=== PATIENT | female | born 1970 | race American Indian/Alaskan Native ===

== ENCOUNTER 2019-10-17 16:53 | Inpatient (IN) | payer OTHER ==
[2019-10-17] MEDS ORDERED: methylPREDNISolone Sod Succinate 125 MG/2 ML INJ IV ONE (17:05)
[2019-10-17] MEDS ORDERED: FAMOTIDINE 20 MG/2 ML INJ IV ONE ×3 (17:06→21:58)
[2019-10-17] MEDS ORDERED: diphenhydrAMINE 50 MG/ML VIAL IV ONE (17:06)
[2019-10-17] MEDS ORDERED: EPINEPHrine/PF (1:1,000) 1 MG/1 ML INJ SUB-Q ONE (17:07)
[2019-10-17] MEDS ORDERED: diphenhydrAMINE 50 MG/ML VIAL ONE (17:09)
[2019-10-17] MEDS ORDERED: methylPREDNISolone Sod Succinate 125 MG/2 ML INJ ONE ×2 (17:09→21:57)
[2019-10-17] MEDS ORDERED: SODIUM CHLORIDE 0.9% 1000 ML 1,000 ML ONE (17:21)
[2019-10-17] MEDS ORDERED: SUCCINYLCHOLINE CHLORIDE 200 MG/10 ML INJ MDV ONE (17:29)
[2019-10-17] MEDS ORDERED: ETOMIDATE 20 MG/10 ML INJ IV ONE ×2 (17:29→17:45)
[2019-10-17] MEDS ORDERED: MIDAZOLAM 5 MG/5 ML INJ MDV IV ONE (17:29)
[2019-10-17] MEDS ORDERED: PROPOFOL 1,000 MG/100 ML BOTTLE IV ONE ×2 (17:37→22:20)
[2019-10-17] MEDS ORDERED: LIP THERAPY VASELINE TP PRN (17:43)
[2019-10-17] MEDS ORDERED: MINERAL OIL/PETROLATUM, WHITE OPHTH OINT 3.5 GM OU PRN (17:43)
[2019-10-17] MEDS ORDERED: SUCCINYLCHOLINE CHLORIDE 200 MG/10 ML INJ MDV IV ONE (17:45)
--- NOTE | 2019-10-17 17:54 | Emergency Department Report ---
ED Allergic Reaction HPI - General Chief complaint: Allergic Reaction Stated complaint: SWOLLEN TONGUE Time Seen by Provider: 10/17/19 17:05 Source: patient Mode of arrival: Ambulatory Limitations: No Limitations - History of Present Illness Initial Comments: Patient is 49 years old female with history of hypertension. Patient presented to the ER complaining of tongue swelling and difficulty breathing and difficulty swallowing 30 minutes prior to coming to the ER. Patient is stated that she start taking lisinopril today. Patient denied any chest pain, fever or chills. Patient immediately moved to [place] ED, started on cardiac catheterization technician and oxygen, IV access. Patient immediately given Benadryl 50 mg IV, Pepcid 40 mg IV, Solu- Medrol 125 mg IV and epinephrine 0.3 mg subcutaneous. MD Complaint: allergic reaction, facial swelling -: minutes(s) (30) Exposure: medication (lisinopril) Symptoms: difficulty swallowing, difficulty breathing, orolingual swelling, hoarseness Severity: severe Treatment Prior to Arrival: none Previous Allergy History: none - Related Data Allergies Allergy/AdvReac Type Severity Reaction Status Date / Time lisinopril Allergy Angioedema Verified 10/17/19 17:55 ED Review of Systems ROS: Stated complaint: SWOLLEN TONGUE Other details as noted in HPI Comment: All other systems reviewed and negative Constitutional: denies: chills, fever Respiratory: shortness of breath. denies: cough Cardiovascular: denies: chest pain, palpitations Gastrointestinal: denies: abdominal pain ED Past Medical Hx - Past Medical History Previous Medical History?: Yes Hx Hypertension: Yes Hx Congestive Heart Failure: Yes Hx Diabetes: Yes - Surgical History Past Surgical History?: No ED Physical Exam - General Limitations: No Limitations General appearance: alert, in distress - Head Head exam: Present: atraumatic, normocephalic, normal inspection - Eye Eye exam: Present: normal appearance - ENT ENT exam: Present: other (significant tongue swelling with obvious airway compromise) - Neck Neck exam: Present: normal inspection, full ROM. Absent: tenderness, meningismus - Respiratory Respiratory exam: Present: normal lung sounds bilaterally, respiratory distress. Absent: wheezes, rales, rhonchi, stridor, accessory muscle use, decreased breath sounds, prolonged expiratory - Cardiovascular Cardiovascular Exam: Present: regular rate, normal rhythm, normal heart sounds - GI/Abdominal GI/Abdominal exam: Present: soft, normal bowel sounds. Absent: distended, tenderness, guarding, rebound, rigid, organomegaly, mass, bruit, pulsatile mass, hernia - Extremities Exam Extremities exam: Present: normal inspection, full ROM, normal capillary refill. Absent: calf tenderness - Back Exam Back exam: Present: normal inspection, full ROM. Absent: CVA tenderness (R), CVA tenderness (L) - Neurological Exam Neurological exam: Present: alert, oriented X3, CN II-XII intact - Skin Skin exam: Present: warm, intact, normal color ED Course Vital Signs 10/17/19 10/17/19 10/17/19 16:55 17:15 17:59 Temperature 98.6 F Pulse Rate 78 87 Respiratory 16 16 Rate Blood Pressure 189/113 150/93 O2 Sat by Pulse 95 98 100 Oximetry 10/17/19 18:31 Temperature Pulse Rate 85 Respiratory 17 Rate Blood Pressure 187/127 O2 Sat by Pulse 99 Oximetry ED Medical Decision Making - Lab Data Result diagrams: 10/17/19 17:39 10/17/19 17:39 - Radiology Data Radiology results: report reviewed - Medical Decision Making Patient is 49 years old female with history of hypertension. Patient presented to the ER complaining of tongue swelling and difficulty breathing and difficulty swallowing 30 minutes prior to coming to the ER. Patient is stated that she start taking lisinopril today. Patient denied any chest pain, fever or chills. Patient immediately moved to [place] ED, started on cardiac catheterization technician and oxygen, IV access. Patient immediately given Benadryl 50 mg IV, Pepcid 40 mg IV, Solu- Medrol 125 mg IV and epinephrine 0.3 mg subcutaneous. However patient symptoms is getting worse. Anticipating a difficult airway I consulted anesthesia stat. Dr. Anna from anesthesia at bedside for intubation. Using a Glidoscope patient intubated with a 7.0 endotracheal tube and started on propofol drip for sedation. I discussed the patient with Dr. Yu, she agreed to admit the patient to medical service for further management. Critical Care Time: Yes Critical care time in (mins) excluding proc time.: 45 Critical care attestation.: If time is entered above; I have spent that time in minutes in the direct care of this critically ill patient, excluding procedure time. ED Disposition Clinical Impression: Angio-edema, Airway compromise Disposition: OP ADMIT IP TO THIS HOSP Is pt being admited?: Yes Condition: Stable
--- NOTE | 2019-10-17 17:55 | Event Note ---
Date: 10/17/19 (Emergent intubation) 1720: Called to ED for patient with angioedema requiring emergent intubation. On arrival, patient awake, alert, hypertensive, SpO2 >95% on room air. Endorsed mild SOB. Large tongue noted on exam. Reported PMH HTN, DM, no anesthetic issues, and last meal immediately prior to arrival. Patient and family aware of and agreed to planned intubation. Preoxygenated on 100% O2 via ABMU. RSI w/ etomidate 12mg IV, succinylcholine 120mg IV Intubation achieved with glidescope blade 3 x 2 attempts. 7.0 oETT secured at 24cm @ incisor. Visualized ETT passing through cords, +CO2 color change, +b/l breath sounds. Atraumatic, no gastric secretions noted in oropharynx. Placed on vent by RT. CXR and sedation orders per ED. End time 1741. Clementina Anna MD Anesthesiologist
[2019-10-17] MEDS: PROPOFOL 1,000 MG/100 ML BOTTLE IV SCH (18:00)
[2019-10-17] MEDS ORDERED: MIDAZOLAM 5 MG/5 ML INJ MDV IV NR (18:00)
[2019-10-17 18:01] LABS: Basophils # (Auto) 0.1 K/mm3 (0.0-0.1); Basophils % (Auto) 0.7 % (0.0-1.8); Eosinophils # (Auto) 0.1 K/mm3 (0.0-0.4); Eosinophils % (Auto) 1.5 % (0.0-4.3); Hematocrit 37.9 % (30.3-42.9); Hemoglobin 12.8 gm/dl (10.1-14.3); Lymphocytes % (Auto) 44.3 % (13.4-35.0); Mean Corpuscular HGB Conc 34 % (30-34); Mean Corpuscular Volume 94 fl (79-97); Monocytes # (Auto) 0.6 K/mm3 (0.0-0.8); Monocytes % (Auto) 6.2 % (0.0-7.3); Platelet Count 370 K/mm3 (140-440); Red Blood Count 4.05 M/mm3 (3.65-5.03); Red Cell Distribution Width 14.8 % (13.2-15.2)
[2019-10-17 18:20] LABS: Calcium 8.9 mg/dL (8.4-10.2)
--- NOTE | 2019-10-17 18:20 | XRay Report ---
CHEST 1 VIEW 10/17/2019 5:57 PM INDICATION / CLINICAL INFORMATION: ETT placement. COMPARISON: None available. FINDINGS: SUPPORT DEVICES: ET tube has been placed with the tip about 3 cm above the mikayla. HEART / MEDIASTINUM: There is mild cardiomegaly. LUNGS / PLEURA: There is mild pulmonary vascular congestion. No pneumothorax. ADDITIONAL FINDINGS: No significant additional findings. IMPRESSION: 1. ET tube in place with the tip about 3 cm above the mikayla. 2. Findings suggesting mild CHF. Signer Name: Franck Flaherty MD Signed: 10/17/2019 6:16 PM Workstation Name: [id number]
[2019-10-17] MEDS ORDERED: ONDANSETRON 4 MG/2 ML INJ IV PRN (19:14)
--- NOTE | 2019-10-17 19:14 | History and Physical Report ---
History of Present Illness Chief complaint: Facial and tongue swelling History of present illness: 49-year-old woman with history of hypertension who takes lisinopril who presents to the ER with tongue swelling and difficulty breathing and swallowing for 30 minutes. She had last taken her lisinopril today in the morning. She was seen in the ER, she had worsening tongue swelling and airway swelling and she was pro mptly intubated. History is taken from chart. Her family members at the bedside states that she has never had any other medical problems besides hypertension that they knew of. She has also never suffered any allergy to food or any medications in the past. Past medical history; hypertension, diabetes, CHF Surgical history; unknown Social history; family did not report any bad habits, Family history; noncontributory Medications and Allergies Allergies Allergy/AdvReac Type Severity Reaction Status Date / Time lisinopril Allergy Angioedema Verified 10/17/19 17:55 Active Meds: Active Medications Hydrophilic Ointment (Vaseline Lip Therapy) 1 applic TP Q2HR PRN PRN Reason: Dry Lips Propofol (Diprivan 10 Mg/Ml) 1,000 mg in 100 mls @ 3.293 mls/hr IV TITR MIRI; Protocol Last Titration: 10/17/19 18:25 Dose: 15 mcg/kg/min, 9.879 mls/hr Documented by: Midazolam HCl (Versed) 5 mg IV ONCE NR Stop: 10/17/19 23:59 Last Admin: 10/17/19 17:36 Dose: 5 mg Documented by: Multi-Ingred Cream/Lotion/Oil/Oint (Artificial Tears Ophth Oint) 1 applic OU Q4HR PRN PRN Reason: Dry Eye(s) Review of Systems ROS unobtainable: due to endotracheal tube, due to mental status Exam - Constitutional Vitals: Temp Pulse Resp BP Pulse Ox 98.6 F 85 17 187/127 99 10/17/19 16:55 10/17/19 18:31 10/17/19 18:31 10/17/19 18:31 10/17/19 18:31 General appearance: Present: mild distress, well-nourished, other (Facial swelling noted) - EENT Eyes: Present: PERRL ENT: hearing intact, clear oral mucosa - Neck Neck: Present: supple, normal ROM - Respiratory Respiratory effort: normal Respiratory: bilateral: CTA - Cardiovascular Heart Sounds: Present: S1 & S2. Absent: rub, click - Extremities Extremities: pulses symmetrical, No edema Peripheral Pulses: within normal limits - Abdominal General gastrointestinal: Present: soft, non-tender, non-distended, normal bowel sounds Female genitourinary: Present: normal - Integumentary Integumentary: Present: clear, warm, dry - Musculoskeletal Musculoskeletal: other (Have spontaneous movements of extremities, but she is sedated) - Psychiatric Psychiatric: other (Intubated and sedated) - Neurologic Neurologic: moves all extremities, other (Sedated) Results - Labs CBC & Chem 7: 10/17/19 17:39 10/17/19 17:39 Labs: Laboratory Last Values WBC 9.0 K/mm3 (4.5-11.0) 10/17/19 17:39 RBC 4.05 M/mm3 (3.65-5.03) 10/17/19 17:39 Hgb 12.8 gm/dl (10.1-14.3) 10/17/19 17:39 Hct 37.9 % (30.3-42.9) 10/17/19 17:39 MCV 94 fl (79-97) 10/17/19 17:39 MCH 32 pg (28-32) 10/17/19 17:39 MCHC 34 % (30-34) 10/17/19 17:39 RDW 14.8 % (13.2-15.2) 10/17/19 17:39 Plt Count 370 K/mm3 (140-440) 10/17/19 17:39 Lymph % (Auto) 44.3 % (13.4-35.0) H 10/17/19 17:39 [place] % (Auto) 6.2 % (0.0-7.3) 10/17/19 17:39 Eos % (Auto) 1.5 % (0.0-4.3) 10/17/19 17:39 Baso % (Auto) 0.7 % (0.0-1.8) 10/17/19 17:39 Lymph # 4.0 K/mm3 (1.2-5.4) 10/17/19 17:39 [place] # 0.6 K/mm3 (0.0-0.8) 10/17/19 17:39 Eos # 0.1 K/mm3 (0.0-0.4) 10/17/19 17:39 Baso # 0.1 K/mm3 (0.0-0.1) 10/17/19 17:39 Seg Neutrophils % 47.3 % (40.0-70.0) 10/17/19 17:39 Seg Neutrophils # 4.2 K/mm3 (1.8-7.7) 10/17/19 17:39 POC ABG pH 7.325 (7.35-7.45) L 10/17/19 18:44 POC ABG pCO2 53.2 (35-45) H 10/17/19 18:44 POC ABG pO2 73 (80-105) L 10/17/19 18:44 POC ABG HCO3 27.7 (22-26 mml/L) 10/17/19 18:44 POC ABG Total CO2 29 (23-27mmol/L) 10/17/19 18:44 POC ABG O2 Sat 93 10/17/19 18:44 POC ABG Base Excess 2 ((-2) - (+3)mmol/L) 10/17/19 18:44 FiO2 100 % 10/17/19 18:44 Sodium 139 mmol/L (137-145) 10/17/19 17:39 Potassium 3.6 mmol/L (3.6-5.0) 10/17/19 17:39 Chloride 98.9 mmol/L (98-107) 10/17/19 17:39 Carbon Dioxide 22 mmol/L (22-30) 10/17/19 17:39 Anion Gap 22 mmol/L 10/17/19 17:39 BUN 19 mg/dL (7-17) H 10/17/19 17:39 Creatinine 1.2 mg/dL (0.7-1.2) 10/17/19 17:39 Estimated GFR 57 ml/min 10/17/19 17:39 BUN/Creatinine Ratio 16 % 10/17/19 17:39 Glucose 155 mg/dL (65-100) H 10/17/19 17:39 Calcium 8.9 mg/dL (8.4-10.2) 10/17/19 17:39 - Imaging and Cardiology Chest x-ray: image reviewed (CHF) Assessment and Plan Assessment and plan: 49-year-old woman who presents with tongue swelling inability to swallow Angioedema secondary to lisinopril Lisinopril added to allergy list, steroids, H1 and H2 david, when swelling improves, patient's will be plan for extubation Acute hypoxic and hypercapnic respiratory failure requiring mechanical ventilator less than 96 hours Continue mechanical ventilator, pulmonary consulted Hypertensive urgency IV hydralazine or labetalol as needed Diabetes Consistent carbohydrate diet, sliding scale insulin, check A1c Heart Failure with mild pulmonary edema on x-ray -IV diuretics,, -Echo, cardiology consult, DVT prophylaxis with Lovenox. Critical care time 35 minutes Preventative health counseling performed for 17 minutes Advanced care planning performed for 30 minutes. Discussed with family and answered all questions. Patient is full code, and has a significant chance of having a full recovery. They were reassured.
[2019-10-17] MEDS ORDERED: DEXTROSE 50% IN WATER (25GM) 50 ML SYRINGE IV PRN (21:11)
[2019-10-17] MEDS ORDERED: diphenhydrAMINE 50 MG/ML VIAL IV PRN (21:11)
[2019-10-17] MEDS ORDERED: ENOXAPARIN 40 MG/0.4 ML INJ SUB-Q ONE (21:57)
[2019-10-17] MEDS ORDERED: FUROSEMIDE 20 MG/2 ML INJ ONE (21:57)
[2019-10-17] MEDS ORDERED: SODIUM CHLORIDE 0.45% 1000 ML 1,000 ML IV SCH (22:00)
[2019-10-17] MEDS: FUROSEMIDE 20 MG/2 ML INJ IV SCH (22:23)
[2019-10-17] MEDS: FAMOTIDINE 20 MG/2 ML INJ IV SCH (22:23)
[2019-10-17] MEDS: ENOXAPARIN 40 MG/0.4 ML INJ SUB-Q SCH (22:24)
[2019-10-17] MEDS: methylPREDNISolone Sod Succinate 125 MG/2 ML INJ IV SCH (22:24)
[2019-10-18] MEDS ORDERED: hydrALAZINE 20 MG/1 ML INJ ONE ×2 (00:07→20:14)
[2019-10-18] MEDS: hydrALAZINE 20 MG/1 ML INJ IV PRN ×2 (00:11→20:20)
[2019-10-18] MEDS: INSULIN REGULAR, HUMAN 100 UNITS/1 ML SUB-Q SCH ×5 (00:33→23:45)
[2019-10-18] MEDS ORDERED: INSULIN REGULAR, HUMAN 100 UNITS/1 ML ONE ×5 (00:34→23:49)
[2019-10-18] MEDS: PROPOFOL 1,000 MG/100 ML BOTTLE IV SCH ×6 (02:06→20:19)
[2019-10-18] MEDS ORDERED: PROPOFOL 1,000 MG/100 ML BOTTLE IV ONE ×7 (02:06→23:28)
--- NOTE | 2019-10-18 02:53 | XRay Report ---
CHEST 1 VIEW, 10/18/2019 2:02 AM CLINICAL INFORMATION/INDICATION: Respiratory failure COMPARISON: Chest radiograph, 10/17/2019 at 5:57 PM FINDINGS: SUPPORT DEVICES: Endotracheal tube remains in stable position. HEART: There is stable moderate enlargement of the cardiac silhouette. LUNGS/PLEURA: Faint bilateral interstitial prominence is unchanged. ADDITIONAL FINDINGS: No additional acute findings. IMPRESSION: 1. Stable enlargement of the cardiac silhouette. 2. Prominence of the pulmonary interstitium suggesting mild pulmonary edema. Signer Name: Terese Dejesus MD Signed: 10/18/2019 2:49 AM Workstation Name: [id number]
[2019-10-18] MEDS ORDERED: methylPREDNISolone Sod Succinate 125 MG/2 ML INJ ONE ×3 (05:57→21:55)
[2019-10-18] MEDS: methylPREDNISolone Sod Succinate 125 MG/2 ML INJ IV SCH ×3 (06:02→21:59)
--- NOTE | 2019-10-18 07:59 | Consultation ---
History of Present Illness Consult date: 10/18/19 Requesting physician: MARTIN WOOD Reason for consult: other (Angioedema with acute upper airway obstruction on MVS) History of present illness: HISTORY PER MEDICAL RECORDS..PATIENT WAS INTUBATED AND SEDATED AT THE TIME OF MY EVALUATION 49-year-old woman with history of hypertension who takes lisinopril who presents to the ER with tongue swelling and difficulty breathing and swallowing for 30 minutes. She had last taken her lisinopril today in the morning. She was seen in the ER, she had worsening tongue swelling and airway swelling and she was promptly intubated. History is taken from chart. Her family members at the bedside states that she has never had any other medical problems besides hypertension that they knew of. She has also never suffered any allergy to food or any medications in the past. Past medical history; hypertension, diabetes, CHF Surgical history; unknown Social history; No reported smoking, no alcohol Family history; noncontributory I have been consulted for critical care management. Patient was seen and examined. Her sister was at the bedside and was unable to give any more history. Patient was seen and examined. Vitals, labs, medications, chart and imaging reviewed. She was orally intubated, sedated- not in any distress , no patient-ventilator dys-synchrony Medications and Allergies Allergies Allergy/AdvReac Type Severity Reaction Status Date / Time lisinopril Allergy Angioedema Verified 10/17/19 17:55 Home Medications Medication Instructions Recorded Confirmed Last Taken Type Furosemide [Lasix] 20 mg PO QAM 10/18/19 10/18/19 Unknown History Metoprolol Tartrate [Lopressor] 50 mg PO BID 10/18/19 10/18/19 Unknown History metFORMIN [Glucophage] 1,000 mg PO BID 10/18/19 10/18/19 Unknown History Active Meds: Active Medications Acetaminophen (Tylenol) 650 mg PO Q4H PRN PRN Reason: Pain MILD(1-3)/Fever >100.5/AMARO Dextrose (D50w (25gm) Syringe) 50 ml IV Q30MIN PRN; Protocol PRN Reason: Hypoglycemia Diphenhydramine HCl (Benadryl) 25 mg IV Q6H PRN PRN Reason: Itching Enoxaparin Sodium (Enoxaparin) 40 mg SUB-Q QDAY@2200 MIRI Last Admin: 10/17/19 22:24 Dose: 40 mg Documented by: Famotidine (Pepcid) 20 mg IV BID [facility] Last Admin: 10/17/19 22:23 Dose: 20 mg Documented by: Furosemide (Lasix) 20 mg IV QDAY [facility] Last Admin: 10/17/19 22:23 Dose: 20 mg Documented by: Hydralazine HCl (Apresoline) 10 mg IV Q4HR PRN PRN Reason: BP >160/100 Last Admin: 10/18/19 00:11 Dose: 10 mg Documented by: Hydrophilic Ointment (Vaseline Lip Therapy) 1 applic TP Q2HR PRN PRN Reason: Dry Lips Propofol (Diprivan 10 Mg/Ml) 1,000 mg in 100 mls @ 3.293 mls/hr IV TITR [facility]; Protocol Last Admin: 10/18/19 06:27 Dose: 35 mcg/kg/min, 23.051 mls/hr Documented by: Insulin Human Regular (Humulin R) 0 units SUB-Q Q6HR [facility]; Protocol Last Admin: 10/18/19 06:02 Dose: 2 units Documented by: Labetalol HCl (Labetalol) 10 mg IV Q4H PRN PRN Reason: BP >170/105; hold for HR <60 Last Admin: 10/18/19 01:26 Dose: 10 mg Documented by: Methylprednisolone Sodium Succinate (Solu-Medrol) 125 mg IV Q8HR [facility] Last Admin: 10/18/19 06:02 Dose: 125 mg Documented by: Multi-Ingred Cream/Lotion/Oil/Oint (Artificial Tears Ophth Oint) 1 applic OU Q4HR PRN PRN Reason: Dry Eye(s) Ondansetron HCl (Zofran) 4 mg IV Q8H PRN PRN Reason: Nausea And Vomiting Sodium Chloride (Sodium Chloride Flush Syringe 10 Ml) 10 ml IV BID [facility] Last Admin: 10/17/19 22:00 Dose: 10 ml Documented by: Sodium Chloride (Sodium Chloride Flush Syringe 10 Ml) 10 ml IV PRN PRN PRN Reason: LINE FLUSH Review of Systems ROS unobtainable: due to endotracheal tube Physical Examination Vital signs: Vital Signs Temp Pulse Resp BP Pulse Ox 98.6 F 78 16 189/113 95 10/17/19 16:55 10/17/19 16:55 10/17/19 16:55 10/17/19 16:55 10/17/19 16:55 Vitals reviewed General appearance: Present: mild distress, well-nourished, other (Facial swelling noted) - EENT Eyes: Present: PERRL ENT: Orally intubated - Neck Neck: Present: supple, normal ROM - Respiratory Respiratory effort: normal Respiratory: bilateral: CTA - Cardiovascular Heart Sounds: Present: S1 & S2. Absent: rub, click - Extremities Extremities: pulses symmetrical, No edema Peripheral Pulses: within normal limits - Abdominal General gastrointestinal: Present: soft, non-tender, non-distended, normal bowel sounds Female genitourinary: Present: normal - Integumentary Integumentary: Present: clear, warm, dry - Musculoskeletal Musculoskeletal: other (Have spontaneous movements of extremities, but she is sedated) - Psychiatric Psychiatric: other (Intubated and sedated) - Neurologic Neurologic: moves all extremities, other (Sedated) General appearance: no acute distress, other (ETT at 24 cm at the lip, facial swelling, obese AAW, atraumatic, normocephalic) Eyes: non-icteric ENT: oropharynx moist, other (tongue swelling) Neck: supple, no JVD Effort: normal Ascultation: Bilateral: clear, diminished breath sounds Cardiovascular: regular rate and rhythm, other (S1,S2,) Gastrointestinal: normoactive bowel sounds, soft, non-tender, non-distended, other (obese) Integumentary: normal Extremities: no cyanosis, no edema, pulses normal, no ischemia or petechiae non-focal exam (moves all extemites, opens eyes on verbal and tactile stimuli) other (unable to assess) Results - Laboratory Findings CBC and BMP: 10/18/19 08:22 10/18/19 08:22 ABG POC ABG pH 7.408 (7.35-7.45) 10/18/19 03:54 POC ABG pCO2 39.7 (35-45) 10/18/19 03:54 POC ABG pO2 69 (80-105) L 10/18/19 03:54 POC ABG HCO3 25.0 (22-26 mml/L) 10/18/19 03:54 POC ABG Total CO2 26 (23-27mmol/L) 10/18/19 03:54 POC ABG O2 Sat 94 10/18/19 03:54 Abnormal lab findings: Abnormal Labs 10/17/19 10/17/19 10/17/19 17:39 17:39 18:44 Lymph % (Auto) 44.3 H POC ABG pH 7.325 L POC ABG pCO2 53.2 H POC ABG pO2 73 L BUN 19 H Glucose 155 H POC Glucose 10/18/19 10/18/19 10/18/19 00:39 03:54 06:02 Lymph % (Auto) POC ABG pH POC ABG pCO2 POC ABG pO2 69 L BUN Glucose POC Glucose 210 H 232 H - Diagnostic Findings Chest x-ray: image reviewed (ETT in position, No acute infiltrates) Assessment and Plan Angioedema with upper airway obstruction, secondary to lisinopril Acute hypoxic-hypercapnic respiratory failure on MVS Morbid obesity Hypertensive urgency Allergy to lisinopril Type 2 DM h/o Heart failure -VAP bundle addressed -Aspiration precautions, HOB>40 degrees - Lung protective strategies -Bronchodilators -Steroids, H2 antagonists, antihistamines -Wean FIO2 fro O2 sats >90% -CXR, ABG in am -CBC, BMP in am -Daily SAT, SBT as tolerated -Place OGT , confirm placement and initiate enteral nutrition -RD consult placed -Analgesia and sedation , titrate to RASS of -1 -Tracheal aspirate -VTE prophylaxis -Stress ulcer prophylaxis - Accuchecks with glycemic control for SSI (While critically ill target blood glucose of 140-180 mg/dL; avoid hypoglycemia) - mobility protocol for pressure ulcer prevention - Monitor hemodynamics closely -Monitor electrolyte profile closely and replete as indicated -Chronic home medications, resume as clinically indicated -Gentle diuresis , while monitoring renal function, hemodynamics and electrolyte profile -Transthoracic echocardiogram to evaluate LVEF and for pulmonary HTN -Evaluation for AURORA as outpatient -Blood pressure control Discussed with RT/care aide care planning performed -Updated her sister, who was at the bedside CONDITION: CRITICAL PROGNOSIS: GUARDED CODE STATUS: FULL CODE The high probability of a clinically significant, sudden or life-threatening deterioration of the [respiratory, cardiovascular] system(s) required my full and direct attention, intervention and personal management. The aggregate critical care time was [65] minutes without overlap. Time includes spent on; [x] Data Review and interpretation [x] Patient assessment and monitoring of vital signs [x] Documentation [x] Medication orders and management
[2019-10-18 08:39] LABS: Basophils # (Auto) 0.1 K/mm3 (0.0-0.1); Basophils % (Auto) 0.5 % (0.0-1.8); Hematocrit 39.2 % (30.3-42.9); Hemoglobin 13.2 gm/dl (10.1-14.3); Lymphocytes # (Auto) 1.5 K/mm3 (1.2-5.4); Lymphocytes % (Auto) 13.9 % (13.4-35.0); Mean Corpuscular HGB Conc 34 % (30-34); Mean Corpuscular Volume 92 fl (79-97); Monocytes # (Auto) 0.1 K/mm3 (0.0-0.8); Monocytes % (Auto) 0.5 % (0.0-7.3); Platelet Count 382 K/mm3 (140-440); Red Blood Count 4.25 M/mm3 (3.65-5.03); Red Cell Distribution Width 14.7 % (13.2-15.2)
[2019-10-18 08:59] LABS: Calcium 8.9 mg/dL (8.4-10.2)
[2019-10-18] MEDS ORDERED: FUROSEMIDE 20 MG/2 ML INJ ONE (09:22)
[2019-10-18] MEDS ORDERED: FAMOTIDINE 20 MG/2 ML INJ IV ONE ×2 (09:23→21:56)
[2019-10-18] MEDS: FUROSEMIDE 20 MG/2 ML INJ IV SCH (09:36)
[2019-10-18] MEDS: FAMOTIDINE 20 MG/2 ML INJ IV SCH ×2 (09:36→21:59)
--- NOTE | 2019-10-18 11:48 | Progress Note ---
Assessment and Plan Assessment and plan: 49-year-old woman who presents with tongue swelling inability to swallow Angioedema secondary to lisinopril Lisinopril added to allergy list, steroids, H1 and H2 david, when swelling improves, patient's will be plan for extubation Acute hypoxic and hypercapnic respiratory failure requiring mechanical ventilator less than 96 hours Continue mechanical ventilator, pulmonary consulted Hypertensive urgency IV hydralazine or labetalol as needed Diabetes Consistent carbohydrate diet, sliding scale insulin, check A1c Heart Failure with mild pulmonary edema on x-ray -IV diuretics,, -Echo, cardiology consult, DVT prophylaxis with Lovenox. Critical care time 35 minutes Preventative health counseling performed for 17 minutes Advanced care planning performed for 30 minutes. Discussed with family and answered all questions. Patient is full code, and has a significant chance of having a full recovery. They were reassured. Hospitalist Physical - Constitutional Vitals: Temp Pulse Resp BP Pulse Ox 99.6 F 101 H 20 176/92 92 10/18/19 04:14 10/18/19 09:36 10/18/19 09:30 10/18/19 09:36 10/18/19 09:30 General appearance: Present: mild distress, well-nourished, other (Facial swe lling noted) Results - Labs CBC & Chem 7: 10/18/19 08:22 10/18/19 08:22 Labs: Laboratory Last Values WBC 10.4 K/mm3 (4.5-11.0) 10/18/19 08:22 RBC 4.25 M/mm3 (3.65-5.03) 10/18/19 08:22 Hgb 13.2 gm/dl (10.1-14.3) 10/18/19 08:22 Hct 39.2 % (30.3-42.9) 10/18/19 08:22 MCV 92 fl (79-97) 10/18/19 08:22 MCH 31 pg (28-32) 10/18/19 08:22 MCHC 34 % (30-34) 10/18/19 08:22 RDW 14.7 % (13.2-15.2) 10/18/19 08:22 Plt Count 382 K/mm3 (140-440) 10/18/19 08:22 Lymph % (Auto) 13.9 % (13.4-35.0) 10/18/19 08:22 [place] % (Auto) 0.5 % (0.0-7.3) 10/18/19 08:22 Eos % (Auto) 0.0 % (0.0-4.3) 10/18/19 08:22 Baso % (Auto) 0.5 % (0.0-1.8) 10/18/19 08:22 Lymph # 1.5 K/mm3 (1.2-5.4) 10/18/19 08:22 [place] # 0.1 K/mm3 (0.0-0.8) 10/18/19 08:22 Eos # 0.0 K/mm3 (0.0-0.4) 10/18/19 08:22 Baso # 0.1 K/mm3 (0.0-0.1) 10/18/19 08:22 Seg Neutrophils % 85.1 % (40.0-70.0) H 10/18/19 08:22 Seg Neutrophils # 8.9 K/mm3 (1.8-7.7) H 10/18/19 08:22 POC ABG pH 7.408 (7.35-7.45) 10/18/19 03:54 POC ABG pCO2 39.7 (35-45) 10/18/19 03:54 POC ABG pO2 69 (80-105) L 10/18/19 03:54 POC ABG HCO3 25.0 (22-26 mml/L) 10/18/19 03:54 POC ABG Total CO2 26 (23-27mmol/L) 10/18/19 03:54 POC ABG O2 Sat 94 10/18/19 03:54 POC ABG Base Excess 0 ((-2) - (+3)mmol/L) 10/18/19 03:54 FiO2 50 % 10/18/19 03:54 Sodium 138 mmol/L (137-145) 10/18/19 08:22 Potassium 3.5 mmol/L (3.6-5.0) L 10/18/19 08:22 Chloride 100.0 mmol/L (98-107) 10/18/19 08:22 Carbon Dioxide 21 mmol/L (22-30) L 10/18/19 08:22 Anion Gap 21 mmol/L 10/18/19 08:22 BUN 26 mg/dL (7-17) H 10/18/19 08:22 Creatinine 1.6 mg/dL (0.7-1.2) H 10/18/19 08:22 Estimated GFR 41 ml/min 10/18/19 08:22 BUN/Creatinine Ratio 16 % 10/18/19 08:22 Glucose 262 mg/dL (65-100) H 10/18/19 08:22 POC Glucose 232 (70-105) H 10/18/19 06:02 Hemoglobin A1c 7.5 % (4-6) H 10/18/19 08:22 Calcium 8.9 mg/dL (8.4-10.2) 10/18/19 08:22 Active Medications - Current Medications Current Medications: Generic Name Dose Route Start Last Admin Trade Name Freq PRN Reason Stop Dose Admin Acetaminophen 650 mg 10/17/19 19:14 Tylenol PO Q4H PRN Pain MILD(1-3)/Fever >100.5/AMARO Dextrose 50 ml 10/17/19 21:11 D50w (25gm) Syringe IV Q30MIN PRN Hypoglycemia Protocol Diphenhydramine HCl 25 mg 10/17/19 21:11 Benadryl IV Q6H PRN Itching Enoxaparin Sodium 40 mg 10/17/19 22:00 10/17/19 22:24 Enoxaparin SUB-Q 40 mg QDAY@2200 MIRI Administration Famotidine 20 mg 10/17/19 22:00 10/18/19 09:36 Pepcid IV 20 mg BID MIRI Administration Furosemide 20 mg 10/17/19 22:00 10/18/19 09:36 Lasix IV 20 mg QDAY MIRI Administration Hydralazine HCl 10 mg 10/17/19 20:44 10/18/19 00:11 Apresoline IV 10 mg Q4HR PRN Administration BP >160/100 Hydrophilic Ointment 1 applic 10/17/19 17:43 Vaseline Lip Therapy TP Q2HR PRN Dry Lips Propofol 1,000 mg in 100 mls @ 3.293 mls/hr 10/17/19 18:00 10/18/19 11:13 Diprivan 10 Mg/Ml IV 50 mcg/kg/min TITR MIRI 32.931 mls/hr Administration Protocol 5 MCG/KG/MIN Insulin Human Regular 0 units 10/18/19 00:00 10/18/19 06:02 Humulin R SUB-Q 2 units Q6HR MIRI Administration Protocol Labetalol HCl 10 mg 10/17/19 20:44 10/18/19 09:36 Labetalol IV 10 mg Q4H PRN Administration BP >170/105; hold for HR <60 Methylprednisolone Sodium Succinate 125 mg 10/17/19 22:00 10/18/19 06:02 Solu-Medrol IV 125 mg Q8HR MIRI Administration Multi-Ingred Cream/Lotion/Oil/Oint 1 applic 10/17/19 17:43 Artificial Tears Ophth Oint OU Q4HR PRN Dry Eye(s) Ondansetron HCl 4 mg 10/17/19 19:14 Zofran IV Q8H PRN Nausea And Vomiting Sodium Chloride 10 ml 10/17/19 22:00 10/18/19 09:36 Sodium Chloride Flush Syringe 10 Ml IV 10 ml BID MIRI Administration Sodium Chloride 10 ml 10/17/19 19:14 Sodium Chloride Flush Syringe 10 Ml IV PRN PRN LINE FLUSH
--- NOTE | 2019-10-18 13:54 | Consultation ---
History of Present Illness Consult date: 10/18/19 Consult reason: elevated troponin, other (respiratory failure) History of present illness: The patient is a 49-year-old woman who presented to the emergency room with angioedema involving severe swelling of the lungs. Her symptoms culminated in acute respiratory failure, and in the emergency room she was intubated and currently on the vent. The severe allergic reaction is thought to be due to lisinopril, but she was also said to have eating some pizza prior to the onset of her symptoms. During her course in the hospital, she has remained in a stable sinus rhythm. The blood pressure has been elevated as high as 180-200 sy stolic. Cardiogenic consultation was requested for "CHF", but currently her chest x-ray shows mild cardiomegaly but no interstitial edema and no CHF. She does have a history of "CHF", as reported by her daughter was at the bedside. A recent cardiac catheterization at [facility] reported no significant coronary artery disease. The patient's daughter is unable to articulate the patient's most recent left ventricular ejection fraction. Past History Past Medical History: heart failure, hypertension Medications and Allergies Allergies Allergy/AdvReac Type Severity Reaction Status Date / Time lisinopril Allergy Angioedema Verified 10/17/19 17:55 Active Meds: Active Medications Acetaminophen (Tylenol) 650 mg PO Q4H PRN PRN Reason: Pain MILD(1-3)/Fever >100.5/AMARO Dextrose (D50w (25gm) Syringe) 50 ml IV Q30MIN PRN; Protocol PRN Reason: Hypoglycemia Diphenhydramine HCl (Benadryl) 25 mg IV Q6H PRN PRN Reason: Itching Enoxaparin Sodium (Enoxaparin) 40 mg SUB-Q QDAY@2200 [facility] Last Admin: 10/17/19 22:24 Dose: 40 mg Documented by: Famotidine (Pepcid) 20 mg IV BID [facility] Last Admin: 10/18/19 09:36 Dose: 20 mg Documented by: Furosemide (Lasix) 20 mg IV QDAY [facility] Last Admin: 10/18/19 09:36 Dose: 20 mg Documented by: Hydralazine HCl (Apresoline) 10 mg IV Q4HR PRN PRN Reason: BP >160/100 Last Admin: 10/18/19 00:11 Dose: 10 mg Documented by: Hydrophilic Ointment (Vaseline Lip Therapy) 1 applic TP Q2HR PRN PRN Reason: Dry Lips Propofol (Diprivan 10 Mg/Ml) 1,000 mg in 100 mls @ 3.293 mls/hr IV TITR [facility]; Protocol Last Admin: 10/18/19 13:44 Dose: 50 mcg/kg/min, 32.931 mls/hr Documented by: Insulin Human Regular (Humulin R) 0 units SUB-Q Q6HR [facility]; Protocol Last Admin: 10/18/19 12:02 Dose: 3 units Documented by: Labetalol HCl (Labetalol) 10 mg IV Q4H PRN PRN Reason: BP >170/105; hold for HR <60 Last Admin: 10/18/19 09:36 Dose: 10 mg Documented by: Methylprednisolone Sodium Succinate (Solu-Medrol) 125 mg IV Q8HR [facility] Last Admin: 10/18/19 13:46 Dose: 125 mg Documented by: Multi-Ingred Cream/Lotion/Oil/Oint (Artificial Tears Ophth Oint) 1 applic OU Q4HR PRN PRN Reason: Dry Eye(s) Ondansetron HCl (Zofran) 4 mg IV Q8H PRN PRN Reason: Nausea And Vomiting Sodium Chloride (Sodium Chloride Flush Syringe 10 Ml) 10 ml IV BID [facility] Last Admin: 10/18/19 09:36 Dose: 10 ml Documented by: Sodium Chloride (Sodium Chloride Flush Syringe 10 Ml) 10 ml IV PRN PRN PRN Reason: LINE FLUSH Review of Systems ROS unobtainable: due to endotracheal tube, due to mental status Physical Examination Vital Signs Temp Pulse Resp BP Pulse Ox 98.6 F 78 16 189/113 95 10/17/19 16:55 10/17/19 16:55 10/17/19 16:55 10/17/19 16:55 10/17/19 16:55 General appearance: other (sedated, on the vent) HEENT: Positive: PERRL Neck: Positive: neck supple Cardiac: Positive: Reg Rate and Rhythm Lungs: Positive: Decreased Breath Sounds Neuro: Positive: Weakness (sedated, on the vent) Abdomen: Positive: Soft Female genitourinary: deferred Skin: Positive: Clear Extremities: Absent: edema Results 10/18/19 08:22 10/18/19 08:22 CBC 10/17/19 10/18/19 Range/Units 17:39 08:22 WBC 9.0 10.4 (4.5-11.0) K/mm3 RBC 4.05 4.25 (3.65-5.03) M/mm3 Hgb 12.8 13.2 (10.1-14.3) gm/dl Hct 37.9 39.2 (30.3-42.9) % Plt Count 370 382 (140-440) K/mm3 Lymph # 4.0 1.5 (1.2-5.4) K/mm3 [place] # 0.6 0.1 (0.0-0.8) K/mm3 Eos # 0.1 0.0 (0.0-0.4) K/mm3 Baso # 0.1 0.1 (0.0-0.1) K/mm3 Comprehensive Metabolic Panel 10/17/19 10/18/19 Range/Units 17:39 08:22 Sodium 139 138 (137-145) mmol/L Potassium 3.6 3.5 L (3.6-5.0) mmol/L Chloride 98.9 100.0 (98-107) mmol/L Carbon Dioxide 22 21 L (22-30) mmol/L BUN 19 H 26 H (7-17) mg/dL Creatinine 1.2 1.6 H (0.7-1.2) mg/dL Glucose 155 H 262 H (65-100) mg/dL Calcium 8.9 8.9 (8.4-10.2) mg/dL Assessment and Plan - Patient Problems (1) Respiratory failure Current Visit: Yes Status: Acute Plan to address problem: Patient's acute respiratory failure is due to an allergic reaction manifested by angioedema. We'll defer to critical care and internal medicine for further evaluation and management. (2) Cardiomyopathy Current Visit: Yes Status: Acute Plan to address problem: Patient's daughter gives a history of a nonischemic cardiomyopathy. We will get an echocardiogram for left ventricular function reassessment, in order to tailor future medical therapy. We'll also get records from her previous evaluation at [facility]. (3) Uncontrolled hypertension Current Visit: Yes Status: Acute Plan to address problem: Severe uncontrolled hypertension with a managed with intravenous nitroglycerin or intravenous nicardipine until patient is of the vent and able to take oral medications.
[2019-10-18] MEDS ORDERED: MIDAZOLAM 2 MG/2 ML INJ IV PRN (20:57)
[2019-10-18] MEDS ORDERED: MIDAZOLAM 100 MG in SODIUM CHLORIDE 0.9% 80 ML IV SCH (21:00)
[2019-10-18] MEDS ORDERED: ENOXAPARIN 40 MG/0.4 ML INJ SUB-Q ONE (21:56)
[2019-10-18] MEDS ORDERED: FUROSEMIDE 40 MG/4 ML INJ ONE (21:56)
[2019-10-18] MEDS: ENOXAPARIN 40 MG/0.4 ML INJ SUB-Q SCH (21:59)
[2019-10-19] MEDS: PROPOFOL 1,000 MG/100 ML BOTTLE IV SCH ×6 (01:35→18:20)
[2019-10-19] MEDS ORDERED: PROPOFOL 1,000 MG/100 ML BOTTLE IV ONE ×6 (02:38→21:54)
--- NOTE | 2019-10-19 04:45 | XRay Report ---
CHEST 1 VIEW, 10/19/2019 2:17 AM CLINICAL INFORMATION/INDICATION: Respiratory failure COMPARISON: Chest radiograph, 10/18/2019 at 2:02 AM FINDINGS: SUPPORT DEVICES: The endotracheal tube remains in stable position. There is been interval placement o f esophagogastric tube with tip below the level of the diaphragm. HEART: The cardiac silhouette remains enlarged. LUNGS/PLEURA: Faint interstitial prominence is unchanged. No large pleural effusion or pneumothorax i s demonstrated. ADDITIONAL FINDINGS: No additional acute findings. IMPRESSION: 1. Stable appearance of the chest. Signer Name: Terese Dejesus MD Signed: 10/19/2019 4:41 AM Workstation Name: [id number]
[2019-10-19 06:02] LABS: ABG Base Excess 0.1 mmol/L (-2.0-3.0); ABG HCO3 24.5 mmol/L (20.0-26.0); ABG Methemoglobin 0.5 % (0.0-1.5); ABG Oxygen Saturation 96.3 % (95.0-99.0); ABG PH 7.416 pH Units (7.350-7.450); ABG PO2 76.6 mm Hg (80.0-90.0)
[2019-10-19] MEDS ORDERED: INSULIN REGULAR, HUMAN 100 UNITS/1 ML ONE ×3 (06:16→17:56)
[2019-10-19] MEDS: INSULIN REGULAR, HUMAN 100 UNITS/1 ML SUB-Q SCH ×3 (06:18→17:58)
[2019-10-19] MEDS ORDERED: FUROSEMIDE 20 MG/2 ML INJ ONE (09:22)
[2019-10-19] MEDS ORDERED: methylPREDNISolone Sod Succinate 125 MG/2 ML INJ ONE ×2 (09:22→13:54)
[2019-10-19] MEDS ORDERED: FAMOTIDINE 20 MG/2 ML INJ IV ONE (09:23)
[2019-10-19] MEDS: methylPREDNISolone Sod Succinate 125 MG/2 ML INJ IV SCH ×2 (09:25→13:54)
[2019-10-19] MEDS: FAMOTIDINE 20 MG/2 ML INJ IV SCH (09:31)
[2019-10-19] MEDS: FUROSEMIDE 20 MG/2 ML INJ IV SCH (09:31)
--- NOTE | 2019-10-19 09:53 | Progress Note ---
Assessment and Plan Angioedema with upper airway obstruction, secondary to lisinopril Acute hypoxic-hypercapnic respiratory failure on MVS Morbid obesity Hypertensive urgency Allergy to lisinopril Type 2 DM h/o Heart failure Plced on PSV, she tolerated it but minimal (50cc) cuff leak. Placed back on full support, will trial SBT again tomorrow. -VAP bundle addressed -Aspiration precautions, HOB>40 degrees - Lung protective strategies -Bronchodilators -Steroids, H2 antagonists, antihistamines -Wean FIO2 for O2 sats >90% -CXR, ABG in am -CBC, BMP in am -Daily SAT, SBT as tolerated -OGT , initiate enteral nutrition -Analgesia and sedation , titrate to RASS of -1 -Tracheal aspirate -VTE prophylaxis -Stress ulcer prophylaxis - Accuchecks with glycemic control for SSI (While critically ill target blood glucose of 140-180 mg/dL; avoid hypoglycemia) - mobility protocol for pressure ulcer prevention - Monitor hemodynamics closely -Monitor electrolyte profile closely and replete as indicated -Chronic home medications, continue as clinically indicated -Gentle diuresis , while monitoring renal function, hemodynamics and electrolyte profile -Evaluation for AURORA as outpatient -Blood pressure control Discussed with RT/food assembler kitchen care planning performed -Updated her sister, who was at the bedside CONDITION: CRITICAL PROGNOSIS: GUARDED CODE STATUS: FULL CODE The high probability of a clinically significant, sudden or life-threatening deterioration of the [respiratory, cardiovascular] system(s) required my full and direct attention, intervention and personal management. The aggregate cri tical care time was [35] minutes without overlap. Time includes spent on; [x] Data Review and interpretation [x] Patient assessment and monitoring of vital signs [x] Documentation [x] Medication orders and management Subjective Date of service: 10/19/19 Interval history: Patient is seen today for: angioedema requiring MVS, morbid obesity Seen and examined at bedside; 24-hour events reviewed; nursing and respiratory care staff consulted; no adverse overnight events reported to me; resting peacefully in bed, sedated , orally intubated. No fevers, no vomiting, no diarrhea. Swelling is improving Objective Vital Signs - 12hr 10/18/19 10/18/19 10/18/19 22:01 22:31 23:01 Temperature Pulse Rate 103 H 107 H 107 H Respiratory 20 25 H 21 Rate Blood Pressure 143/78 130/77 Blood Pressure [Right] O2 Sat by Pulse 97 97 96 Oximetry 10/18/19 10/19/19 10/19/19 23:31 00:00 00:01 Temperature 98.5 F Pulse Rate 105 H 103 H Respiratory 20 20 Rate Blood Pressure 130/77 117/63 Blood Pressure [Right] O2 Sat by Pulse 97 96 Oximetry 10/19/19 10/19/19 10/19/19 00:07 00:31 00:55 Temperature Pulse Rate 103 H 101 H 98 H Respiratory 20 20 Rate Blood Pressure 117/63 117/63 117/63 Blood Pressure [Right] O2 Sat by Pulse 97 97 97 Oximetry 10/19/19 10/19/19 10/19/19 01:00 01:31 02:00 Temperature Pulse Rate 97 H 95 H 95 H Respiratory 20 20 20 Rate Blood Pressure 104/58 104/58 104/58 Blood Pressure [Right] O2 Sat by Pulse 97 97 97 Oximetry 10/19/19 10/19/19 10/19/19 02:31 03:00 03:31 Temperature Pulse Rate 92 H 93 H 93 H Respiratory 20 20 20 Rate Blood Pressure 112/65 109/67 112/65 Blood Pressure [Right] O2 Sat by Pulse 97 97 97 Oximetry 10/19/19 10/19/19 10/19/19 04:00 04:31 05:00 Temperature Pulse Rate 92 H 92 H 91 H Respiratory 20 20 20 Rate Blood Pressure 112/69 109/67 112/66 Blood Pressure [Right] O2 Sat by Pulse 97 96 Oximetry 10/19/19 10/19/19 10/19/19 05:31 05:49 06:00 Temperature Pulse Rate 92 H 89 90 Respiratory 20 20 Rate Blood Pressure 112/66 112/66 112/66 Blood Pressure [Right] O2 Sat by Pulse 97 98 98 Oximetry 10/19/19 10/19/19 10/19/19 06:31 07:46 09:12 Temperature 98.0 F Pulse Rate 91 H 91 H 92 H Respiratory 20 20 Rate Blood Pressure 128/75 147/88 Blood Pressure 129/77 [Right] O2 Sat by Pulse 97 97 98 Oximetry Constitutional: no acute distress, other (ETT at 24 cm at the lip, facial swelling, obese AAW, atraumatic, normocephalic) Eyes: non-icteric ENT: oropharynx moist, other (tongue swelling, improving) Neck: supple, no JVD Effort: normal Ascultation: Bilateral: clear, diminished breath sounds Cardiovascular: regular rate and rhythm, other (S1,S2,) Gastrointestinal: normoactive bowel sounds, soft, non-tender, non-distended, other (obese) Integumentary: normal Extremities: no cyanosis, no edema, pulses normal, no ischemia or petechiae Neurologic: non-focal exam (moves all extemites, opens eyes on verbal and tactile stimuli), pupils equal and round Psychiatric: other (unable to assess) CBC and BMP: 10/18/19 08:22 10/20/19 03:25 ABG, PT/INR, D-dimer: ABG POC ABG pH 7.408 (7.35-7.45) 10/18/19 03:54 ABG pH 7.416 pH Units (7.350-7.450) 10/19/19 05:40 POC ABG pCO2 39.7 (35-45) 10/18/19 03:54 ABG pCO2 39.0 mm Hg 10/19/19 05:40 POC ABG pO2 69 (80-105) L 10/18/19 03:54 ABG pO2 76.6 mm Hg (80.0-90.0) L 10/19/19 05:40 POC ABG HCO3 25.0 (22-26 mml/L) 10/18/19 03:54 POC ABG Total CO2 26 (23-27mmol/L) 10/18/19 03:54 POC ABG O2 Sat 94 10/18/19 03:54 ABG O2 Saturation 96.3 % (95.0-99.0) 10/19/19 05:40 Abnormal lab findings: Abnormal Labs 10/17/19 10/17/19 10/17/19 17:39 17:39 18:44 Lymph % (Auto) 44.3 H Seg Neutrophils % Seg Neutrophils # POC ABG pH 7.325 L POC ABG pCO2 53.2 H POC ABG pO2 73 L ABG pO2 Oxyhemoglobin Potassium Carbon Dioxide BUN 19 H Creatinine Glucose 155 H POC Glucose Hemoglobin A1c 10/18/19 10/18/19 10/18/19 00:39 03:54 06:02 Lymph % (Auto) Seg Neutrophils % Seg Neutrophils # POC ABG pH POC ABG pCO2 POC ABG pO2 69 L ABG pO2 Oxyhemoglobin Potassium Carbon Dioxide BUN Creatinine Glucose POC Glucose 210 H 232 H Hemoglobin A1c 10/18/19 10/18/19 10/18/19 08:22 08:22 08:22 Lymph % (Auto) Seg Neutrophils % 85.1 H Seg Neutrophils # 8.9 H POC ABG pH POC ABG pCO2 POC ABG pO2 ABG pO2 Oxyhemoglobin Potassium 3.5 L Carbon Dioxide 21 L BUN 26 H Creatinine 1.6 H Glucose 262 H POC Glucose Hemoglobin A1c 7.5 H 10/18/19 10/18/19 10/18/19 12:07 18:36 23:54 Lymph % (Auto) Seg Neutrophils % Seg Neutrophils # POC ABG pH POC ABG pCO2 POC ABG pO2 ABG pO2 Oxyhemoglobin Potassium Carbon Dioxide BUN Creatinine Glucose POC Glucose 260 H 237 H 226 H Hemoglobin A1c 10/19/19 10/19/19 05:40 06:16 Lymph % (Auto) Seg Neutrophils % Seg Neutrophils # POC ABG pH POC ABG pCO2 POC ABG pO2 ABG pO2 76.6 L Oxyhemoglobin 94.6 L Potassium Carbon Dioxide BUN Creatinine Glucose POC Glucose 251 H Hemoglobin A1c Chest x-ray: image reviewed Allied health notes reviewed: RT
--- NOTE | 2019-10-19 10:15 | Progress Note ---
<WHIT DALE - Last Filed: 10/19/19 12:03> Assessment and Plan Angioedema allergic reaction is thought to be due to lisinopril but she was also said to have eating some pizza prior to the onset of her symptoms Respiratory failure intubated, currently on the vent Hypertension History of Nonischemic CMP EF 20-25% by reassessment on echo this admission no significant CAD by [facility] 07/2019 at [facility] Plan: IV hydralazine for hypertension management until the patient is able to take oral medications. Subjective Date of service: 10/19/19 Interval history: Remains intubated on the vent. Objective Vital Signs Temp Pulse Resp BP BP Pulse Ox 10/19/19 09:12 92 H 147/88 98 10/19/19 07:46 98.0 F 91 H 20 129/77 97 10/19/19 06:31 91 H 20 128/75 97 10/19/19 06:00 90 20 112/66 98 10/19/19 05:49 89 112/66 98 10/19/19 05:31 92 H 20 112/66 97 10/19/19 05:00 91 H 20 112/66 96 10/19/19 04:31 92 H 20 109/67 97 10/19/19 04:00 92 H 20 112/69 10/19/19 03:31 93 H 20 112/65 97 10/19/19 03:00 93 H 20 109/67 97 10/19/19 02:31 92 H 20 112/65 97 10/19/19 02:00 95 H 20 104/58 97 10/19/19 01:31 95 H 20 104/58 97 10/19/19 01:00 97 H 20 104/58 97 10/19/19 00:55 98 H 117/63 97 10/19/19 00:31 101 H 20 117/63 97 10/19/19 00:07 103 H 20 117/63 97 10/19/19 00:01 103 H 20 117/63 96 10/19/19 00:00 98.5 F 10/18/19 23:31 105 H 20 130/77 97 10/18/19 23:01 107 H 21 130/77 96 10/18/19 22:31 107 H 25 H 97 10/18/19 22:01 103 H 20 143/78 97 10/18/19 21:31 101 H 20 163/84 98 10/18/19 21:09 104 H 163/84 94 10/18/19 21:01 106 H 28 H 163/84 10/18/19 20:31 94 H 20 170/99 95 10/18/19 20:20 170/99 10/18/19 20:01 91 H 10 L 166/93 94 10/18/19 20:00 98 F 10/18/19 19:31 90 20 176/98 97 10/18/19 19:00 90 19 176/98 95 10/18/19 18:31 89 20 167/100 97 10/18/19 18:19 94 H 20 167/100 96 10/18/19 18:00 94 H 20 167/100 92 10/18/19 17:30 99 H 20 188/114 95 10/18/19 17:05 89 20 140/86 96 10/18/19 16:30 91 H 20 140/86 96 10/18/19 16:14 99.4 F 10/18/19 13:21 98 H 20 147/90 96 10/18/19 13:00 94 H 20 147/90 10/18/19 12:30 93 H 20 154/96 91 10/18/19 12:04 97 H 20 144/92 96 - Physical Examination General: Other (intubated on the vent) Cardiac: Positive: Reg Rate and Rhythm Neuro: Positive: Weakness (sedated, on the vent) Abdomen: Positive: Soft Skin: Positive: Clear Extremities: Absent: edema <VIRGILIO MCINTYRE - Last Filed: 10/20/19 14:34> Assessment and Plan I have seen and evaluated the patient agree with assessment and plan. The patient has presented to the hospital with angioedema secondary to ARSLAN inhibitor's. She is currently intubated and sedated. Patient also has a history of nonischemic cardiomyopathy with ejection fraction of 20 to 25%. Patient has a previous left heart catheterization that was negative for any significant coronary artery disease performed July 2019. At this time recommended maximization of goal-directed medical therapy for treatment of severe cardiomyopathy. We will start the patient on hydralazine with a plan for hydralazine and nitrates for further treatment of cardiomyopathy. Objective Vital Signs Temp Pulse Pulse Resp BP Pulse Ox 10/20/19 13:42 109 H 162/96 98 10/20/19 12:00 96 H 10/20/19 11:32 98 H 155/94 97 10/20/19 11:00 100 H 10/20/19 08:30 89 162/94 98 10/20/19 08:01 95 H 17 162/94 93 10/20/19 07:20 98.7 F 10/20/19 07:00 84 15 139/83 95 10/20/19 06:00 82 20 128/80 97 10/20/19 05:00 81 20 134/82 96 10/20/19 04:00 82 20 137/81 96 10/20/19 03:00 83 18 135/80 10/20/19 02:00 85 20 126/77 94 10/20/19 01:00 87 20 123/72 94 10/20/19 00:07 90 20 131/74 99 10/20/19 00:00 90 20 123/72 98 10/19/19 23:00 89 20 119/70 96 10/19/19 22:30 91 H 129/78 10/19/19 22:00 92 H 20 129/78 97 10/19/19 21:00 94 H 20 123/77 96 10/19/19 20:00 96 H 20 135/80 97 10/19/19 19:15 96 H 142/83 98 10/19/19 19:00 96 H 17 142/83 93 10/19/19 18:00 96 H 17 144/85 97 10/19/19 17:07 93 H 136/77 97 10/19/19 17:00 95 H 17 136/77 94 10/19/19 16:00 98.9 F 98 H 18 132/78 97 10/19/19 15:00 99 H 11 L 139/80 97 - Labs and Meds Cardiac Enzymes 10/20/19 Range/Units 03:25 AST 14 (5-40) units/L Lipids 10/20/19 Range/Units 03:25 Triglycerides 431 H (2-149) mg/dL Comprehensive Metabolic Panel 10/20/19 Range/Units 03:25 Sodium 143 (137-145) mmol/L Potassium 3.7 (3.6-5.0) mmol/L Chloride 102.4 (98-107) mmol/L Carbon Dioxide 23 (22-30) mmol/L BUN 42 H (7-17) mg/dL Creatinine 1.9 H (0.7-1.2) mg/dL Glucose 239 H (65-100) mg/dL Calcium 8.8 (8.4-10.2) mg/dL AST 14 (5-40) units/L ALT 12 (7-56) units/L Alkaline Phosphatase 99 (35-129) units/L Total Protein 6.9 (6.3-8.2) g/dL Albumin 3.5 L (3.9-5) g/dL
[2019-10-19] MEDS: hydrALAZINE 20 MG/1 ML INJ IV PRN (12:11)
[2019-10-19] MEDS: hydrALAZINE 20 MG/1 ML INJ IV SCH ×2 (13:33→22:30)
--- NOTE | 2019-10-19 17:58 | Progress Note ---
Assessment and Plan - Patient Problems (1) Respiratory failure Current Visit: Yes Status: Acute Qualifiers: Chronicity: acute Respiratory failure complication: hypoxia Qualified Code(s): J96.01 - Acute respiratory failure with hypoxia Plan to address problem: Wean vent as tolerated, pulmonary team consulted, ABG in a.m., sedation holiday, pulmonary toilet. The high probability of a clinically significant, sudden or life threatening deterioration of the [pulmonary, neuro] system(s) required my full and direct attention, intervention and personal management. The aggregate critical care time was [65] minutes. This time is in addition to time spent performing r eported procedures but includes the following: [x] Data Review and interpretation [x] Patient assessment and monitoring of vital signs [x] Documentation [x] Medication orders and management (2) Angio-edema Current Visit: Yes Status: Acute Plan to address problem: IV steroid therapy, IV antihistamine therapy, supportive care. (3) CHF (congestive heart failure) Current Visit: Yes Status: Acute Qualifiers: Heart failure type: systolic Heart failure chronicity: acute on chronic Qualified Code(s): I50.23 - Acute on chronic systolic (congestive) heart failure Plan to address problem: Strict I/O, daily weight, diuresis, afterload reduction, pulse oximetry, blood pressure control (4) Hypertensive urgency, malignant Current Visit: Yes Status: Acute Plan to address problem: Monitor blood pressure every shift, continue current therapy. (5) DVT prophylaxis Current Visit: Yes Status: Acute Plan to address problem: SCD to bilateral lower extremities while in bed, prophylactic Lovenox. History Interval history: 49-year-old female hospital day 2 with acute hypoxemic and hypercapnic respiratory failure currently intubated on ventilatory support secondary to angioedema. Patient continues to have clinically significant swelling to oral pharyngeal space. Patient failed leak test today. Patient maintained on ventilatory support. No reported nursing events. Lab and imaging studies reviewed. Hospitalist Physical - Constitutional Vitals: Temp Pulse Resp BP Pulse Ox 98.9 F 93 H 17 136/77 97 10/19/19 16:00 10/19/19 17:07 10/19/19 17:00 10/19/19 17:07 10/19/19 17:07 General appearance: Present: other (sedated, on the vent) - EENT Eyes: Present: miosis - Neck Neck: Present: supple - Respiratory Respiratory effort: labored Respiratory: bilateral: diminished - Cardiovascular Rhythm: regular Heart Sounds: Present: S1 & S2 - Extremities Extremities: no ischemia Extremity abnormal: edema Peripheral Pulses: within normal limits - Abdominal General gastrointestinal: soft, non-tender, non-distended - Integumentary Integumentary: Present: clear, warm, dry - Psychiatric Psychiatric: no appropriate mood/affect, no intact judgment & insight, no memory intact - Neurologic Neurologic: moves all extremities, no gait normal Results - Labs CBC & Chem 7: 10/18/19 08:22 10/18/19 08:22 Labs: Laboratory Last Values WBC 10.4 K/mm3 (4.5-11.0) 10/18/19 08:22 RBC 4.25 M/mm3 (3.65-5.03) 10/18/19 08:22 Hgb 13.2 gm/dl (10.1-14.3) 10/18/19 08:22 Hct 39.2 % (30.3-42.9) 10/18/19 08:22 MCV 92 fl (79-97) 10/18/19 08:22 MCH 31 pg (28-32) 10/18/19 08:22 MCHC 34 % (30-34) 10/18/19 08:22 RDW 14.7 % (13.2-15.2) 10/18/19 08:22 Plt Count 382 K/mm3 (140-440) 10/18/19 08:22 Lymph % (Auto) 13.9 % (13.4-35.0) 10/18/19 08:22 [place] % (Auto) 0.5 % (0.0-7.3) 10/18/19 08:22 Eos % (Auto) 0.0 % (0.0-4.3) 10/18/19 08:22 Baso % (Auto) 0.5 % (0.0-1.8) 10/18/19 08:22 Lymph # 1.5 K/mm3 (1.2-5.4) 10/18/19 08:22 [place] # 0.1 K/mm3 (0.0-0.8) 10/18/19 08:22 Eos # 0.0 K/mm3 (0.0-0.4) 10/18/19 08:22 Baso # 0.1 K/mm3 (0.0-0.1) 10/18/19 08:22 Seg Neutrophils % 85.1 % (40.0-70.0) H 10/18/19 08:22 Seg Neutrophils # 8.9 K/mm3 (1.8-7.7) H 10/18/19 08:22 POC ABG pH 7.408 (7.35-7.45) 10/18/19 03:54 ABG pH 7.416 pH Units (7.350-7.450) 10/19/19 05:40 POC ABG pCO2 39.7 (35-45) 10/18/19 03:54 ABG pCO2 39.0 mm Hg 10/19/19 05:40 POC ABG pO2 69 (80-105) L 10/18/19 03:54 ABG pO2 76.6 mm Hg (80.0-90.0) L 10/19/19 05:40 POC ABG HCO3 25.0 (22-26 mml/L) 10/18/19 03:54 ABG HCO3 24.5 mmol/L (20.0-26.0) 10/19/19 05:40 POC ABG Total CO2 26 (23-27mmol/L) 10/18/19 03:54 POC ABG O2 Sat 94 10/18/19 03:54 ABG O2 Saturation 96.3 % (95.0-99.0) 10/19/19 05:40 ABG O2 Content 16.6 (0.0-44) 10/19/19 05:40 POC ABG Base Excess 0 ((-2) - (+3)mmol/L) 10/18/19 03:54 ABG Base Excess 0.1 mmol/L (-2.0-3.0) 10/19/19 05:40 ABG Hemoglobin 12.4 gm/dl (12.0-16.0) 10/19/19 05:40 ABG Carboxyhemoglobin 1.2 % (0.0-5.0) 10/19/19 05:40 ABG Methemoglobin 0.5 % (0.0-1.5) 10/19/19 05:40 Oxyhemoglobin 94.6 % (95.0-99.0) L 10/19/19 05:40 FiO2 50 % 10/19/19 05:40 Sodium 138 mmol/L (137-145) 10/18/19 08:22 Potassium 3.5 mmol/L (3.6-5.0) L 10/18/19 08:22 Chloride 100.0 mmol/L (98-107) 10/18/19 08:22 Carbon Dioxide 21 mmol/L (22-30) L 10/18/19 08:22 Anion Gap 21 mmol/L 10/18/19 08:22 BUN 26 mg/dL (7-17) H 10/18/19 08:22 Creatinine 1.6 mg/dL (0.7-1.2) H 10/18/19 08:22 Estimated GFR 41 ml/min 10/18/19 08:22 BUN/Creatinine Ratio 16 % 10/18/19 08:22 Glucose 262 mg/dL (65-100) H 10/18/19 08:22 POC Glucose 236 (70-105) H 10/19/19 17:51 Hemoglobin A1c 7.5 % (4-6) H 10/18/19 08:22 Calcium 8.9 mg/dL (8.4-10.2) 10/18/19 08:22 Active Medications - Current Medications Current Medications: Generic Name Dose Route Start Last Admin Trade Name Freq PRN Reason Stop Dose Admin Acetaminophen 650 mg 10/17/19 19:14 Tylenol PO Q4H PRN Pain MILD(1-3)/Fever >100.5/AMARO Dextrose 50 ml 10/17/19 21:11 D50w (25gm) Syringe IV Q30MIN PRN Hypoglycemia Protocol Diphenhydramine HCl 25 mg 10/17/19 21:11 Benadryl IV Q6H PRN Itching Enoxaparin Sodium 40 mg 10/17/19 22:00 10/18/19 21:59 Enoxaparin SUB-Q 40 mg QDAY@2200 MIRI Administration Famotidine 20 mg 10/17/19 22:00 10/19/19 09:31 Pepcid IV 20 mg BID MIRI Administration Furosemide 20 mg 10/17/19 22:00 10/19/19 09:31 Lasix IV 20 mg QDAY MIRI Administration Hydralazine HCl 10 mg 10/17/19 20:44 10/19/19 12:11 Apresoline IV 10 mg Q4HR PRN Administration BP >160/100 Hydralazine HCl 10 mg 10/19/19 14:00 10/19/19 13:33 Apresoline IV Not Given Q8HR MIRI Hydrophilic Ointment 1 applic 10/17/19 17:43 Vaseline Lip Therapy TP Q2HR PRN Dry Lips Propofol 1,000 mg in 100 mls @ 3.293 mls/hr 10/17/19 18:00 10/19/19 13:51 Diprivan 10 Mg/Ml IV 40 mcg/kg/min TITR MIRI 26.345 mls/hr Administration Protocol 5 MCG/KG/MIN Midazolam HCl 100 mg/ Sodium 100 mls @ 2 mls/hr 10/18/19 21:00 10/19/19 15:29 Chloride IV 4 mg/hr TITR MIRI 4 mls/hr Titration Protocol 2 MG/HR Insulin Human Regular 0 units 10/18/19 00:00 10/19/19 12:11 Humulin R SUB-Q 2 units Q6HR MIRI Administration Protocol Labetalol HCl 10 mg 10/17/19 20:44 10/18/19 09:36 Labetalol IV 10 mg Q4H PRN Administration BP >170/105; hold for HR <60 Methylprednisolone Sodium Succinate 125 mg 10/17/19 22:00 10/19/19 13:54 Solu-Medrol IV 125 mg Q8HR MIRI Administration Multi-Ingred Cream/Lotion/Oil/Oint 1 applic 10/17/19 17:43 Artificial Tears Ophth Oint OU Q4HR PRN Dry Eye(s) Ondansetron HCl 4 mg 10/17/19 19:14 Zofran IV Q8H PRN Nausea And Vomiting Sodium Chloride 10 ml 10/17/19 22:00 10/19/19 09:25 Sodium Chloride Flush Syringe 10 Ml IV 10 ml BID MIRI Administration Sodium Chloride 10 ml 10/17/19 19:14 Sodium Chloride Flush Syringe 10 Ml IV PRN PRN LINE FLUSH Nutrition/Malnutrition Assess - Dietary Evaluation Nutrition/Malnutrition Findings: Nutrition Notes Start: 10/18/19 12:55 Freq: Status: Active Protocol: Document 10/18/19 12:56 KS (Rec: 10/18/19 12:57 KS [id number]) Co-Sign 10/18/19 12:56 LP Nutrition Notes Need for Assessment generated from: MD Order,Education Initial or Follow up Brief Note Subjective/Other Information MD consult for diet education. Pt remains in holding. Nutrition Intervention Follow-Up By: 10/20/19
[2019-10-20] MEDS ORDERED: FAMOTIDINE 20 MG/2 ML INJ IV ONE (00:15)
[2019-10-20] MEDS ORDERED: methylPREDNISolone Sod Succinate 125 MG/2 ML INJ ONE (00:15)
[2019-10-20] MEDS ORDERED: ENOXAPARIN 40 MG/0.4 ML INJ SUB-Q ONE (00:15)
[2019-10-20] MEDS ORDERED: INSULIN REGULAR, HUMAN 100 UNITS/1 ML ONE ×2 (00:18→00:30)
[2019-10-20] MEDS: INSULIN REGULAR, HUMAN 100 UNITS/1 ML SUB-Q SCH ×3 (00:40→19:04)
[2019-10-20] MEDS: methylPREDNISolone Sod Succinate 125 MG/2 ML INJ IV SCH ×2 (00:40→14:53)
[2019-10-20] MEDS: ENOXAPARIN 40 MG/0.4 ML INJ SUB-Q SCH ×2 (00:40→21:08)
[2019-10-20] MEDS: FAMOTIDINE 20 MG/2 ML INJ IV SCH ×3 (00:40→21:06)
[2019-10-20] MEDS ORDERED: PROPOFOL 1,000 MG/100 ML BOTTLE IV ONE ×3 (02:18→09:14)
[2019-10-20 03:58] LABS: Albumin 3.5 g/dL (3.9-5); Calcium 8.8 mg/dL (8.4-10.2)
--- NOTE | 2019-10-20 04:04 | XRay Report ---
CHEST 1 VIEW, 10/20/2019 2:36 AM CLINICAL INFORMATION/INDICATION: Respiratory failure COMPARISON: Chest radiograph, 05/12/2020 at 2:22 AM FINDINGS: SUPPORT DEVICES: The endotracheal tube and esophagogastric tube remain in stable position. HEART: There is stable enlargement of the cardiac silhouette. LUNGS/PLEURA: The lungs are clear of focal airspace disease or significant pleural effusion. ADDITIONAL FINDINGS: No additional acute findings. IMPRESSION: 1. Stable enlargement of the cardiac silhouette. Signer Name: Terese Dejesus MD Signed: 10/20/2019 3:59 AM Workstation Name: [id number]
[2019-10-20] MEDS: FUROSEMIDE 20 MG/2 ML INJ IV SCH (11:49)
--- NOTE | 2019-10-20 12:09 | Progress Note ---
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 Subjective Date of service: 10/20/19 Interval history: Remains sedated. intubated on the vent. Objective Vital Signs Temp Pulse Resp BP Pulse Ox 10/20/19 11:32 98 H 155/94 97 10/20/19 08:30 89 162/94 98 10/20/19 08:01 95 H 17 162/94 93 10/20/19 07:20 98.7 F 10/20/19 07:00 84 15 139/83 95 10/20/19 06:00 82 20 128/80 97 10/20/19 05:00 81 20 134/82 96 10/20/19 04:00 82 20 137/81 96 10/20/19 03:00 83 18 135/80 10/20/19 02:00 85 20 126/77 94 10/20/19 01:00 87 20 123/72 94 10/20/19 00:07 90 20 131/74 99 10/20/19 00:00 90 20 123/72 98 10/19/19 23:00 89 20 119/70 96 10/19/19 22:30 91 H 129/78 10/19/19 22:00 92 H 20 129/78 97 10/19/19 21:00 94 H 20 123/77 96 10/19/19 20:00 96 H 20 135/80 97 10/19/19 19:15 96 H 142/83 98 10/19/19 19:00 96 H 17 142/83 93 10/19/19 18:00 96 H 17 144/85 97 10/19/19 17:07 93 H 136/77 97 10/19/19 17:00 95 H 17 136/77 94 10/19/19 16:00 98.9 F 98 H 18 132/78 97 10/19/19 15:00 99 H 11 L 139/80 97 10/19/19 14:00 103 H 20 143/87 10/19/19 13:33 101 H 134/86 10/19/19 13:06 100 H 134/86 98 10/19/19 13:00 97 H 20 134/86 97 10/19/19 12:11 92 H 165/87 - Physical Examination General: Other (intubated on the vent) Cardiac: Positive: Reg Rate and Rhythm - Labs and Meds Cardiac Enzymes 10/20/19 Range/Units 03:25 AST 14 (5-40) units/L Lipids 10/20/19 Range/Units 03:25 Triglycerides 431 H (2-149) mg/dL Comprehensive Metabolic Panel 10/20/19 Range/Units 03:25 Sodium 143 (137-145) mmol/L Potassium 3.7 (3.6-5.0) mmol/L Chloride 102.4 (98-107) mmol/L Carbon Dioxide 23 (22-30) mmol/L BUN 42 H (7-17) mg/dL Creatinine 1.9 H (0.7-1.2) mg/dL Glucose 239 H (65-100) mg/dL Calcium 8.8 (8.4-10.2) mg/dL AST 14 (5-40) units/L ALT 12 (7-56) units/L Alkaline Phosphatase 99 (35-129) units/L Total Protein 6.9 (6.3-8.2) g/dL Albumin 3.5 L (3.9-5) g/dL
--- NOTE | 2019-10-20 12:16 | Progress Note ---
Assessment and Plan Angioedema with upper airway obstruction, secondary to lisinopril Acute hypoxic-hypercapnic respiratory failure on MVS Morbid obesity Hypertensive urgency Allergy to lisinopril Type 2 DM h/o Heart failure I explained at the bedside, the need to focus on breathing. All sedation was held, placed back on PSV. She tolerated it for an hour, good cuff leak. Order placed for extubation Monitor closely post extubation for stridor Discussed with RT/RN Updated the family and the patient at the bedside -VAP bundle addressed -Aspiration precautions, HOB>40 degrees - Lung protective strategies -Bronchodilators -Steroids, H2 antagonists, antihistamines -Wean FIO2 for O2 sats >90% -CXR, ABG in am -CBC, BMP in am -Daily SAT, SBT as tolerated -OGT , initiate enteral nutrition -Analgesia and sedation , titrate to RASS of -1 -Tracheal aspirate -VTE prophylaxis -Stress ulcer prophylaxis - Accuchecks with glycemic control for SSI (While critically ill target blood glucose of 140-180 mg/dL; avoid hypoglycemia) - mobility protocol for pressure ulcer prevention - Monitor hemodynamics closely -Monitor electrolyte profile closely and replete as indicated -Chronic home medications, continue as clinically indicated -Gentle diuresis , while monitoring renal function, hemodynamics and electrolyte profile -Evaluation for [place] as outpatient -Blood pressure control CONDITION: CRITICAL PROGNOSIS: GUARDED CODE STATUS: FULL CODE The high probability of a clinically significant, sudden or life-threatening deterioration of the [respiratory, cardiovascular] system(s) required my full and direct attention, intervention and personal management. The aggregate critical care time was [35] minutes without overlap. Time includes spent on; [x] Data Review and interpretation [x] Patient assessment and monitoring of vital signs [x] Documentation [x] Medication orders and management Subjective Date of service: 10/20/19 Interval history: Patient is seen today for: angioedema requiring MVS, morbid obesity Seen and examined at bedside; 24-hour events reviewed; nursing and respiratory care staff consulted; no adverse overnight events reported to me; resting peacefully in bed, sedated , orally intubated. Family at the bedside No fevers, no vomiting, no diarrhea. Swelling is improving She was very agitated earlier and was placed back on full support Objective Vital Signs - 12hr 10/20/19 10/20/19 10/20/19 01:00 02:00 03:00 Temperature Pulse Rate 87 85 83 Respiratory 20 20 18 Rate Blood Pressure 123/72 126/77 135/80 O2 Sat by Pulse 94 94 Oximetry 10/20/19 10/20/19 10/20/19 04:00 05:00 06:00 Temperature Pulse Rate 82 81 82 Respiratory 20 20 20 Rate Blood Pressure 137/81 134/82 128/80 O2 Sat by Pulse 96 96 97 Oximetry 10/20/19 10/20/19 10/20/19 07:00 07:20 08:01 Temperature 98.7 F Pulse Rate 84 95 H Respiratory 15 17 Rate Blood Pressure 139/83 162/94 O2 Sat by Pulse 95 93 Oximetry 10/20/19 10/20/19 08:30 11:32 Temperature Pulse Rate 89 98 H Respiratory Rate Blood Pressure 162/94 155/94 O2 Sat by Pulse 98 97 Oximetry Constitutional: no acute distress, alert, other (ETT at 24 cm at the lip, obese AAW, atraumatic, normocephalic) Eyes: non-icteric ENT: oropharynx moist Neck: supple, no JVD Effort: normal Ascultation: Bilateral: clear, diminished breath sounds Cardiovascular: regular rate and rhythm, other (S1,S2,) Gastrointestinal: normoactive bowel sounds, soft, non-tender, non-distended, other (obese) Integumentary: normal Extremities: no cyanosis, no edema, pulses normal, no ischemia or petechiae Neurologic: normal mental status, non-focal exam (moves all extemites, opens eyes on verbal and tactile stimuli), pupils equal and round, motor strength normal and Psychiatric: mood appropriate, anxious CBC and BMP: 10/18/19 08:22 10/20/19 03:25 ABG, PT/INR, D-dimer: ABG POC ABG pH 7.495 (7.35-7.45) H 10/20/19 06:00 ABG pH 7.416 pH Units (7.350-7.450) 10/19/19 05:40 POC ABG pCO2 37.3 (35-45) 10/20/19 06:00 ABG pCO2 39.0 mm Hg 10/19/19 05:40 POC ABG pO2 85 (80-105) 10/20/19 06:00 ABG pO2 76.6 mm Hg (80.0-90.0) L 10/19/19 05:40 POC ABG HCO3 28.8 (22-26 mml/L) 10/20/19 06:00 POC ABG Total CO2 30 (23-27mmol/L) 10/20/19 06:00 POC ABG O2 Sat 97 10/20/19 06:00 ABG O2 Saturation 96.3 % (95.0-99.0) 10/19/19 05:40 Abnormal lab findings: Abnormal Labs 10/17/19 10/17/19 10/17/19 17:39 17:39 18:44 Lymph % (Auto) 44.3 H Seg Neutrophils % Seg Neutrophils # POC ABG pH 7.325 L POC ABG pCO2 53.2 H POC ABG pO2 73 L ABG pO2 Oxyhemoglobin Potassium Carbon Dioxide BUN 19 H Creatinine Glucose 155 H POC Glucose Hemoglobin A1c Albumin Triglycerides 10/18/19 10/18/19 10/18/19 00:39 03:54 06:02 Lymph % (Auto) Seg Neutrophils % Seg Neutrophils # POC ABG pH POC ABG pCO2 POC ABG pO2 69 L ABG pO2 Oxyhemoglobin Potassium Carbon Dioxide BUN Creatinine Glucose POC Glucose 210 H 232 H Hemoglobin A1c Albumin Triglycerides 10/18/19 10/18/19 10/18/19 08:22 08:22 08:22 Lymph % (Auto) Seg Neutrophils % 85.1 H Seg Neutrophils # 8.9 H POC ABG pH POC ABG pCO2 POC ABG pO2 ABG pO2 Oxyhemoglobin Potassium 3.5 L Carbon Dioxide 21 L BUN 26 H Creatinine 1.6 H Glucose 262 H POC Glucose Hemoglobin A1c 7.5 H Albumin Triglycerides 10/18/19 10/18/19 10/18/19 12:07 18:36 23:54 Lymph % (Auto) Seg Neutrophils % Seg Neutrophils # POC ABG pH POC ABG pCO2 POC ABG pO2 ABG pO2 Oxyhemoglobin Potassium Carbon Dioxide BUN Creatinine Glucose POC Glucose 260 H 237 H 226 H Hemoglobin A1c Albumin Triglycerides 10/19/19 10/19/19 10/19/19 05:40 06:16 12:04 Lymph % (Auto) Seg Neutrophils % Seg Neutrophils # POC ABG pH POC ABG pCO2 POC ABG pO2 ABG pO2 76.6 L Oxyhemoglobin 94.6 L Potassium Carbon Dioxide BUN Creatinine Glucose POC Glucose 251 H 215 H Hemoglobin A1c Albumin Triglycerides 10/19/19 10/20/19 10/20/19 17:51 00:32 03:25 Lymph % (Auto) Seg Neutrophils % Seg Neutrophils # POC ABG pH POC ABG pCO2 POC ABG pO2 ABG pO2 Oxyhemoglobin Potassium Carbon Dioxide BUN 42 H Creatinine 1.9 H Glucose 239 H POC Glucose 236 H 230 H Hemoglobin A1c Albumin 3.5 L Triglycerides 431 H 10/20/19 10/20/19 10/20/19 06:00 09:01 12:09 Lymph % (Auto) Seg Neutrophils % Seg Neutrophils # POC ABG pH 7.495 H POC ABG pCO2 POC ABG pO2 ABG pO2 Oxyhemoglobin Potassium Carbon Dioxide BUN Creatinine Glucose POC Glucose 205 H 221 H Hemoglobin A1c Albumin Triglycerides Allied health notes reviewed: RT
[2019-10-20] MEDS: hydrALAZINE 20 MG/1 ML INJ IV SCH ×2 (14:52→21:07)
[2019-10-20] MEDS: PROPOFOL 1,000 MG/100 ML BOTTLE IV SCH (14:53)
[2019-10-20] MEDS ORDERED: fentaNYL 100 MCG/2 ML INJ IV PRN (16:20)
--- NOTE | 2019-10-20 16:54 | Progress Note ---
Assessment and Plan - Patient Problems (1) Respiratory failure Current Visit: Yes Status: Acute Qualifiers: Chronicity: acute Respiratory failure complication: hypoxia Qualified Code(s): J96.01 - Acute respiratory failure with hypoxia Plan to address problem: Wean vent as tolerated, pulmonary team consulted, ABG in a.m., sedation holiday, pulmonary toilet. The high probability of a clinically significant, sudden or life threatening deterioration of the [pulmonary, neuro] system(s) required my full and direct attention, intervention and personal management. The aggregate critical care time was [65] minutes. This time is in addition to time spent performing r eported procedures but includes the following: [x] Data Review and interpretation [x] Patient assessment and monitoring of vital signs [x] Documentation [x] Medication orders and management (2) Angio-edema Current Visit: Yes Status: Acute Plan to address problem: IV steroid therapy, IV antihistamine therapy, supportive care. (3) CHF (congestive heart failure) Current Visit: Yes Status: Acute Qualifiers: Heart failure type: systolic Heart failure chronicity: acute on chronic Qualified Code(s): I50.23 - Acute on chronic systolic (congestive) heart failure Plan to address problem: Strict I/O, daily weight, diuresis, afterload reduction, pulse oximetry, blood pressure control (4) Hypertensive urgency, malignant Current Visit: Yes Status: Acute Plan to address problem: Monitor blood pressure every shift, continue current therapy. (5) Advance care planning Current Visit: Yes Status: Acute Plan to address problem: Patient is full code, diagnosis education conducted at bedside, patient daughter acknowledges understanding and agreement with care plan. +30 minutes. (6) DVT prophylaxis Current Visit: Yes Status: Acute Plan to address problem: SCD to bilateral lower extremities while in bed, prophylactic Lovenox. History Interval history: 49-year-old female hospital day 2 with acute hypoxemic and hypercapnic respiratory failure currently intubated on ventilatory support secondary to angioedema. Patient continues to have clinically significant swelling to oral pharyngeal space. Patient failed leak test today. Patient maintained on ventilatory support. No reported nursing events. Lab and imaging studies reviewed. Discussed care plan with daughter who is at bedside during exam and interview. Hospitalist Physical - Constitutional Vitals: Temp Pulse Resp BP Pulse Ox 98.5 F 105 H 19 149/80 98 10/20/19 16:00 10/20/19 16:41 10/20/19 16:41 10/20/19 16:41 10/20/19 16:41 General appearance: Present: obese, other (sedated, on the vent) - EENT Eyes: Present: miosis - Neck Neck: Present: supple - Respiratory Respiratory effort: labored Respiratory: bilateral: diminished - Cardiovascular Rhythm: regular Heart Sounds: Present: S1 & S2 - Extremities Extremities: no ischemia Extremity abnormal: edema Peripheral Pulses: within normal limits - Abdominal General gastrointestinal: soft, non-tender, non-distended - Integumentary Integumentary: Present: clear, dry - Psychiatric Psychiatric: no appropriate mood/affect, no intact judgment & insight, no memory intact - Neurologic Neurologic: no gait normal Results - Labs CBC & Chem 7: 10/18/19 08:22 10/20/19 03:25 Labs: Laboratory Last Values WBC 10.4 K/mm3 (4.5-11.0) 10/18/19 08:22 RBC 4.25 M/mm3 (3.65-5.03) 10/18/19 08:22 Hgb 13.2 gm/dl (10.1-14.3) 10/18/19 08:22 Hct 39.2 % (30.3-42.9) 10/18/19 08:22 MCV 92 fl (79-97) 10/18/19 08:22 MCH 31 pg (28-32) 10/18/19 08:22 MCHC 34 % (30-34) 10/18/19 08:22 RDW 14.7 % (13.2-15.2) 10/18/19 08:22 Plt Count 382 K/mm3 (140-440) 10/18/19 08:22 Lymph % (Auto) 13.9 % (13.4-35.0) 10/18/19 08:22 [place] % (Auto) 0.5 % (0.0-7.3) 10/18/19 08:22 Eos % (Auto) 0.0 % (0.0-4.3) 10/18/19 08:22 Baso % (Auto) 0.5 % (0.0-1.8) 10/18/19 08:22 Lymph # 1.5 K/mm3 (1.2-5.4) 10/18/19 08:22 [place] # 0.1 K/mm3 (0.0-0.8) 10/18/19 08:22 Eos # 0.0 K/mm3 (0.0-0.4) 10/18/19 08:22 Baso # 0.1 K/mm3 (0.0-0.1) 10/18/19 08:22 Seg Neutrophils % 85.1 % (40.0-70.0) H 10/18/19 08:22 Seg Neutrophils # 8.9 K/mm3 (1.8-7.7) H 10/18/19 08:22 POC ABG pH 7.495 (7.35-7.45) H 10/20/19 06:00 ABG pH 7.416 pH Units (7.350-7.450) 10/19/19 05:40 POC ABG pCO2 37.3 (35-45) 10/20/19 06:00 ABG pCO2 39.0 mm Hg 10/19/19 05:40 POC ABG pO2 85 (80-105) 10/20/19 06:00 ABG pO2 76.6 mm Hg (80.0-90.0) L 10/19/19 05:40 POC ABG HCO3 28.8 (22-26 mml/L) 10/20/19 06:00 ABG HCO3 24.5 mmol/L (20.0-26.0) 10/19/19 05:40 POC ABG Total CO2 30 (23-27mmol/L) 10/20/19 06:00 POC ABG O2 Sat 97 10/20/19 06:00 ABG O2 Saturation 96.3 % (95.0-99.0) 10/19/19 05:40 ABG O2 Content 16.6 (0.0-44) 10/19/19 05:40 POC ABG Base Excess 6 ((-2) - (+3)mmol/L) 10/20/19 06:00 ABG Base Excess 0.1 mmol/L (-2.0-3.0) 10/19/19 05:40 ABG Hemoglobin 12.4 gm/dl (12.0-16.0) 10/19/19 05:40 ABG Carboxyhemoglobin 1.2 % (0.0-5.0) 10/19/19 05:40 ABG Methemoglobin 0.5 % (0.0-1.5) 10/19/19 05:40 Oxyhemoglobin 94.6 % (95.0-99.0) L 10/19/19 05:40 FiO2 50 % 10/20/19 06:00 Sodium 143 mmol/L (137-145) 10/20/19 03:25 Potassium 3.7 mmol/L (3.6-5.0) 10/20/19 03:25 Chloride 102.4 mmol/L (98-107) 10/20/19 03:25 Carbon Dioxide 23 mmol/L (22-30) 10/20/19 03:25 Anion Gap 21 mmol/L 10/20/19 03:25 BUN 42 mg/dL (7-17) H 10/20/19 03:25 Creatinine 1.9 mg/dL (0.7-1.2) H 10/20/19 03:25 Estimated GFR 34 ml/min 10/20/19 03:25 BUN/Creatinine Ratio 22 % 10/20/19 03:25 Glucose 239 mg/dL (65-100) H 10/20/19 03:25 POC Glucose 221 (70-105) H 10/20/19 12:09 Hemoglobin A1c 7.5 % (4-6) H 10/18/19 08:22 Calcium 8.8 mg/dL (8.4-10.2) 10/20/19 03:25 Total Bilirubin 0.20 mg/dL (0.1-1.2) 10/20/19 03:25 AST 14 units/L (5-40) 10/20/19 03:25 ALT 12 units/L (7-56) 10/20/19 03:25 Alkaline Phosphatase 99 units/L (35-129) 10/20/19 03:25 Total Protein 6.9 g/dL (6.3-8.2) 10/20/19 03:25 Albumin 3.5 g/dL (3.9-5) L 10/20/19 03:25 Albumin/Globulin Ratio 1.0 % 10/20/19 03:25 Triglycerides 431 mg/dL (2-149) H 10/20/19 03:25 Active Medications - Current Medications Current Medications: Generic Name Dose Route Start Last Admin Trade Name Freq PRN Reason Stop Dose Admin Acetaminophen 650 mg 10/17/19 19:14 Tylenol PO Q4H PRN Pain MILD(1-3)/Fever >100.5/AMARO Dextrose 50 ml 10/17/19 21:11 D50w (25gm) Syringe IV Q30MIN PRN Hypoglycemia Protocol Diphenhydramine HCl 25 mg 10/17/19 21:11 Benadryl IV Q6H PRN Itching Enoxaparin Sodium 40 mg 10/17/19 22:00 10/20/19 00:40 Enoxaparin SUB-Q 40 mg QDAY@2200 MIRI Administration Famotidine 20 mg 10/17/19 22:00 10/20/19 11:49 Pepcid IV 20 mg BID MIRI Administration Fentanyl 50 mcg 10/20/19 16:20 Sublimaze IV Q10MIN PRN ANALGESIA Furosemide 20 mg 10/17/19 22:00 10/20/19 11:49 Lasix IV 20 mg QDAY MIRI Administration Hydralazine HCl 10 mg 10/17/19 20:44 10/19/19 12:11 Apresoline IV 10 mg Q4HR PRN Administration BP >160/100 Hydralazine HCl 10 mg 10/19/19 14:00 10/20/19 14:52 Apresoline IV 10 mg Q8HR MIRI Administration Hydrophilic Ointment 1 applic 10/17/19 17:43 Vaseline Lip Therapy TP Q2HR PRN Dry Lips Propofol 1,000 mg in 100 mls @ 3.293 mls/hr 10/17/19 18:00 10/20/19 14:53 Diprivan 10 Mg/Ml IV 40 mcg/kg/min TITR MIRI 26.345 mls/hr Administration Protocol 5 MCG/KG/MIN Midazolam HCl 100 mg/ Sodium 100 mls @ 2 mls/hr 10/18/19 21:00 10/20/19 07:18 Chloride IV Infused TITR MIRI Titration Protocol 2 MG/HR Fentanyl Citrate 2,000 mcg in 100 mls @ 5.585 mls/hr 10/20/19 17:00 Fentanyl Drip Premix IV TITR MIRI Protocol 1 MCG/KG/HR Insulin Human Regular 0 units 10/18/19 00:00 10/20/19 12:42 Humulin R SUB-Q 2 units Q6HR MIRI Administration Protocol Labetalol HCl 10 mg 10/17/19 20:44 10/18/19 09:36 Labetalol IV 10 mg Q4H PRN Administration BP >170/105; hold for HR <60 Methylprednisolone Sodium Succinate 125 mg 10/17/19 22:00 10/20/19 14:53 Solu-Medrol IV 125 mg Q8HR MIRI Administration Multi-Ingred Cream/Lotion/Oil/Oint 1 applic 10/17/19 17:43 Artificial Tears Ophth Oint OU Q4HR PRN Dry Eye(s) Ondansetron HCl 4 mg 10/17/19 19:14 Zofran IV Q8H PRN Nausea And Vomiting Scopolamine 1 each 10/20/19 17:00 Transderm-Scop TD Q3D MIRI Sodium Chloride 10 ml 10/17/19 22:00 10/20/19 11:50 Sodium Chloride Flush Syringe 10 Ml IV 10 ml BID MIRI Administration Sodium Chloride 10 ml 10/17/19 19:14 Sodium Chloride Flush Syringe 10 Ml IV PRN PRN LINE FLUSH Nutrition/Malnutrition Assess - Dietary Evaluation Nutrition/Malnutrition Findings: Nutrition Notes Start: 10/18/19 12:55 Freq: Status: Active Protocol: Document 10/20/19 13:16 KS (Rec: 10/20/19 13:33 KS [id number]) Co-Sign 10/20/19 13:16 LM Nutrition Notes Need for Assessment generated from: MD Order,Education Initial or Follow up Assessment Current Diagnosis Diabetes,Hypertension,Heart Failure Other Pertinent Diagnosis Tongue swelling Current Diet NPO Labs/Tests BUN 42 Cr 1.9 BG 239 POC Glu 221 TG 431 Pertinent Medications Humulin Lasix Solumedrol Height 5 ft 5 in Weight 111.7 kg [place] Body Weight (kg) 56.81 BMI 40.9 Weight Status Morbidly Obese Subjective/Other Information MD consult for diet education. Unable to administer diet education due to pt being on vent. Per family at bedside, pt had normal appetite with no wt loss [employer]. Burn Absent Trauma Absent Minimum of two criteria No physical signs of malnutrition #1 Nutrition Diagnosis Inadequate oral intake Etiology pt on vent As Evidenced by Signs and Symptoms NPO status Is patient on ventilator? Yes Is Patient Ambulatory and/or Out of Bed No REE-([facility]-confined to bed) 2083.008 Kcal/Kg value to use for calculation 14 Approximate Energy Requirements Using 1564 kcal/Kg Calculation Used for Recommendations Kcal/kg Additional Notes PRO: Up to 143g (2.5g/kg/day IBW 57kg) Fluid: 1mL/kcal Nutrition Intervention Change Diet Order: TF when medically feasible Nutrition Support: Vital High Protein at 65mL/hr Free water flush 50mL q4h Kcal 1,560 Protein (gm) 137 Fluid (mL) 1,304 Goal #1 TF when medically feasible Anticipated Discharge Needs: Unable to determine at this time Follow-Up By: 10/24/19 Additional Comments F/U for possible TF
[2019-10-20] MEDS ORDERED: fentaNYL DRIP Premix 2,000 MCG/100 ML BAG IV SCH (17:00)
[2019-10-20] MEDS: SCOPOLAMINE TRANSDERMAL PATCH 72 HR TD SCH (17:45)
[2019-10-20] MEDS ORDERED: ALBUTEROL 2.5 MG/3 ML NEBU IH ONE (20:43)
[2019-10-20] MEDS: methylPREDNISolone Sod Succinate 40 MG/1 ML INJ IV SCH (21:14)
[2019-10-21] MEDS: INSULIN REGULAR, HUMAN 100 UNITS/1 ML SUB-Q SCH ×6 (00:33→22:00)
--- NOTE | 2019-10-21 03:47 | XRay Report ---
CHEST 1 VIEW, 10/21/2019 2:09 AM CLINICAL INFORMATION/INDICATION: Respiratory failure COMPARISON: Chest radiograph, 10/20/2019 at 2:36 AM FINDINGS: SUPPORT DEVICES: The esophagogastric tube remains in stable position. HEART: The cardiac silhouette is upper limits of normal in size. LUNGS/PLEURA: There is a new focal parenchymal density at the right lung base. The left lung remains grossly clear. ADDITIONAL FINDINGS: No additional acute findings. IMPRESSION: 1. New parenchymal density at the right lung base concerning for developing pneumonia. Signer Name: Terese Dejesus MD Signed: 10/21/2019 3:43 AM Workstation Name: [id number]
[2019-10-21] MEDS: hydrALAZINE 20 MG/1 ML INJ IV SCH ×4 (04:45→22:00)
[2019-10-21] MEDS: methylPREDNISolone Sod Succinate 40 MG/1 ML INJ IV SCH (04:45)
[2019-10-21 05:56] LABS: ABG Base Excess 3.8 mmol/L (-2.0-3.0); ABG HCO3 28.8 mmol/L (20.0-26.0); ABG Methemoglobin 0.5 % (0.0-1.5); ABG Oxygen Saturation 96.6 % (95.0-99.0); ABG PCO2 44.9 mm Hg; ABG PH 7.426 pH Units (7.350-7.450); ABG PO2 82.8 mm Hg (80.0-90.0)
--- NOTE | 2019-10-21 08:53 | Progress Note ---
Assessment and Plan Angioedema with upper airway obstruction, secondary to lisinopril Acute hypoxic-hypercapnic respiratory failure on MVS Morbid obesity Hypertensive urgency Allergy to lisinopril Type 2 DM h/o Heart failure - prn BIPAP for increased work of breathing - outpatient sleep clinic evakluation appropriate - discontinue OGT, willadvance diet as passed dysphagia screen - gentle IVF for WENDY - continue aspiration precautions, HOB > 40 degrees - continue Bronchodilators with pulmonar hygiene per RT - taper off steroids Steroids, H2 antagonists, antihistamines - continue to wean FIO2 for O2 sats >90% - CXR, ABG prn at this point - CBC, BMP in am - GI & VTE prophylaxis - continue Accuchecks with glycemic control for SSI for target blood glucose of < 180 mg/dL; avoid hypoglycemia - mobility protocol for pressure ulcer prevention - Monitor hemodynamics closely - Monitor electrolyte profile closely and replete as indicated - Chronic home medications, resume as clinically indicated - follow Transthoracic echocardiogram to evaluate LVEF and for pulmonary HTN - Blood pressure control - OK to transfer to medical floor ..... re-evaluate in am & prn Subjective Date of service: 10/21/19 Principal diagnosis: Angioedema; Acute hypoxic-hypercapnic resp failure; HTNsive urgency; DM II Interval history: Patient is seen today for: Angioedema with upper airway obstruction; Acute hypoxic-hypercapnic respiratory failure on MVS; Morbid obesity; Hypertensive urgency; Type 2 DM; h/o Heart failure Seen and examined at bedside; 24hour events reviewed; nursing and respiratory care staff consulted; no adverse overnight events reported to me; resting peacefully in bed; remains on supplemental oxygen; passed bedside dysphagia screen; No chest pains; No N/V/F/C Objective Vital Signs - 12hr 10/20/19 10/20/19 10/20/19 21:00 21:11 21:21 Temperature Pulse Rate 108 H 109 H 108 H Pulse Rate [ 88 Apical] Respiratory 26 H 25 H 22 Rate Blood Pressure 159/90 159/90 162/89 O2 Sat by Pulse 93 97 96 Oximetry 10/20/19 10/20/19 10/20/19 21:30 21:41 21:51 Temperature Pulse Rate 108 H 112 H 112 H Pulse Rate [ Apical] Respiratory 22 28 H 24 Rate Blood Pressure 165/83 165/83 149/84 O2 Sat by Pulse 94 96 96 Oximetry 10/20/19 10/20/19 10/20/19 22:00 22:11 22:21 Temperature Pulse Rate 112 H 109 H 111 H Pulse Rate [ Apical] Respiratory 25 H 26 H 25 H Rate Blood Pressure 160/82 160/82 161/86 O2 Sat by Pulse 94 96 96 Oximetry 10/20/19 10/20/19 10/20/19 22:30 22:41 22:51 Temperature Pulse Rate 110 H 112 H 110 H Pulse Rate [ 88 Apical] Respiratory 23 32 H 27 H Rate Blood Pressure 162/90 162/90 160/82 O2 Sat by Pulse 94 94 93 Oximetry 10/20/19 10/20/19 10/20/19 23:00 23:11 23:21 Temperature Pulse Rate 109 H 107 H 109 H Pulse Rate [ Apical] Respiratory 25 H 32 H 26 H Rate Blood Pressure 158/91 158/91 159/82 O2 Sat by Pulse 93 95 96 Oximetry 10/20/19 10/20/19 10/20/19 23:30 23:41 23:51 Temperature Pulse Rate 108 H 108 H 107 H Pulse Rate [ Apical] Respiratory 26 H 27 H 22 Rate Blood Pressure 141/90 141/90 154/85 O2 Sat by Pulse 93 96 95 Oximetry 10/21/19 10/21/19 10/21/19 00:01 00:05 00:11 Temperature Pulse Rate 110 H 109 H Pulse Rate [ 88 Apical] Respiratory 21 18 22 Rate Blood Pressure 165/92 165/92 O2 Sat by Pulse 90 96 97 Oximetry 10/21/19 10/21/19 10/21/19 00:21 00:28 00:31 Temperature 98.3 F Pulse Rate 112 H 108 H Pulse Rate [ Apical] Respiratory 33 H 19 Rate Blood Pressure 146/87 159/96 O2 Sat by Pulse 95 91 Oximetry 10/21/19 10/21/19 10/21/19 00:41 00:51 01:00 Temperature Pulse Rate 110 H 108 H 103 H Pulse Rate [ Apical] Respiratory 26 H 29 H 25 H Rate Blood Pressure 159/96 159/89 160/88 O2 Sat by Pulse 95 95 91 Oximetry 10/21/19 10/21/19 10/21/19 01:11 01:21 01:31 Temperature Pulse Rate 104 H 103 H 105 H Pulse Rate [ Apical] Respiratory 27 H 27 H 25 H Rate Blood Pressure 160/88 152/90 151/87 O2 Sat by Pulse 96 95 90 Oximetry 10/21/19 10/21/19 10/21/19 01:41 01:51 02:00 Temperature Pulse Rate 102 H 101 H 97 H Pulse Rate [ Apical] Respiratory 24 22 21 Rate Blood Pressure 151/87 141/87 151/88 O2 Sat by Pulse 95 95 87 Oximetry 10/21/19 10/21/19 10/21/19 02:05 02:11 02:21 Temperature Pulse Rate 88 105 H 105 H Pulse Rate [ Apical] Respiratory 18 27 H 23 Rate Blood Pressure 151/88 151/88 O2 Sat by Pulse 96 96 96 Oximetry 10/21/19 10/21/19 10/21/19 02:31 02:41 02:51 Temperature Pulse Rate 103 H 106 H 102 H Pulse Rate [ Apical] Respiratory 24 22 22 Rate Blood Pressure 162/82 162/82 155/91 O2 Sat by Pulse 91 95 95 Oximetry 10/21/19 10/21/19 10/21/19 03:01 03:11 03:21 Temperature Pulse Rate 101 H 101 H 99 H Pulse Rate [ Apical] Respiratory 24 24 22 Rate Blood Pressure 155/89 155/89 162/90 O2 Sat by Pulse 91 96 96 Oximetry 10/21/19 10/21/19 10/21/19 03:30 03:41 03:47 Temperature 98.7 F Pulse Rate 100 H 98 H Pulse Rate [ Apical] Respiratory 24 20 Rate Blood Pressure 164/94 164/94 O2 Sat by Pulse 94 94 Oximetry 10/21/19 10/21/19 10/21/19 03:51 04:01 04:05 Temperature Pulse Rate 99 H 97 H 97 H Pulse Rate [ Apical] Respiratory 26 H 24 18 Rate Blood Pressure 167/89 156/80 O2 Sat by Pulse 95 92 96 Oximetry 10/21/19 10/21/19 10/21/19 04:11 04:21 04:31 Temperature Pulse Rate 97 H 101 H 100 H Pulse Rate [ Apical] Respiratory 22 19 24 Rate Blood Pressure 156/80 165/86 161/90 O2 Sat by Pulse 96 96 87 Oximetry 10/21/19 10/21/19 10/21/19 04:41 04:45 04:51 Temperature Pulse Rate 103 H 110 H 101 H Pulse Rate [ Apical] Respiratory 19 26 H Rate Blood Pressure 161/90 165/85 154/81 O2 Sat by Pulse 95 96 Oximetry 10/21/19 10/21/19 10/21/19 05:00 05:11 05:21 Temperature Pulse Rate 100 H 103 H 105 H Pulse Rate [ Apical] Respiratory 23 22 26 H Rate Blood Pressure 159/84 159/84 157/91 O2 Sat by Pulse 91 97 96 Oximetry 10/21/19 10/21/19 10/21/19 05:30 05:41 05:51 Temperature Pulse Rate 104 H 104 H 105 H Pulse Rate [ Apical] Respiratory 24 23 24 Rate Blood Pressure 158/88 158/88 166/97 O2 Sat by Pulse 91 95 96 Oximetry 10/21/19 10/21/19 10/21/19 06:00 06:10 06:15 Temperature Pulse Rate 104 H 104 H Pulse Rate [ Apical] Respiratory 24 23 18 Rate Blood Pressure O2 Sat by Pulse 93 94 96 Oximetry 10/21/19 10/21/19 10/21/19 06:21 06:31 07:36 Temperature Pulse Rate 109 H 108 H Pulse Rate [ 105 H Apical] Respiratory 26 H 26 H 16 Rate Blood Pressure 179/111 151/103 O2 Sat by Pulse 95 91 99 Oximetry 10/21/19 07:45 Temperature 98.3 F Pulse Rate Pulse Rate [ Apical] Respiratory Rate Blood Pressure O2 Sat by Pulse Oximetry Constitutional: no acute distress, other (middle aged obese AAF normocephalic with mildly increased respiratory effort at rest) Eyes: non-icteric ENT: oropharynx moist, other (extubated) Neck: supple, no JVD, other (+ large neck circumference) Effort: mildly labored Ascultation: Bilateral: clear, diminished breath sounds Percussion: Bilateral: not dull Cardiovascular: regular rate and rhythm, other (S1,S2,) Gastrointestinal: normoactive bowel sounds, soft, non-tender, non-distended, other (obese) Integumentary: normal Extremities: no cyanosis, no edema, pulses normal, no ischemia or petechiae Neurologic: normal mental status, non-focal exam (grossly), pupils equal and round, CN II-XII normal, motor strength normal and Psychiatric: mood appropriate, affect normal CBC and BMP: 10/18/19 08:22 10/20/19 03:25 ABG, PT/INR, D-dimer: ABG POC ABG pH 7.495 (7.35-7.45) H 10/20/19 06:00 ABG pH 7.426 pH Units (7.350-7.450) 10/21/19 04:45 POC ABG pCO2 37.3 (35-45) 10/20/19 06:00 ABG pCO2 44.9 mm Hg 10/21/19 04:45 POC ABG pO2 85 (80-105) 10/20/19 06:00 ABG pO2 82.8 mm Hg (80.0-90.0) 10/21/19 04:45 POC ABG HCO3 28.8 (22-26 mml/L) 10/20/19 06:00 POC ABG Total CO2 30 (23-27mmol/L) 10/20/19 06:00 POC ABG O2 Sat 97 10/20/19 06:00 ABG O2 Saturation 96.6 % (95.0-99.0) 10/21/19 04:45 Abnormal lab findings: Abnormal Labs 10/17/19 10/17/19 10/17/19 17:39 17:39 18:44 Lymph % (Auto) 44.3 H Seg Neutrophils % Seg Neutrophils # POC ABG pH 7.325 L POC ABG pCO2 53.2 H POC ABG pO2 73 L ABG pO2 ABG HCO3 ABG Base Excess Oxyhemoglobin Potassium Carbon Dioxide BUN 19 H Creatinine Glucose 155 H POC Glucose Hemoglobin A1c Albumin Triglycerides 10/18/19 10/18/19 10/18/19 00:39 03:54 06:02 Lymph % (Auto) Seg Neutrophils % Seg Neutrophils # POC ABG pH POC ABG pCO2 POC ABG pO2 69 L ABG pO2 ABG HCO3 ABG Base Excess Oxyhemoglobin Potassium Carbon Dioxide BUN Creatinine Glucose POC Glucose 210 H 232 H Hemoglobin A1c Albumin Triglycerides 10/18/19 10/18/19 10/18/19 08:22 08:22 08:22 Lymph % (Auto) Seg Neutrophils % 85.1 H Seg Neutrophils # 8.9 H POC ABG pH POC ABG pCO2 POC ABG pO2 ABG pO2 ABG HCO3 ABG Base Excess Oxyhemoglobin Potassium 3.5 L Carbon Dioxide 21 L BUN 26 H Creatinine 1.6 H Glucose 262 H POC Glucose Hemoglobin A1c 7.5 H Albumin Triglycerides 10/18/19 10/18/19 10/18/19 12:07 18:36 23:54 Lymph % (Auto) Seg Neutrophils % Seg Neutrophils # POC ABG pH POC ABG pCO2 POC ABG pO2 ABG pO2 ABG HCO3 ABG Base Excess Oxyhemoglobin Potassium Carbon Dioxide BUN Creatinine Glucose POC Glucose 260 H 237 H 226 H Hemoglobin A1c Albumin Triglycerides 10/19/19 10/19/19 10/19/19 05:40 06:16 12:04 Lymph % (Auto) Seg Neutrophils % Seg Neutrophils # POC ABG pH POC ABG pCO2 POC ABG pO2 ABG pO2 76.6 L ABG HCO3 ABG Base Excess Oxyhemoglobin 94.6 L Potassium Carbon Dioxide BUN Creatinine Glucose POC Glucose 251 H 215 H Hemoglobin A1c Albumin Triglycerides 10/19/19 10/20/19 10/20/19 17:51 00:32 03:25 Lymph % (Auto) Seg Neutrophils % Seg Neutrophils # POC ABG pH POC ABG pCO2 POC ABG pO2 ABG pO2 ABG HCO3 ABG Base Excess Oxyhemoglobin Potassium Carbon Dioxide BUN 42 H Creatinine 1.9 H Glucose 239 H POC Glucose 236 H 230 H Hemoglobin A1c Albumin 3.5 L Triglycerides 431 H 10/20/19 10/20/19 10/20/19 06:00 09:01 12:09 Lymph % (Auto) Seg Neutrophils % Seg Neutrophils # POC ABG pH 7.495 H POC ABG pCO2 POC ABG pO2 ABG pO2 ABG HCO3 ABG Base Excess Oxyhemoglobin Potassium Carbon Dioxide BUN Creatinine Glucose POC Glucose 205 H 221 H Hemoglobin A1c Albumin Triglycerides 10/20/19 10/21/19 10/21/19 18:58 00:35 04:44 Lymph % (Auto) Seg Neutrophils % Seg Neutrophils # POC ABG pH POC ABG pCO2 POC ABG pO2 ABG pO2 ABG HCO3 ABG Base Excess Oxyhemoglobin Potassium Carbon Dioxide BUN Creatinine Glucose POC Glucose 242 H 263 H 225 H Hemoglobin A1c Albumin Triglycerides 10/21/19 04:45 Lymph % (Auto) Seg Neutrophils % Seg Neutrophils # POC ABG pH POC ABG pCO2 POC ABG pO2 ABG pO2 ABG HCO3 28.8 H ABG Base Excess 3.8 H Oxyhemoglobin 94.7 L Potassium Carbon Dioxide BUN Creatinine Glucose POC Glucose Hemoglobin A1c Albumin Triglycerides Chest x-ray: image reviewed Allied health notes reviewed: nursing
[2019-10-21] MEDS: FAMOTIDINE 20 MG/2 ML INJ IV SCH ×2 (09:56→22:00)
--- NOTE | 2019-10-21 10:06 | Progress Note ---
Assessment and Plan Angioedema allergic reaction is thought to be due to lisinopril but she was also said to have eating some pizza prior to the onset of her symptoms Respiratory failure s/p extubation Hypertension History of Nonischemic CMP EF 20-25% by reassessment on echo this admission no significant CAD by [facility] 07/2019 at [facility] Conservative cardiac management. Subjective Date of service: 10/21/19 Interval history: Patient extubated overnight. No distress noted. Objective Vital Signs Temp Pulse Pulse Pulse Resp Resp BP 10/21/19 07:45 98.3 F 10/21/19 07:36 105 H 16 10/21/19 06:31 108 H 26 H 151/103 10/21/19 06:21 109 H 26 H 179/111 10/21/19 06:15 18 10/21/19 06:10 104 H 23 10/21/19 06:00 104 H 24 10/21/19 05:51 105 H 24 166/97 10/21/19 05:41 104 H 23 158/88 10/21/19 05:30 104 H 24 158/88 10/21/19 05:21 105 H 26 H 157/91 10/21/19 05:11 103 H 22 159/84 10/21/19 05:00 100 H 23 159/84 10/21/19 04:51 101 H 26 H 154/81 10/21/19 04:45 110 H 165/85 10/21/19 04:41 103 H 19 161/90 10/21/19 04:31 100 H 24 161/90 10/21/19 04:21 101 H 19 165/86 10/21/19 04:11 97 H 22 156/80 10/21/19 04:05 97 H 18 10/21/19 04:01 97 H 24 156/80 10/21/19 03:51 99 H 26 H 167/89 10/21/19 03:47 98.7 F 10/21/19 03:41 98 H 20 164/94 10/21/19 03:30 100 H 24 164/94 10/21/19 03:21 99 H 22 162/90 10/21/19 03:11 101 H 24 155/89 10/21/19 03:01 101 H 24 155/89 10/21/19 02:51 102 H 22 155/91 10/21/19 02:41 106 H 22 162/82 10/21/19 02:31 103 H 24 162/82 10/21/19 02:21 105 H 23 151/88 10/21/19 02:11 105 H 27 H 151/88 10/21/19 02:05 88 18 10/21/19 02:00 97 H 21 151/88 10/21/19 01:51 101 H 22 141/87 10/21/19 01:41 102 H 24 151/87 10/21/19 01:31 105 H 25 H 151/87 10/21/19 01:21 103 H 27 H 152/90 10/21/19 01:11 104 H 27 H 160/88 10/21/19 01:00 103 H 25 H 160/88 10/21/19 00:51 108 H 29 H 159/89 10/21/19 00:41 110 H 26 H 159/96 10/21/19 00:31 108 H 19 159/96 10/21/19 00:28 98.3 F 10/21/19 00:21 112 H 33 H 146/87 10/21/19 00:11 109 H 22 165/92 10/21/19 00:05 88 18 10/21/19 00:01 110 H 21 165/92 10/20/19 23:51 107 H 22 154/85 10/20/19 23:41 108 H 27 H 141/90 10/20/19 23:30 108 H 26 H 141/90 10/20/19 23:21 109 H 26 H 159/82 10/20/19 23:11 107 H 32 H 158/91 10/20/19 23:00 109 H 25 H 158/91 10/20/19 22:51 110 H 27 H 160/82 10/20/19 22:41 112 H 32 H 162/90 10/20/19 22:30 110 H 88 23 162/90 10/20/19 22:21 111 H 25 H 161/86 10/20/19 22:11 109 H 26 H 160/82 10/20/19 22:00 112 H 25 H 160/82 10/20/19 21:51 112 H 24 149/84 10/20/19 21:41 112 H 28 H 165/83 10/20/19 21:30 108 H 22 165/83 10/20/19 21:21 108 H 22 162/89 10/20/19 21:11 109 H 25 H 159/90 10/20/19 21:00 108 H 88 26 H 159/90 10/20/19 20:51 114 H 34 H 157/100 10/20/19 20:41 108 H 28 H 158/92 10/20/19 20:30 108 H 26 H 158/92 10/20/19 20:21 110 H 21 138/91 10/20/19 20:11 110 H 25 H 158/92 10/20/19 20:00 109 H 26 H 158/92 10/20/19 19:58 10/20/19 19:57 108 H 29 H 10/20/19 19:51 107 H 27 H 164/102 10/20/19 19:41 112 H 32 H 162/125 10/20/19 19:30 105 H 112 H 21 162/125 10/20/19 19:27 97.9 F 10/20/19 19:21 109 H 28 H 168/93 10/20/19 19:15 95 H 162/89 10/20/19 19:11 106 H 25 H 159/95 10/20/19 19:01 110 H 31 H 159/95 10/20/19 18:51 111 H 27 H 152/104 10/20/19 18:40 108 H 28 H 150/93 10/20/19 18:30 110 H 16 154/106 10/20/19 18:21 112 H 23 133/89 10/20/19 18:11 106 H 22 150/93 10/20/19 18:00 108 H 107 H 23 148/92 10/20/19 17:50 103 H 20 148/92 10/20/19 17:40 102 H 19 143/88 10/20/19 17:30 104 H 20 143/88 10/20/19 17:21 105 H 21 142/87 10/20/19 17:11 105 H 20 155/90 10/20/19 17:00 105 H 21 144/89 10/20/19 16:51 103 H 19 144/87 10/20/19 16:41 105 H 19 149/80 10/20/19 16:38 106 H 20 144/90 10/20/19 16:36 103 H 144/87 10/20/19 16:20 104 H 19 150/89 10/20/19 16:10 104 H 19 155/92 10/20/19 16:00 98.5 F 108 H 104 H 21 153/89 10/20/19 15:50 105 H 17 153/89 10/20/19 15:40 108 H 20 149/80 10/20/19 15:30 108 H 20 150/90 10/20/19 15:20 109 H 21 150/90 10/20/19 15:10 111 H 22 158/95 10/20/19 15:00 109 H 22 156/96 10/20/19 14:52 107 H 156/96 10/20/19 14:50 105 H 19 156/96 10/20/19 14:40 107 H 20 161/101 10/20/19 14:30 107 H 18 152/104 10/20/19 14:20 108 H 19 152/104 10/20/19 14:10 104 H 22 154/94 10/20/19 14:00 103 H 106 H 24 162/96 10/20/19 13:50 109 H 25 H 162/96 10/20/19 13:42 109 H 162/96 10/20/19 13:40 105 H 21 163/95 10/20/19 13:30 105 H 21 168/107 10/20/19 13:20 111 H 27 H 168/107 10/20/19 13:10 108 H 35 H 144/90 10/20/19 13:00 97 H 21 149/89 10/20/19 12:50 99 H 18 149/89 10/20/19 12:40 99 H 17 142/88 10/20/19 12:38 99 H 20 10/20/19 12:00 96 H 10/20/19 11:32 98 H 155/94 10/20/19 11:00 100 H Pulse Ox 10/21/19 07:45 10/21/19 07:36 99 10/21/19 06:31 91 10/21/19 06:21 95 10/21/19 06:15 96 10/21/19 06:10 94 10/21/19 06:00 93 10/21/19 05:51 96 10/21/19 05:41 95 10/21/19 05:30 91 10/21/19 05:21 96 10/21/19 05:11 97 01/10/20 05:00 91 10/21/19 04:51 96 10/21/19 04:45 10/21/19 04:41 95 10/21/19 04:31 87 10/21/19 04:21 96 10/21/19 04:11 96 10/21/19 04:05 96 10/21/19 04:01 92 10/21/19 03:51 95 10/21/19 03:47 10/21/19 03:41 94 10/21/19 03:30 94 10/21/19 03:21 96 10/21/19 03:11 96 10/21/19 03:01 91 10/21/19 02:51 95 10/21/19 02:41 95 10/21/19 02:31 91 10/21/19 02:21 96 10/21/19 02:11 96 10/21/19 02:05 96 10/21/19 02:00 87 10/21/19 01:51 95 10/21/19 01:41 95 10/21/19 01:31 90 10/21/19 01:21 95 10/21/19 01:11 96 10/21/19 01:00 91 10/21/19 00:51 95 10/21/19 00:41 95 10/21/19 00:31 91 10/21/19 00:28 10/21/19 00:21 95 10/21/19 00:11 97 10/21/19 00:05 96 10/21/19 00:01 90 10/20/19 23:51 95 10/20/19 23:41 96 10/20/19 23:30 93 10/20/19 23:21 96 10/20/19 23:11 95 10/20/19 23:00 93 10/20/19 22:51 93 10/20/19 22:41 94 10/20/19 22:30 94 10/20/19 22:21 96 10/20/19 22:11 96 10/20/19 22:00 94 10/20/19 21:51 96 10/20/19 21:41 96 10/20/19 21:30 94 10/20/19 21:21 96 10/20/19 21:11 97 10/20/19 21:00 93 10/20/19 20:51 91 10/20/19 20:41 96 10/20/19 20:30 95 10/20/19 20:21 96 10/20/19 20:11 96 10/20/19 20:00 91 10/20/19 19:58 95 10/20/19 19:57 10/20/19 19:51 96 10/20/19 19:41 95 10/20/19 19:30 93 10/20/19 19:27 10/20/19 19:21 94 10/20/19 19:15 96 10/20/19 19:11 97 10/20/19 19:01 93 10/20/19 18:51 95 10/20/19 18:40 96 10/20/19 18:30 93 10/20/19 18:21 96 10/20/19 18:11 96 10/20/19 18:00 94 10/20/19 17:50 97 10/20/19 17:40 98 10/20/19 17:30 97 10/20/19 17:21 98 10/20/19 17:11 97 10/20/19 17:00 97 10/20/19 16:51 98 10/20/19 16:41 98 10/20/19 16:38 98 10/20/19 16:36 98 10/20/19 16:20 99 10/20/19 16:10 99 10/20/19 16:00 99 10/20/19 15:50 100 10/20/19 15:40 100 10/20/19 15:30 99 10/20/19 15:20 100 10/20/19 15:10 100 10/20/19 15:00 99 10/20/19 14:52 10/20/19 14:50 98 10/20/19 14:40 99 10/20/19 14:30 98 10/20/19 14:20 98 10/20/19 14:10 98 10/20/19 14:00 97 10/20/19 13:50 97 10/20/19 13:42 98 10/20/19 13:40 98 10/20/19 13:30 98 10/20/19 13:20 98 10/20/19 13:10 93 10/20/19 13:00 95 10/20/19 12:50 95 10/20/19 12:40 93 10/20/19 12:38 95 10/20/19 12:00 10/20/19 11:32 97 10/20/19 11:00 - Physical Examination General: No Apparent Distress HEENT: Positive: PERRL Neck: Positive: neck supple Cardiac: Positive: Reg Rate and Rhythm Lungs: Positive: Decreased Breath Sounds Neuro: Positive: Grossly Intact Extremities: Absent: edema
[2019-10-21] MEDS: SODIUM CHLORIDE 0.45% 1000 ML 1,000 ML IV SCH (10:30)
[2019-10-21] MEDS: methylPREDNISolone Sod Succinate 125 MG/2 ML INJ IV SCH (10:30)
[2019-10-21] MEDS: hydrALAZINE 20 MG/1 ML INJ IV PRN (12:08)
--- NOTE | 2019-10-21 19:45 | Progress Note ---
Assessment and Plan - Patient Problems (1) Respiratory failure Current Visit: Yes Status: Acute Qualifiers: Chronicity: acute Respiratory failure complication: hypoxia Qualified Code(s): J96.01 - Acute respiratory failure with hypoxia Plan to address problem: Supplemental oxygen, nebulizer therapy, pulse oximetry, noninvasive positive pressure ventilation as clinically indicated, incentive spirometry, pulmonary toilet, early ambulation, supportive care. (2) Angio-edema Current Visit: Yes Status: Acute Plan to address problem: IV steroid therapy, IV antihistamine therapy, supportive care. (3) CHF (congestive heart failure) Current Visit: Yes Status: Acute Qualifiers: Heart failure type: systolic Heart failure chronicity: acute on chronic Qualified Code(s): I50.23 - Acute on chronic systolic (congestive) heart failure Plan to address problem: Strict I/O, daily weight, diuresis, afterload reduction, pulse oximetry, blood pressure control (4) Hypertensive urgency, malignant Current Visit: Yes Status: Acute Plan to address problem: Monitor blood pressure every shift, continue current therapy. (5) Advance care planning Current Visit: Yes Status: Acute Plan to address problem: Patient is full code, diagnosis education conducted at bedside, patient daughter acknowledges understanding and agreement with care plan. +30 minutes. (6) DVT prophylaxis Current Visit: Yes Status: Acute Plan to address problem: SCD to bilateral lower extremities while in bed, prophylactic Lovenox. History Interval history: 49-year-old female hospital day 3 with acute hypoxemic and hypercapnic respiratory failure. Patient extubated. Patient currently able to protect her airway and is in no acute respiratory distress. Patient transferred from ICU to medical floor.. No reported nursing events. Lab and imaging studies reviewed. Discussed care plan with daughter who is at bedside during exam and interview. Hospitalist Physical - Constitutional Vitals: Temp Pulse Resp BP Pulse Ox 98.4 F 110 H 24 147/87 94 10/21/19 13:38 10/21/19 14:01 10/21/19 14:01 10/21/19 14:01 10/21/19 14:01 General appearance: Present: no acute distress, obese, other (sedated, on the vent) - EENT Eyes: Present: PERRL - Neck Neck: Present: supple - Respiratory Respiratory effort: normal Respiratory: bilateral: diminished, rhonchi - Cardiovascular Rhythm: regular Heart Sounds: Present: S1 & S2 - Extremities Extremities: no ischemia Extremity abnormal: edema Peripheral Pulses: within normal limits - Abdominal General gastrointestinal: soft, non-tender, non-distended - Integumentary Integumentary: Present: clear, warm, dry - Psychiatric Psychiatric: appropriate mood/affect, cooperative - Neurologic Neurologic: CNII-XII intact Results - Labs CBC & Chem 7: 10/18/19 08:22 10/20/19 03:25 Labs: Laboratory Last Values WBC 10.4 K/mm3 (4.5-11.0) 10/18/19 08:22 RBC 4.25 M/mm3 (3.65-5.03) 10/18/19 08:22 Hgb 13.2 gm/dl (10.1-14.3) 10/18/19 08:22 Hct 39.2 % (30.3-42.9) 10/18/19 08:22 MCV 92 fl (79-97) 10/18/19 08:22 MCH 31 pg (28-32) 10/18/19 08: MCHC 34 % (30-34) 10/18/19 08:22 RDW 14.7 % (13.2-15.2) 10/18/19 08:22 Plt Count 382 K/mm3 (140-440) 10/18/19 08:22 Lymph % (Auto) 13.9 % (13.4-35.0) 10/18/19 08:22 [place] % (Auto) 0.5 % (0.0-7.3) 10/18/19 08:22 Eos % (Auto) 0.0 % (0.0-4.3) 10/18/19 08:22 Baso % (Auto) 0.5 % (0.0-1.8) 10/18/19 08:22 Lymph # 1.5 K/mm3 (1.2-5.4) 10/18/19 08:22 [place] # 0.1 K/mm3 (0.0-0.8) 10/18/19 08:22 Eos # 0.0 K/mm3 (0.0-0.4) 10/18/19 08:22 Baso # 0.1 K/mm3 (0.0-0.1) 10/18/19 08:22 Seg Neutrophils % 85.1 % (40.0-70.0) H 10/18/19 08:22 Seg Neutrophils # 8.9 K/mm3 (1.8-7.7) H 10/18/19 08:22 POC ABG pH 7.495 (7.35-7.45) H 10/20/19 06:00 ABG pH 7.426 pH Units (7.350-7.450) 10/21/19 04:45 POC ABG pCO2 37.3 (35-45) 10/20/19 06:00 ABG pCO2 44.9 mm Hg 10/21/19 04:45 POC ABG pO2 85 (80-105) 10/20/19 06:00 ABG pO2 82.8 mm Hg (80.0-90.0) 10/21/19 04:45 POC ABG HCO3 28.8 (22-26 mml/L) 10/20/19 06:00 ABG HCO3 28.8 mmol/L (20.0-26.0) H 10/21/19 04:45 POC ABG Total CO2 30 (23-27mmol/L) 10/20/19 06:00 POC ABG O2 Sat 97 10/20/19 06:00 ABG O2 Saturation 96.6 % (95.0-99.0) 10/21/19 04:45 ABG O2 Content 18.3 (0.0-44) 10/21/19 04:45 POC ABG Base Excess 6 ((-2) - (+3)mmol/L) 10/20/19 06:00 ABG Base Excess 3.8 mmol/L (-2.0-3.0) H 10/21/19 04:45 ABG Hemoglobin 13.7 gm/dl (12.0-16.0) 10/21/19 04:45 ABG Carboxyhemoglobin 1.4 % (0.0-5.0) 10/21/19 04:45 ABG Methemoglobin 0.5 % (0.0-1.5) 10/21/19 04:45 Oxyhemoglobin 94.7 % (95.0-99.0) L 10/21/19 04:45 FiO2 35 % 10/21/19 04:45 Sodium 143 mmol/L (137-145) 10/20/19 03:25 Potassium 3.7 mmol/L (3.6-5.0) 10/20/19 03:25 Chloride 102.4 mmol/L (98-107) 10/20/19 03:25 Carbon Dioxide 23 mmol/L (22-30) 10/20/19 03:25 Anion Gap 21 mmol/L 10/20/19 03:25 BUN 42 mg/dL (7-17) H 10/20/19 03:25 Creatinine 1.9 mg/dL (0.7-1.2) H 10/20/19 03:25 Estimated GFR 34 ml/min 10/20/19 03:25 BUN/Creatinine Ratio 22 % 10/20/19 03:25 Glucose 239 mg/dL (65-100) H 10/20/19 03:25 POC Glucose 215 (70-105) H 10/21/19 17:41 Hemoglobin A1c 7.5 % (4-6) H 10/18/19 08:22 Calcium 8.8 mg/dL (8.4-10.2) 10/20/19 03:25 Total Bilirubin 0.20 mg/dL (0.1-1.2) 10/20/19 03:25 AST 14 units/L (5-40) 10/20/19 03:25 ALT 12 units/L (7-56) 10/20/19 03:25 Alkaline Phosphatase 99 units/L (35-129) 10/20/19 03:25 Total Protein 6.9 g/dL (6.3-8.2) 10/20/19 03:25 Albumin 3.5 g/dL (3.9-5) L 10/20/19 03:25 Albumin/Globulin Ratio 1.0 % 10/20/19 03:25 Triglycerides 431 mg/dL (2-149) H 10/20/19 03:25 Active Medications - Current Medications Current Medications: Generic Name Dose Route Start Last Admin Trade Name Freq PRN Reason Stop Dose Admin Acetaminophen 650 mg 10/17/19 19:14 Tylenol PO Q4H PRN Pain MILD(1-3)/Fever >100.5/AMARO Dextrose 50 ml 10/17/19 21:11 D50w (25gm) Syringe IV Q30MIN PRN Hypoglycemia Protocol Diphenhydramine HCl 25 mg 10/17/19 21:11 Benadryl IV Q6H PRN Itching Enoxaparin Sodium 40 mg 10/17/19 22:00 10/20/19 21:08 Enoxaparin SUB-Q 40 mg QDAY@2200 MIRI Administration Famotidine 20 mg 10/17/19 22:00 10/21/19 09:56 Pepcid IV 20 mg BID MIRI Administration Hydralazine HCl 10 mg 10/17/19 20:44 10/21/19 12:08 Apresoline IV 10 mg Q4HR PRN Administration BP >160/100 Hydralazine HCl 10 mg 10/19/19 14:00 10/21/19 13:54 Apresoline IV 10 mg Q8HR MIRI Administration Hydrophilic Ointment 1 applic 10/17/19 17:43 Vaseline Lip Therapy TP Q2HR PRN Dry Lips Sodium Chloride 1,000 mls @ 75 mls/hr 10/21/19 11:00 10/21/19 10:30 Nacl 0.45% 1000 Ml IV 10/23/19 00:19 75 mls/hr DIRECT MIRI Administration Insulin Glargine 5 units 10/21/19 22:00 Lantus SUB-Q QHS [facility] Insulin Human Regular 0 units 10/21/19 11:30 10/21/19 17:46 Humulin R SUB-Q 1 units ACHS [facility] Administration Protocol Labetalol HCl 10 mg 10/17/19 20:44 10/18/19 09:36 Labetalol IV 10 mg Q4H PRN Administration BP >170/105; hold for HR <60 Methylprednisolone Sodium Succinate 40 mg 10/22/19 10:00 Solu-Medrol IV Q24HR [facility] Multi-Ingred Cream/Lotion/Oil/Oint 1 applic 10/17/19 17:43 Artificial Tears Ophth Oint OU Q4HR PRN Dry Eye(s) Ondansetron HCl 4 mg 10/17/19 19:14 Zofran IV Q8H PRN Nausea And Vomiting Scopolamine 1 each 10/20/19 17:00 10/20/19 17:45 Transderm-Scop TD 1 each Q3D MIRI Administration Sodium Chloride 10 ml 10/17/19 22:00 10/21/19 09:57 Sodium Chloride Flush Syringe 10 Ml IV 10 ml BID MIRI Administration Sodium Chloride 10 ml 10/17/19 19:14 10/21/19 04:48 Sodium Chloride Flush Syringe 10 Ml IV 10 ml PRN PRN Administration LINE FLUSH Nutrition/Malnutrition Assess - Dietary Evaluation Nutrition/Malnutrition Findings: Nutrition Notes Start: 10/18/19 12:55 Freq: Status: Active Protocol: Document 10/20/19 13:16 KS (Rec: 10/20/19 13:33 KS [id number]) Co-Sign 10/20/19 13:16 LM Nutrition Notes Need for Assessment generated from: MD Order,Education Initial or Follow up Assessment Current Diagnosis Diabetes,Hypertension,Heart Failure Other Pertinent Diagnosis Tongue swelling Current Diet NPO Labs/Tests BUN 42 Cr 1.9 BG 239 POC Glu 221 TG 431 Pertinent Medications Humulin Lasix Solumedrol Height 5 ft 5 in Weight 111.7 kg [place] Body Weight (kg) 56.81 BMI 40.9 Weight Status Morbidly Obese Subjective/Other Information MD consult for diet education. Unable to administer diet education due to pt being on vent. Per family at bedside, pt had normal appetite with no wt loss [employer]. Burn Absent Trauma Absent Minimum of two criteria No physical signs of malnutrition #1 Nutrition Diagnosis Inadequate oral intake Etiology pt on vent As Evidenced by Signs and Symptoms NPO status Is patient on ventilator? Yes Is Patient Ambulatory and/or Out of Bed No REE-([facility]-confined to bed) 2083.008 Kcal/Kg value to use for calculation 14 Approximate Energy Requirements Using 1564 kcal/Kg Calculation Used for Recommendations Kcal/kg Additional Notes PRO: Up to 143g (2.5g/kg/day IBW 57kg) Fluid: 1mL/kcal Nutrition Intervention Change Diet Order: TF when medically feasible Nutrition Support: Vital High Protein at 65mL/hr Free water flush 50mL q4h Kcal 1,560 Protein (gm) 137 Fluid (mL) 1,304 Goal #1 TF when medically feasible Anticipated Discharge Needs: Unable to determine at this time Follow-Up By: 10/24/19 Additional Comments F/U for possible TF
[2019-10-21] MEDS: ENOXAPARIN 40 MG/0.4 ML INJ SUB-Q SCH (22:00)
[2019-10-21] MEDS: INSULIN GLARGINE 100 UNITS/ML SUB-Q SCH (22:00)
[2019-10-22] MEDS: hydrALAZINE 20 MG/1 ML INJ IV SCH ×3 (06:00→23:35)
--- NOTE | 2019-10-22 06:46 | XRay Report ---
CHEST 1 VIEW 6:19 AM INDICATION / CLINICAL INFORMATION: Follow-up respiratory failure. COMPARISON: Yesterday. FINDINGS: SUPPORT DEVICES: The nasogastric tube has been removed. HEART / MEDIASTINUM: Unchanged. LUNGS / PLEURA: Patchy parenchymal disease in the right lower lung has shown minimal change since yes terday. No new abnormality. No pneumothorax. ADDITIONAL FINDINGS: No significant additional findings. IMPRESSION: Patchy parenchymal disease in the right lower lung is stable. Signer Name: Rohith Wan MD Signed: 10/22/2019 6:42 AM Workstation Name: [id number]
[2019-10-22] MEDS: INSULIN REGULAR, HUMAN 100 UNITS/1 ML SUB-Q SCH ×4 (08:54→22:30)
--- NOTE | 2019-10-22 09:40 | Progress Note ---
Assessment and Plan 1. Status post acute angioedema 2. Chronic combined systolic and diastolic heart failure 3. Dilated nonischemic cardiomyopathy 4. Essential hypertension 5. Obesity Plan. Cardiac-haynes stable, continue present cardiac medication and discharge planning as per hospitalist Subjective Date of service: 10/29/19 Interval history: No cardiac symptoms Objective Vital Signs Temp Pulse Pulse Resp BP Pulse Ox 10/22/19 06:00 108 H 158/98 10/21/19 22:00 101 H 164/87 10/21/19 20:00 20 10/21/19 14:01 110 H 24 147/87 94 10/21/19 14:00 94 H 16 98 10/21/19 13:38 98.4 F 10/21/19 13:31 115 H 34 H 156/92 93 10/21/19 13:21 112 H 29 H 168/115 97 10/21/19 13:11 108 H 14 164/100 96 10/21/19 13:00 104 H 18 164/100 93 10/21/19 12:50 107 H 19 164/100 92 10/21/19 12:41 102 H 26 H 175/101 92 10/21/19 12:31 100 H 23 174/95 90 10/21/19 12:20 101 H 30 H 175/101 94 10/21/19 12:11 96 H 24 173/92 93 10/21/19 12:01 97 H 24 198/108 90 10/21/19 12:00 99 H 16 92 10/21/19 11:51 96 H 23 188/109 92 10/21/19 11:41 99 H 23 183/103 93 10/21/19 11:31 97 H 21 183/103 91 10/21/19 11:21 100 H 22 173/101 93 10/21/19 11:11 97 H 24 182/101 93 10/21/19 11:01 99 H 26 H 182/101 90 10/21/19 10:51 95 H 18 173/102 92 10/21/19 10:41 99 H 18 179/93 90 10/21/19 10:31 100 H 24 179/93 90 10/21/19 10:21 104 H 18 175/96 93 10/21/19 10:11 101 H 20 177/102 92 10/21/19 10:01 104 H 26 H 177/102 91 10/21/19 10:00 105 H 89 14 99 10/21/19 09:51 107 H 24 143/110 93 10/21/19 09:41 108 H 26 H 149/91 95 - Physical Examination General: No Apparent Distress HEENT: Positive: PERRL Neck: Positive: neck supple Cardiac: Positive: Reg Rate and Rhythm, Regular Rate, S1/S2, PMI, Dilated, Laterally Displaced. Negative: S3, S4 Lungs: Positive: clear to auscultation, No Wheeze, Rales, Rhonchi Neuro: Positive: Grossly Intact Abdomen: Positive: Soft Skin: Positive: Clear Extremities: Absent: edema
[2019-10-22] MEDS: methylPREDNISolone Sod Succinate 40 MG/1 ML INJ IV SCH (11:11)
[2019-10-22] MEDS: FAMOTIDINE 20 MG TAB PO SCH ×2 (11:11→22:30)
[2019-10-22] MEDS: ACETAMINOPHEN 325 MG TAB PO PRN (11:12)
--- NOTE | 2019-10-22 11:15 | Progress Note ---
Assessment and Plan Angioedema with upper airway obstruction, secondary to lisinopril Acute hypoxic-hypercapnic respiratory failure s/p MVS Morbid obesity Hypertensive urgency Allergy to lisinopril Type 2 DM h/o Heart failure -Steroids-wean , H2 antagonists, antihistamines -Wean FIO2 for O2 sats >90% -CBC, BMP in am -VTE prophylaxis - Accuchecks with glycemic control for SSI (While critically ill target blood glucose of 140-180 mg/dL; avoid hypoglycemia) - PT/OT, increase activity - Avoid nephrotoxins, adjust all medications for GFR/CrCL -Evaluation for AURORA as outpatient -Blood pressure control -Weight loss and life style modifications -Glycemic control. -Discharge planning per primary service Subjective Date of service: 10/22/19 Interval history: Patient is seen today for: Angioedema with upper airway obstruction; Acute hypoxic-hypercapnic respiratory failures/p MVS; Morbid obesity; Hypertensive urgency; Type 2 DM; Seen and examined at bedside; 24hour events reviewed; nursing and respiratory care staff consulted; no adverse overnight events reported to me; resting peacefully in bed; remains on supplemental oxygen; hoarse voice, poor appetite, no fevers, chills, no abdominal pain, no diarrhea, no chest pain, no shortness of breath. Family visiting at the bedside Objective Vital Signs - 12hr 10/22/19 06:00 Pulse Rate 108 H Blood Pressure 158/98 Constitutional: no acute distress, alert, other (sitting up in bed) Eyes: non-icteric ENT: oropharynx moist Neck: supple, no JVD Effort: normal Ascultation: Bilateral: clear, diminished breath sounds Cardiovascular: regular rate and rhythm, other (S1,S2,) Gastrointestinal: normoactive bowel sounds, soft, non-tender, non-distended, other (obese) Integumentary: normal Extremities: no cyanosis, no edema, pulses normal, no ischemia or petechiae Neurologic: normal mental status, non-focal exam (moves all extemites, opens eyes on verbal and tactile stimuli), pupils equal and round, CN II-XII normal, motor strength normal and Psychiatric: mood appropriate, affect normal CBC and BMP: 10/18/19 08:22 10/20/19 03:25 ABG, PT/INR, D-dimer: ABG POC ABG pH 7.495 (7.35-7.45) H 10/20/19 06:00 ABG pH 7.426 pH Units (7.350-7.450) 10/21/19 04:45 POC ABG pCO2 37.3 (35-45) 10/20/19 06:00 ABG pCO2 44.9 mm Hg 10/21/19 04:45 POC ABG pO2 85 (80-105) 10/20/19 06:00 ABG pO2 82.8 mm Hg (80.0-90.0) 10/21/19 04:45 POC ABG HCO3 28.8 (22-26 mml/L) 10/20/19 06:00 POC ABG Total CO2 30 (23-27mmol/L) 10/20/19 06:00 POC ABG O2 Sat 97 10/20/19 06:00 ABG O2 Saturation 96.6 % (95.0-99.0) 10/21/19 04:45 Abnormal lab findings: Abnormal Labs 10/17/19 10/17/19 10/17/19 17:39 17:39 18:44 Lymph % (Auto) 44.3 H Seg Neutrophils % Seg Neutrophils # POC ABG pH 7.325 L POC ABG pCO2 53.2 H POC ABG pO2 73 L ABG pO2 ABG HCO3 ABG Base Excess Oxyhemoglobin Potassium Carbon Dioxide BUN 19 H Creatinine Glucose 155 H POC Glucose Hemoglobin A1c Albumin Triglycerides 10/18/19 10/18/19 10/18/19 00:39 03:54 06:02 Lymph % (Auto) Seg Neutrophils % Seg Neutrophils # POC ABG pH POC ABG pCO2 POC ABG pO2 69 L ABG pO2 ABG HCO3 ABG Base Excess Oxyhemoglobin Potassium Carbon Dioxide BUN Creatinine Glucose POC Glucose 210 H 232 H Hemoglobin A1c Albumin Triglycerides 10/18/19 10/18/19 10/18/19 08:22 08:22 08:22 Lymph % (Auto) Seg Neutrophils % 85.1 H Seg Neutrophils # 8.9 H POC ABG pH POC ABG pCO2 POC ABG pO2 ABG pO2 ABG HCO3 ABG Base Excess Oxyhemoglobin Potassium 3.5 L Carbon Dioxide 21 L BUN 26 H Creatinine 1.6 H Glucose 262 H POC Glucose Hemoglobin A1c 7.5 H Albumin Triglycerides 10/18/19 10/18/19 10/18/19 12:07 18:36 23:54 Lymph % (Auto) Seg Neutrophils % Seg Neutrophils # POC ABG pH POC ABG pCO2 POC ABG pO2 ABG pO2 ABG HCO3 ABG Base Excess Oxyhemoglobin Potassium Carbon Dioxide BUN Creatinine Glucose POC Glucose 260 H 237 H 226 H Hemoglobin A1c Albumin Triglycerides 10/19/19 10/19/19 10/19/19 05:40 06:16 12:04 Lymph % (Auto) Seg Neutrophils % Seg Neutrophils # POC ABG pH POC ABG pCO2 POC ABG pO2 ABG pO2 76.6 L ABG HCO3 ABG Base Excess Oxyhemoglobin 94.6 L Potassium Carbon Dioxide BUN Creatinine Glucose POC Glucose 251 H 215 H Hemoglobin A1c Albumin Triglycerides 10/19/19 10/20/19 10/20/19 17:51 00:32 03:25 Lymph % (Auto) Seg Neutrophils % Seg Neutrophils # POC ABG pH POC ABG pCO2 POC ABG pO2 ABG pO2 ABG HCO3 ABG Base Excess Oxyhemoglobin Potassium Carbon Dioxide BUN 42 H Creatinine 1.9 H Glucose 239 H POC Glucose 236 H 230 H Hemoglobin A1c Albumin 3.5 L Triglycerides 431 H 10/20/19 10/20/19 10/20/19 06:00 09:01 12:09 Lymph % (Auto) Seg Neutrophils % Seg Neutrophils # POC ABG pH 7.495 H POC ABG pCO2 POC ABG pO2 ABG pO2 ABG HCO3 ABG Base Excess Oxyhemoglobin Potassium Carbon Dioxide BUN Creatinine Glucose POC Glucose 205 H 221 H Hemoglobin A1c Albumin Triglycerides 10/20/19 10/21/19 10/21/19 18:58 00:35 04:44 Lymph % (Auto) Seg Neutrophils % Seg Neutrophils # POC ABG pH POC ABG pCO2 POC ABG pO2 ABG pO2 ABG HCO3 ABG Base Excess Oxyhemoglobin Potassium Carbon Dioxide BUN Creatinine Glucose POC Glucose 242 H 263 H 225 H Hemoglobin A1c Albumin Triglycerides 10/21/19 10/21/19 10/21/19 04:45 12:23 17:41 Lymph % (Auto) Seg Neutrophils % Seg Neutrophils # POC ABG pH POC ABG pCO2 POC ABG pO2 ABG pO2 ABG HCO3 28.8 H ABG Base Excess 3.8 H Oxyhemoglobin 94.7 L Potassium Carbon Dioxide BUN Creatinine Glucose POC Glucose 222 H 215 H Hemoglobin A1c Albumin Triglycerides 10/21/19 10/22/19 21:42 08:21 Lymph % (Auto) Seg Neutrophils % Seg Neutrophils # POC ABG pH POC ABG pCO2 POC ABG pO2 ABG pO2 ABG HCO3 ABG Base Excess Oxyhemoglobin Potassium Carbon Dioxide BUN Creatinine Glucose POC Glucose 209 H 219 H Hemoglobin A1c Albumin Triglycerides Allied health notes reviewed: nursing
[2019-10-22] MEDS: SODIUM CHLORIDE 0.45% 1000 ML 1,000 ML IV SCH (11:25)
--- NOTE | 2019-10-22 16:47 | Progress Note ---
Assessment and Plan - Patient Problems (1) Respiratory failure Current Visit: Yes Status: Resolved Qualifiers: Chronicity: acute Respiratory failure complication: hypoxia Qualified Code(s): J96.01 - Acute respiratory failure with hypoxia Plan to address problem: Supplemental oxygen, nebulizer therapy, pulse oximetry, noninvasive positive pressure ventilation as clinically indicated, incentive spirometry, pulmonary toilet, early ambulation, supportive care.D/C in am (2) Angio-edema Current Visit: Yes Status: Resolved Plan to address problem: IV steroid therapy, IV antihistamine therapy, supportive care. Outpatient allergy testing (3) CHF (congestive heart failure) Current Visit: Yes Status: Acute Qualifiers: Heart failure type: systolic Heart failure chronicity: acute on chronic Qualified Code(s): I50.23 - Acute on chronic systolic (congestive) heart failure Plan to address problem: Strict I/O, daily weight, diuresis, afterload reduction, pulse oximetry, blood pressure control (4) Hypertensive urgency, malignant Current Visit: Yes Status: Acute Plan to address problem: Monitor blood pressure every shift, continue current therapy. (5) Advance care planning Current Visit: Yes Status: Acute Plan to address problem: Patient is full code, diagnosis education conducted at bedside, patient daughter acknowledges understanding and agreement with care plan. +30 minutes. (6) DVT prophylaxis Current Visit: Yes Status: Acute Plan to address problem: SCD to bilateral lower extremities while in bed, prophylactic Lovenox. History Interval history: 49-year-old female hospital day 5 with resolved acute hypoxemic and hypercapnic respiratory failure. Patient transferred from ICU to medical floor. No reported nursing events. Lab and imaging studies reviewed. Discussed care plan with daughter who is at bedside during exam and interview. D/C Planning in AM. [place] in [place] Physical - Constitutional Vitals: Temp Pulse Resp BP Pulse Ox 99.5 F 109 H 24 138/87 94 10/22/19 16:39 10/22/19 16:39 10/22/19 16:39 10/22/19 16:39 10/22/19 16:39 General appearance: Present: no acute distress, obese, other (sedated, on the vent) - EENT Eyes: Present: PERRL ENT: hearing intact - Neck Neck: Present: supple - Respiratory Respiratory: bilateral: diminished - Cardiovascular Rhythm: regular Heart Sounds: Present: S1 & S2 - Extremities Extremities: no ischemia Peripheral Pulses: within normal limits - Abdominal General gastrointestinal: soft, non-tender, non-distended - Integumentary Integumentary: Present: clear, dry - Psychiatric Psychiatric: appropriate mood/affect, cooperative - Neurologic Neurologic: CNII-XII intact Results - Labs CBC & Chem 7: 10/18/19 08:22 10/20/19 03:25 Labs: Laboratory Last Values WBC 10.4 K/mm3 (4.5-11.0) 10/18/19 08:22 RBC 4.25 M/mm3 (3.65-5.03) 10/18/19 08:22 Hgb 13.2 gm/dl (10.1-14.3) 10/18/19 08:22 Hct 39.2 % (30.3-42.9) 10/18/19 08:22 MCV 92 fl (79-97) 10/18/19 08:22 MCH 31 pg (28-32) 10/18/19 08:22 MCHC 34 % (30-34) 10/18/19 08:22 RDW 14.7 % (13.2-15.2) 10/18/19 08:22 Plt Count 382 K/mm3 (140-440) 10/18/19 08:22 Lymph % (Auto) 13.9 % (13.4-35.0) 10/18/19 08:22 [place] % (Auto) 0.5 % (0.0-7.3) 10/18/19 08:22 Eos % (Auto) 0.0 % (0.0-4.3) 10/18/19 08:22 Baso % (Auto) 0.5 % (0.0-1.8) 10/18/19 08:22 Lymph # 1.5 K/mm3 (1.2-5.4) 10/18/19 08:22 [place] # 0.1 K/mm3 (0.0-0.8) 10/18/19 08:22 Eos # 0.0 K/mm3 (0.0-0.4) 10/18/19 08:22 Baso # 0.1 K/mm3 (0.0-0.1) 10/18/19 08:22 Seg Neutrophils % 85.1 % (40.0-70.0) H 10/18/19 08:22 Seg Neutrophils # 8.9 K/mm3 (1.8-7.7) H 10/18/19 08:22 POC ABG pH 7.495 (7.35-7.45) H 10/20/19 06:00 ABG pH 7.426 pH Units (7.350-7.450) 10/21/19 04:45 POC ABG pCO2 37.3 (35-45) 10/20/19 06:00 ABG pCO2 44.9 mm Hg 10/21/19 04:45 POC ABG pO2 85 (80-105) 10/20/19 06:00 ABG pO2 82.8 mm Hg (80.0-90.0) 10/21/19 04:45 POC ABG HCO3 28.8 (22-26 mml/L) 10/20/19 06:00 ABG HCO3 28.8 mmol/L (20.0-26.0) H 10/21/19 04:45 POC ABG Total CO2 30 (23-27mmol/L) 10/20/19 06:00 POC ABG O2 Sat 97 10/20/19 06:00 ABG O2 Saturation 96.6 % (95.0-99.0) 10/21/19 04:45 ABG O2 Content 18.3 (0.0-44) 10/21/19 04:45 POC ABG Base Excess 6 ((-2) - (+3)mmol/L) 10/20/19 06:00 ABG Base Excess 3.8 mmol/L (-2.0-3.0) H 10/21/19 04:45 ABG Hemoglobin 13.7 gm/dl (12.0-16.0) 10/21/19 04:45 ABG Carboxyhemoglobin 1.4 % (0.0-5.0) 10/21/19 04:45 ABG Methemoglobin 0.5 % (0.0-1.5) 10/21/19 04:45 Oxyhemoglobin 94.7 % (95.0-99.0) L 10/21/19 04:45 FiO2 35 % 10/21/19 04:45 Sodium 143 mmol/L (137-145) 10/20/19 03:25 Potassium 3.7 mmol/L (3.6-5.0) 10/20/19 03:25 Chloride 102.4 mmol/L (98-107) 10/20/19 03:25 Carbon Dioxide 23 mmol/L (22-30) 10/20/19 03:25 Anion Gap 21 mmol/L 10/20/19 03:25 BUN 42 mg/dL (7-17) H 10/20/19 03:25 Creatinine 1.9 mg/dL (0.7-1.2) H 10/20/19 03:25 Estimated GFR 34 ml/min 10/20/19 03:25 BUN/Creatinine Ratio 22 % 10/20/19 03:25 Glucose 239 mg/dL (65-100) H 10/20/19 03:25 POC Glucose 210 (70-105) H 10/22/19 12:16 Hemoglobin A1c 7.5 % (4-6) H 10/18/19 08:22 Calcium 8.8 mg/dL (8.4-10.2) 10/20/19 03:25 Total Bilirubin 0.20 mg/dL (0.1-1.2) 10/20/19 03:25 AST 14 units/L (5-40) 10/20/19 03:25 ALT 12 units/L (7-56) 10/20/19 03:25 Alkaline Phosphatase 99 units/L (35-129) 10/20/19 03:25 Total Protein 6.9 g/dL (6.3-8.2) 10/20/19 03:25 Albumin 3.5 g/dL (3.9-5) L 10/20/19 03:25 Albumin/Globulin Ratio 1.0 % 10/20/19 03:25 Triglycerides 431 mg/dL (2-149) H 10/20/19 03:25 Active Medications - Current Medications Current Medications: Generic Name Dose Route Start Last Admin Trade Name Freq PRN Reason Stop Dose Admin Acetaminophen 650 mg 10/17/19 19:14 10/22/19 11:12 Tylenol PO 650 mg Q4H PRN Administration Pain MILD(1-3)/Fever >100.5/AMARO Dextrose 50 ml 10/17/19 21:11 D50w (25gm) Syringe IV Q30MIN PRN Hypoglycemia Protocol Diphenhydramine HCl 25 mg 10/17/19 21:11 Benadryl IV Q6H PRN Itching Enoxaparin Sodium 40 mg 10/17/19 22:00 10/21/19 22:00 Enoxaparin SUB-Q 40 mg QDAY@2200 MIRI Administration Famotidine 20 mg 10/22/19 10:00 10/22/19 11:11 Pepcid PO 20 mg BID MIRI Administration Hydralazine HCl 10 mg 10/17/19 20:44 10/21/19 12:08 Apresoline IV 10 mg Q4HR PRN Administration BP >160/100 Hydralazine HCl 10 mg 10/19/19 14:00 10/22/19 15:03 Apresoline IV 10 mg Q8HR MIRI Administration Hydrophilic Ointment 1 applic 10/17/19 17:43 Vaseline Lip Therapy TP Q2HR PRN Dry Lips Sodium Chloride 1,000 mls @ 75 mls/hr 10/21/19 11:00 10/22/19 11:25 Nacl 0.45% 1000 Ml IV 10/23/19 00:19 75 mls/hr DIRECT MIRI Administration Insulin Glargine 5 units 10/21/19 22:00 10/21/19 22:00 Lantus SUB-Q 5 units QHS MIRI Administration Insulin Human Regular 0 units 10/21/19 11:30 10/22/19 12:25 Humulin R SUB-Q 2 units ACHS MIRI Administration Protocol Labetalol HCl 10 mg 10/17/19 20:44 10/18/19 09:36 Labetalol IV 10 mg Q4H PRN Administration BP >170/105; hold for HR <60 Methylprednisolone Sodium Succinate 40 mg 10/22/19 10:00 10/22/19 11:11 Solu-Medrol IV 40 mg Q24HR MIRI Administration Multi-Ingred Cream/Lotion/Oil/Oint 1 applic 10/17/19 17:43 Artificial Tears Ophth Oint OU Q4HR PRN Dry Eye(s) Ondansetron HCl 4 mg 10/17/19 19:14 Zofran IV Q8H PRN Nausea And Vomiting Scopolamine 1 each 10/20/19 17:00 10/20/19 17:45 Transderm-Scop TD 1 each Q3D MIRI Administration Sodium Chloride 10 ml 10/17/19 22:00 10/22/19 11:11 Sodium Chloride Flush Syringe 10 Ml IV 10 ml BID MIRI Administration Sodium Chloride 10 ml 10/17/19 19:14 10/21/19 04:48 Sodium Chloride Flush Syringe 10 Ml IV 10 ml PRN PRN Administration LINE FLUSH Nutrition/Malnutrition Assess - Dietary Evaluation Nutrition/Malnutrition Findings: Nutrition Notes Start: 10/18/19 12:55 Freq: Status: Active Protocol: Document 10/20/19 13:16 KS (Rec: 10/20/19 13:33 KS [id number]) Co-Sign 10/20/19 13:16 LM Nutrition Notes Need for Assessment generated from: MD Order,Education Initial or Follow up Assessment Current Diagnosis Diabetes,Hypertension,Heart Failure Other Pertinent Diagnosis Tongue swelling Current Diet NPO Labs/Tests BUN 42 Cr 1.9 BG 239 POC Glu 221 TG 431 Pertinent Medications Humulin Lasix Solumedrol Height 5 ft 5 in Weight 111.7 kg [place] Body Weight (kg) 56.81 BMI 40.9 Weight Status Morbidly Obese Subjective/Other Information MD consult for diet education. Unable to administer diet education due to pt being on vent. Per family at bedside, pt had normal appetite with no wt loss [employer]. Burn Absent Trauma Absent Minimum of two criteria No physical signs of malnutrition #1 Nutrition Diagnosis Inadequate oral intake Etiology pt on vent As Evidenced by Signs and Symptoms NPO status Is patient on ventilator? Yes Is Patient Ambulatory and/or Out of Bed No REE-([facility]-confined to bed) 2083.008 Kcal/Kg value to use for calculation 14 Approximate Energy Requirements Using 1564 kcal/Kg Calculation Used for Recommendations Kcal/kg Additional Notes PRO: Up to 143g (2.5g/kg/day IBW 57kg) Fluid: 1mL/kcal Nutrition Intervention Change Diet Order: TF when medically feasible Nutrition Support: Vital High Protein at 65mL/hr Free water flush 50mL q4h Kcal 1,560 Protein (gm) 137 Fluid (mL) 1,304 Goal #1 TF when medically feasible Anticipated Discharge Needs: Unable to determine at this time Follow-Up By: 10/24/19 Additional Comments F/U for possible TF
[2019-10-22] MEDS: ENOXAPARIN 40 MG/0.4 ML INJ SUB-Q SCH (22:30)
[2019-10-22] MEDS: INSULIN GLARGINE 100 UNITS/ML SUB-Q SCH (22:30)
[2019-10-23] MEDS: hydrALAZINE 20 MG/1 ML INJ IV SCH ×3 (06:50→23:08)
--- NOTE | 2019-10-23 08:48 | Progress Note ---
Assessment and Plan 1. Status post acute angioedema 2. Chronic combined systolic and diastolic heart failure 3. Dilated nonischemic cardiomyopathy 4. Essential hypertension 5. Obesity Plan. Cardiac-haynes stable, continue present cardiac medication and discharge planning as per hospitalist Subjective Date of service: 10/23/19 Principal diagnosis: Angioedema; Acute hypoxic-hypercapnic resp failure; HTNsive urgency; DM II Interval history: No cardiac symptoms Objective Vital Signs Temp Pulse Resp BP BP Pulse Ox 10/23/19 08:07 94 10/23/19 07:13 99.1 F 108 H 20 149/93 91 10/23/19 06:50 108 H 149/93 10/22/19 23:35 104 H 172/103 10/22/19 22:00 104 H 10/22/19 16:52 95 10/22/19 16:39 99.5 F 109 H 24 138/87 94 10/22/19 15:03 104 H 164/95 10/22/19 13:50 99.1 F 104 H 18 164/95 99 10/22/19 10:00 104 H 10/22/19 09:00 18 97 - Physical Examination General: No Apparent Distress HEENT: Positive: PERRL Neck: Positive: neck supple Cardiac: Positive: Regular Rate, S1/S2, S3, PMI, Dilated, Laterally Displaced Lungs: Positive: clear to auscultation, No Wheeze, Rales, Rhonchi Neuro: Positive: Grossly Intact Abdomen: Positive: Unremarkable, Soft, Active Bowel Sounds Skin: Positive: Clear Extremities: Absent: edema - Allied health notes Allied health notes reviewed: nursing
[2019-10-23] MEDS: INSULIN REGULAR, HUMAN 100 UNITS/1 ML SUB-Q SCH ×4 (08:53→22:00)
--- NOTE | 2019-10-23 09:26 | Progress Note ---
Assessment and Plan Angioedema with upper airway obstruction, secondary to lisinopril Acute hypoxic-hypercapnic respiratory failure s/p MVS Morbid obesity Hypertensive urgency Allergy to lisinopril Type 2 DM h/o Heart failure -Steroids-wean , H2 antagonists, antihistamines -Wean FIO2 for O2 sats >90% -CBC, BMP in am -VTE prophylaxis - Accuchecks with glycemic control for SSI (While critically ill target blood glucose of 140-180 mg/dL; avoid hypoglycemia) - PT/OT, increase activity - Avoid nephrotoxins, adjust all medications for GFR/CrCL -Evaluation for AURORA as outpatient -Blood pressure control -Weight loss and life style modifications -Glycemic control. -Discharge planning per primary service Subjective Date of service: 10/23/19 Principal diagnosis: Angioedema; Acute hypoxic-hypercapnic resp failure; HTNsive urgency; DM II Interval history: Patient is seen today for: Angioedema with upper airway obstruction; Acute hypoxic-hypercapnic respiratory failures/p MVS; Morbid obesity; Hypertensive urgency; Type 2 DM; Seen and examined at bedside; 24hour events reviewed; nursing and respiratory care staff consulted; no adverse overnight events reported to me; resting peacefully in bed; remains on supplemental oxygen; hoarse voice, poor appetite, no fevers, chills, no abdominal pain, no diarrhea, no chest pain, no shortness of breath. Family visiting at the bedside Objective Vital Signs - 12hr 10/22/19 10/22/19 10/23/19 22:00 23:35 06:50 Temperature Pulse Rate 104 H 104 H 108 H Respiratory Rate Blood Pressure 172/103 149/93 Blood Pressure [Right] O2 Sat by Pulse Oximetry 10/23/19 10/23/19 07:13 08:07 Temperature 99.1 F Pulse Rate 108 H Respiratory 20 Rate Blood Pressure Blood Pressure 149/93 [Right] O2 Sat by Pulse 91 94 Oximetry Constitutional: no acute distress, alert, other (sitting up in bed) Eyes: non-icteric ENT: oropharynx moist Neck: supple, no JVD Effort: normal Ascultation: Bilateral: clear, diminished breath sounds Percussion: Bilateral: not dull Cardiovascular: regular rate and rhythm, other (S1,S2,) Gastrointestinal: normoactive bowel sounds, soft, non-tender, non-distended, other (obese) Integumentary: normal Extremities: no cyanosis, no edema, pulses normal, no ischemia or petechiae Neurologic: normal mental status, non-focal exam (moves all extemites, opens eyes on verbal and tactile stimuli), pupils equal and round, CN II-XII normal, motor strength normal and Psychiatric: mood appropriate, affect normal CBC and BMP: 10/18/19 08:22 10/20/19 03:25 ABG, PT/INR, D-dimer: ABG POC ABG pH 7.495 (7.35-7.45) H 10/20/19 06:00 ABG pH 7.426 pH Units (7.350-7.450) 10/21/19 04:45 POC ABG pCO2 37.3 (35-45) 10/20/19 06:00 ABG pCO2 44.9 mm Hg 10/21/19 04:45 POC ABG pO2 85 (80-105) 10/20/19 06:00 ABG pO2 82.8 mm Hg (80.0-90.0) 10/21/19 04:45 POC ABG HCO3 28.8 (22-26 mml/L) 10/20/19 06:00 POC ABG Total CO2 30 (23-27mmol/L) 10/20/19 06:00 POC ABG O2 Sat 97 10/20/19 06:00 ABG O2 Saturation 96.6 % (95.0-99.0) 10/21/19 04:45 Abnormal lab findings: Abnormal Labs 10/17/19 10/17/19 10/17/19 17:39 17:39 18:44 Lymph % (Auto) 44.3 H Seg Neutrophils % Seg Neutrophils # POC ABG pH 7.325 L POC ABG pCO2 53.2 H POC ABG pO2 73 L ABG pO2 ABG HCO3 ABG Base Excess Oxyhemoglobin Potassium Carbon Dioxide BUN 19 H Creatinine Glucose 155 H POC Glucose Hemoglobin A1c Albumin Triglycerides 10/18/19 10/18/19 10/18/19 00:39 03:54 06:02 Lymph % (Auto) Seg Neutrophils % Seg Neutrophils # POC ABG pH POC ABG pCO2 POC ABG pO2 69 L ABG pO2 ABG HCO3 ABG Base Excess Oxyhemoglobin Potassium Carbon Dioxide BUN Creatinine Glucose POC Glucose 210 H 232 H Hemoglobin A1c Albumin Triglycerides 10/18/19 10/18/19 10/18/19 08:22 08:22 08:22 Lymph % (Auto) Seg Neutrophils % 85.1 H Seg Neutrophils # 8.9 H POC ABG pH POC ABG pCO2 POC ABG pO2 ABG pO2 ABG HCO3 ABG Base Excess Oxyhemoglobin Potassium 3.5 L Carbon Dioxide 21 L BUN 26 H Creatinine 1.6 H Glucose 262 H POC Glucose Hemoglobin A1c 7.5 H Albumin Triglycerides 10/18/19 10/18/19 10/18/19 12:07 18:36 23:54 Lymph % (Auto) Seg Neutrophils % Seg Neutrophils # POC ABG pH POC ABG pCO2 POC ABG pO2 ABG pO2 ABG HCO3 ABG Base Excess Oxyhemoglobin Potassium Carbon Dioxide BUN Creatinine Glucose POC Glucose 260 H 237 H 226 H Hemoglobin A1c Albumin Triglycerides 10/19/19 10/19/19 10/19/19 05:40 06:16 12:04 Lymph % (Auto) Seg Neutrophils % Seg Neutrophils # POC ABG pH POC ABG pCO2 POC ABG pO2 ABG pO2 76.6 L ABG HCO3 ABG Base Excess Oxyhemoglobin 94.6 L Potassium Carbon Dioxide BUN Creatinine Glucose POC Glucose 251 H 215 H Hemoglobin A1c Albumin Triglycerides 10/19/19 10/20/19 10/20/19 17:51 00:32 03:25 Lymph % (Auto) Seg Neutrophils % Seg Neutrophils # POC ABG pH POC ABG pCO2 POC ABG pO2 ABG pO2 ABG HCO3 ABG Base Excess Oxyhemoglobin Potassium Carbon Dioxide BUN 42 H Creatinine 1.9 H Glucose 239 H POC Glucose 236 H 230 H Hemoglobin A1c Albumin 3.5 L Triglycerides 431 H 10/20/19 10/20/19 10/20/19 06:00 09:01 12:09 Lymph % (Auto) Seg Neutrophils % Seg Neutrophils # POC ABG pH 7.495 H POC ABG pCO2 POC ABG pO2 ABG pO2 ABG HCO3 ABG Base Excess Oxyhemoglobin Potassium Carbon Dioxide BUN Creatinine Glucose POC Glucose 205 H 221 H Hemoglobin A1c Albumin Triglycerides 10/20/19 10/21/19 10/21/19 18:58 00:35 04:44 Lymph % (Auto) Seg Neutrophils % Seg Neutrophils # POC ABG pH POC ABG pCO2 POC ABG pO2 ABG pO2 ABG HCO3 ABG Base Excess Oxyhemoglobin Potassium Carbon Dioxide BUN Creatinine Glucose POC Glucose 242 H 263 H 225 H Hemoglobin A1c Albumin Triglycerides 01/07/3110/21/19 10/21/19 04:45 12:23 17:41 Lymph % (Auto) Seg Neutrophils % Seg Neutrophils # POC ABG pH POC ABG pCO2 POC ABG pO2 ABG pO2 ABG HCO3 28.8 H ABG Base Excess 3.8 H Oxyhemoglobin 94.7 L Potassium Carbon Dioxide BUN Creatinine Glucose POC Glucose 222 H 215 H Hemoglobin A1c Albumin Triglycerides 10/21/19 10/22/19 10/22/19 21:42 08:21 12:16 Lymph % (Auto) Seg Neutrophils % Seg Neutrophils # POC ABG pH POC ABG pCO2 POC ABG pO2 ABG pO2 ABG HCO3 ABG Base Excess Oxyhemoglobin Potassium Carbon Dioxide BUN Creatinine Glucose POC Glucose 209 H 219 H 210 H Hemoglobin A1c Albumin Triglycerides 10/22/19 10/22/19 10/23/19 16:42 22:33 06:15 Lymph % (Auto) Seg Neutrophils % Seg Neutrophils # POC ABG pH POC ABG pCO2 POC ABG pO2 ABG pO2 ABG HCO3 ABG Base Excess Oxyhemoglobin Potassium Carbon Dioxide BUN Creatinine Glucose POC Glucose 235 H 177 H 161 H Hemoglobin A1c Albumin Triglycerides Allied health notes reviewed: nursing
--- NOTE | 2019-10-23 09:49 | Discharge Summary ---
Providers - Providers Date of Admission: 10/17/19 19:14 Attending physician: VINCE PARIS 10/17/19 19:14 Consult to Physician [CONS] Routine Comment: Consulting Provider: KRZYSZTOF DELCID Physician Instructions: Reason For Exam: icu 10/17/19 21:11 Consult to Dietitian/Nutrition [CONS] Routine Physician Instructions: Reason For Exam: Reason for Consult: Diet education 10/17/19 21:25 Consult to Physician [CONS] Routine Comment: Consulting Provider: MARCUS HAYNES Physician Instructions: Reason For Exam: chf Primary care physician: [employer] Hospitalization Condition: Stable - Discharge Diagnoses (1) Respiratory failure Status: Resolved Qualifiers: Chronicity: acute Respiratory failure complication: hypoxia Qualified Code(s): J96.01 - Acute respiratory failure with hypoxia (2) Angio-edema Status: Resolved (3) CHF (congestive heart failure) Status: Acute Qualifiers: Heart failure type: systolic Heart failure chronicity: acute on chronic Qualified Code(s): I50.23 - Acute on chronic systolic (congestive) heart failure (4) Hypertensive urgency, malignant Status: Acute (5) Advance care planning Status: Acute (6) DVT prophylaxis Status: Acute Exam - Constitutional Vitals: Temp Pulse Resp BP Pulse Ox 99.1 F 108 H 20 149/93 94 10/23/19 07:13 10/23/19 07:13 10/23/19 07:13 10/23/19 07:13 10/23/19 08:07 Plan Follow up with: RACHEL RAMÍREZ MD [Primary Care Provider] - 7 Days Forms: Accompanied Note
--- NOTE | 2019-10-23 10:23 | XRay Report ---
CHEST 1 VIEW INDICATION / CLINICAL INFORMATION: follow up respiratory failure. COMPARISON: 10/22/2019 FINDINGS: SUPPORT DEVICES: None. HEART / MEDIASTINUM: Stable. LUNGS / PLEURA: There is persistent parenchymal disease in the right lung base. This appears slightly improved compared with yesterday's chest radiograph. Improvement may be due to improved aeration/ins piration. Left lung remains grossly clear. Mild pulmonary vascular congestion remains. No pneumothora x. ADDITIONAL FINDINGS: No significant additional findings. IMPRESSION: 1. Improving focal parenchymal disease in the right lung base. Findings are still concerning for pneu monia. Radiographic short-term follow-up is recommended to ensure area does resolve with medical ther apy. Signer Name: Blaire Paz MD Signed: 10/23/2019 10:19 AM Workstation Name: [id number]
[2019-10-23] MEDS ORDERED: IPRATROPIUM/ALBUTEROL SULFATE 3 ML AMPUL.NEB IH ONE (11:00)
[2019-10-23] MEDS: methylPREDNISolone Sod Succinate 40 MG/1 ML INJ IV SCH (11:36)
[2019-10-23] MEDS: FAMOTIDINE 20 MG TAB PO SCH ×2 (11:37→23:08)
[2019-10-23] MEDS: SCOPOLAMINE TRANSDERMAL PATCH 72 HR TD SCH (17:47)
--- NOTE | 2019-10-23 20:17 | Progress Note ---
Assessment and Plan - Patient Problems (1) Respiratory failure Current Visit: Yes Status: Resolved Qualifiers: Chronicity: acute Respiratory failure complication: hypoxia Qualified Code(s): J96.01 - Acute respiratory failure with hypoxia Plan to address problem: Supplemental oxygen, nebulizer therapy, pulse oximetry, noninvasive positive pressure ventilation as clinically indicated, incentive spirometry, pulmonary toilet, early ambulation, supportive care. Patient discharged with home oxygen. Case management arranged home oxygen. Patient reports that she is unable to afford home oxygen. (2) Angio-edema Current Visit: Yes Status: Resolved Plan to address problem: IV steroid therapy, IV antihistamine therapy, supportive care. Outpatient allergy testing (3) CHF (congestive heart failure) Current Visit: Yes Status: Acute Qualifiers: Heart failure type: systolic Heart failure chronicity: acute on chronic Qualified Code(s): I50.23 - Acute on chronic systolic (congestive) heart failure Plan to address problem: Strict I/O, daily weight, diuresis, afterload reduction, pulse oximetry, blood pressure control (4) Hypertensive urgency, malignant Current Visit: Yes Status: Acute Plan to address problem: Monitor blood pressure every shift, continue current therapy. (5) Advance care planning Current Visit: Yes Status: Acute Plan to address problem: Patient is full code, diagnosis education conducted at bedside, patient daughter acknowledges understanding and agreement with care plan. +30 minutes. (6) DVT prophylaxis Current Visit: Yes Status: Acute Plan to address problem: SCD to bilateral lower extremities while in bed, prophylactic Lovenox. History Interval history: 49-year-old female hospital day 5 with resolved acute hypoxemic and hypercapnic respiratory failure. Patient rested well overnight.. No reported nursing events. Lab and imaging studies reviewed. Discussed care plan with daughter who is at bedside during exam and interview. Patient continues to have dyspnea on exertion, and mild dyspnea at rest. Patient underwent ambulatory O2 home evaluation and was found to be in need of home oxygen. Case management consulted and home oxygen arranged. Patient reports that she is unable to afford supplemental oxygen. Patient medically optimized at this time and subsequently discharged home. Hospitalist Physical - Constitutional Vitals: Temp Pulse Resp BP Pulse Ox 99 F 98 H 24 133/80 95 10/23/19 11:59 10/23/19 15:10 10/23/19 11:59 10/23/19 15:10 10/23/19 11:59 General appearance: Present: no acute distress, obese, other (sedated, on the vent) - EENT Eyes: Present: PERRL ENT: hearing intact - Neck Neck: Present: supple - Respiratory Respiratory: bilateral: diminished, rhonchi - Cardiovascular Rhythm: regular Heart Sounds: Present: S1 & S2 - Extremities Extremities: no ischemia Peripheral Pulses: within normal limits - Abdominal General gastrointestinal: soft, non-tender, non-distended - Integumentary Integumentary: Present: clear, warm, dry - Psychiatric Psychiatric: appropriate mood/affect, cooperative - Neurologic Neurologic: CNII-XII intact Results - Labs CBC & Chem 7: 10/18/19 08:22 10/20/19 03:25 Labs: Laboratory Last Values WBC 10.4 K/mm3 (4.5-11.0) 10/18/19 08:22 RBC 4.25 M/mm3 (3.65-5.03) 10/18/19 08:22 Hgb 13.2 gm/dl (10.1-14.3) 10/18/19 08:22 Hct 39.2 % (30.3-42.9) 10/18/19 08:22 MCV 92 fl (79-97) 10/18/19 08:22 MCH 31 pg (28-32) 10/18/19 08:22 MCHC 34 % (30-34) 10/18/19 08:22 RDW 14.7 % (13.2-15.2) 10/18/19 08:22 Plt Count 382 K/mm3 (140-440) 10/18/19 08:22 Lymph % (Auto) 13.9 % (13.4-35.0) 10/18/19 08:22 Josephine % (Auto) 0.5 % (0.0-7.3) 10/18/19 08:22 Eos % (Auto) 0.0 % (0.0-4.3) 10/18/19 08:22 Baso % (Auto) 0.5 % (0.0-1.8) 10/18/19 08:22 Lymph # 1.5 K/mm3 (1.2-5.4) 10/18/19 08:22 Josephine # 0.1 K/mm3 (0.0-0.8) 10/18/19 08:22 Eos # 0.0 K/mm3 (0.0-0.4) 10/18/19 08:22 Baso # 0.1 K/mm3 (0.0-0.1) 10/18/19 08:22 Seg Neutrophils % 85.1 % (40.0-70.0) H 10/18/19 08:22 Seg Neutrophils # 8.9 K/mm3 (1.8-7.7) H 10/18/19 08:22 POC ABG pH 7.495 (7.35-7.45) H 10/20/19 06:00 ABG pH 7.426 pH Units (7.350-7.450) 10/21/19 04:45 POC ABG pCO2 37.3 (35-45) 10/20/19 06:00 ABG pCO2 44.9 mm Hg 10/21/19 04:45 POC ABG pO2 85 (80-105) 10/20/19 06:00 ABG pO2 82.8 mm Hg (80.0-90.0) 10/21/19 04:45 POC ABG HCO3 28.8 (22-26 mml/L) 10/20/19 06:00 ABG HCO3 28.8 mmol/L (20.0-26.0) H 10/21/19 04:45 POC ABG Total CO2 30 (23-27mmol/L) 10/20/19 06:00 POC ABG O2 Sat 97 10/20/19 06:00 ABG O2 Saturation 96.6 % (95.0-99.0) 10/21/19 04:45 ABG O2 Content 18.3 (0.0-44) 10/21/19 04:45 POC ABG Base Excess 6 ((-2) - (+3)mmol/L) 10/20/19 06:00 ABG Base Excess 3.8 mmol/L (-2.0-3.0) H 10/21/19 04:45 ABG Hemoglobin 13.7 gm/dl (12.0-16.0) 10/21/19 04:45 ABG Carboxyhemoglobin 1.4 % (0.0-5.0) 10/21/19 04:45 ABG Methemoglobin 0.5 % (0.0-1.5) 10/21/19 04:45 Oxyhemoglobin 94.7 % (95.0-99.0) L 10/21/19 04:45 FiO2 35 % 10/21/19 04:45 Sodium 143 mmol/L (137-145) 10/20/19 03:25 Potassium 3.7 mmol/L (3.6-5.0) 10/20/19 03:25 Chloride 102.4 mmol/L (98-107) 10/20/19 03:25 Carbon Dioxide 23 mmol/L (22-30) 10/20/19 03:25 Anion Gap 21 mmol/L 10/20/19 03:25 BUN 42 mg/dL (7-17) H 10/20/19 03:25 Creatinine 1.9 mg/dL (0.7-1.2) H 10/20/19 03:25 Estimated GFR 34 ml/min 10/20/19 03:25 BUN/Creatinine Ratio 22 % 10/20/19 03:25 Glucose 239 mg/dL (65-100) H 10/20/19 03:25 POC Glucose 161 (70-105) H 10/23/19 06:15 Hemoglobin A1c 7.5 % (4-6) H 10/18/19 08:22 Calcium 8.8 mg/dL (8.4-10.2) 10/20/19 03:25 Total Bilirubin 0.20 mg/dL (0.1-1.2) 10/20/19 03:25 AST 14 units/L (5-40) 10/20/19 03:25 ALT 12 units/L (7-56) 10/20/19 03:25 Alkaline Phosphatase 99 units/L (35-129) 10/20/19 03:25 Total Protein 6.9 g/dL (6.3-8.2) 10/20/19 03:25 Albumin 3.5 g/dL (3.9-5) L 10/20/19 03:25 Albumin/Globulin Ratio 1.0 % 10/20/19 03:25 Triglycerides 431 mg/dL (2-149) H 10/20/19 03:25 Active Medications - Current Medications Current Medications: Generic Name Dose Route Start Last Admin Trade Name Freq PRN Reason Stop Dose Admin Acetaminophen 650 mg 10/17/19 19:14 10/22/19 11:12 Tylenol PO 650 mg Q4H PRN Administration Pain MILD(1-3)/Fever >100.5/AMARO Dextrose 50 ml 10/17/19 21:11 D50w (25gm) Syringe IV Q30MIN PRN Hypoglycemia Protocol Diphenhydramine HCl 25 mg 10/17/19 21:11 Benadryl IV Q6H PRN Itching Enoxaparin Sodium 40 mg 10/17/19 22:00 10/22/19 22:30 Enoxaparin SUB-Q 40 mg QDAY@2200 MIRI Administration Famotidine 20 mg 10/22/19 10:00 10/23/19 11:37 Pepcid PO 20 mg BID MIRI Administration Hydralazine HCl 10 mg 10/17/19 20:44 10/21/19 12:08 Apresoline IV 10 mg Q4HR PRN Administration BP >160/100 Hydralazine HCl 10 mg 10/19/19 14:00 10/23/19 15:10 Apresoline IV 10 mg Q8HR MIRI Administration Hydrophilic Ointment 1 applic 10/17/19 17:43 Vaseline Lip Therapy TP Q2HR PRN Dry Lips Insulin Glargine 5 units 10/21/19 22:00 10/22/19 22:30 Lantus SUB-Q 5 units QHS MIRI Administration Insulin Human Regular 0 units 10/21/19 11:30 10/23/19 17:42 Humulin R SUB-Q 4 units ACHS MIRI Administration Protocol Labetalol HCl 10 mg 10/17/19 20:44 10/18/19 09:36 Labetalol IV 10 mg Q4H PRN Administration BP >170/105; hold for HR <60 Methylprednisolone Sodium Succinate 40 mg 10/22/19 10:00 10/23/19 11:36 Solu-Medrol IV 40 mg Q24HR MIRI Administration Multi-Ingred Cream/Lotion/Oil/Oint 1 applic 10/17/19 17:43 Artificial Tears Ophth Oint OU Q4HR PRN Dry Eye(s) Ondansetron HCl 4 mg 10/17/19 19:14 Zofran IV Q8H PRN Nausea And Vomiting Scopolamine 1 each 10/20/19 17:00 10/23/19 17:47 Transderm-Scop TD 1 each Q3D MIRI Administration Sodium Chloride 10 ml 10/17/19 22:00 10/23/19 11:37 Sodium Chloride Flush Syringe 10 Ml IV 10 ml BID MIRI Administration Sodium Chloride 10 ml 10/17/19 19:14 10/21/19 04:48 Sodium Chloride Flush Syringe 10 Ml IV 10 ml PRN PRN Administration LINE FLUSH Nutrition/Malnutrition Assess - Dietary Evaluation Nutrition/Malnutrition Findings: Nutrition Notes Start: 10/18/19 12:55 Freq: Status: Active Protocol: Document 10/20/19 13:16 KS (Rec: 10/20/19 13:33 KS [id number]) Co-Sign 10/20/19 13:16 LM Nutrition Notes Need for Assessment generated from: MD Order,Education Initial or Follow up Assessment Current Diagnosis Diabetes,Hypertension,Heart Failure Other Pertinent Diagnosis Tongue swelling Current Diet NPO Labs/Tests BUN 42 Cr 1.9 BG 239 POC Glu 221 TG 431 Pertinent Medications Humulin Lasix Solumedrol Height 5 ft 5 in Weight 111.7 kg [place] Body Weight (kg) 56.81 BMI 40.9 Weight Status Morbidly Obese Subjective/Other Information MD consult for diet education. Unable to administer diet education due to pt being on vent. 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 Burn Absent Trauma Absent Minimum of two criteria No physical signs of malnutrition #1 Nutrition Diagnosis Inadequate oral intake Etiology pt on vent As Evidenced by Signs and Symptoms NPO status Is patient on ventilator? Yes Is Patient Ambulatory and/or Out of Bed No REE-([facility]-confined to bed) 2083.008 Kcal/Kg value to use for calculation 14 Approximate Energy Requirements Using 1564 kcal/Kg Calculation Used for Recommendations Kcal/kg Additional Notes PRO: Up to 143g (2.5g/kg/day IBW 57kg) Fluid: 1mL/kcal Nutrition Intervention Change Diet Order: TF when medically feasible Nutrition Support: Vital High Protein at 65mL/hr Free water flush 50mL q4h Kcal 1,560 Protein (gm) 137 Fluid (mL) 1,304 Goal #1 TF when medically feasible Anticipated Discharge Needs: Unable to determine at this time Follow-Up By: 10/24/19 Additional Comments F/U for possible TF
[2019-10-23] MEDS: ENOXAPARIN 40 MG/0.4 ML INJ SUB-Q SCH (23:07)
[2019-10-23] MEDS: ACETAMINOPHEN 325 MG TAB PO PRN (23:09)
[2019-10-23] MEDS: INSULIN GLARGINE 100 UNITS/ML SUB-Q SCH (23:09)
[2019-10-24] MEDS: hydrALAZINE 20 MG/1 ML INJ IV SCH (07:01)
[2019-10-24] MEDS: INSULIN REGULAR, HUMAN 100 UNITS/1 ML SUB-Q SCH ×3 (07:30→13:26)
--- NOTE | 2019-10-24 08:51 | XRay Report ---
CHEST 1 VIEW 0754 hours INDICATION / CLINICAL INFORMATION: follow up respiratory failure. COMPARISON: 10/23/2019 FINDINGS: SUPPORT DEVICES: None. HEART / MEDIASTINUM: Stable mild cardiomegaly. LUNGS / PLEURA: Stable right lower lung infiltrate. The remainder of the lungs are clear. No pneumoth orax. ADDITIONAL FINDINGS: No significant additional findings. IMPRESSION: No significant change. Stable mild cardiomegaly and right lower lobe infiltrate. Signer Name: Robert Metcalf Jr, MD Signed: 10/24/2019 8:47 AM Workstation Name: [id number]
--- NOTE | 2019-10-24 08:57 | Progress Note ---
<SUYAPASHERRYRPEM - Last Filed: 10/24/19 13:20> Assessment and Plan Angioedema allergic reaction is thought to be due to lisinopril but she was also said to have eating some pizza prior to the onset of her symptoms Respiratory failure s/p extubation Hypertension History of Nonischemic CMP EF 20-25% by reassessment on echo this admission no significant CAD by [facility] 07/2019 at [facility] Patient is now able to tolerate oral medications. We will stoop IV hydralazine and change to the oral form. In addition, we will initiate isosorbide for heart failure management. Otherwise, conservative cardiac management. Subjective Date of service: 10/24/19 Principal diagnosis: Angioedema; Acute hypoxic-hypercapnic resp failure; HTNsive urgency; DM II Interval history: BP currently 167/93. Patient remains on IV medications for BP management. Objective Vital Signs Temp Pulse Pulse Resp Resp BP BP 10/24/19 07:01 167/93 10/24/19 06:51 98.7 F 103 H 22 167/93 10/24/19 04:06 20 10/24/19 00:09 20 10/23/19 23:09 20 10/23/19 23:08 169/99 10/23/19 15:10 98 H 133/80 10/23/19 11:59 99 F 117 H 24 116/74 10/23/19 11:36 10/23/19 11:16 122 H 20 10/23/19 10:00 108 H 10/23/19 09:00 16 Pulse Ox 10/24/19 07:01 10/24/19 06:51 91 10/24/19 04:06 10/24/19 00:09 10/23/19 23:09 10/23/19 23:08 10/23/19 15:10 10/23/19 11:59 95 10/23/19 11:36 86 10/23/19 11:16 10/23/19 10:00 10/23/19 09:00 96 - Physical Examination General: No Apparent Distress HEENT: Positive: PERRL Neck: Positive: neck supple Cardiac: Positive: Reg Rate and Rhythm Lungs: Positive: Decreased Breath Sounds Neuro: Positive: Grossly Intact Extremities: Absent: edema - Allied health notes Allied health notes reviewed: nursing <VIRGILIO MCINTYRE - Last Filed: 10/25/19 09:42> Assessment and Plan As seen and evaluated the patient and agree with the assessment and plan. Patient has a history of nonischemic cardiomyopathy with ejection fraction 20- 25%. Patient presented to the hospital with angioedema presumed to be an allergic reaction secondary to lisinopril. The patient was intubated at that time. The patient has since been extubated and is doing well. Today we will adjust the patient's medications by adding by mouth hydralazine and nitrates. Objective Vital Signs Temp Pulse Pulse Resp Resp BP Pulse Ox 10/24/19 15:44 105 H 18 10/24/19 12:53 99.3 F 107 H 28 H 162/108 95
[2019-10-24] MEDS: methylPREDNISolone Sod Succinate 40 MG/1 ML INJ IV SCH (09:59)
[2019-10-24] MEDS: FAMOTIDINE 20 MG TAB PO SCH (09:59)
[2019-10-24 12:58] VITALS: BP 162/108
--- NOTE | 2019-10-24 13:08 | Progress Note ---
Assessment and Plan - Patient Problems (1) Respiratory failure Current Visit: Yes Status: Resolved Qualifiers: Chronicity: acute Respiratory failure complication: hypoxia Qualified Code(s): J96.01 - Acute respiratory failure with hypoxia Plan to address problem: Supplemental oxygen, nebulizer therapy, pulse oximetry, noninvasive positive pressure ventilation as clinically indicated, incentive spirometry, pulmonary toilet, early ambulation, supportive care. Patient discharged with home oxygen. Case management arranged home oxygen. Patient reports that she is unable to afford home oxygen. (2) Angio-edema Current Visit: Yes Status: Resolved Plan to address problem: IV steroid therapy, IV antihistamine therapy, supportive care. Outpatient allergy testing (3) CHF (congestive heart failure) Current Visit: Yes Status: Acute Qualifiers: Heart failure type: systolic Heart failure chronicity: acute on chronic Qualified Code(s): I50.23 - Acute on chronic systolic (congestive) heart failure Plan to address problem: Strict I/O, daily weight, diuresis, afterload reduction, pulse oximetry, blood pressure control cardiology consulted. (4) Hypertensive urgency, malignant Current Visit: Yes Status: Acute Plan to address problem: Monitor blood pressure every shift, continue current therapy. (5) Advance care planning Current Visit: Yes Status: Acute Plan to address problem: Patient is full code, diagnosis education conducted at bedside, patient daughter acknowledges understanding and agreement with care plan. +30 minutes. (6) DVT prophylaxis Current Visit: Yes Status: Acute Plan to address problem: SCD to bilateral lower extremities while in bed, prophylactic Lovenox. History Interval history: 49-year-old female hospital day 6 with acute/chronic hypoxemic and hypercapnic respiratory failure. Patient rested well overnight. No reported nursing events. Lab and imaging studies reviewed. Discussed care plan with daughter who is at bedside during exam and interview. Patient continues to have dyspnea on exertion, and mild dyspnea at rest. Patient underwent ambulatory O2 home evaluation and was found to be in need of home oxygen. Case management consulted and home oxygen arranged but patient states that she cannot pay for supplemental oxygen.. Patient medically optimized at this time and has been discharged home, but the patient remains in the hospital due to social issues. Case management consulted and made aware. Hospitalist Physical - Constitutional Vitals: Temp Pulse Resp BP Pulse Ox 99.3 F 107 H 28 H 162/108 95 10/24/19 12:53 10/24/19 12:53 10/24/19 12:53 10/24/19 12:53 10/24/19 12:53 General appearance: Present: no acute distress, obese, other (sedated, on the vent) - EENT Eyes: Present: PERRL - Neck Neck: Present: supple - Respiratory Respiratory: bilateral: diminished - Cardiovascular Rhythm: regular Heart Sounds: Present: S1 & S2 - Extremities Extremity abnormal: edema Peripheral Pulses: within normal limits - Abdominal General gastrointestinal: soft, non-tender, non-distended - Integumentary Integumentary: Present: clear, warm, erythema - Psychiatric Psychiatric: appropriate mood/affect, cooperative - Neurologic Neurologic: CNII-XII intact Results - Labs CBC & Chem 7: 10/18/19 08:22 10/20/19 03:25 Labs: Laboratory Last Values WBC 10.4 K/mm3 (4.5-11.0) 10/18/19 08:22 RBC 4.25 M/mm3 (3.65-5.03) 10/18/19 08:22 Hgb 13.2 gm/dl (10.1-14.3) 10/18/19 08:22 Hct 39.2 % (30.3-42.9) 10/18/19 08:22 MCV 92 fl (79-97) 10/18/19 08:22 MCH 31 pg (28-32) 10/18/19 08:22 MCHC 34 % (30-34) 10/18/19 08:22 RDW 14.7 % (13.2-15.2) 10/18/19 08:22 Plt Count 382 K/mm3 (140-440) 10/18/19 08:22 Lymph % (Auto) 13.9 % (13.4-35.0) 10/18/19 08:22 [place] % (Auto) 0.5 % (0.0-7.3) 10/18/19 08:22 Eos % (Auto) 0.0 % (0.0-4.3) 10/18/19 08:22 Baso % (Auto) 0.5 % (0.0-1.8) 10/18/19 08:22 Lymph # 1.5 K/mm3 (1.2-5.4) 10/18/19 08:22 [place] # 0.1 K/mm3 (0.0-0.8) 10/18/19 08:22 Eos # 0.0 K/mm3 (0.0-0.4) 10/18/19 08:22 Baso # 0.1 K/mm3 (0.0-0.1) 10/18/19 08:22 Seg Neutrophils % 85.1 % (40.0-70.0) H 10/18/19 08:22 Seg Neutrophils # 8.9 K/mm3 (1.8-7.7) H 10/18/19 08:22 POC ABG pH 7.495 (7.35-7.45) H 10/20/19 06:00 ABG pH 7.426 pH Units (7.350-7.450) 10/21/19 04:45 POC ABG pCO2 37.3 (35-45) 10/20/19 06:00 ABG pCO2 44.9 mm Hg 10/21/19 04:45 POC ABG pO2 85 (80-105) 10/20/19 06:00 ABG pO2 82.8 mm Hg (80.0-90.0) 10/21/19 04:45 POC ABG HCO3 28.8 (22-26 mml/L) 10/20/19 06:00 ABG HCO3 28.8 mmol/L (20.0-26.0) H 10/21/19 04:45 POC ABG Total CO2 30 (23-27mmol/L) 10/20/19 06:00 POC ABG O2 Sat 97 10/20/19 06:00 ABG O2 Saturation 96.6 % (95.0-99.0) 10/21/19 04:45 ABG O2 Content 18.3 (0.0-44) 10/21/19 04:45 POC ABG Base Excess 6 ((-2) - (+3)mmol/L) 10/20/19 06:00 ABG Base Excess 3.8 mmol/L (-2.0-3.0) H 10/21/19 04:45 ABG Hemoglobin 13.7 gm/dl (12.0-16.0) 10/21/19 04:45 ABG Carboxyhemoglobin 1.4 % (0.0-5.0) 10/21/19 04:45 ABG Methemoglobin 0.5 % (0.0-1.5) 10/21/19 04:45 Oxyhemoglobin 94.7 % (95.0-99.0) L 10/21/19 04:45 FiO2 35 % 10/21/19 04:45 Sodium 143 mmol/L (137-145) 10/20/19 03:25 Potassium 3.7 mmol/L (3.6-5.0) 10/20/19 03:25 Chloride 102.4 mmol/L (98-107) 10/20/19 03:25 Carbon Dioxide 23 mmol/L (22-30) 10/20/19 03:25 Anion Gap 21 mmol/L 10/20/19 03:25 BUN 42 mg/dL (7-17) H 10/20/19 03:25 Creatinine 1.9 mg/dL (0.7-1.2) H 10/20/19 03:25 Estimated GFR 34 ml/min 10/20/19 03:25 BUN/Creatinine Ratio 22 % 10/20/19 03:25 Glucose 239 mg/dL (65-100) H 10/20/19 03:25 POC Glucose 143 (70-105) H 10/24/19 05:42 Hemoglobin A1c 7.5 % (4-6) H 10/18/19 08:22 Calcium 8.8 mg/dL (8.4-10.2) 10/20/19 03:25 Total Bilirubin 0.20 mg/dL (0.1-1.2) 10/20/19 03:25 AST 14 units/L (5-40) 10/20/19 03:25 ALT 12 units/L (7-56) 10/20/19 03:25 Alkaline Phosphatase 99 units/L (35-129) 10/20/19 03:25 Total Protein 6.9 g/dL (6.3-8.2) 10/20/19 03:25 Albumin 3.5 g/dL (3.9-5) L 10/20/19 03:25 Albumin/Globulin Ratio 1.0 % 10/20/19 03:25 Triglycerides 431 mg/dL (2-149) H 10/20/19 03:25 Active Medications - Current Medications Current Medications: Generic Name Dose Route Start Last Admin Trade Name Rubenq PRN Reason Stop Dose Admin Acetaminophen 650 mg 10/17/19 19:14 10/23/19 23:09 Tylenol PO 650 mg Q4H PRN Administration Pain MILD(1-3)/Fever >100.5/AMARO Dextrose 50 ml 10/17/19 21:11 D50w (25gm) Syringe IV Q30MIN PRN Hypoglycemia Protocol Diphenhydramine HCl 25 mg 10/17/19 21:11 Benadryl IV Q6H PRN Itching Enoxaparin Sodium 40 mg 10/17/19 22:00 10/23/19 23:07 Enoxaparin SUB-Q 40 mg QDAY@2200 MIRI Administration Famotidine 20 mg 10/22/19 10:00 10/24/19 09:59 Pepcid PO 20 mg BID MIRI Administration Hydralazine HCl 10 mg 10/17/19 20:44 10/21/19 12:08 Apresoline IV 10 mg Q4HR PRN Administration BP >160/100 Hydralazine HCl 10 mg 10/19/19 14:00 10/24/19 07:01 Apresoline IV 10 mg Q8HR MIRI Administration Hydrophilic Ointment 1 applic 10/17/19 17:43 Vaseline Lip Therapy TP Q2HR PRN Dry Lips Insulin Glargine 5 units 10/21/19 22:00 10/23/19 23:09 Lantus SUB-Q 5 units QHS MIRI Administration Insulin Human Regular 0 units 10/21/19 11:30 10/24/19 07:30 Humulin R SUB-Q Not Given ACHS [facility] Protocol Labetalol HCl 10 mg 10/17/19 20:44 10/18/19 09:36 Labetalol IV 10 mg Q4H PRN Administration BP >170/105; hold for HR <60 Methylprednisolone Sodium Succinate 40 mg 10/22/19 10:00 10/24/19 09:59 Solu-Medrol IV 40 mg Q24HR MIRI Administration Multi-Ingred Cream/Lotion/Oil/Oint 1 applic 10/17/19 17:43 Artificial Tears Ophth Oint OU Q4HR PRN Dry Eye(s) Ondansetron HCl 4 mg 10/17/19 19:14 Zofran IV Q8H PRN Nausea And Vomiting Scopolamine 1 each 10/20/19 17:00 10/23/19 17:47 Transderm-Scop TD 1 each Q3D MIRI Administration Sodium Chloride 10 ml 10/17/19 22:00 10/24/19 09:58 Sodium Chloride Flush Syringe 10 Ml IV 10 ml BID MIRI Administration Sodium Chloride 10 ml 10/17/19 19:14 10/21/19 04:48 Sodium Chloride Flush Syringe 10 Ml IV 10 ml PRN PRN Administration LINE FLUSH Nutrition/Malnutrition Assess - Dietary Evaluation Nutrition/Malnutrition Findings: Nutrition Notes Start: 10/18/19 12:55 Freq: Status: Active Protocol: Document 10/24/19 12:50 LM (Rec: 10/24/19 12:59 LM [email or web address]) Nutrition Notes Initial or Follow up Reassessment Current Diagnosis Diabetes,Hypertension,Heart Failure Other Pertinent Diagnosis Tongue swelling Current Diet Consistent CHO Labs/Tests Reviewed Pertinent Medications Solumedrol Height 5 ft 5 in Weight 111.7 kg [place] Body Weight (kg) 56.81 BMI 40.9 Weight Status Morbidly Obese Subjective/Other Information Pt diet advanced due to being extubated. Pt stated she is having difficulty swallowing from throat pain caused from being on the vent. Offered pt ONS and she would like Ensure clear. Burn Absent Trauma Absent Minimum of two criteria No physical signs of malnutrition #1 Nutrition Diagnosis Inadequate oral intake Etiology sore throat As Evidenced by Signs and Symptoms pt not eating breakfast Is patient on ventilator? No Is Patient Ambulatory and/or Out of Bed No REE-([facility]-confined to bed) 2083.008 Kcal/Kg value to use for calculation 14 Approximate Energy Requirements Using 1564 kcal/Kg Calculation Used for Recommendations Kcal/kg Additional Notes Protein: 67-84g (0.8-1g/kg) using AdjBW 84 kg Fluid: 1 ml/kcal Nutrition Intervention Change Diet Order: Continue current diet Add Supplement/Snack (indicate name/kcal Ensure clear barkley BID /protein ) Provides kCal: 480 Provides Protein (gm) 16 Goal #1 Meet at least 75% of energy and protein needs Anticipated Discharge Needs: Consistent CHO Follow-Up By: 10/26/19 Additional Comments F/U for intakes, need for ONS, diet education needs
[2019-10-24] MEDS: ACETAMINOPHEN 325 MG TAB PO PRN (13:43)
[2019-10-24] MEDS ORDERED: ISOSORBIDE DINITRATE 10 MG TAB PO SCH (14:00)
[2019-10-24] MEDS ORDERED: hydrALAZINE 25 MG TAB PO SCH (14:00)
--- NOTE | 2019-10-24 15:03 | Progress Note ---
Assessment and Plan Patient is awake and alert. She is having hoarseness of voice. Patient came from ICU secondary to allergic reaction from hypertensive medication. Patient is currently on 2L O2 via nasal canula with O2 saturation of 95%. Patient is afebrile with no leukocytosis. Patient's ABG 10/21/2019 pH 7.4, pCO2 45, O2 83%, HCO3 29, O2 Sat 97%, FiO2 35% Chest X-ray Reported 10/24/2019 No significant change. Stable mild cardiomegaly and right lower lobe infiltrate. - Patient Problems (1) Respiratory failure Current Visit: Yes Status: Resolved Qualifiers: Chronicity: acute Respiratory failure complication: hypoxia Qualified Code(s): J96.01 - Acute respiratory failure with hypoxia Plan to address problem: 1. Patient intubated and successfully extubated 2. Patient presently 2L O2 with O2 saturation 95% 3. Albuterol/Atrovent aerosol treatments q6 4. Continue solumedrol 5. Continue SC Lovenox 6. Continue Famotodine (2) CHF (congestive heart failure) Current Visit: Yes Status: Acute Qualifiers: Heart failure type: systolic Heart failure chronicity: acute on chronic Qualified Code(s): I50.23 - Acute on chronic systolic (congestive) heart failure Plan to address problem: Managment as per Cardiology (3) Cardiomyopathy Current Visit: Yes Status: Acute Plan to address problem: Management as per Cardiology (4) Hypertensive urgency, malignant Current Visit: Yes Status: Acute Plan to address problem: Management as per primary care (5) Angio-edema Current Visit: Yes Status: Resolved Plan to address problem: 1. Angioedema is improving 2. Patient is on IV solumedrol (6) Hoarseness of voice Current Visit: Yes Status: Acute Plan to address problem: Recommend to consult ENT Subjective Date of service: 10/24/19 Principal diagnosis: Angioedema; Acute hypoxic-hypercapnic resp failure; HTNsive urgency; DM II Interval history: Patient is awake and alert. She is having hoarseness of voice. Patient came from ICU secondary to allergic reaction from hypertensive medication. Patient is currently on 2L O2 via nasal canula with O2 saturation of 95%. Patient is afebrile with no leukocytosis. Patient's ABG 10/21/2019 pH 7.4, pCO2 45, O2 83%, HCO3 29, O2 Sat 97%, FiO2 35% Chest X-ray Reported 10/24/2019 No significant change. Stable mild cardiomegaly and right lower lobe infiltrate. Objective Vital Signs - 12hr 10/24/19 10/24/19 10/24/19 04:06 06:51 07:01 Temperature 98.7 F Pulse Rate 103 H Respiratory 20 22 Rate Blood Pressure 167/93 Blood Pressure 167/93 [Right] O2 Sat by Pulse 91 Oximetry 10/24/19 10/24/19 09:17 12:53 Temperature 99.3 F Pulse Rate 107 H Respiratory 28 H Rate Blood Pressure Blood Pressure 162/108 [Right] O2 Sat by Pulse 95 95 Oximetry Constitutional: no acute distress, alert, other (sitting up in bed) Eyes: non-icteric ENT: oropharynx moist Neck: supple, no JVD Effort: normal Ascultation: Bilateral: diminished breath sounds Percussion: Bilateral: not dull Cardiovascular: regular rate and rhythm, other (S1,S2,) Gastrointestinal: normoactive bowel sounds, soft, non-tender, non-distended, other (obese) Integumentary: normal Extremities: no cyanosis, no edema, pulses normal, no ischemia or petechiae Neurologic: normal mental status, non-focal exam (moves all extemites, opens eyes on verbal and tactile stimuli), pupils equal and round, CN II-XII normal, motor strength normal and Psychiatric: mood appropriate, affect normal CBC and BMP: 10/18/19 08:22 10/20/19 03:25 ABG, PT/INR, D-dimer: ABG POC ABG pH 7.495 (7.35-7.45) H 10/20/19 06:00 ABG pH 7.426 pH Units (7.350-7.450) 10/21/19 04:45 POC ABG pCO2 37.3 (35-45) 10/20/19 06:00 ABG pCO2 44.9 mm Hg 10/21/19 04:45 POC ABG pO2 85 (80-105) 10/20/19 06:00 ABG pO2 82.8 mm Hg (80.0-90.0) 10/21/19 04:45 POC ABG HCO3 28.8 (22-26 mml/L) 10/20/19 06:00 POC ABG Total CO2 30 (23-27mmol/L) 10/20/19 06:00 POC ABG O2 Sat 97 10/20/19 06:00 ABG O2 Saturation 96.6 % (95.0-99.0) 10/21/19 04:45 Abnormal lab findings: Abnormal Labs 10/17/19 10/17/19 10/17/19 17:39 17:39 18:44 Lymph % (Auto) 44.3 H Seg Neutrophils % Seg Neutrophils # POC ABG pH 7.325 L POC ABG pCO2 53.2 H POC ABG pO2 73 L ABG pO2 ABG HCO3 ABG Base Excess Oxyhemoglobin Potassium Carbon Dioxide BUN 19 H Creatinine Glucose 155 H POC Glucose Hemoglobin A1c Albumin Triglycerides 10/18/19 10/18/19 10/18/19 00:39 03:54 06:02 Lymph % (Auto) Seg Neutrophils % Seg Neutrophils # POC ABG pH POC ABG pCO2 POC ABG pO2 69 L ABG pO2 ABG HCO3 ABG Base Excess Oxyhemoglobin Potassium Carbon Dioxide BUN Creatinine Glucose POC Glucose 210 H 232 H Hemoglobin A1c Albumin Triglycerides 10/18/19 10/18/19 10/18/19 08:22 08:22 08:22 Lymph % (Auto) Seg Neutrophils % 85.1 H Seg Neutrophils # 8.9 H POC ABG pH POC ABG pCO2 POC ABG pO2 ABG pO2 ABG HCO3 ABG Base Excess Oxyhemoglobin Potassium 3.5 L Carbon Dioxide 21 L BUN 26 H Creatinine 1.6 H Glucose 262 H POC Glucose Hemoglobin A1c 7.5 H Albumin Triglycerides 10/18/19 10/18/19 10/18/19 12:07 18:36 23:54 Lymph % (Auto) Seg Neutrophils % Seg Neutrophils # POC ABG pH POC ABG pCO2 POC ABG pO2 ABG pO2 ABG HCO3 ABG Base Excess Oxyhemoglobin Potassium Carbon Dioxide BUN Creatinine Glucose POC Glucose 260 H 237 H 226 H Hemoglobin A1c Albumin Triglycerides 10/19/19 10/19/19 10/19/19 05:40 06:16 12:04 Lymph % (Auto) Seg Neutrophils % Seg Neutrophils # POC ABG pH POC ABG pCO2 POC ABG pO2 ABG pO2 76.6 L ABG HCO3 ABG Base Excess Oxyhemoglobin 94.6 L Potassium Carbon Dioxide BUN Creatinine Glucose POC Glucose 251 H 215 H Hemoglobin A1c Albumin Triglycerides 10/19/19 10/20/19 10/20/19 17:51 00:32 03:25 Lymph % (Auto) Seg Neutrophils % Seg Neutrophils # POC ABG pH POC ABG pCO2 POC ABG pO2 ABG pO2 ABG HCO3 ABG Base Excess Oxyhemoglobin Potassium Carbon Dioxide BUN 42 H Creatinine 1.9 H Glucose 239 H POC Glucose 236 H 230 H Hemoglobin A1c Albumin 3.5 L Triglycerides 431 H 10/20/19 10/20/19 10/20/19 06:00 09:01 12:09 Lymph % (Auto) Seg Neutrophils % Seg Neutrophils # POC ABG pH 7.495 H POC ABG pCO2 POC ABG pO2 ABG pO2 ABG HCO3 ABG Base Excess Oxyhemoglobin Potassium Carbon Dioxide BUN Creatinine Glucose POC Glucose 205 H 221 H Hemoglobin A1c Albumin Triglycerides 10/20/19 10/21/19 10/21/19 18:58 00:35 04:44 Lymph % (Auto) Seg Neutrophils % Seg Neutrophils # POC ABG pH POC ABG pCO2 POC ABG pO2 ABG pO2 ABG HCO3 ABG Base Excess Oxyhemoglobin Potassium Carbon Dioxide BUN Creatinine Glucose POC Glucose 242 H 263 H 225 H Hemoglobin A1c Albumin Triglycerides 10/21/19 10/21/19 10/21/19 04:45 12:23 17:41 Lymph % (Auto) Seg Neutrophils % Seg Neutrophils # POC ABG pH POC ABG pCO2 POC ABG pO2 ABG pO2 ABG HCO3 28.8 H ABG Base Excess 3.8 H Oxyhemoglobin 94.7 L Potassium Carbon Dioxide BUN Creatinine Glucose POC Glucose 222 H 215 H Hemoglobin A1c Albumin Triglycerides 10/21/19 10/22/19 10/22/19 21:42 08:21 12:16 Lymph % (Auto) Seg Neutrophils % Seg Neutrophils # POC ABG pH POC ABG pCO2 POC ABG pO2 ABG pO2 ABG HCO3 ABG Base Excess Oxyhemoglobin Potassium Carbon Dioxide BUN Creatinine Glucose POC Glucose 209 H 219 H 210 H Hemoglobin A1c Albumin Triglycerides 10/22/19 10/22/19 10/23/19 16:42 22:33 06:15 Lymph % (Auto) Seg Neutrophils % Seg Neutrophils # POC ABG pH POC ABG pCO2 POC ABG pO2 ABG pO2 ABG HCO3 ABG Base Excess Oxyhemoglobin Potassium Carbon Dioxide BUN Creatinine Glucose POC Glucose 235 H 177 H 161 H Hemoglobin A1c Albumin Triglycerides 10/23/19 10/23/19 10/23/19 12:08 17:38 23:36 Lymph % (Auto) Seg Neutrophils % Seg Neutrophils # POC ABG pH POC ABG pCO2 POC ABG pO2 ABG pO2 ABG HCO3 ABG Base Excess Oxyhemoglobin Potassium Carbon Dioxide BUN Creatinine Glucose POC Glucose 259 H 325 H 242 H Hemoglobin A1c Albumin Triglycerides 10/24/19 10/24/19 05:42 12:43 Lymph % (Auto) Seg Neutrophils % Seg Neutrophils # POC ABG pH POC ABG pCO2 POC ABG pO2 ABG pO2 ABG HCO3 ABG Base Excess Oxyhemoglobin Potassium Carbon Dioxide BUN Creatinine Glucose POC Glucose 143 H 224 H Hemoglobin A1c Albumin Triglycerides Chest x-ray: report reviewed (Reported stable mild cardiomegaly and right lower lobe infiltrate.), image reviewed Allied health notes reviewed: nursing
[2019-10-24] MEDS ORDERED: ALBUTEROL 2.5 MG/3 ML NEBU IH ONE (15:10)
== END 2019-10-24 16:30 | disposition home health service (06) | DRG 208 ==
LOC: ED 16:53 → CC1 19:14 → 3A 10-21 16:30
PROVIDERS: ADMIT Internal Medicine; ATTEND Internal Medicine
PROC: 4A033R1 Measurement of Arterial Saturation, Peripheral, Percutaneous Approach (ICD-10-PCS; principal; 2019-10-17)
PROC: 5A1945Z Respiratory Ventilation, 24-96 Consecutive Hours (ICD-10-PCS; 2019-10-17)
PROC: 0BH17EZ Insertion of Endotracheal Airway into Trachea, Via Natural or Artificial Opening (ICD-10-PCS; 2019-10-17)
DX: J96.01 Acute respiratory failure with hypoxia (principal); I50.43 Acute on chronic combined systolic (congestive) and diastolic (congestive) heart failure; Z68.41 Body mass index [BMI] 40.0-44.9, adult; I42.9 Cardiomyopathy, unspecified; I42.0 Dilated cardiomyopathy; T78.3XXA Angioneurotic edema, initial encounter; J96.02 Acute respiratory failure with hypercapnia; I11.0 Hypertensive heart disease with heart failure; E11.9 Type 2 diabetes mellitus without complications; T46.4X5A Adverse effect of angiotensin-converting-enzyme inhibitors, initial encounter; Y92.89 Other specified places as the place of occurrence of the external cause; I16.0 Hypertensive urgency; E66.01 Morbid (severe) obesity due to excess calories
CPT/HCPCS: 36415; 36600; 71045; 80048; 80053; 82803; 82962; 83036; 84478; 85025; 87070; 87205; 93005; 93010; 93306; 94002; 94003; 94640; 94760; G0378; J0171; J0330; J0360; J1200; J1650; J1815; J1940; J2250; J2704; J2920; J2930; J3010; J7030

== ENCOUNTER 2019-10-29 16:54 | Inpatient (IN) | payer OTHER ==
--- NOTE | 2019-10-29 17:16 | Event Note ---
ED Screening Note Date of service: 10/29/19 Time: 17:14 ED Screening Note: Pt c/o N/V x today +epigastric pain denies hematemesis +diarrhea This initial assessment/diagnostic orders/clinical plan/treatment(s) is/are subject to change based on patients health status, clinical progression and re- assessment by fellow clinical providers in the ED. Further treatment and workup at subsequent clinical providers discretion. Patient/guardian urged not to elope from the ED as their condition may be serious if not clinically assessed and managed. Initial orders include: labs
[2019-10-29 18:46] LABS: Basophils # (Auto) 0.1 K/mm3 (0.0-0.1); Basophils % (Auto) 0.4 % (0.0-1.8); Eosinophils % (Auto) 0.1 % (0.0-4.3); Hematocrit 40.8 % (30.3-42.9); Hemoglobin 13.4 gm/dl (10.1-14.3); Lymphocytes # (Auto) 1.9 K/mm3 (1.2-5.4); Lymphocytes % (Auto) 10.2 % (13.4-35.0); Mean Corpuscular HGB Conc 33 % (30-34); Mean Corpuscular Volume 92 fl (79-97); Monocytes % (Auto) 5.5 % (0.0-7.3); Platelet Count 332 K/mm3 (140-440); Red Blood Count 4.42 M/mm3 (3.65-5.03); Red Cell Distribution Width 14.3 % (13.2-15.2)
[2019-10-29 19:06] LABS: Alanine Aminotransferase 22 units/L (7-56); Albumin 2.7 g/dL (3.9-5); BUN/Creatinine Ratio 23; Blood Urea Nitrogen 21 mg/dL (7-17); Calcium 9.5 mg/dL (8.4-10.2); Hemolysis Index 29
[2019-10-29] MEDS ORDERED: fentaNYL 100 MCG/2 ML INJ IV ONE (22:21)
[2019-10-29] MEDS ORDERED: ONDANSETRON 4 MG/2 ML INJ IV ONE (22:21)
[2019-10-29] MEDS ORDERED: FAMOTIDINE 20 MG/2 ML INJ IV ONE (22:25)
--- NOTE | 2019-10-29 22:29 | Emergency Department Report ---
HPI - General Chief Complaint: Nausea/Vomiting/Diarrhea Time Seen by Provider: 10/29/19 17:14 - HPI HPI: Room 6 The patient is a 49-year-old female presenting with a chief complaint of nausea and vomiting. Patient states since yesterday she is intractable nausea and vomiting. She states the vomiting worsened today. Patient reports pain in the midepigastric and left side of her abdomen. Patient describes her pain as sharp and intermittent in nature. Patient also numbness to diarrhea. Patient denies any sick contacts. The patient's diabetes medication was changed to glimepiride 3 days ago. The patient gives her pain a score of 8/10 ED Past Medical Hx - Past Medical History Previous Medical History?: Yes Hx Hypertension: Yes Hx Congestive Heart Failure: Yes Hx Diabetes: Yes - Surgical History Past Surgical History?: No - Family History Family history: no significant - Social History Smoking Status: Former Smoker (none times weeks) Substance Use Type: None (denies illicit drug use) - Medications Home Medications: Home Medications Medication Instructions Recorded Confirmed Last Taken Type Furosemide [Lasix] 20 mg PO QAM 10/18/19 10/18/19 Unknown History Metoprolol Tartrate [Lopressor] 50 mg PO BID 10/18/19 10/18/19 Unknown History metFORMIN [Glucophage] 1,000 mg PO BID 10/18/19 10/18/19 Unknown History Albuterol Sulfate [Albuterol 0.63% 0.63 mg IH TID PRN #1 box 10/23/19 Unknown Rx NEBS] Ipratropium [Atrovent NEB] 0.5 mg IH Q6HRT #1 box 10/23/19 Unknown Rx Loratadine [Claritin] 10 mg PO DAILY #30 tablet 10/23/19 Unknown Rx Nebulizer [Compact Compressor 1 each MC BID PRN #1 each 10/23/19 Unknown Rx Nebulizer] Prednisone [predniSONE 10 mg 10 mg PO .TAPER #1 tab.ds.pk 10/23/19 Unknown Rx (6-Day Pack, 21 Tabs)] ED Review of Systems ROS: Stated complaint: NAUSEA Other details as noted in HPI Constitutional: denies: fever Eyes: denies: eye pain ENT: denies: ear pain Respiratory: no symptoms reported Cardiovascular: denies: chest pain Endocrine: no symptoms reported Gastrointestinal: abdominal pain, nausea, vomiting Musculoskeletal: denies: back pain Neurological: denies: headache Physical Exam - Physical Exam Vital Signs: Vital Signs 10/29/19 17:02 Temperature 98.4 F Pulse Rate 79 Respiratory 16 Rate Blood Pressure 197/113 O2 Sat by Pulse 100 Oximetry Physical Exam: GENERAL: The patient is well-developed well-nourished female lying on stretcher appearing to be in mild discomfort. Patient vomits during interview bilious- colored emesis. [] HEENT: Normocephalic. Atraumatic. Extraocular motions are intact. Patient has moist mucous membranes. NECK: Supple. Trachea midline CHEST/LUNGS: Clear to auscultation. There is no respiratory distress noted. HEART/CARDIOVASCULAR: Regular. There is no tachycardia. There is no gallop rub or murmur. ABDOMEN: Abdomen is soft, nontender. Patient has normal bowel sounds. There is no abdominal distention. SKIN: There is no rash. There is no diaphoresis. NEURO: The patient is awake, alert, and oriented. The patient is cooperative. The patient has no focal neurologic deficits. The patient has normal speech and gait. MUSCULOSKELETAL There is no evidence of acute injury. ED Course Vital Signs 10/29/19 17:02 Temperature 98.4 F Pulse Rate 79 Respiratory 16 Rate Blood Pressure 197/113 O2 Sat by Pulse 100 Oximetry - Consultations Consultation #1: 10/30/19 00:35 Pulmonology paged 10/30/19 01:[address] Schaefer- recommends Zosyn, no isolation needed. Recommends consulting interventional radiology for potential drainage ED Medical Decision Making - Lab Data Result diagrams: 10/29/19 18:24 10/29/19 18:24 Laboratory Tests 10/29/19 10/29/19 10/29/19 18:24 18:24 Unknown WBC 18.3 H RBC 4.42 Hgb 13.4 Hct 40.8 MCV 92 MCH 30 MCHC 33 RDW 14.3 Plt Count 332 Lymph % (Auto) 10.2 L [place] % (Auto) 5.5 Eos % (Auto) 0.1 Baso % (Auto) 0.4 Lymph # 1.9 [place] # 1.0 H Eos # 0.0 Baso # 0.1 Seg Neutrophils % 83.8 H Seg Neutrophils # 15.3 H Sodium 139 Potassium 3.5 L Chloride 97.7 L Carbon Dioxide 24 Anion Gap 21 BUN 21 H Creatinine 0.9 Estimated GFR > 60 BUN/Creatinine Ratio 23 Glucose 123 H Calcium 9.5 Total Bilirubin 0.40 AST 15 ALT 22 Alkaline Phosphatase 196 H Total Protein 7.4 Albumin 2.7 L Albumin/Globulin Ratio 0.6 Lipase 21 Urine Bilirubin Neg Urine RBC (Auto) 6.0 U Epithel Cells (Auto) 1.0 - Radiology Data Radiology results: report reviewed (CT abdomen and pelvis), image reviewed (CT abdomen pelvis) [facility] [address] [place] [address] Cat Scan Report Signed Patient: EL CHENEY MR#: [id number] : 1970 Acct:[id number] Age/Sex: 49 / F ADM Date: 10/29/19 Loc: ED Attending Dr: Ordering Physician: CATHERINE TEMPLE MD Date of Service: 10/29/19 P rocedure(s): CT abdomen pelvis w con Accession Number(s): [id number] cc: CATHERINE TEMPLE MD CT ABDOMEN AND PELVIS WITH IV CONTRAST INDICATION: epigastric and left- sided abd pain n/v. COMPARISON: None available. TECHNIQUE: All CT scans at this facility use dose modulation, automated exposure control, iterative reconstruction or weight based dosing, when appropriate, to reduce radiation dose to as low as reasonably achievable. FINDINGS: Lung Bases: Within the right middle lobe, there is consolidation. There are also gas and fluid collections. Skeletal System: No acute abnormality. ABDOMEN: Liver: No significant abnormality. Gallbladder: There is mild diffuse gallbladder wall edema. Gallstones are present. Bile Ducts: No significant abnormality. Pancreas: No significant abnormality. Spleen: No significant abnormality. Adrenals: 1.8 cm right adrenal nodule on image 59 of series 2 is likely an adenoma or myolipoma, benign. Left adrenal is unremarkable. Right Kidney: No significant abnormality. Left Kidney: No significant abnormality. Upper GI tract: No significant abnormality. Lymph Nodes: No significant adenopathy. Aorta: No significant abnormality. Additional Findings: No significant abnormality. PELVIS: Colon: No acute abnormality. Urinary Bladder and Distal Ureters: No significant abnor mality. Appendix: No significant abnormality. Lymph Nodes: No significant adenopathy. Additional Findings: None. IMPRESSION: 1. Right middle lobe consolidation with areas of rounded gas and fluid concerning for intrapulmonary abscess. 2. Cholelithiasis with gallbladder wall edema. No common duct dil atation. Correlate clinically for cholecystitis. 3. Additional incidental findings as above. Signer Name: Alan Cullen MD Signed: 10/30/2019 12:16 AM Workstation Name: [id number] Transcribed By: CAROLE Dictated By: Alan Cullen MD Electronically Authenticated By: Alan Cullen MD Signed Date/Time: 10/30/1915 DD/ TD/TT: - Differential Diagnosis diverticulitis, gastroenteritis, colitis, pancreatitis, symptomatic cho Critical care attestation.: If time is entered above; I have spent that time in minutes in the direct care of this critically ill patient, excluding procedure time. ED Disposition Clinical Impression: Acute abdominal pain, Nausea & vomiting, Pneumonia, Pulmonary abscess Disposition: -09 OP ADMIT IP TO THIS HOSP Is pt being admited?: Yes Does the pt Need Aspirin: No Condition: Fair Instructions: Bacterial Pneumonia (ED) Referrals: PRIMARY CARE, [Primary Care Provider] - 3-5 Days Time of Disposition: 01:11 (hospitalist paged (Dr. Sonja Loyd))
--- NOTE | 2019-10-30 00:21 | Cat Scan Report ---
CT ABDOMEN AND PELVIS WITH IV CONTRAST INDICATION: epigastric and left-sided abd pain n/v. COMPARISON: None available. TECHNIQUE: All CT scans at this facility use dose modulation, automated exposure control, iterative reconstructi on or weight based dosing, when appropriate, to reduce radiation dose to as low as reasonably achieva ble. FINDINGS: Lung Bases: Within the right middle lobe, there is consolidation. There are also gas and fluid collec tions. Skeletal System: No acute abnormality. ABDOMEN: Liver: No significant abnormality. Gallbladder: There is mild diffuse gallbladder wall edema. Gallstones are present. Bile Ducts: No significant abnormality. Pancreas: No significant abnormality. Spleen: No significant abnormality. Adrenals: 1.8 cm right adrenal nodule on image 59 of series 2 is likely an adenoma or myolipoma, jenna gn. Left adrenal is unremarkable. Right Kidney: No significant abnormality. Left Kidney: No significant abnormality. Upper GI tract: No significant abnormality. Lymph Nodes: No significant adenopathy. Aorta: No significant abnormality. Additional Findings: No significant abnormality. PELVIS: Colon: No acute abnormality. Urinary Bladder and Distal Ureters: No significant abnormality. Appendix: No significant abnormality. Lymph Nodes: No significant adenopathy. Additional Findings: None. IMPRESSION: 1. Right middle lobe consolidation with areas of rounded gas and fluid concerning for intrapulmonary abscess. 2. Cholelithiasis with gallbladder wall edema. No common duct dilatation. Correlate clinically for c holecystitis. 3. Additional incidental findings as above. Signer Name: Alan Cullen MD Signed: 10/30/2019 12:16 AM Workstation Name: [email or web address]
--- NOTE | 2019-10-30 01:06 | XRay Report ---
CHEST 1 VIEW INDICATION: right lobe consolidation/abscess seen on CT. COMPARISON: 10/24/2019 FINDINGS: Support devices: None. Heart: Stable Lungs/Pleura: Right lower lung airspace disease does not appear significantly changed. Left lung is c lear. IMPRESSION: 1. Persistent right lower lung airspace disease. No new findings. Signer Name: Alan Cullen MD Signed: 10/30/2019 1:02 AM Workstation Name: [id number]
[2019-10-30] MEDS ORDERED: PIPERACIL/TAZOBACTA 4.5/NS 100 4.5 GM/100 ML VIAL IV ONE (01:09)
[2019-10-30 01:10] LABS: Bacteria,Urine 1+ /HPF (Negative); Bilirubin,Urine NEG (Negative); Blood,Urine SM (Negative); Color,Urine Yellow (Yellow); Mucus,Urine FEW /HPF; Urobilinogen,Urine < 2.0 mg/dL (<2.0)
[2019-10-30] MEDS ORDERED: ONDANSETRON 4 MG/2 ML INJ IV PRN (01:46)
[2019-10-30] MEDS ORDERED: ACETAMINOPHEN 325 MG TAB PO PRN (01:46)
[2019-10-30] MEDS ORDERED: ALBUTEROL 2.5 MG/3 ML NEBU IH PRN (01:46)
[2019-10-30] MEDS ORDERED: MORPHINE 2 MG/1 ML INJ IV PRN (01:46)
[2019-10-30] MEDS ORDERED: DEXTROSE 50% IN WATER (25GM) 50 ML SYRINGE IV PRN (01:46)
[2019-10-30] MEDS ORDERED: POTASSIUM CHLORIDE 20 MEQ PACKET FEEDTUBE ONE (02:08)
--- NOTE | 2019-10-30 02:10 | History and Physical Report ---
<APOLINAR YANCEY - Last Filed: 10/30/19 02:10> History of Present Illness Date of examination: 10/30/19 Date of admission: 10/30/2019 Chief complaint: Nausea, vomiting, diarrhea for 2 days History of present illness: 49-year-old -[place] female with history of diabetes, hypertension, CHF, angioedema secondary to lisinopril, intubation who presents to [facility] ED with complaints of nausea, vomiting diarrhea x2 days. Patient states she has had intractable nausea vomiting for the past 2 days and has been unable to keep anything down. She also complains of mild epigastric pain with radiation to left side of abdomen and multiple episodes of diarrhea. She denies hematemesis, melena, hematochezia. Patient states she was recently changed from metformin to glimepiride 3 days ago and wonders if this is contributing her symptoms. A review of medical record shows patient was admitted and intubated on 10/17/2019 for angioedema secondary to allergic reaction lisinopril. She was discharged on 10/24/2019. Past History Past Medical History: diabetes, heart failure (EF 20-25%), hypertension, other (Angioedema, intubation) Past Surgical History: No surgical history Social history: lives with family, other Family history: no significant family history Medications and Allergies Allergies Allergy/AdvReac Type Severity Reaction Status Date / Time lisinopril Allergy Angioedema Verified 10/17/19 17:55 Home Medications Medication Instructions Recorded Confirmed Last Taken Type Furosemide [Lasix] 20 mg PO QAM 10/18/19 10/18/19 Unknown History Metoprolol Tartrate [Lopressor] 50 mg PO BID 10/18/19 10/18/19 Unknown History metFORMIN [Glucophage] 1,000 mg PO BID 10/18/19 10/18/19 Unknown History Albuterol Sulfate [Albuterol 0.63% 0.63 mg IH TID PRN #1 box 10/23/19 Unknown Rx NEBS] Ipratropium [Atrovent NEB] 0.5 mg IH Q6HRT #1 box 10/23/19 Unknown Rx Loratadine [Claritin] 10 mg PO DAILY #30 tablet 10/23/19 Unknown Rx Nebulizer [Compact Compressor 1 each MC BID PRN #1 each 10/23/19 Unknown Rx Nebulizer] Prednisone [predniSONE 10 mg 10 mg PO .TAPER #1 tab.ds.pk 10/23/19 Unknown Rx (6-Day Pack, 21 Tabs)] Active Meds: Active Medications Acetaminophen (Tylenol) 650 mg PO Q4H PRN PRN Reason: Pain MILD(1-3)/Fever >100.5/AMARO Albuterol (Proventil) 2.5 mg IH Q3HRT PRN PRN Reason: Shortness Of Breath Dextrose (D50w (25gm) Syringe) 50 ml IV Q30MIN PRN; Protocol PRN Reason: Hypoglycemia Furosemide (Lasix) 20 mg PO QAM MIRI Heparin Sodium (Porcine) (Heparin) 5,000 unit SUB-Q Q12HR MIRI Hydralazine HCl (Apresoline) 10 mg IV Q4HR PRN PRN Reason: Blood Pressure Piperacillin Sod/Tazobactam Sod (Zosyn/Ns 4.5gm/100ml) 4.5 gm in 100 mls @ 200 mls/hr IV Q8H MIRI; Protocol Insulin Human Lispro (Humalog) 0 unit SUB-Q ACHS MIRI; Protocol Metformin HCl (Glucophage) 1,000 mg PO BIDDIAB [facility] Metoprolol Tartrate (Metoprolol) 50 mg PO BID MIRI Morphine Sulfate (Morphine) 2 mg IV Q4H PRN PRN Reason: Pain, Moderate (4-6) Ondansetron HCl (Zofran) 4 mg IV Q6H PRN PRN Reason: Nausea And Vomiting Sodium Chloride (Sodium Chloride Flush Syringe 10 Ml) 10 ml IV BID MIRI Sodium Chloride (Sodium Chloride Flush Syringe 10 Ml) 10 ml IV PRN PRN PRN Reason: LINE FLUSH Review of Systems All systems: negative Respiratory: dyspnea on exertion Gastrointestinal: abdominal pain, nausea, vomiting, diarrhea Exam - Physical Exam Narrative exam: Physical exam General appearance: Present: No acute distress, alert and oriented 3, obese, pleasant, adult female - EENT Eyes: Present: PERRL, EOM intact ENT: hearing intact, missing teeth dentition - Neck Neck: Present: supple, normal ROM - Respiratory Respiratory effort: Non-labored Respiratory: Coarse - Cardiovascular Heart rate: 105 (bpm) Rhythm: Sinus tachycardia Heart Sounds: Present: S1 & S2. Absent: rub, click - Extremities Extremities: no ischemia, pulses intact, BLE trace edema - Peripheral Assessment Peripheral Pulses: within normal limits - Abdominal General gastrointestinal: Obese, soft, non-tender, normal bowel sounds - Integumentary Integumentary: Present: warm, dry - Musculoskeletal Musculoskeletal: Able to move all extremities -Neurological Neurological: CN II-XII intact - Psychiatric Psychiatric: Appropriate for situation ,cooperative - Constitutional Vitals: Temp Pulse Resp BP Pulse Ox 98.4 F 88 18 170/87 94 10/29/19 17:02 10/30/19 01:09 10/30/19 01:09 10/30/19 01:09 10/30/19 01:09 Results - Labs CBC & Chem 7: 10/29/19 18:24 10/29/19 18:24 Labs: Laboratory Last Values WBC 18.3 K/mm3 (4.5-11.0) H 10/29/19 18:24 RBC 4.42 M/mm3 (3.65-5.03) 10/29/19 18:24 Hgb 13.4 gm/dl (10.1-14.3) 10/29/19 18:24 Hct 40.8 % (30.3-42.9) 10/29/19 18:24 MCV 92 fl (79-97) 10/29/19 18:24 MCH 30 pg (28-32) 10/29/19 18:24 MCHC 33 % (30-34) 10/29/19 18:24 RDW 14.3 % (13.2-15.2) 10/29/19 18:24 Plt Count 332 K/mm3 (140-440) 10/29/19 18:24 Lymph % (Auto) 10.2 % (13.4-35.0) L 10/29/19 18:24 [place] % (Auto) 5.5 % (0.0-7.3) 10/29/19 18:24 Eos % (Auto) 0.1 % (0.0-4.3) 10/29/19 18:24 Baso % (Auto) 0.4 % (0.0-1.8) 10/29/19 18:24 Lymph # 1.9 K/mm3 (1.2-5.4) 10/29/19 18:24 [place] # 1.0 K/mm3 (0.0-0.8) H 10/29/19 18:24 Eos # 0.0 K/mm3 (0.0-0.4) 10/29/19 18:24 Baso # 0.1 K/mm3 (0.0-0.1) 10/29/19 18:24 Seg Neutrophils % 83.8 % (40.0-70.0) H 10/29/19 18:24 Seg Neutrophils # 15.3 K/mm3 (1.8-7.7) H 10/29/19 18:24 Sodium 139 mmol/L (137-145) 10/29/19 18:24 Potassium 3.5 mmol/L (3.6-5.0) L 10/29/19 18:24 Chloride 97.7 mmol/L (98-107) L 10/29/19 18:24 Carbon Dioxide 24 mmol/L (22-30) 10/29/19 18:24 Anion Gap 21 mmol/L 10/29/19 18:24 BUN 21 mg/dL (7-17) H 10/29/19 18:24 Creatinine 0.9 mg/dL (0.7-1.2) 10/29/19 18:24 Estimated GFR > 60 ml/min 10/29/19 18:24 BUN/Creatinine Ratio 23 % 10/29/19 18:24 Glucose 123 mg/dL (65-100) H 10/29/19 18:24 Calcium 9.5 mg/dL (8.4-10.2) 10/29/19 18:24 Total Bilirubin 0.40 mg/dL (0.1-1.2) 10/29/19 18:24 AST 15 units/L (5-40) 10/29/19 18:24 ALT 22 units/L (7-56) 10/29/19 18:24 Alkaline Phosphatase 196 units/L (35-129) H 10/29/19 18:24 Total Protein 7.4 g/dL (6.3-8.2) 10/29/19 18:24 Albumin 2.7 g/dL (3.9-5) L 10/29/19 18:24 Albumin/Globulin Ratio 0.6 % 10/29/19 18:24 Lipase 21 units/L (13-60) 10/29/19 18:24 Urine Color Yellow (Yellow) 10/29/19 Unknown Urine Turbidity Clear (Clear) 10/29/19 Unknown Urine pH 6.0 (5.0-7.0) 10/29/19 Unknown Ur Specific [place] 1.040 (1.003-1.030) H 10/29/19 Unknown Urine Protein 100 mg/dl mg/dL (Negative) 10/29/19 Unknown Urine Glucose (UA) Neg mg/dL (Negative) 10/29/19 Unknown Urine Ketones Neg mg/dL (Negative) 10/29/19 Unknown Urine Blood Sm (Negative) 10/29/19 Unknown Urine Nitrite Neg (Negative) 10/29/19 Unknown Urine Bilirubin Neg (Negative) 10/29/19 Unknown Urine Urobilinogen < 2.0 mg/dL (<2.0) 10/29/19 Unknown Ur Leukocyte Esterase Neg (Negative) 10/29/19 Unknown Urine WBC (Auto) 3.0 /HPF (0.0-6.0) 10/29/19 Unknown Urine RBC (Auto) 6.0 /HPF (0.0-6.0) 10/29/19 Unknown U Epithel Cells (Auto) 1.0 /HPF (0-13.0) 10/29/19 Unknown Urine Bacteria (Auto) 1+ /HPF (Negative) 10/29/19 Unknown Urine Mucus Few /HPF 10/29/19 Unknown - Imaging and Cardiology Imaging and Cardiology: CT Abdomen/Pelvis: FINDINGS: Lung Bases: Within the right middle lobe, there is consolidation. There are also gas and fluid collections. Skeletal System: No acute abnormality. ABDOMEN: Liver: No significant abnormality. Gallbladder: There is mild diffuse gallbladder wall edema. Gallstones are present. Bile Ducts: No significant abnormality. Pancreas: No significant abnormality. Spleen: No significant abnormality. Adrenals: 1.8 cm right adrenal nodule on image 59 of series 2 is likely an adenoma or myolipoma, benign. Left adrenal is unremarkable. Right Kidney: No significant abnormality. Left Kidney: No significant abnormality. Upper GI tract: No significant abnormality. Lymph Nodes: No significant adenopathy. Aorta: No significant abnormality. Additional Findings: No significant abnormality. PELVIS: Colon: No acute abnormality. Urinary Bladder and Distal Ureters: No significant abnormality. Appendix: No significant abnormality. Lymph Nodes: No significant adenopathy. Additional Findings: None. IMPRESSION: 1. Right middle lobe consolidation with areas of rounded gas and fluid concerning for intrapulmonary abscess. 2. Cholelithiasis with gallbladder wall edema. No common duct dilatation. Correlate clinically for cholecystitis. 3. Additional incidental findings as above. CXR: FINDINGS: Support devices: None. Heart: Stable Lungs/Pleura: Right lower lung airspace disease does not appear significantly changed. Left lung is clear. IMPRESSION: 1. Persistent right lower lung airspace disease. No new findings. Assessment and Plan Assessment and plan: 49-year-old -[place] female with history of diabetes, hypertension, CHF, angioedema secondary to lisinopril, intubation who presents to [facility] ED with complaints of nausea, vomiting diarrhea x2 days. Sepsis -Leukocytosis 18.3 Tachycardic with heart rate 105 bpm -Afebrile -CT Abdomen Pelvis shows Right middle lobe consolidation -Cultures pending -Start IVF and IV abx -Continue supportive care Pneumonia -Right middle lobe consolidation seen on CT abdomen/pelvis -Blood Cultures pending -Albuterol PRN -Start on IV Abx Lung abscess -CT abdomen pelvis showed -Rounded gas and fluid concerning for intrapulmonary abscess -IR consulted for possible drainage -Pulmonary consulted -On IV ABX -Continue supportive care Hypertensive urgency (malignant) -BP on admission 197/113 -Hx Hypertension -Continue to monitor BP -Resume home antihypertensive meds to optimize BP -IV antihypertensive when necessary Gastroenteritis -C/o n/v/d x2 days -continue supportive care DM -POC BG monitoring -SSI coverage prn CHF -EF 20-25% seen on Echo 10/18/2019 -Continue HF meds DVT PPX -On Heparin Advance Directives: No VTE prophylaxis?: Chemical Plan of care discussed with patient/family: Yes <JA FUENTES - Last Filed: 10/30/19 05:23> History of Present Illness Date of admission: 10/30/19 01:46 Medications and Allergies Active Meds: Active Medications Acetaminophen (Tylenol) 650 mg PO Q4H PRN PRN Reason: Pain MILD(1-3)/Fever >100.5/AMARO Albuterol (Proventil) 2.5 mg IH Q3HRT PRN PRN Reason: Shortness Of Breath Dextrose (D50w (25gm) Syringe) 50 ml IV Q30MIN PRN; Protocol PRN Reason: Hypoglycemia Furosemide (Lasix) 20 mg PO QAM MIRI Heparin Sodium (Porcine) (Heparin) 5,000 unit SUB-Q Q12HR MIRI Hydralazine HCl (Apresoline) 10 mg IV Q4HR PRN PRN Reason: Blood Pressure Last Admin: 10/30/19 04:05 Dose: 10 mg Documented by: Piperacillin Sod/Tazobactam Sod (Zosyn/Ns 4.5gm/100ml) 4.5 gm in 100 mls @ 200 mls/hr IV Q8H MIRI; Protocol Insulin Human Lispro (Humalog) 0 unit SUB-Q ACHS MIRI; Protocol Metoprolol Tartrate (Metoprolol) 50 mg PO BID [facility] Morphine Sulfate (Morphine) 2 mg IV Q4H PRN PRN Reason: Pain, Moderate (4-6) Last Admin: 10/30/19 03:16 Dose: 2 mg Documented by: Ondansetron HCl (Zofran) 4 mg IV Q6H PRN PRN Reason: Nausea And Vomiting Last Admin: 10/30/19 03:16 Dose: 4 mg Documented by: Sodium Chloride (Sodium Chloride Flush Syringe 10 Ml) 10 ml IV BID [facility] Sodium Chloride (Sodium Chloride Flush Syringe 10 Ml) 10 ml IV PRN PRN PRN Reason: LINE FLUSH Exam - Constitutional Vitals: Temp Pulse Resp BP Pulse Ox 98.7 F 90 18 192/98 100 10/30/19 03:50 10/30/19 03:50 10/30/19 03:50 10/30/19 03:50 10/30/19 03:50 Results - Labs CBC & Chem 7: 10/29/19 18:24 10/29/19 18:24 Labs: Laboratory Last Values WBC 18.3 K/mm3 (4.5-11.0) H 10/29/19 18:24 RBC 4.42 M/mm3 (3.65-5.03) 10/29/19 18:24 Hgb 13.4 gm/dl (10.1-14.3) 10/29/19 18:24 Hct 40.8 % (30.3-42.9) 10/29/19 18:24 MCV 92 fl (79-97) 10/29/19 18:24 MCH 30 pg (28-32) 10/29/19 18:24 MCHC 33 % (30-34) 10/29/19 18:24 RDW 14.3 % (13.2-15.2) 10/29/19 18:24 Plt Count 332 K/mm3 (140-440) 10/29/19 18:24 Lymph % (Auto) 10.2 % (13.4-35.0) L 10/29/19 18:24 [place] % (Auto) 5.5 % (0.0-7.3) 10/29/19 18:24 Eos % (Auto) 0.1 % (0.0-4.3) 10/29/19 18:24 Baso % (Auto) 0.4 % (0.0-1.8) 10/29/19 18:24 Lymph # 1.9 K/mm3 (1.2-5.4) 10/29/19 18:24 [place] # 1.0 K/mm3 (0.0-0.8) H 10/29/19 18:24 Eos # 0.0 K/mm3 (0.0-0.4) 10/29/19 18:24 Baso # 0.1 K/mm3 (0.0-0.1) 10/29/19 18:24 Seg Neutrophils % 83.8 % (40.0-70.0) H 10/29/19 18:24 Seg Neutrophils # 15.3 K/mm3 (1.8-7.7) H 10/29/19 18:24 Sodium 139 mmol/L (137-145) 10/29/19 18:24 Potassium 3.5 mmol/L (3.6-5.0) L 10/29/19 18:24 Chloride 97.7 mmol/L (98-107) L 10/29/19 18:24 Carbon Dioxide 24 mmol/L (22-30) 10/29/19 18:24 Anion Gap 21 mmol/L 10/29/19 18:24 BUN 21 mg/dL (7-17) H 10/29/19 18:24 Creatinine 0.9 mg/dL (0.7-1.2) 10/29/19 18:24 Estimated GFR > 60 ml/min 10/29/19 18:24 BUN/Creatinine Ratio 23 % 10/29/19 18:24 Glucose 123 mg/dL (65-100) H 10/29/19 18:24 Calcium 9.5 mg/dL (8.4-10.2) 10/29/19 18:24 Total Bilirubin 0.40 mg/dL (0.1-1.2) 10/29/19 18:24 AST 15 units/L (5-40) 10/29/19 18:24 ALT 22 units/L (7-56) 10/29/19 18:24 Alkaline Phosphatase 196 units/L (35-129) H 10/29/19 18:24 Total Protein 7.4 g/dL (6.3-8.2) 10/29/19 18:24 Albumin 2.7 g/dL (3.9-5) L 10/29/19 18:24 Albumin/Globulin Ratio 0.6 % 10/29/19 18:24 Lipase 21 units/L (13-60) 10/29/19 18:24 Urine Color Yellow (Yellow) 10/29/19 Unknown Urine Turbidity Clear (Clear) 10/29/19 Unknown Urine pH 6.0 (5.0-7.0) 10/29/19 Unknown Ur Specific [place] 1.040 (1.003-1.030) H 10/29/19 Unknown Urine Protein 100 mg/dl mg/dL (Negative) 10/29/19 Unknown Urine Glucose (UA) Neg mg/dL (Negative) 10/29/19 Unknown Urine Ketones Neg mg/dL (Negative) 10/29/19 Unknown Urine Blood Sm (Negative) 10/29/19 Unknown Urine Nitrite Neg (Negative) 10/29/19 Unknown Urine Bilirubin Neg (Negative) 10/29/19 Unknown Urine Urobilinogen < 2.0 mg/dL (<2.0) 10/29/19 Unknown Ur Leukocyte Esterase Neg (Negative) 10/29/19 Unknown Urine WBC (Auto) 3.0 /HPF (0.0-6.0) 10/29/19 Unknown Urine RBC (Auto) 6.0 /HPF (0.0-6.0) 10/29/19 Unknown U Epithel Cells (Auto) 1.0 /HPF (0-13.0) 10/29/19 Unknown Urine Bacteria (Auto) 1+ /HPF (Negative) 10/29/19 Unknown Urine Mucus Few /HPF 10/29/19 Unknown Assessment and Plan Assessment and plan: Patient seen and examined, agree with plan as above.
[2019-10-30] MEDS: ONDANSETRON 4 MG/2 ML INJ IV PRN (03:16)
[2019-10-30] MEDS ORDERED: ONDANSETRON 4 MG/2 ML INJ ONE (03:18)
[2019-10-30] MEDS ORDERED: MORPHINE 2 MG/1 ML INJ ONE (03:19)
[2019-10-30] MEDS: hydrALAZINE 20 MG/1 ML INJ IV PRN (04:05)
[2019-10-30] MEDS: INSULIN LISPRO 100 UNIT/ML SUB-Q SCH ×4 (07:30→22:34)
[2019-10-30] MEDS ORDERED: metFORMIN 500 MG TAB PO SCH (08:00)
[2019-10-30] MEDS: PIPERACIL/TAZOBACTA 4.5/NS 100 4.5 GM/100 ML VIAL IV SCH ×2 (09:28→17:57)
[2019-10-30] MEDS: FUROSEMIDE 20 MG TAB PO SCH (09:29)
[2019-10-30] MEDS: METOPROLOL TARTRATE 50 MG TAB PO SCH ×2 (09:29→21:37)
[2019-10-30] MEDS: HEPARIN 5,000 UNIT/1 ML VIAL SUB-Q SCH ×2 (09:29→21:37)
--- NOTE | 2019-10-30 11:00 | Progress Note ---
Assessment and Plan Assessment and plan: 49-year-old -H[place]ian female with history of diabetes, hypertension, CHF, angioedema secondary to lisinopril, intubation who presents to [facility] ED with complaints of nausea, vomiting diarrhea x2 days. --Sepsis; Leukocytosis 18.3, tachycardia, right middle lobe infiltrate/consolidation Continue empiric antibiotics follow cultures CT Abdomen Pelvis shows Right middle lobe consolidation Cultures pending, CT chest with contrast --Possible pneumonia Right middle lobe consolidation versus pneumonia Continue antibiotics follow cultures --Rounded cavitary lesion ?lung abscess on CT abdomen pelvis showed Rounded gas and fluid concerning for intrapulmonary abscess IR consulted for possible drainage, check CT chest Pulmonary consulted --Hypertensive urgency on [id number] No moderate control, continue current antihypertensives and PRN medications --Acute gastroenteritis; supportive care Antiemetics IV fluids, Protonix --Type II DM; Accu-Chek sliding scale coverage ADA diet --CHF; acute on chronic congestive heart failure systolic Heart failure medications, cardiology consult if needed EF 20 to 25% --DVT PPX; On Heparin Monitor closely and adjust management as needed Follow consultants recommendations Plan of care reviewed with the patient and her nurse History Interval history: 49-year-old -H[place]ian female patient with multiple medical problems was admitted through emergency room with nausea vomiting and diarrhea also has some midepigastric pain radiating to the left side of the abdomen Has history of systolic congestive heart failure with ejection fraction of 20 to 25% CT abdomen and pelvis revealed area of consolidation with fluid collection possible abscess right lower lobe Patient denies chest pain or shortness of breath Patient feels slightly better still has some nausea vomiting Denies shortness of breath or cough Vital signs noted Hospitalist Physical - Constitutional Vitals: Temp Pulse Resp BP Pulse Ox 98.7 F 90 18 135/73 99 10/30/19 03:50 10/30/19 03:50 10/30/19 03:50 10/30/19 06:09 10/30/19 05:44 General appearance: Present: mild distress, well-nourished, obese - EENT Eyes: Present: PERRL, EOM intact - Neck Neck: Present: supple, normal ROM - Respiratory Respiratory: bilateral: diminished, rhonchi, negative: rales, wheezing - Cardiovascular Rhythm: regular Heart Sounds: Present: S1 & S2 - Extremities Extremities: no ischemia, No edema - Abdominal General gastrointestinal: soft, non-tender, non-distended, normal bowel sounds - Integumentary Integumentary: Present: clear, warm - Psychiatric Psychiatric: appropriate mood/affect, cooperative - Neurologic Neurologic: CNII-XII intact, moves all extremities Results - Labs CBC & Chem 7: 10/29/19 18:24 10/29/19 18:24 Labs: Laboratory Last Values WBC 18.3 K/mm3 (4.5-11.0) H 10/29/19 18:24 RBC 4.42 M/mm3 (3.65-5.03) 10/29/19 18:24 Hgb 13.4 gm/dl (10.1-14.3) 10/29/19 18:24 Hct 40.8 % (30.3-42.9) 10/29/19 18:24 MCV 92 fl (79-97) 10/29/19 18:24 MCH 30 pg (28-32) 10/29/19 18:24 MCHC 33 % (30-34) 10/29/19 18:24 RDW 14.3 % (13.2-15.2) 10/29/19 18:24 Plt Count 332 K/mm3 (140-440) 10/29/19 18:24 Lymph % (Auto) 10.2 % (13.4-35.0) L 10/29/19 18:24 [place] % (Auto) 5.5 % (0.0-7.3) 10/29/19 18:24 Eos % (Auto) 0.1 % (0.0-4.3) 10/29/19 18:24 Baso % (Auto) 0.4 % (0.0-1.8) 10/29/19 18:24 Lymph # 1.9 K/mm3 (1.2-5.4) 10/29/19 18:24 [place] # 1.0 K/mm3 (0.0-0.8) H 10/29/19 18:24 Eos # 0.0 K/mm3 (0.0-0.4) 10/29/19 18:24 Baso # 0.1 K/mm3 (0.0-0.1) 10/29/19 18:24 Seg Neutrophils % 83.8 % (40.0-70.0) H 10/29/19 18:24 Seg Neutrophils # 15.3 K/mm3 (1.8-7.7) H 10/29/19 18:24 Sodium 139 mmol/L (137-145) 10/29/19 18:24 Potassium 3.5 mmol/L (3.6-5.0) L 10/29/19 18:24 Chloride 97.7 mmol/L (98-107) L 10/29/19 18:24 Carbon Dioxide 24 mmol/L (22-30) 10/29/19 18:24 Anion Gap 21 mmol/L 10/29/19 18:24 BUN 21 mg/dL (7-17) H 10/29/19 18:24 Creatinine 0.9 mg/dL (0.7-1.2) 10/29/19 18:24 Estimated GFR > 60 ml/min 10/29/19 18:24 BUN/Creatinine Ratio 23 % 10/29/19 18:24 Glucose 123 mg/dL (65-100) H 10/29/19 18:24 POC Glucose 146 (70-105) H 10/30/19 08:34 Calcium 9.5 mg/dL (8.4-10.2) 10/29/19 18:24 Total Bilirubin 0.40 mg/dL (0.1-1.2) 10/29/19 18:24 AST 15 units/L (5-40) 10/29/19 18:24 ALT 22 units/L (7-56) 10/29/19 18:24 Alkaline Phosphatase 196 units/L (35-129) H 10/29/19 18:24 Total Protein 7.4 g/dL (6.3-8.2) 10/29/19 18:24 Albumin 2.7 g/dL (3.9-5) L 10/29/19 18:24 Albumin/Globulin Ratio 0.6 % 10/29/19 18:24 Lipase 21 units/L (13-60) 10/29/19 18:24 Urine Color Yellow (Yellow) 10/29/19 Unknown Urine Turbidity Clear (Clear) 10/29/19 Unknown Urine pH 6.0 (5.0-7.0) 10/29/19 Unknown Ur Specific [place] 1.040 (1.003-1.030) H 10/29/19 Unknown Urine Protein 100 mg/dl mg/dL (Negative) 10/29/19 Unknown Urine Glucose (UA) Neg mg/dL (Negative) 10/29/19 Unknown Urine Ketones Neg mg/dL (Negative) 10/29/19 Unknown Urine Blood Sm (Negative) 10/29/19 Unknown Urine Nitrite Neg (Negative) 10/29/19 Unknown Urine Bilirubin Neg (Negative) 10/29/19 Unknown Urine Urobilinogen < 2.0 mg/dL (<2.0) 10/29/19 Unknown Ur Leukocyte Esterase Neg (Negative) 10/29/19 Unknown Urine WBC (Auto) 3.0 /HPF (0.0-6.0) 10/29/19 Unknown Urine RBC (Auto) 6.0 /HPF (0.0-6.0) 10/29/19 Unknown U Epithel Cells (Auto) 1.0 /HPF (0-13.0) 10/29/19 Unknown Urine Bacteria (Auto) 1+ /HPF (Negative) 10/29/19 Unknown Urine Mucus Few /HPF 10/29/19 Unknown Active Medications - Current Medications Current Medications: Generic Name Dose Route Start Last Admin Trade Name Freq PRN Reason Stop Dose Admin Acetaminophen 650 mg 10/30/19 01:46 Tylenol PO Q4H PRN Pain MILD(1-3)/Fever >100.5/AMARO Albuterol 2.5 mg 10/30/19 01:46 Proventil IH Q3HRT PRN Shortness Of Breath Dextrose 50 ml 10/30/19 01:46 D50w (25gm) Syringe IV Q30MIN PRN Hypoglycemia Protocol Furosemide 20 mg 10/30/19 10:00 10/30/19 09:29 Lasix PO 20 mg QAM MIRI Administration Heparin Sodium (Porcine) 5,000 unit 10/30/19 10:00 10/30/19 09:29 Heparin SUB-Q 5,000 unit Q12HR MIRI Administration Hydralazine HCl 10 mg 10/30/19 01:52 10/30/19 04:05 Apresoline IV 10 mg Q4HR PRN Administration Blood Pressure Piperacillin Sod/Tazobactam Sod 4.5 gm in 100 mls @ 200 mls/hr 10/30/19 10:00 10/30/19 09:28 Zosyn/Ns 4.5gm/100ml IV 200 mls/hr Q8H MIRI Administration Protocol Insulin Human Lispro 0 unit 10/30/19 07:30 10/30/19 07:30 Humalog SUB-Q Not Given A[facility]S [facility] Protocol Metoprolol Tartrate 50 mg 10/30/19 10:00 10/30/19 09:29 Metoprolol PO 50 mg BID MIRI Administration Morphine Sulfate 2 mg 10/30/19 01:46 10/30/19 03:16 Morphine IV 2 mg Q4H PRN Administration Pain, Moderate (4-6) Ondansetron HCl 4 mg 10/30/19 02:07 10/30/19 03:16 Zofran IV 4 mg Q6H PRN Administration Nausea And Vomiting Sodium Chloride 10 ml 10/30/19 10:00 10/30/19 09:30 Sodium Chloride Flush Syringe 10 Ml IV 10 ml BID MIRI Administration Sodium Chloride 10 ml 10/30/19 01:46 Sodium Chloride Flush Syringe 10 Ml IV PRN PRN LINE FLUSH Nutrition/Malnutrition Assess - Dietary Evaluation Nutrition/Malnutrition Findings: Nutrition Notes Start: 10/30/19 10:07 Freq: Status: Active Protocol: Document 10/30/19 10:07 LP (Rec: 10/30/19 10:14 LP [id number]) Nutrition Notes Need for Assessment generated from: MD Order Initial or Follow up Assessment Current Diagnosis Decubitus(Pressure Ulcer), Diabetes,Hypertension,Heart Failure Other Pertinent Diagnosis N/V Current Diet Cardiac/Consistent CHO Labs/Tests 10/29/19 K 3.5 Pertinent Medications Lasix Height 5 ft 7 in Weight 103.4 kg [place] Body Weight (kg) 61.36 BMI 35.6 Intake Prior to Admission Good Weight Status Obese Subjective/Other Information Consult for dietary supplement . 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 Pt denies N/V this AM. Pt states she will try Glucerna. Pt denies wt changes. Pt with right and left buttock wounds. Burn Absent Trauma Absent GI Symptoms Nausea,Vomiting Current % PO Poor (25-49%) Minimum of two criteria No Fluid Accumulation Moderate to Severe (severe) #1 Nutrition Diagnosis Inadequate oral intake Etiology decreased appetite As Evidenced by Signs and Symptoms Pt states not eating well this AM Is patient on ventilator? No Is Patient Ambulatory and/or Out of Bed No REE-([facility]-confined to bed) 2020.604 Kcal/Kg value to use for calculation 15 Approximate Energy Requirements Using 1551 kcal/Kg Calculation Used for Recommendations Kcal/kg Additional Notes Protein needs are 89-107g (1. 25-1.5g/kg using adjusted wt 71kg) Fluid needs are 1500ml fluid restriction Nutrition Intervention Change Diet Order: Continue Add Supplement/Snack (indicate name/kcal Glucerna vanilla or chocolate /protein ) daily Provides kCal: 220 Provides Protein (gm) 10 Goal #1 Meet at least 80% of kcal and protein needs Anticipated Discharge Needs: Cardiac/consistent CHO Follow-Up By: 11/01/19 Additional Comments Follow for intakes, ONS tolerance
--- NOTE | 2019-10-30 11:25 | Consultation ---
History of Present Illness - Reason for Consult Consult date: 10/30/19 right lung consolidation with abscess - History of Present Illness Patient with a history of diabetes, hypertension, angioedema and intubation secondary to lisinopril administration who was [facility]. She presents with left-sided abdominal pain and a CT scan of her abdomen and pelvis was performed. Imaging obtained through the lung bases demonstrate an area of consolidation with a small fluid collection containing foci of air within the right lower lobe. Patient with no respiratory complaints. Past History Past Medical History: diabetes, heart failure (EF 20-25%), hypertension, other (Angioedema, intubation) Past Surgical History: No surgical history Social history: lives with family, other Family history: no significant family history Medications and Allergies Allergies Allergy/AdvReac Type Severity Reaction Status Date / Time lisinopril Allergy Angioedema Verified 10/17/19 17:55 Home Medications Medication Instructions Recorded Confirmed Last Taken Type Furosemide [Lasix] 20 mg PO QAM 10/18/19 10/30/19 Unknown History Metoprolol Tartrate [Lopressor] 50 mg PO BID 10/18/19 10/30/19 Unknown History metFORMIN [Glucophage] 1,000 mg PO BID 10/18/19 10/30/19 Unknown History Albuterol Sulfate [Albuterol 0.63% 0.63 mg IH TID PRN #1 box 10/23/19 10/30/19 Unknown Rx NEBS] Ipratropium [Atrovent NEB] 0.5 mg IH Q6HRT #1 box 10/23/19 10/30/19 Unknown Rx Loratadine [Claritin] 10 mg PO DAILY #30 tablet 10/23/19 10/30/19 Unknown Rx Nebulizer [Compact Compressor 1 each MC BID PRN #1 each 10/23/19 10/30/19 Unknown Rx Nebulizer] Prednisone [predniSONE 10 mg 10 mg PO .TAPER #1 tab.ds.pk 10/23/19 10/30/19 Unknown Rx (6-Day Pack, 21 Tabs)] Active Meds: Active Medications Acetaminophen (Tylenol) 650 mg PO Q4H PRN PRN Reason: Pain MILD(1-3)/Fever >100.5/AMARO Albuterol (Proventil) 2.5 mg IH Q3HRT PRN PRN Reason: Shortness Of Breath Dextrose (D50w (25gm) Syringe) 50 ml IV Q30MIN PRN; Protocol PRN Reason: Hypoglycemia Furosemide (Lasix) 20 mg PO QAM [facility] Last Admin: 10/30/19 09:29 Dose: 20 mg Documented by: Heparin Sodium (Porcine) (Heparin) 5,000 unit SUB-Q Q12HR [facility] Last Admin: 10/30/19 09:29 Dose: 5,000 unit Documented by: Hydralazine HCl (Apresoline) 10 mg IV Q4HR PRN PRN Reason: Blood Pressure Last Admin: 10/30/19 04:05 Dose: 10 mg Documented by: Piperacillin Sod/Tazobactam Sod (Zosyn/Ns 4.5gm/100ml) 4.5 gm in 100 mls @ 200 mls/hr IV Q8H [facility]; Protocol Last Admin: 10/30/19 09:28 Dose: 200 mls/hr Documented by: Insulin Human Lispro (Humalog) 0 unit SUB-Q ACHS [facility]; Protocol Last Admin: 10/30/19 07:30 Dose: Not Given Documented by: Metoprolol Tartrate (Metoprolol) 50 mg PO BID [facility] Last Admin: 10/30/19 09:29 Dose: 50 mg Documented by: Morphine Sulfate (Morphine) 2 mg IV Q4H PRN PRN Reason: Pain, Moderate (4-6) Last Admin: 10/30/19 03:16 Dose: 2 mg Documented by: Ondansetron HCl (Zofran) 4 mg IV Q6H PRN PRN Reason: Nausea And Vomiting Last Admin: 10/30/19 03:16 Dose: 4 mg Documented by: Sodium Chloride (Sodium Chloride Flush Syringe 10 Ml) 10 ml IV BID [facility] Last Admin: 10/30/19 09:30 Dose: 10 ml Documented by: Sodium Chloride (Sodium Chloride Flush Syringe 10 Ml) 10 ml IV PRN PRN PRN Reason: LINE FLUSH Review of Systems All systems: negative Exam - Constitutional Vitals: Temp Pulse Resp BP Pulse Ox 98.7 F 90 18 135/73 99 10/30/19 03:50 10/30/19 03:50 10/30/19 03:50 10/30/19 06:09 10/30/19 05:44 General appearance: Present: no acute distress - EENT Eyes: Present: EOM intact ENT: hearing intact - Neck Neck: Present: supple, normal ROM - Respiratory Respiratory effort: normal - Abdominal General gastrointestinal: Present: deferred Female genitourinary: Present: deferred - Rectal Rectal Exam: deferred - Psychiatric Psychiatric: appropriate mood/affect, cooperative Results - Labs CBC & Chem 7: 10/29/19 18:24 10/29/19 18:24 Labs: Abnormal lab results 10/29/19 10/29/19 10/29/19 Range/Units 18:24 18:24 Unknown WBC 18.3 H (4.5-11.0) K/mm3 Lymph % (Auto) 10.2 L (13.4-35.0) % [place] # 1.0 H (0.0-0.8) K/mm3 Seg Neutrophils % 83.8 H (40.0-70.0) % Seg Neutrophils # 15.3 H (1.8-7.7) K/mm3 Potassium 3.5 L (3.6-5.0) mmol/L Chloride 97.7 L (98-107) mmol/L BUN 21 H (7-17) mg/dL Glucose 123 H (65-100) mg/dL POC Glucose (70-105) Alkaline Phosphatase 196 H (35-129) units/L Albumin 2.7 L (3.9-5) g/dL Ur Specific [place] 1.040 H (1.003-1.030) 10/30/19 Range/Units 08:34 WBC (4.5-11.0) K/mm3 Lymph % (Auto) (13.4-35.0) % [place] # (0.0-0.8) K/mm3 Seg Neutrophils % (40.0-70.0) % Seg Neutrophils # (1.8-7.7) K/mm3 Potassium (3.6-5.0) mmol/L Chloride (98-107) mmol/L BUN (7-17) mg/dL Glucose (65-100) mg/dL POC Glucose 146 H (70-105) Alkaline Phosphatase (35-129) units/L Albumin (3.9-5) g/dL Ur Specific [place] (1.003-1.030) - Imaging and Cardiology CT scan - abdomen: image reviewed CT scan - pelvis: image reviewed Assessment and Plan We will obtain a CT of the chest for further evaluation of the entire lungs. Based on the imaging obtained through the lung bases and a CT of the abdomen and pelvis, fluid collection does not appear to be amenable to placement of a drainage tube however, aspiration may be possible. Further recommendations to follow following CT of the chest.
--- NOTE | 2019-10-30 17:07 | Consultation ---
History of Present Illness Consult date: 10/30/19 History of present illness: pulmonary and critical care consultation DR. CAVANAUGH THANK YOU FOR ASKING US TO PARTICIPATE IN THE CARE OF THIS PATIENT. 49-year-old -[place] female with history of diabetes, hypertension, CHF, angioedema secondary to lisinopril, intubation who presents to [facility] ED with complaints of nausea, vomiting diarrhea x2 days. Patient states she has had intractable nausea vomiting for the past 2 days and has been unable to keep anything down. She also complains of mild epigastric pain with radiation to left side of abdomen and multiple episodes of diarrhea. She denies hematemesis, melena, hematochezia. Patient states she was recently changed from metformin to glimepiride 3 days ago and wonders if this is contributing her symptoms. A review of medical record shows patient was admitted and intubated on 10/17/2019 for angioedema secondary to allergic reaction lisinopril. She was discharged on 10/24/2019. MATTHEW CHEST PAIN,SHORTNESS OF BREATH OR COUGH. Patient has history of smoking 1 pack 35 years. Says stopped smoking 2 weeks ago. Denies alcohol or drug abuse. Patient is on 1.5 litres O2. O2 saturation 95%. chest xray done 10/30/19 reported persistent right lower lobe air space disease. CT of chest done on 10/30/19 No change in appearance of right middle lobe pneumonia with probable intrapulmonary abscess. 2. Mild interstitial edema. No significant pleural effusion. Past History Past Medical History: diabetes, heart failure (EF 20-25%), hypertension, other (Angioedema, intubation) Past Surgical History: No surgical history Social history: lives with family, other Family history: no significant family history Medications and Allergies Allergies Allergy/AdvReac Type Severity Reaction Status Date / Time lisinopril Allergy Angioedema Verified 10/17/19 17:55 Home Medications Medication Instructions Recorded Confirmed Last Taken Type Furosemide [Lasix] 20 mg PO QAM 10/18/19 10/30/19 Unknown History Metoprolol Tartrate [Lopressor] 50 mg PO BID 10/18/19 10/30/19 Unknown History metFORMIN [Glucophage] 1,000 mg PO BID 10/18/19 10/30/19 Unknown History Albuterol Sulfate [Albuterol 0.63% 0.63 mg IH TID PRN #1 box 10/23/19 10/30/19 Unknown Rx NEBS] Ipratropium [Atrovent NEB] 0.5 mg IH Q6HRT #1 box 10/23/19 10/30/19 Unknown Rx Loratadine [Claritin] 10 mg PO DAILY #30 tablet 10/23/19 10/30/19 Unknown Rx Nebulizer [Compact Compressor 1 each MC BID PRN #1 each 10/23/19 10/30/19 Unknown Rx Nebulizer] Prednisone [predniSONE 10 mg 10 mg PO .TAPER #1 tab.ds.pk 10/23/19 10/30/19 Unknown Rx (6-Day Pack, 21 Tabs)] Active Meds: Active Medications Acetaminophen (Tylenol) 650 mg PO Q4H PRN PRN Reason: Pain MILD(1-3)/Fever >100.5/AMARO Albuterol (Proventil) 2.5 mg IH Q3HRT PRN PRN Reason: Shortness Of Breath Dextrose (D50w (25gm) Syringe) 50 ml IV Q30MIN PRN; Protocol PRN Reason: Hypoglycemia Furosemide (Lasix) 20 mg PO QAM [facility] Last Admin: 10/30/19 09:29 Dose: 20 mg Documented by: Heparin Sodium (Porcine) (Heparin) 5,000 unit SUB-Q Q12HR [facility] Last Admin: 10/30/19 09:29 Dose: 5,000 unit Documented by: Hydralazine HCl (Apresoline) 10 mg IV Q4HR PRN PRN Reason: Blood Pressure Last Admin: 10/30/19 04:05 Dose: 10 mg Documented by: Piperacillin Sod/Tazobactam Sod (Zosyn/Ns 4.5gm/100ml) 4.5 gm in 100 mls @ 200 mls/hr IV Q8H [facility]; Protocol Last Admin: 10/30/19 09:28 Dose: 200 mls/hr Documented by: Insulin Human Lispro (Humalog) 0 unit SUB-Q ACHS [facility]; Protocol Last Admin: 10/30/19 11:30 Dose: Not Given Documented by: Metoprolol Tartrate (Metoprolol) 50 mg PO BID [facility] Last Admin: 10/30/19 09:29 Dose: 50 mg Documented by: Morphine Sulfate (Morphine) 2 mg IV Q4H PRN PRN Reason: Pain, Moderate (4-6) Last Admin: 10/30/19 03:16 Dose: 2 mg Documented by: Ondansetron HCl (Zofran) 4 mg IV Q6H PRN PRN Reason: Nausea And Vomiting Last Admin: 10/30/19 03:16 Dose: 4 mg Documented by: Sodium Chloride (Sodium Chloride Flush Syringe 10 Ml) 10 ml IV BID MIRI Last Admin: 10/30/19 09:30 Dose: 10 ml Documented by: Sodium Chloride (Sodium Chloride Flush Syringe 10 Ml) 10 ml IV PRN PRN PRN Reason: LINE FLUSH Review of Systems All systems: negative Physical Examination Vital signs: Vital Signs Temp Pulse Resp BP Pulse Ox 98.4 F 79 16 197/113 100 10/29/19 17:02 10/29/19 17:02 10/29/19 17:02 10/29/19 17:02 10/29/19 17:02 General appearance: no acute distress, alert Eyes: non-icteric ENT: oropharynx moist Neck: supple Effort: normal Ascultation: Right: rhonchi Cardiovascular: regular rate and rhythm Gastrointestinal: hypoactive bowel sounds, tender Integumentary: normal Extremities: no cyanosis, no edema Musculoskeletal: no deformities Gait: other (Can not assess now.) normal mental status, non-focal exam, pupils equal and round anxious Results - Laboratory Findings CBC and BMP: 10/29/19 18:24 10/29/19 18:24 Abnormal lab findings: Abnormal Labs 10/29/19 10/29/19 10/29/19 18:24 18:24 Unknown WBC 18.3 H Lymph % (Auto) 10.2 L [place] # 1.0 H Seg Neutrophils % 83.8 H Seg Neutrophils # 15.3 H Potassium 3.5 L Chloride 97.7 L BUN 21 H Glucose 123 H POC Glucose Alkaline Phosphatase 196 H Albumin 2.7 L Ur Specific [place] 1.040 H 10/30/19 10/30/19 10/30/19 08:34 11:20 16:58 WBC Lymph % (Auto) [place] # Seg Neutrophils % Seg Neutrophils # Potassium Chloride BUN Glucose POC Glucose 146 H 144 H 169 H Alkaline Phosphatase Albumin Ur Specific [place] - Diagnostic Findings Chest x-ray: report reviewed (PERSISTENT RIGHT LOWER LUNG AIR SPACE DISEASE.), image reviewed CT scan - chest: report reviewed, image reviewed Additional studies: CT of chest done on 10/30/19 No change in appearance of right middle lobe pneumonia with probable intrapulmonary abscess. 2. Mild interstitial edema. No significant pleural effusion. Assessment and Plan 49-year-old -[place] female with history of diabetes, hypertension, CHF, angioedema secondary to lisinopril, intubation who presents to [facility] ED with complaints of nausea, vomiting diarrhea x2 days. Patient states she has had intractable nausea vomiting for the past 2 days and has been unable to keep anything down. She also complains of mild epigastric pain with radiation to left side of abdomen and multiple episodes of diarrhea. She denies hematemesis, melena, hematochezia. Patient states she was recently changed from metformin to glimepiride 3 days ago and wonders if this is contributing her symptoms. A review of medical record shows patient was admitted and intubated on 10/17/2019 for angioedema secondary to allergic reaction lisinopril. She was discharged on 10/24/2019. MATTHEW CHEST PAIN,SHORTNESS OF BREATH OR COUGH. Patient has history of smoking 1 pack 35 years. Says stopped smoking 2 weeks ago. Denies alcohol or drug abuse. Patient is on 1.5 litres O2. O2 saturation 95%. chest xray done 10/30/19 reported persistent right lower lobe air space disease. CT of chest done on 10/30/19 No change in appearance of right middle lobe pneumonia with probable intrapulmonary abscess. 2. Mild interstitial edema. No significant pleural eff usion. - Patient Problems (1) Pneumonia Current Visit: Yes Status: Acute Plan to address problem: Patient is on Zosyn (2) Cardiomyopathy Current Visit: No Status: Acute Plan to address problem: Management as per cardiology (3) CHF (congestive heart failure) Current Visit: No Status: Acute Qualifiers: Heart failure type: systolic Heart failure chronicity: acute on chronic Qualified Code(s): I50.23 - Acute on chronic systolic (congestive) heart failure Plan to address problem: Management as per cardiology. (4) Acute abdominal pain Current Visit: Yes Status: Acute Plan to address problem: Management as per primary care and surgery.
--- NOTE | 2019-10-30 19:24 | Cat Scan Report ---
CT CHEST WITH CONTRAST INDICATION / CLINICAL INFORMATION: MAIN: RLL pulmonary abscess [id number] 100ml. TECHNIQUE: Axial CT images were obtained through the chest after 100 mL Omnipaque [address]. [address] scans at this location are performed using CT dose reduction for ALARA by means of automated exposure contr ol. COMPARISON: CT abdomen dated 10/29/19 FINDINGS: HEART: Enlarged but stable. No pericardial effusion. THORACIC AORTA: No significant abnormality. MEDIASTINUM and EMILY: Reactive lymph nodes in the right paratracheal region. LUNGS: Right middle lobe consolidation with area of fluid density and cavitation likely representing parenchymal abscess. No change since prior study. There is mild diffuse interstitial edema. PLEURA: No significant pleural effusion. No pneumothorax. ADDITIONAL FINDINGS: None. UPPER ABDOMEN: Right adrenal nodule is unchanged. SKELETAL SYSTEM: No significant abnormality. IMPRESSION: 1. No change in appearance of right middle lobe pneumonia with probable intrapulmonary abscess. 2. Mild interstitial edema. No significant pleural effusion. Signer Name: Tali Felix MD Signed: 10/30/2019 7:20 PM Workstation Name: [id number]
[2019-10-31] MEDS: PIPERACIL/TAZOBACTA 4.5/NS 100 4.5 GM/100 ML VIAL IV SCH ×3 (02:33→17:48)
[2019-10-31 04:54] LABS: Basophils % (Auto) 0.1 % (0.0-1.8); Eosinophils # (Auto) 0.1 K/mm3 (0.0-0.4); Eosinophils % (Auto) 0.4 % (0.0-4.3); Hematocrit 34.3 % (30.3-42.9); Hemoglobin 11.5 gm/dl (10.1-14.3); Lymphocytes # (Auto) 2.6 K/mm3 (1.2-5.4); Mean Corpuscular HGB Conc 34 % (30-34); Mean Corpuscular Volume 92 fl (79-97); Monocytes # (Auto) 1.5 K/mm3 (0.0-0.8); Monocytes % (Auto) 8.2 % (0.0-7.3); Platelet Count 304 K/mm3 (140-440); Red Blood Count 3.74 M/mm3 (3.65-5.03); Red Cell Distribution Width 14.1 % (13.2-15.2)
[2019-10-31 05:13] LABS: Calcium 8.5 mg/dL (8.4-10.2)
[2019-10-31] MEDS: ONDANSETRON 4 MG/2 ML INJ IV PRN (08:05)
[2019-10-31] MEDS: INSULIN LISPRO 100 UNIT/ML SUB-Q SCH ×4 (08:49→22:54)
[2019-10-31] MEDS: METOPROLOL TARTRATE 50 MG TAB PO SCH ×2 (09:22→22:10)
[2019-10-31] MEDS: POTASSIUM CHLORIDE ER 20 MEQ TAB PO SCH ×2 (09:22→12:09)
[2019-10-31] MEDS: FUROSEMIDE 20 MG TAB PO SCH (09:22)
[2019-10-31] MEDS: HEPARIN 5,000 UNIT/1 ML VIAL SUB-Q SCH ×2 (09:23→22:10)
[2019-10-31] MEDS ORDERED: BENZOCAINE/MENTHOL LOZENGE MM PRN (10:00)
[2019-10-31] MEDS ORDERED: metFORMIN 500 MG TAB PO ONE (13:21)
[2019-10-31] MEDS ORDERED: INSULIN NPH/REGULAR 70/30 INJ SUB-Q ONE (13:40)
--- NOTE | 2019-10-31 14:41 | Progress Note ---
Assessment and Plan Patient alert, awake. Resting on 1.5 litres O2. O2 saturation 98%. Patient has cough with productive yellow sputum. Denies chest pain or shortness of breath. Patient says nausea and vomiting got better. Patient running low grade fever and has leukocytosis. Patient is on Zosyn. - Patient Problems (1) Pneumonia Current Visit: Yes Status: Acute Plan to address problem: Patient is on Zosyn (2) Cardiomyopathy Current Visit: No Status: Acute Plan to address problem: Management as per cardiology (3) CHF (congestive heart failure) Current Visit: No Status: Acute Qualifiers: Heart failure type: systolic Heart failure chronicity: acute on chronic Qualified Code(s): I50.23 - Acute on chronic systolic (congestive) heart failure Plan to address problem: Management as per cardiology. (4) Acute abdominal pain Current Visit: Yes Status: Acute Plan to address problem: Management as per primary care and surgery. Subjective Date of service: 10/31/19 Interval history: Patient alert, awake. Resting on 1.5 litres O2. O2 saturation 98%. Patient has cough with productive yellow sputum. Denies chest pain or shortness of breath. Patient says nausea and vomiting got better. Patient running low grade fever and has leukocytosis. Patient is on Zosyn. Objective Vital Signs - 12hr 10/31/19 10/31/19 04:40 11:44 Temperature 100.1 F H 98.9 F Pulse Rate 97 H 68 Respiratory 20 22 Rate Blood Pressure 131/69 116/64 O2 Sat by Pulse 94 98 Oximetry Constitutional: no acute distress, alert Eyes: non-icteric ENT: oropharynx moist Neck: supple Effort: normal Ascultation: Right: rhonchi Cardiovascular: regular rate and rhythm Gastrointestinal: hypoactive bowel sounds, tender Integumentary: normal Extremities: no cyanosis, no edema Neurologic: normal mental status, non-focal exam, pupils equal and round Psychiatric: anxious CBC and BMP: 10/31/19 04:13 10/31/19 04:15 Abnormal lab findings: Abnormal Labs 10/29/19 10/29/19 10/29/19 18:24 18:24 Unknown WBC 18.3 H Lymph % (Auto) 10.2 L [place] % (Auto) [place] # 1.0 H Seg Neutrophils % 83.8 H Seg Neutrophils # 15.3 H Potassium 3.5 L Chloride 97.7 L Carbon Dioxide BUN 21 H Creatinine Glucose 123 H POC Glucose Alkaline Phosphatase 196 H Albumin 2.7 L Ur Specific [place] 1.040 H 10/30/19 10/30/19 10/30/19 08:34 11:20 16:58 WBC Lymph % (Auto) [place] % (Auto) [place] # Seg Neutrophils % Seg Neutrophils # Potassium Chloride Carbon Dioxide BUN Creatinine Glucose POC Glucose 146 H 144 H 169 H Alkaline Phosphatase Albumin Ur Specific [place] 10/30/19 10/31/19 10/31/19 21:06 04:13 04:15 WBC 18.8 H Lymph % (Auto) [place] % (Auto) 8.2 H [place] # 1.5 H Seg Neutrophils % 77.3 H Seg Neutrophils # 14.5 H Potassium 2.9 L* Chloride 94.5 L Carbon Dioxide 32 H D BUN 22 H Creatinine 1.3 H Glucose 160 H POC Glucose 237 H Alkaline Phosphatase Albumin Ur Specific [place] 10/31/19 10/31/19 07:41 11:55 WBC Lymph % (Auto) [place] % (Auto) [place] # Seg Neutrophils % Seg Neutrophils # Potassium Chloride Carbon Dioxide BUN Creatinine Glucose POC Glucose 192 H 443 H Alkaline Phosphatase Albumin Ur Specific [place]
--- NOTE | 2019-10-31 15:19 | Event Note ---
Date: 10/31/[address] scan of the chest. There is a focal intrapulmonary abscess noted. These are usually treated with antibiotics (which cover anaerobic bacteria) and percussive techniques with positioning. If patient does not respond, then recommend transfer to facility with cardiothoracic surgery for evaluation and recommendations. Percutaneous techniques can be performed, but they can have morbidity associated with them (pyopneumothorax, empyema or bronchopleural fistula or bleeding) and should be done with conjunction with thoracic surgery so that any complications can be managed in a timely manner.
[2019-10-31] MEDS: INSULIN NPH/REGULAR 70/30 INJ SUB-Q SCH (16:13)
--- NOTE | 2019-10-31 20:37 | Progress Note ---
Assessment and Plan Assessment and plan: 49-year-old -Maced[place] female with history of diabetes, hypertension, CHF, angioedema secondary to lisinopril, intubation who presents to [facility] ED with complaints of nausea, vomiting diarrhea x2 days. Possible lung abscess /right lung cavitary lesion Follow CT chest, on Zosyn --Possible pneumonia Right middle lobe consolidation versus pneumonia Continue antibiotics follow cultures --Rounded cavitary lesion ?lung abscess on CT abdomen pelvis showed Rounded gas and fluid concerning for intrapulmonary abscess IR consulted for possible drainage, check CT chest Pulmonary following --Sepsis; Leukocytosis 18.3, tachycardia, right middle lobe infiltrate/consolidation Continue empiric antibiotics follow cultures CT Abdomen Pelvis shows Right middle lobe consolidation Cultures pending, CT chest with contrast --Hypertensive urgency on [id number] No moderate control, continue current antihypertensives and PRN medications --Acute gastroenteritis; supportive care Antiemetics IV fluids, Protonix --Type II DM; Accu-Chek sliding scale coverage ADA diet --CHF; acute on chronic congestive heart failure systolic Heart failure medications, cardiology consult if needed EF 20 to 25% --DVT PPX; On Heparin Monitor closely and adjust management as needed Follow consultants recommendations Plan of care reviewed with the patient and her nurse Disposition; follow CT chest, IR recommendations History Interval history: Patient seen and examined this afternoon medical records reviewed Patient complains of mild shortness of breath and cough sore throat[due to recent intubation] Low-grade fever Alert awake oriented Mild distress, vital signs reviewed Hospitalist Physical - Constitutional Vitals: Temp Pulse Resp BP Pulse Ox 98.4 F 75 20 135/75 99 10/31/19 17:01 10/31/19 17:01 10/31/19 17:01 10/31/19 17:01 10/31/19 17:01 General appearance: Present: mild distress, well-nourished, obese - EENT Eyes: Present: PERRL, EOM intact - Neck Neck: Present: supple, normal ROM - Respiratory Respiratory effort: normal Respiratory: bilateral: diminished, rhonchi, negative: rales, wheezing - Cardiovascular Rhythm: regular Heart Sounds: Present: S1 & S2 - Extremities Extremities: no ischemia, No edema - Abdominal General gastrointestinal: soft, non-tender, non-distended, normal bowel sounds - Integumentary Integumentary: Present: clear, warm - Psychiatric Psychiatric: appropriate mood/affect, cooperative - Neurologic Neurologic: CNII-XII intact, moves all extremities Results - Labs CBC & Chem 7: 10/31/19 04:13 10/31/19 04:15 Labs: Laboratory Last Values WBC 18.8 K/mm3 (4.5-11.0) H 10/31/19 04:13 RBC 3.74 M/mm3 (3.65-5.03) 10/31/19 04:13 Hgb 11.5 gm/dl (10.1-14.3) 10/31/19 04:13 Hct 34.3 % (30.3-42.9) D 10/31/19 04:13 MCV 92 fl (79-97) 10/31/19 04:13 MCH 31 pg (28-32) 10/31/19 04:13 MCHC 34 % (30-34) 10/31/19 04:13 RDW 14.1 % (13.2-15.2) 10/31/19 04:13 Plt Count 304 K/mm3 (140-440) 10/31/19 04:13 Lymph % (Auto) 14.0 % (13.4-35.0) 10/31/19 04:13 [place] % (Auto) 8.2 % (0.0-7.3) H 10/31/19 04:13 Eos % (Auto) 0.4 % (0.0-4.3) 10/31/19 04:13 Baso % (Auto) 0.1 % (0.0-1.8) 10/31/19 04:13 Lymph # 2.6 K/mm3 (1.2-5.4) 10/31/19 04:13 [place] # 1.5 K/mm3 (0.0-0.8) H 10/31/19 04:13 Eos # 0.1 K/mm3 (0.0-0.4) 10/31/19 04:13 Baso # 0.0 K/mm3 (0.0-0.1) 10/31/19 04:13 Seg Neutrophils % 77.3 % (40.0-70.0) H 10/31/19 04:13 Seg Neutrophils # 14.5 K/mm3 (1.8-7.7) H 10/31/19 04:13 Sodium 140 mmol/L (137-145) 10/31/19 04:15 Potassium 2.9 mmol/L (3.6-5.0) L* 10/31/19 04:15 Chloride 94.5 mmol/L (98-107) L 10/31/19 04:15 Carbon Dioxide 32 mmol/L (22-30) H D 10/31/19 04:15 Anion Gap 16 mmol/L 10/31/19 04:15 BUN 22 mg/dL (7-17) H 10/31/19 04:15 Creatinine 1.3 mg/dL (0.7-1.2) H 10/31/19 04:15 Estimated GFR 52 ml/min 10/31/19 04:15 BUN/Creatinine Ratio 17 % 10/31/19 04:15 Glucose 160 mg/dL (65-100) H 10/31/19 04:15 POC Glucose 353 (70-105) H 10/31/19 17:12 Calcium 8.5 mg/dL (8.4-10.2) 10/31/19 04:15 Total Bilirubin 0.40 mg/dL (0.1-1.2) 10/29/19 18:24 AST 15 units/L (5-40) 10/29/19 18:24 ALT 22 units/L (7-56) 10/29/19 18:24 Alkaline Phosphatase 196 units/L (35-129) H 10/29/19 18:24 Total Protein 7.4 g/dL (6.3-8.2) 10/29/19 18:24 Albumin 2.7 g/dL (3.9-5) L 10/29/19 18:24 Albumin/Globulin Ratio 0.6 % 10/29/19 18:24 Lipase 21 units/L (13-60) 10/29/19 18:24 Urine Color Yellow (Yellow) 10/29/19 Unknown Urine Turbidity Clear (Clear) 10/29/19 Unknown Urine pH 6.0 (5.0-7.0) 10/29/19 Unknown Ur Specific [place] 1.040 (1.003-1.030) H 10/29/19 Unknown Urine Protein 100 mg/dl mg/dL (Negative) 10/29/19 Unknown Urine Glucose (UA) Neg mg/dL (Negative) 10/29/19 Unknown Urine Ketones Neg mg/dL (Negative) 10/29/19 Unknown Urine Blood Sm (Negative) 10/29/19 Unknown Urine Nitrite Neg (Negative) 10/29/19 Unknown Urine Bilirubin Neg (Negative) 10/29/19 Unknown Urine Urobilinogen < 2.0 mg/dL (<2.0) 10/29/19 Unknown Ur Leukocyte Esterase Neg (Negative) 10/29/19 Unknown Urine WBC (Auto) 3.0 /HPF (0.0-6.0) 10/29/19 Unknown Urine RBC (Auto) 6.0 /HPF (0.0-6.0) 10/29/19 Unknown U Epithel Cells (Auto) 1.0 /HPF (0-13.0) 10/29/19 Unknown Urine Bacteria (Auto) 1+ /HPF (Negative) 10/29/19 Unknown Urine Mucus Few /HPF 10/29/19 Unknown Active Medications - Current Medications Current Medications: Generic Name Dose Route Start Last Admin Trade Name Freq PRN Reason Stop Dose Admin Acetaminophen 650 mg 10/30/19 01:46 10/31/19 05:50 Tylenol PO 650 mg Q4H PRN Administration Pain MILD(1-3)/Fever >100.5/AMARO Albuterol 2.5 mg 10/30/19 01:46 Proventil IH Q3HRT PRN Shortness Of Breath Benzocaine/Menthol 1 each 10/31/19 10:00 10/31/19 12:08 Cepacol X Strength MM 1 each Q2H PRN Administration Sore Throat Dextrose 50 ml 10/30/19 01:46 D50w (25gm) Syringe IV Q30MIN PRN Hypoglycemia Protocol Furosemide 20 mg 10/30/19 10:00 10/31/19 09:22 Lasix PO 20 mg QAM MIRI Administration Heparin Sodium (Porcine) 5,000 unit 10/30/19 10:00 10/31/19 09:23 Heparin SUB-Q 5,000 unit Q12HR MIRI Administration Hydralazine HCl 10 mg 10/30/19 01:52 10/30/19 04:05 Apresoline IV 10 mg Q4HR PRN Administration Blood Pressure Piperacillin Sod/Tazobactam Sod 4.5 gm in 100 mls @ 200 mls/hr 10/30/19 10:00 10/31/19 17:48 Zosyn/Ns 4.5gm/100ml IV 200 mls/hr Q8H MIRI Administration Protocol Insulin Human Isoph/Insulin Regular 15 unit 10/31/19 17:00 10/31/19 16:13 Humulin 70/30 SUB-Q 15 unit BIDDIAB MIRI Administration Insulin Human Lispro 0 unit 10/30/19 07:30 10/31/19 17:48 Humalog SUB-Q 5 unit ACHS MIRI Administration Protocol Metoprolol Tartrate 50 mg 10/30/19 10:00 10/31/19 09:22 Metoprolol PO 50 mg BID MIRI Administration Morphine Sulfate 2 mg 10/30/19 01:46 10/30/19 03:16 Morphine IV 2 mg Q4H PRN Administration Pain, Moderate (4-6) Ondansetron HCl 4 mg 10/30/19 02:07 10/31/19 08:05 Zofran IV 4 mg Q6H PRN Administration Nausea And Vomiting Sodium Chloride 10 ml 10/30/19 10:00 10/31/19 09:24 Sodium Chloride Flush Syringe 10 Ml IV 10 ml BID MIRI Administration Sodium Chloride 10 ml 10/30/19 01:46 Sodium Chloride Flush Syringe 10 Ml IV PRN PRN LINE FLUSH Nutrition/Malnutrition Assess - Dietary Evaluation Nutrition/Malnutrition Findings: Nutrition Notes Start: 10/30/19 10:07 Freq: Status: Active Protocol: Document 10/30/19 10:07 LP (Rec: 10/30/19 10:14 LP [id number]) Nutrition Notes Need for Assessment generated from: MD Order Initial or Follow up Assessment Current Diagnosis Decubitus(Pressure Ulcer), Diabetes,Hypertension,Heart Failure Other Pertinent Diagnosis N/V Current Diet Cardiac/Consistent CHO Labs/Tests 10/29/19 K 3.5 Pertinent Medications Lasix Height 5 ft 7 in Weight 103.4 kg Joice Body Weight (kg) 61.36 BMI 35.6 Intake Prior to Admission Good Weight Status Obese Subjective/Other Information Consult for dietary supplement . Pt states eating well BIT GATHERER, but did not eat well this AM. Pt denies N/V this AM. Pt states she will try Glucerna. Pt denies wt changes. Pt with right and left buttock wounds. Burn Absent Trauma Absent GI Symptoms Nausea,Vomiting Current % PO Poor (25-49%) Minimum of two criteria No Fluid Accumulation Moderate to Severe (severe) #1 Nutrition Diagnosis Inadequate oral intake Etiology decreased appetite As Evidenced by Signs and Symptoms Pt states not eating well this AM Is patient on ventilator? No Is Patient Ambulatory and/or Out of Bed No REE-([facility]-confined to bed) 2020.604 Kcal/Kg value to use for calculation 15 Approximate Energy Requirements Using 1551 kcal/Kg Calculation Used for Recommendations Kcal/kg Additional Notes Protein needs are 89-107g (1. 25-1.5g/kg using adjusted wt 71kg) Fluid needs are 1500ml fluid restriction Nutrition Intervention Change Diet Order: Continue Add Supplement/Snack (indicate name/kcal Glucerna vanilla or chocolate /protein ) daily Provides kCal: 220 Provides Protein (gm) 10 Goal #1 Meet at least 80% of kcal and protein needs Anticipated Discharge Needs: Cardiac/consistent CHO Follow-Up By: 11/01/19 Additional Comments Follow for intakes, ONS tolerance
--- NOTE | 2019-10-31 20:42 | Event Note ---
Date: 10/31/19 CT chest findings consistent with lung abscess Continue current antibiotics, pulmonary following Consult ID tomorrow morning
[2019-11-01] MEDS: PIPERACIL/TAZOBACTA 4.5/NS 100 4.5 GM/100 ML VIAL IV SCH ×3 (01:16→19:50)
[2019-11-01] MEDS: INSULIN NPH/REGULAR 70/30 INJ SUB-Q SCH ×2 (08:33→17:00)
[2019-11-01] MEDS: INSULIN LISPRO 100 UNIT/ML SUB-Q SCH ×4 (08:33→22:58)
[2019-11-01] MEDS: METOPROLOL TARTRATE 50 MG TAB PO SCH ×2 (10:11→22:57)
[2019-11-01] MEDS: POTASSIUM CHLORIDE ER 20 MEQ TAB PO SCH (10:11)
[2019-11-01] MEDS: HEPARIN 5,000 UNIT/1 ML VIAL SUB-Q SCH ×2 (10:12→22:58)
[2019-11-01] MEDS: FUROSEMIDE 20 MG TAB PO SCH (10:12)
[2019-11-01 12:16] LABS: Calcium 8.7 mg/dL (8.4-10.2)
--- NOTE | 2019-11-01 14:19 | Consultation ---
History of Present Illness - Reason for Consult Consult date: 11/01/19 - History of Present Illness 49-year-old female with a past medical history of type 2 diabetes, hypertension, CHF presents to the hospital with complaints of nausea, vomiting, diarrhea. She doesn't the symptoms began approximately 2 days prior to admission and has had intractable nausea and vomiting for the last 2 days. She does complain of some mild epigastric pain and multiple episodes of diarrhea. Her medications are recently changed for diabetes and she is concerned about may be contributing to her diarrhea. He was recently admitted here 2 weeks ago, and was intubated for angioedema secondary to an allergic reaction to lisinopril. infectious disease was not consulted at that time, and she was discharged on 10/24/2019. She received minimal antibiotics during that admission. afebrile since admission, with a white count of 19. Currently receiving Zosyn. Blood cultures are pending. Imaging personally reviewed: CT chest: Intrapulmonary lung abscess, right middle lobe pneumonia. Review of Systems: Bold if positive, otherwise negative General: fevers, chills, rigors HEENT: visual disturbance, diplopia, eye pain Respiratory: cough, sputum, hemoptysis, shortness of breath Cardiovascular: chest pain, syncope Gastrointestinal: nausea, vomiting, diarrhea, abdominal pain Genitourinary: dysuria, hematuria, flank pain Musculoskeletal: neck pain, back pain, joint pain, edema Neurologic: headaches, seizures Hematologic: easy bruising or bleeding Endocrine: night sweats, acute weight loss Skin: rash, jaundice, redness Psychiatric: suicidal, homicidal ideation Past History Past Medical History: diabetes, heart failure (EF 20-25%), hypertension, other (Angioedema, intubation) Past Surgical History: No surgical history Social history: lives with family, other Family history: no significant family history Medications and Allergies Allergies Allergy/AdvReac Type Severity Reaction Status Date / Time lisinopril Allergy Angioedema Verified 10/17/19 17:55 Home Medications Medication Instructions Recorded Confirmed Last Taken Type Furosemide [Lasix] 20 mg PO QAM 10/18/19 10/30/19 Unknown History Metoprolol Tartrate [Lopressor] 50 mg PO BID 10/18/19 10/30/19 Unknown History metFORMIN [Glucophage] 1,000 mg PO BID 10/18/19 10/30/19 Unknown History Albuterol Sulfate [Albuterol 0.63% 0.63 mg IH TID PRN #1 box 10/23/19 10/30/19 Unknown Rx NEBS] Ipratropium [Atrovent NEB] 0.5 mg IH Q6HRT #1 box 10/23/19 10/30/19 Unknown Rx Loratadine [Claritin] 10 mg PO DAILY #30 tablet 10/23/19 10/30/19 Unknown Rx Nebulizer [Compact Compressor 1 each MC BID PRN #1 each 10/23/19 10/30/19 Unknown Rx Nebulizer] Prednisone [predniSONE 10 mg 10 mg PO .TAPER #1 tab.ds.pk 10/23/19 10/30/19 Unknown Rx (6-Day Pack, 21 Tabs)] Glimepiride 2 mg PO DAILY 10/31/19 10/31/19 Unknown History Active Meds: Active Medications Acetaminophen (Tylenol) 650 mg PO Q4H PRN PRN Reason: Pain MILD(1-3)/Fever >100.5/AMARO Last Admin: 10/31/19 05:50 Dose: 650 mg Documented by: Albuterol (Proventil) 2.5 mg IH Q3HRT PRN PRN Reason: Shortness Of Breath Benzocaine/Menthol (Cepacol X Strength) 1 each MM Q2H PRN PRN Reason: Sore Throat Last Admin: 10/31/19 12:08 Dose: 1 each Documented by: Dextrose (D50w (25gm) Syringe) 50 ml IV Q30MIN PRN; Protocol PRN Reason: Hypoglycemia Furosemide (Lasix) 20 mg PO QAM MIRI Last Admin: 11/01/19 10:12 Dose: 20 mg Documented by: Heparin Sodium (Porcine) (Heparin) 5,000 unit SUB-Q Q12HR MIRI Last Admin: 11/01/19 10:12 Dose: 5,000 unit Documented by: Hydralazine HCl (Apresoline) 10 mg IV Q4HR PRN PRN Reason: Blood Pressure Last Admin: 10/30/19 04:05 Dose: 10 mg Documented by: Piperacillin Sod/Tazobactam Sod (Zosyn/Ns 4.5gm/100ml) 4.5 gm in 100 mls @ 200 mls/hr IV Q8H MIRI; Protocol Last Admin: 11/01/19 10:12 Dose: 200 mls/hr Documented by: Insulin Human Isoph/Insulin Regular (Humulin 70/30) 15 unit SUB-Q BIDDIAB [facility] Last Admin: 11/01/19 08:33 Dose: Not Given Documented by: Insulin Human Lispro (Humalog) 0 unit SUB-Q ACHS [facility]; Protocol Last Admin: 11/01/19 12:40 Dose: 1 unit Documented by: Metoprolol Tartrate (Metoprolol) 50 mg PO BID [facility] Last Admin: 11/01/19 10:11 Dose: 50 mg Documented by: Morphine Sulfate (Morphine) 2 mg IV Q4H PRN PRN Reason: Pain, Moderate (4-6) Last Admin: 10/30/19 03:16 Dose: 2 mg Documented by: Ondansetron HCl (Zofran) 4 mg IV Q6H PRN PRN Reason: Nausea And Vomiting Last Admin: 10/31/19 08:05 Dose: 4 mg Documented by: Potassium Chloride (K-Dur) 20 meq PO QDAY [facility] Last Admin: 11/01/19 10:11 Dose: 20 meq Documented by: Sodium Chloride (Sodium Chloride Flush Syringe 10 Ml) 10 ml IV BID [facility] Last Admin: 11/01/19 10:12 Dose: 10 ml Documented by: Sodium Chloride (Sodium Chloride Flush Syringe 10 Ml) 10 ml IV PRN PRN PRN Reason: LINE FLUSH Physical Examination - Physical Exam Narrative exam: Constitutional: Alert, cooperative. No acute distress Head, Ears, Nose: Normocephalic, atraumatic. External ears, nose normal Eyes: Conjunctivae/corneas clear. No icterus. No ptosis. Neck: Supple, no meningeal signs Oral: dentition fair, no thrush Cardiovascular: S1, S2 normal. Respiratory: Good air entry, clear to auscultation bilaterally GI: Soft, non-tender; bowel sounds normal. No peritoneal signs. Musculoskeletal: No pedal edema, no cyanosis. Skin: No rash or abscess Hem/Lymphatic: No palpable cervical or supraclavicular nodes. No lymphangitis Psych: Mood ok. Affect normal Neurological: Awake, alert, oriented. No gross abnormality - Constitutional Vitals: Vital Signs Temp Pulse Resp BP Pulse Ox 99.3 F 84 20 134/72 93 11/01/19 05:22 11/01/19 10:11 11/01/19 10:00 11/01/19 10:11 11/01/19 05:22 Temperature -Last 24 Hours Temperature 99.3 F Temperature 98.7 F Temperature 98.4 F Results - Labs CBC & Chem 7: 10/31/19 04:13 11/01/19 11:47 Labs: Abnormal lab results 10/31/19 11/01/19 11/01/19 Range/Units 17:12 07:57 11:37 Sodium (137-145) mmol/L Potassium (3.6-5.0) mmol/L Chloride (98-107) mmol/L Glucose (65-100) mg/dL POC Glucose 353 H 147 H 176 H (70-105) 11/01/19 Range/Units 11:47 Sodium 136 L (137-145) mmol/L Potassium 3.3 L (3.6-5.0) mmol/L Chloride 96.1 L (98-107) mmol/L Glucose 223 H (65-100) mg/dL POC Glucose (70-105) Assessment and Plan Cultures: 10/30/2019 blood cultures - pending A&P - 49-year-old female with a past medical history of type 2 diabetes, hypertension, CHF admitted with symptoms of gastroenteritis, found to have a pulmonary abscess. #Pulmonary abscess - found effectively incidentally, patient asymptomatic. Agree with medical treatment for now, would repeat imaging in a few days to compare size of abscess. If improving, ok to continue treating medically. If no improvement in imaging and/or white count, would need to proceed with transfer to be evaluated for potential surgical evaluation. Continue Zosyn for now. #T2DM - tight glycemic control for best recovery. #Gastroenteritis - largely resolved now #WENDY - mild, renally dose antibiotics as appropriate Recommendations: -continue Zosyn 4.5 g every 8 hours -monitor daily CBC -Repeat CT chest with contrast in 3-4 days to evaluate for improvement in signs of abscess. Thank you for the consult, will follow. MD Lyle [facility] M: [phone] O: [phone] F: [phone]
--- NOTE | 2019-11-01 15:09 | Progress Note ---
Assessment and Plan /Pneumonia with right lung abscess Right middle lobe consolidation with Intrapulmonary lung abscess Continue antibiotics follow cultures ID following, IR consulted for possible drainage, Pulmonary following /-Sepsis; Presented with Leukocytosis 18.3, tachycardia, right middle lobe infiltrate/consolidation Continue empiric antibiotics follow cultures /-Hypertensive urgency on [id number] Now moderate control, continue current antihypertensives and PRN medications /Acute gastroenteritis; supportive care Antiemetics IV fluids, Protonix /Type II DM; Accu-Chek sliding scale coverage ADA diet /-CHF; acute on chronic congestive heart failure systolic Heart failure medications, cardiology consult if needed EF 20 to 25% Now appears compensated, cont lasix --DVT PPX; On Heparin Monitor closely and adjust management as needed Follow consultants recommendations Plan of care reviewed with the patient and her nurse Disposition; follow ID recommendations Brief History 49-year-old -[place] female with history of diabetes, hypertension, CHF, angioedema secondary to lisinopril, intubation who presents to [facility] ED with complaints of nausea, vomiting diarrhea x2 days. Possible lung abscess /right lung cavitary lesion CT chest: Intrapulmonary lung abscess, right middle lobe pneumonia, on Zosyn. Hospitalist Physical General appearance: Present: mild distress, well-nourished, obese - EENT Eyes: Present: PERRL, EOM intact - Neck Neck: Present: supple, normal ROM - Respiratory Respiratory effort: normal Respiratory: bilateral: diminished, rhonchi, negative: rales, wheezing - Cardiovascular Rhythm: regular Heart Sounds: Present: S1 & S2 - Extremities Extremities: no ischemia, No edema - Abdominal General gastrointestinal: soft, non-tender, non-distended, normal bowel sounds - Integumentary Integumentary: Present: clear, warm - Psychiatric Psychiatric: appropriate mood/affect, cooperative - Neurologic Neurologic: CNII-XII intact, moves all extremities Subjective Date of service: 11/01/19 Interval history: Patient seen and examined denies any chest pain, has SOB on exertion tolerating diet Objective - Constitutional Vitals: Vital Signs - 12hr 11/01/19 11/01/19 11/01/19 05:22 10:00 10:11 Temperature 99.3 F Pulse Rate 84 84 Respiratory 18 20 Rate Blood Pressure 134/72 134/72 O2 Sat by Pulse 93 Oximetry - Labs CBC & Chem 7: 11/02/19 04:16 11/03/19 10:14 Labs: Abnormal lab results 10/31/19 11/01/19 11/01/19 Range/Units 17:12 07:57 11:37 Sodium (137-145) mmol/L Potassium (3.6-5.0) mmol/L Chloride (98-107) mmol/L Glucose (65-100) mg/dL POC Glucose 353 H 147 H 176 H (70-105) 11/01/19 Range/Units 11:47 Sodium 136 L (137-145) mmol/L Potassium 3.3 L (3.6-5.0) mmol/L Chloride 96.1 L (98-107) mmol/L Glucose 223 H (65-100) mg/dL POC Glucose (70-105)
--- NOTE | 2019-11-01 17:26 | Progress Note ---
Assessment and Plan Patient alert, awake. Resting on 1.5 litres O2. O2 saturation 93%. Patient still has cough with productive yellow sputum. Denies chest pain or shortness of breath. Patient says nausea and vomiting got better. Patient running low grade fever and has leukocytosis. CT Chest 10/30/2019 Reported No change in appearance of right middle lobe pn eumonia with probable intrapulmonary abscess. Mild interstitial edema. No significant pleural effusion. Patient is on Zosyn. - Patient Problems (1) Pneumonia Current Visit: Yes Status: Acute Plan to address problem: Patient is on Zosyn (2) Cardiomyopathy Current Visit: No Status: Acute Plan to address problem: Management as per cardiology (3) CHF (congestive heart failure) Current Visit: No Status: Acute Qualifiers: Heart failure type: systolic Heart failure chronicity: acute on chronic Qualified Code(s): I50.23 - Acute on chronic systolic (congestive) heart failure Plan to address problem: Management as per cardiology. (4) Acute abdominal pain Current Visit: Yes Status: Acute Plan to address problem: Management as per primary care and surgery. Subjective Date of service: 11/01/19 Interval history: Patient alert, awake. Resting on 1.5 litres O2. O2 saturation 93%. Patient still has cough with productive yellow sputum. Denies chest pain or shortness of breath. Patient says nausea and vomiting got better. Patient running low grade fever and has leukocytosis. CT Chest 10/30/2019 Reported No change in appearance of right middle lobe pne umonia with probable intrapulmonary abscess. Mild interstitial edema. No significant pleural effusion. Patient is on Zosyn. Objective Vital Signs - 12hr 11/01/19 11/01/19 10:00 10:11 Pulse Rate 84 Respiratory 20 Rate Blood Pressure 134/72 Constitutional: no acute distress, alert Eyes: non-icteric ENT: oropharynx moist Neck: supple Effort: normal Ascultation: Right: rhonchi Cardiovascular: regular rate and rhythm Gastrointestinal: hypoactive bowel sounds, tender Integumentary: normal Extremities: no cyanosis, no edema Neurologic: normal mental status, non-focal exam, pupils equal and round Psychiatric: mood appropriate CBC and BMP: 10/31/19 04:13 11/01/19 11:47 Abnormal lab findings: Abnormal Labs 10/29/19 10/29/19 10/29/19 18:24 18:24 Unknown WBC 18.3 H Lymph % (Auto) 10.2 L [place] % (Auto) [place] # 1.0 H Seg Neutrophils % 83.8 H Seg Neutrophils # 15.3 H Sodium Potassium 3.5 L Chloride 97.7 L Carbon Dioxide BUN 21 H Creatinine Glucose 123 H POC Glucose Alkaline Phosphatase 196 H Albumin 2.7 L Ur Specific [place] 1.040 H 10/30/19 10/30/19 10/30/19 08:34 11:20 16:58 WBC Lymph % (Auto) [place] % (Auto) [place] # Seg Neutrophils % Seg Neutrophils # Sodium Potassium Chloride Carbon Dioxide BUN Creatinine Glucose POC Glucose 146 H 144 H 169 H Alkaline Phosphatase Albumin Ur Specific [place] 10/30/19 10/31/19 10/31/19 21:06 04:13 04:15 WBC 18.8 H Lymph % (Auto) [place] % (Auto) 8.2 H [place] # 1.5 H Seg Neutrophils % 77.3 H Seg Neutrophils # 14.5 H Sodium Potassium 2.9 L* Chloride 94.5 L Carbon Dioxide 32 H D BUN 22 H Creatinine 1.3 H Glucose 160 H POC Glucose 237 H Alkaline Phosphatase Albumin Ur Specific [place] 10/31/19 10/31/19 10/31/19 07:41 11:55 17:12 WBC Lymph % (Auto) [place] % (Auto) [place] # Seg Neutrophils % Seg Neutrophils # Sodium Potassium Chloride Carbon Dioxide BUN Creatinine Glucose POC Glucose 192 H 443 H 353 H Alkaline Phosphatase Albumin Ur Specific [place] 11/01/19 11/01/19 11/01/19 07:57 11:37 11:47 WBC Lymph % (Auto) [place] % (Auto) [place] # Seg Neutrophils % Seg Neutrophils # Sodium 136 L Potassium 3.3 L Chlor[place] 96.1 L Carbon Dioxide BUN Creatinine Glucose 223 H POC Glucose 147 H 176 H Alkaline Phosphatase Albumin Ur Specific [place] CT scan - chest: report reviewed, image reviewed Additional Studies: CT Chest 10/30/2019 Reported No change in appearance of right middle lobe pneumonia with probable intrapulmonary abscess. Mild interstitial edema. No significant pleural effusion.
[2019-11-02 04:46] LABS: Basophils % (Auto) 0.4 % (0.0-1.8); Eosinophils # (Auto) 0.1 K/mm3 (0.0-0.4); Eosinophils % (Auto) 1.2 % (0.0-4.3); Hematocrit 32.6 % (30.3-42.9); Hemoglobin 10.7 gm/dl (10.1-14.3); Lymphocytes # (Auto) 2.6 K/mm3 (1.2-5.4); Lymphocytes % (Auto) 22.9 % (13.4-35.0); Mean Corpuscular HGB Conc 33 % (30-34); Mean Corpuscular Volume 93 fl (79-97); Monocytes # (Auto) 1.2 K/mm3 (0.0-0.8); Monocytes % (Auto) 11.1 % (0.0-7.3); Platelet Count 340 K/mm3 (140-440); Red Blood Count 3.52 M/mm3 (3.65-5.03); Red Cell Distribution Width 14.3 % (13.2-15.2)
[2019-11-02 05:05] LABS: Calcium 8.1 mg/dL (8.4-10.2)
[2019-11-02] MEDS: PIPERACIL/TAZOBACTA 4.5/NS 100 4.5 GM/100 ML VIAL IV SCH ×4 (05:56→22:18)
[2019-11-02] MEDS: INSULIN NPH/REGULAR 70/30 INJ SUB-Q SCH ×2 (09:08→16:59)
[2019-11-02] MEDS: INSULIN LISPRO 100 UNIT/ML SUB-Q SCH ×4 (09:08→23:24)
[2019-11-02] MEDS: METOPROLOL TARTRATE 50 MG TAB PO SCH ×2 (09:10→22:17)
[2019-11-02] MEDS: HEPARIN 5,000 UNIT/1 ML VIAL SUB-Q SCH ×2 (09:10→22:17)
[2019-11-02] MEDS: POTASSIUM CHLORIDE ER 20 MEQ TAB PO SCH (09:11)
[2019-11-02] MEDS: FUROSEMIDE 20 MG TAB PO SCH (09:11)
--- NOTE | 2019-11-02 10:33 | Progress Note ---
Assessment and Plan Patient alert, awake. Resting on 1.5 litres O2. O2 saturation 91%. Patient still has cough with productive yellow sputum. Denies chest pain or shortness of breath. Patient says nausea and vomiting got better. Patient afebrile and has leukocytosis. CT Chest 10/30/2019 Reported No change in appearance of right middle lobe pneumonia with probable intrapulmonary abscess. Mild interstitial edema. No significant pleural effusion. Patient is on Zosyn. Preliminary blood culture results negative - Patient Problems (1) Pneumonia Current Visit: Yes Status: Acute Plan to address problem: Patient is on Zosyn (2) Cardiomyopathy Current Visit: No Status: Acute Plan to address problem: Management as per cardiology (3) CHF (congestive heart failure) Current Visit: No Status: Acute Qualifiers: Heart failure type: systolic Heart failure chronicity: acute on chronic Qualified Code(s): I50.23 - Acute on chronic systolic (congestive) heart failure Plan to address problem: Management as per cardiology. (4) Acute abdominal pain Current Visit: Yes Status: Acute Plan to address problem: Management as per primary care and surgery. Subjective Date of service: 11/02/19 Interval history: Patient alert, awake. Resting on 1.5 litres O2. O2 saturation 91%. Patient still has cough with productive yellow sputum. Denies chest pain or shortness of breath. Patient says nausea and vomiting got better. Patient afebrile and has leukocytosis. CT Chest 10/30/2019 Reported No change in appearance of right middle lobe pneumonia with probable intrapulmonary abscess. Mild interstitial edema. No significant pleural effusion. Patient is on Zosyn. Preliminary blood culture results negative Objective Vital Signs - 12hr 11/01/19 11/02/19 11/02/19 22:57 06:53 09:10 Temperature 98.3 F Pulse Rate 83 80 80 Respiratory 20 Rate Blood Pressure 167/85 185/95 185/95 O2 Sat by Pulse 91 Oximetry Constitutional: no acute distress, alert Eyes: non-icteric ENT: oropharynx moist Neck: supple Effort: normal Ascultation: Right: rhonchi Cardiovascular: regular rate and rhythm Gastrointestinal: hypoactive bowel sounds, tender Integumentary: normal Extremities: no cyanosis, no edema Neurologic: normal mental status, non-focal exam, pupils equal and round Psychiatric: mood appropriate CBC and BMP: 11/02/19 04:16 11/02/19 04:16 Abnormal lab findings: Abnormal Labs 10/29/19 10/29/19 10/29/19 18:24 18:24 Unknown WBC 18.3 H RBC Lymph % (Auto) 10.2 L [place] % (Auto) [place] # 1.0 H Seg Neutrophils % 83.8 H Seg Neutrophils # 15.3 H Sodium Potassium 3.5 L Chloride 97.7 L Carbon Dioxide BUN 21 H Creatinine Glucose 123 H POC Glucose Calcium Alkaline Phosphatase 196 H Albumin 2.7 L Ur Specific [place] 1.040 H 10/30/19 10/30/19 10/30/19 08:34 11:20 16:58 WBC RBC Lymph % (Auto) [place] % (Auto) [place] # Seg Neutrophils % Seg Neutrophils # Sodium Potassium Chloride Carbon Dioxide BUN Creatinine Glucose POC Glucose 146 H 144 H 169 H Calcium Alkaline Phosphatase Albumin Ur Specific [place] 10/30/19 10/31/19 10/31/19 21:06 04:13 04:15 WBC 18.8 H RBC Lymph % (Auto) [place] % (Auto) 8.2 H [place] # 1.5 H Seg Neutrophils % 77.3 H Seg Neutrophils # 14.5 H Sodium Potassium 2.9 L* Chloride 94.5 L Carbon Dioxide 32 H D BUN 22 H Creatinine 1.3 H Glucose 160 H POC Glucose 237 H Calcium Alkaline Phosphatase Albumin Ur Specific [place] 10/31/19 10/31/19 10/31/19 07:41 11:55 17:12 WBC RBC Lymph % (Auto) [place] % (Auto) [place] # Seg Neutrophils % Seg Neutrophils # Sodium Potassium Chloride Carbon Dioxide BUN Creatinine Glucose POC Glucose 192 H 443 H 353 H Calcium Alkaline Phosphatase Albumin Ur Specific [place] 11/01/19 11/01/19 11/01/19 07:57 11:37 11:47 WBC RBC Lymph % (Auto) [place] % (Auto) [place] # Seg Neutrophils % Seg Neutrophils # Sodium 136 L Potassium 3.3 L Chloride 96.1 L Carbon Dioxide BUN Creatinine Glucose 223 H POC Glucose 147 H 176 H Calcium Alkaline Phosphatase Albumin Ur Specific [place] 11/01/19 11/02/19 11/02/19 21:44 04:16 04:16 WBC 11.2 H RBC 3.52 L Lymph % (Auto) [place] % (Auto) 11.1 H [place] # 1.2 H Seg Neutrophils % Seg Neutrophils # Sodium 136 L Potassium 3.2 L Chloride 94.5 L Carbon Dioxide BUN Creatinine Glucose 205 H POC Glucose 244 H Calcium 8.1 L Alkaline Phosphatase Albumin Ur Specific [place] 11/02/19 08:20 WBC RBC Lymph % (Auto) [place] % (Auto) [place] # Seg Neutrophils % Seg Neutrophils # Sodium Potassium Chloride Carbon Dioxide BUN Creatinine Glucose POC Glucose 161 H Calcium Alkaline Phosphatase Albumin Ur Specific [place]
--- NOTE | 2019-11-02 14:19 | Progress Note ---
Assessment and Plan Cultures: 10/30/2019 blood cultures - pending A&P - 49-year-old female with a past medical history of type 2 diabetes, hypertension, CHF admitted with symptoms of gastroenteritis, found to have a pulmonary abscess. #Pulmonary abscess - found effectively incidentally, patient asymptomatic. Agree with medical treatment for now, would repeat imaging in a few days to compare size of abscess. If improving, ok to continue treating medically. If no improvement in imaging and/or white count, would need to proceed with transfer to be evaluated for potential surgical evaluation. Continue Zosyn for now. #T2DM - tight glycemic control for best recovery. #Gastroenteritis - largely resolved now #WENDY - mild, renally dose antibiotics as appropriate Recommendations: -continue Zosyn 4.5 g every 8 hours -monitor daily CBC -Repeat CT chest with contrast near end of week to evaluate for improvement in signs of abscess. Thank you for the consult, will follow. Aneudy Ocampo MD [facility] ([facility]) M: [phone] O: [phone] F: [phone] Subjective Date of service: 11/02/19 Interval history: Afebrile, improving white count. Objective - Exam Narrative Exam: Constitutional: Alert, cooperative. No acute distress Head, Ears, Nose: Normocephalic, atraumatic. External ears, nose normal Cardiovascular: S1, S2 normal. Respiratory: Good air entry, clear to auscultation bilaterally GI: Soft, non-tender; bowel sounds normal. No peritoneal signs. Musculoskeletal: No pedal edema, no cyanosis. Skin: No rash or abscess Hem/Lymphatic: No palpable cervical or supraclavicular nodes. No lymphangitis Psych: Mood ok. Affect normal Neurological: Awake, alert, oriented. No gross abnormality - Constitutional Vitals: Vital Signs Temp Pulse Resp BP Pulse Ox 98.4 F 73 24 145/82 94 11/02/19 10:58 11/02/19 10:58 11/02/19 10:58 11/02/19 10:58 11/02/19 10:58 Temperature -Last 24 Hours Temperature 98.4 F Temperature 98.3 F Temperature 98.6 F Temperature 99.3 F - Labs CBC & Chem 7: 11/02/19 04:16 11/02/19 04:16 Labs: Abnormal lab results 11/01/19 11/02/19 11/02/19 Range/Units 21:44 04:16 04:16 WBC 11.2 H (4.5-11.0) K/mm3 RBC 3.52 L (3.65-5.03) M/mm3 [place] % (Auto) 11.1 H (0.0-7.3) % [place] # 1.2 H (0.0-0.8) K/mm3 Sodium 136 L (137-145) mmol/L Potassium 3.2 L (3.6-5.0) mmol/L Chloride 94.5 L (98-107) mmol/L Glucose 205 H (65-100) mg/dL POC Glucose 244 H (70-105) Calcium 8.1 L (8.4-10.2) mg/dL 11/02/19 11/02/19 Range/Units 08:20 11:11 WBC (4.5-11.0) K/mm3 RBC (3.65-5.03) M/mm3 [place] % (Auto) (0.0-7.3) % [place] # (0.0-0.8) K/mm3 Sodium (137-145) mmol/L Potassium (3.6-5.0) mmol/L Chloride (98-107) mmol/L Glucose (65-100) mg/dL POC Glucose 161 H 227 H (70-105) Calcium (8.4-10.2) mg/dL
--- NOTE | 2019-11-02 17:09 | Progress Note ---
Assessment and Plan /Pneumonia with right lung abscess Right middle lobe consolidation with Intrapulmonary lung abscess Continue antibiotics follow cultures ID following, no drainage for now Plan for Repeat CT chest with contrast near end of week to evaluate for improvement in signs of abscess. Pulmonary following /-Sepsis; Presented with Leukocytosis 18.3, tachycardia, right middle lobe infiltrate/consolidation Continue empiric antibiotics follow cultures /-Hypertensive urgency on admission - 197/113 Now moderate control, continue current antihypertensives and PRN medications /Acute gastroenteritis; supportive care Antiemetics IV fluids, Protonix /Type II DM; Accu-Chek sliding scale, coverage ADA diet /-CHF; acute on chronic congestive heart failure systolic Heart failure medications, cardiology consult if needed EF 20 to 25% Now appears compensated, cont lasix /Rusty, likely vasomotor nephropathy, mild renal function stable, cont to monitor --DVT PPX; On Heparin Monitor closely and adjust management as needed Plan of care reviewed with the patient and her nurse Disposition; follow ID recommendations Brief History 49-year-old -[place] female with history of diabetes, hypertension, CHF, angioedema secondary to lisinopril, h/o intubation who presents to [facility] with complaints of nausea, vomiting diarrhea x2 days. Possible lung abscess /right lung cavitary lesion CT chest: Intrapulmonary lung abscess, right middle lobe pneumonia, on Zosyn. Hospitalist Physical General appearance: Present: mild distress, well-nourished, obese - EENT Eyes: Present: PERRL, EOM intact - Neck Neck: Present: supple, normal ROM - Respiratory Respiratory effort: normal Respiratory: bilateral: diminished, rhonchi, negative: rales, wheezing - Cardiovascular Rhythm: regular Heart Sounds: Present: S1 & S2 - Extremities Extremities: no ischemia, No edema - Abdominal General gastrointestinal: soft, non-tender, non-distended, normal bowel sounds - Integumentary Integumentary: Present: clear, warm - Psychiatric Psychiatric: appropriate mood/affect, cooperative - Neurologic Neurologic: CNII-XII intact, moves all extremities Subjective Date of service: 11/02/19 Interval history: Patient seen and examined denies any chest pain, minimal SOB on exertion tolerating diet Objective - Constitutional Vitals: Vital Signs - 12hr 11/02/19 11/02/19 11/02/19 06:53 09:10 10:58 Temperature 98.3 F 98.4 F Pulse Rate 80 80 73 Respiratory 20 24 Rate Blood Pressure 185/95 185/95 145/82 O2 Sat by Pulse 91 94 Oximetry 11/02/19 16:17 Temperature 98.8 F Pulse Rate 84 Respiratory 24 Rate Blood Pressure 148/65 O2 Sat by Pulse 100 Oximetry - Labs CBC & Chem 7: 11/02/19 04:16 11/03/19 10:14 Labs: Abnormal lab results 11/01/19 11/02/19 11/02/19 Range/Units 21:44 04:16 04:16 WBC 11.2 H (4.5-11.0) K/mm3 RBC 3.52 L (3.65-5.03) M/mm3 [place] % (Auto) 11.1 H (0.0-7.3) % [place] # 1.2 H (0.0-0.8) K/mm3 Sodium 136 L (137-145) mmol/L Potassium 3.2 L (3.6-5.0) mmol/L Chloride 94.5 L (98-107) mmol/L Glucose 205 H (65-100) mg/dL POC Glucose 244 H (70-105) Calcium 8.1 L (8.4-10.2) mg/dL 11/02/19 11/02/19 11/02/19 Range/Units 08:20 11:11 15:07 WBC (4.5-11.0) K/mm3 RBC (3.65-5.03) M/mm3 [place] % (Auto) (0.0-7.3) % [place] # (0.0-0.8) K/mm3 Sodium (137-145) mmol/L Potassium (3.6-5.0) mmol/L Chloride (98-107) mmol/L Glucose (65-100) mg/dL POC Glucose 161 H 227 H 146 H (70-105) Calcium (8.4-10.2) mg/dL
[2019-11-03] MEDS: PIPERACIL/TAZOBACTA 4.5/NS 100 4.5 GM/100 ML VIAL IV SCH ×3 (06:27→22:43)
--- NOTE | 2019-11-03 06:42 | Progress Note ---
Assessment and Plan -Sepsis Leukocytosis 18.3, tachycardia, right middle lobe infiltrate/consolidation -Pneumonia -Lung abscess -CHF; acute on chronic congestive heart failure systolic, EF 20-25% -Morbid obesity -Tobacco use disorder -Recent admission for angioedema s/p MVS -Type 2 DM -Gastroenteritis -Supplemental oxygen, wean fro O2 sats>90% -Antibiotics- on Zosyn -Bronchodilators -VTE prophylaxis -Heart failure measures -Chronic home medications -Nicotine withdrawal -Smoking cessation counselling -Monitor renal function, avoid nephrotoxins -Follow up CTchest in 48 hours to re-evaluate lung abscess. If stable, no need for operative intervention. If however there is clinical or radiographic worsening will need evaluation by CTSx -All other care per attending and other consultants. Subjective Date of service: 11/03/19 Interval history: Follow up for : Intrapulmoanry abscess; acute respiraotry failure on home oxygen at 2L/min: tobacco use disorder: morbid obesity Patient alert, awake. Resting on 1.5 litres O2. O2 saturation 91%. Patient still has cough with productive yellow sputum. Denies chest pain or shortness of breath. Patient says nausea and vomiting got better. Patient afebrile . Daughter at the bedside Seen and examined. Vitals, labs, medications, chart and imaging reviewed. No new overnight events Objective Vital Signs - 12hr 11/02/19 11/03/19 22:17 05:11 Temperature 98.8 F Pulse Rate 83 75 Respiratory 20 Rate Blood Pressure 141/75 162/77 O2 Sat by Pulse 90 Oximetry Constitutional: no acute distress, alert Eyes: non-icteric ENT: oropharynx moist Neck: supple Effort: normal Ascultation: Right: rhonchi Cardiovascular: regular rate and rhythm Gastrointestinal: hypoactive bowel sounds, tender Integumentary: normal Extremities: no cyanosis, no edema Neurologic: normal mental status, non-focal exam, pupils equal and round Psychiatric: mood appropriate CBC and BMP: 11/02/19 04:16 11/03/19 10:14 Abnormal lab findings: Abnormal Labs 10/29/19 10/29/19 10/29/19 18:24 18:24 Unknown WBC 18.3 H RBC Lymph % (Auto) 10.2 L [place] % (Auto) [place] # 1.0 H Seg Neutrophils % 83.8 H Seg Neutrophils # 15.3 H Sodium Potassium 3.5 L Chloride 97.7 L Carbon Dioxide BUN 21 H Creatinine Glucose 123 H POC Glucose Calcium Alkaline Phosphatase 196 H Albumin 2.7 L Ur Specific [place] 1.040 H 10/30/19 10/30/19 10/30/19 08:34 11:20 16:58 WBC RBC Lymph % (Auto) [place] % (Auto) [place] # Seg Neutrophils % Seg Neutrophils # Sodium Potassium Chloride Carbon Dioxide BUN Creatinine Glucose POC Glucose 146 H 144 H 169 H Calcium Alkaline Phosphatase Albumin Ur Specific [place] 10/30/19 10/31/19 10/31/19 21:06 04:13 04:15 WBC 18.8 H RBC Lymph % (Auto) [place] % (Auto) 8.2 H [place] # 1.5 H Seg Neutrophils % 77.3 H Seg Neutrophils # 14.5 H Sodium Potassium 2.9 L* Chloride 94.5 L Carbon Dioxide 32 H D BUN 22 H Creatinine 1.3 H Glucose 160 H POC Glucose 237 H Calcium Alkaline Phosphatase Albumin Ur Specific [place] 10/31/19 10/31/19 10/31/19 07:41 11:55 17:12 WBC RBC Lymph % (Auto) [place] % (Auto) [place] # Seg Neutrophils % Seg Neutrophils # Sodium Potassium Chloride Carbon Dioxide BUN Creatinine Glucose POC Glucose 192 H 443 H 353 H Calcium Alkaline Phosphatase Albumin Ur Specific [place] 11/01/19 11/01/19 11/01/19 07:57 11:37 11:47 WBC RBC Lymph % (Auto) [place] % (Auto) [place] # Seg Neutrophils % Seg Neutrophils # Sodium 136 L Potassium 3.3 L Chloride 96.1 L Carbon Dioxide BUN Creatinine Glucose 223 H POC Glucose 147 H 176 H Calcium Alkaline Phosphatase Albumin Ur Specific [place] 11/01/19 11/02/19 11/02/19 21:44 04:16 04:16 WBC 11.2 H RBC 3.52 L Lymph % (Auto) [place] % (Auto) 11.1 H [place] # 1.2 H Seg Neutrophils % Seg Neutrophils # Sodium 136 L Potassium 3.2 L [place] 94.5 L Carbon Dioxide BUN Creatinine Glucose 205 H POC Glucose 244 H Calcium 8.1 L Alkaline Phosphatase Albumin Ur Specific [place] 11/02/19 11/02/19 11/02/19 08:20 11:11 15:07 WBC RBC Lymph % (Auto) [place] % (Auto) [place] # Seg Neutrophils % Seg Neutrophils # Sodium Potassium Chloride Carbon Dioxide BUN Creatinine Glucose POC Glucose 161 H 227 H 146 H Calcium Alkaline Phosphatase Albumin Ur Specific [place] CT scan - chest: image reviewed
[2019-11-03] MEDS: INSULIN LISPRO 100 UNIT/ML SUB-Q SCH ×4 (09:06→22:45)
[2019-11-03] MEDS: POTASSIUM CHLORIDE ER 20 MEQ TAB PO SCH (09:14)
[2019-11-03] MEDS: HEPARIN 5,000 UNIT/1 ML VIAL SUB-Q SCH ×2 (09:14→22:46)
[2019-11-03] MEDS: METOPROLOL TARTRATE 50 MG TAB PO SCH ×2 (09:14→22:44)
[2019-11-03] MEDS: INSULIN NPH/REGULAR 70/30 INJ SUB-Q SCH ×2 (09:14→18:34)
[2019-11-03] MEDS: FUROSEMIDE 20 MG TAB PO SCH (09:14)
[2019-11-03 11:36] LABS: Calcium 8.5 mg/dL (8.4-10.2)
--- NOTE | 2019-11-03 15:05 | Progress Note ---
Assessment and Plan Cultures: 10/30/2019 blood cultures - pending A&P - 49-year-old female with a past medical history of type 2 diabetes, hypertension, CHF admitted with symptoms of gastroenteritis, found to have a pulmonary abscess. #Pulmonary abscess - found effectively incidentally, patient asymptomatic. Agree with medical treatment for now, would repeat imaging in a few days to compare size of abscess. If improving, ok to continue treating medically. If no improvement in imaging and/or white count, would need to proceed with transfer to be evaluated for potential surgical evaluation. Continue Zosyn for now. #T2DM - tight glycemic control for best recovery. #Gastroenteritis - largely resolved now #WENDY - mild, renally dose antibiotics as appropriate Recommendations: -continue Zosyn 4.5 g every 8 hours -monitor daily CBC -Repeat CT chest with contrast near end of week to evaluate for improvement in signs of abscess. Thank you for the consult, will follow. Aneudy Ocampo MD [facility] ([facility]) M: [phone] O: [phone] F: [phone] Subjective Date of service: 11/03/19 Interval history: Afebrile, no new complaints Objective - Exam Narrative Exam: Constitutional: Alert, cooperative. No acute distress Cardiovascular: S1, S2 normal. Respiratory: Good air entry, clear to auscultation bilaterally GI: Soft, non-tender; bowel sounds normal. No peritoneal signs. Musculoskeletal: No pedal edema, no cyanosis. Skin: No rash or abscess Hem/Lymphatic: No palpable cervical or supraclavicular nodes. No lymphangitis Psych: Mood ok. Affect normal Neurological: Awake, alert, oriented. No gross abnormality - Constitutional Vitals: Vital Signs Temp Pulse Resp BP Pulse Ox 98.7 F 68 24 161/80 95 11/03/19 12:07 11/03/19 12:07 11/03/19 12:07 11/03/19 12:07 11/03/19 12:07 Temperature -Last 24 Hours Temperature 98.7 F Temperature 98.8 F Temperature 98.8 F - Labs CBC & Chem 7: 11/02/19 04:16 11/03/19 10:14 Labs: Abnormal lab results 11/03/19 11/03/19 11/03/19 Range/Units 07:37 10:14 12:16 Potassium 3.4 L (3.6-5.0) mmol/L Glucose 220 H (65-100) mg/dL POC Glucose 141 H 252 H (70-105)
[2019-11-04] MEDS: PIPERACIL/TAZOBACTA 4.5/NS 100 4.5 GM/100 ML VIAL IV SCH ×3 (05:20→22:43)
[2019-11-04] MEDS: INSULIN LISPRO 100 UNIT/ML SUB-Q SCH ×4 (07:30→22:44)
[2019-11-04] MEDS: INSULIN NPH/REGULAR 70/30 INJ SUB-Q SCH ×2 (08:00→16:58)
--- NOTE | 2019-11-04 09:20 | Progress Note ---
Assessment and Plan /Pneumonia with right lung abscess Right middle lobe consolidation with Intrapulmonary lung abscess Continue antibiotics follow cultures ID following, no drainage for now Plan for Repeat CT chest with contrast near end of week to evaluate for improvement in signs of abscess. Pulmonary following /-Sepsis; Presented with Leukocytosis 18.3, tachycardia, right middle lobe infiltrate/consolidation Continue empiric antibiotics follow cultures /-Hypertensive urgency on admission - 197/113 Now moderate control, continue current antihypertensives and PRN medications /Acute gastroenteritis; supportive care Antiemetics IV fluids, Protonix /Type II DM; Accu-Chek sliding scale, coverage ADA diet /-CHF; acute on chronic congestive heart failure systolic Heart failure medications, cardiology consult if needed EF 20 to 25% Now appears compensated, cont lasix /Rusty, likely vasomotor nephropathy, mild renal function stable, cont to monitor /Left forearm swelling and pain - possible cellulites vs hematoma vs abscess - pt on abx, apply warm compression, consult surgery if no improvement --DVT PPX; On Heparin Monitor closely and adjust management as needed Plan of care reviewed with the patient and her nurse Disposition; follow ID recommendations Brief History 49-year-old -[place] female with history of diabetes, hypertension, CHF, angioedema secondary to lisinopril, h/o intubation who presents to [facility] ED with complaints of nausea, vomiting diarrhea x2 days. Possible lung abscess /right l moris cavitary lesion CT chest: Intrapulmonary lung abscess, right middle lobe pneumonia, on Zosyn. Hospitalist Physical General appearance: Present: mild distress, well-nourished, obese - EENT Eyes: Present: PERRL, EOM intact - Neck Neck: Present: supple, normal ROM - Respiratory Respiratory effort: normal Respiratory: bilateral: diminished, rhonchi, negative: rales, wheezing - Cardiovascular Rhythm: regular Heart Sounds: Present: S1 & S2 - Extremities Extremities: no ischemia, No edema Left forearm swelling and pain at the previous iv site - appears very farm - Abdominal General gastrointestinal: soft, non-tender, non-distended, normal bowel sounds - Integumentary Integumentary: Present: clear, warm - Psychiatric Psychiatric: appropriate mood/affect, cooperative - Neurologic Neurologic: CNII-XII intact, moves all extremities Subjective Date of service: 11/03/19 Interval history: Patient seen and examined denies any chest pain, minimal SOB on exertion tolerating diet, c/o left arm swelling Objective - Constitutional Vitals: Vital Signs - 12hr 11/03/19 11/03/19 11/04/19 22:44 23:37 02:41 Temperature 99.4 F Pulse Rate 76 86 76 Respiratory 16 Rate Blood Pressure 189/94 171/81 160/85 O2 Sat by Pulse 96 95 Oximetry 11/04/19 06:23 Temperature 98.2 F Pulse Rate 80 Respiratory 16 Rate Blood Pressure 123/67 O2 Sat by Pulse 88 Oximetry - Labs CBC & Chem 7: 11/02/19 04:16 11/03/19 10:14 Labs: Abnormal lab results 11/03/19 11/03/19 11/03/19 Range/Units 10:14 12:16 17:06 Potassium 3.4 L (3.6-5.0) mmol/L Glucose 220 H (65-100) mg/dL POC Glucose 252 H 174 H (70-105) 11/03/19 Range/Units 22:28 Potassium (3.6-5.0) mmol/L Glucose (65-100) mg/dL POC Glucose 203 H (70-105)
[2019-11-04] MEDS: HEPARIN 5,000 UNIT/1 ML VIAL SUB-Q SCH ×2 (10:59→22:46)
[2019-11-04] MEDS: METOPROLOL TARTRATE 50 MG TAB PO SCH ×2 (10:59→22:45)
[2019-11-04] MEDS: POTASSIUM CHLORIDE ER 20 MEQ TAB PO SCH (11:00)
[2019-11-04] MEDS: FUROSEMIDE 20 MG TAB PO SCH (11:00)
--- NOTE | 2019-11-04 12:26 | Progress Note ---
Assessment and Plan -Sepsis Leukocytosis 18.3, tachycardia, right middle lobe infiltrate/consolidation -Pneumonia -Lung abscess -CHF; acute on chronic congestive heart failure systolic, EF 20-25% -Morbid obesity -Tobacco use disorder -Recent admission for angioedema s/p MVS -Type 2 DM -Gastroenteritis -Supplemental oxygen, wean fro O2 sats>90% -Antibiotics- on Zosyn -Bronchodilators -VTE prophylaxis -Heart failure measures -Chronic home medications -Nicotine withdrawal -Smoking cessation counselling -Monitor renal function, avoid nephrotoxins -Follow up CTchest in 48 hours to re-evaluate lung abscess. If stable, no need for operative intervention. If however there is clinical or radiographic worsening will need evaluation by CTSx -All other care per attending and other consultants. Subjective Date of service: 11/04/19 Interval history: Follow up for : Intrapulmoanry abscess; acute respiraotry failure on home oxygen at 2L/min: tobacco use disorder: morbid obesity Patient alert, awake. Resting on 1.5 litres O2. O2 saturation 91%. Patient still has cough with productive yellow sputum. Denies chest pain or shortness of breath. Patient says nausea and vomiting got better. Patient afebrile . Daughter at the bedside Seen and examined. Vitals, labs, medications, chart and imaging reviewed. No new overnight events Objective Vital Signs - 12hr 11/04/19 11/04/19 11/04/19 02:41 06:23 08:00 Temperature 98.2 F Pulse Rate 76 80 Respiratory 16 18 Rate Respiratory 18 Rate [Abdomen] Blood Pressure 160/85 123/67 O2 Sat by Pulse 95 88 Oximetry 11/04/19 10:59 Temperature Pulse Rate 88 Respiratory Rate Respiratory Rate [Abdomen] Blood Pressure 128/78 O2 Sat by Pulse Oximetry Constitutional: no acute distress, alert Eyes: non-icteric ENT: oropharynx moist Neck: supple Effort: normal Ascultation: Right: rhonchi Cardiovascular: regular rate and rhythm Gastrointestinal: hypoactive bowel sounds, tender Integumentary: normal Extremities: no cyanosis, no edema Neurologic: normal mental status, non-focal exam, pupils equal and round Psychiatric: mood appropriate CBC and BMP: 11/02/19 04:16 11/03/19 10:14 Abnormal lab findings: Abnormal Labs 10/29/19 10/29/19 10/29/19 18:24 18:24 Unknown WBC 18.3 H RBC Lymph % (Auto) 10.2 L [place] % (Auto) [place] # 1.0 H Seg Neutrophils % 83.8 H Seg Neutrophils # 15.3 H Sodium Potassium 3.5 L Chloride 97.7 L Carbon Dioxide BUN 21 H Creatinine Glucose 123 H POC Glucose Calcium Alkaline Phosphatase 196 H Albumin 2.7 L Ur Specific [place] 1.040 H 10/30/19 10/30/19 10/30/19 08:34 11:20 16:58 WBC RBC Lymph % (Auto) [place] % (Auto) [place] # Seg Neutrophils % Seg Neutrophils # Sodium Potassium Chloride Carbon Dioxide BUN Creatinine Glucose POC Glucose 146 H 144 H 169 H Calcium Alkaline Phosphatase Albumin Ur Specific [place] 10/30/19 10/31/19 10/31/19 21:06 04:13 04:15 WBC 18.8 H RBC Lymph % (Auto) [place] % (Auto) 8.2 H [place] # 1.5 H Seg Neutrophils % 77.3 H Seg Neutrophils # 14.5 H Sodium Potassium 2.9 L* Chloride 94.5 L Carbon Dioxide 32 H D BUN 22 H Creatinine 1.3 H Glucose 160 H POC Glucose 237 H Calcium Alkaline Phosphatase Albumin Ur Specific [place] 10/31/19 10/31/19 10/31/19 07:41 11:55 17:12 WBC RBC Lymph % (Auto) [place] % (Auto) [place] # Seg Neutrophils % Seg Neutrophils # Sodium Potassium Chloride Carbon Dioxide BUN Creatinine Glucose POC Glucose 192 H 443 H 353 H Calcium Alkaline Phosphatase Albumin Ur Specific [place] 11/01/19 11/01/19 11/01/19 07:57 11:37 11:47 WBC RBC Lymph % (Auto) [place] % (Auto) [place] # Seg Neutrophils % Seg Neutrophils # Sodium 136 L Potassium 3.3 L Chlor[place] 96.1 L Carbon Dioxide BUN Creatinine Glucose 223 H POC Glucose 147 H 176 H Calcium Alkaline Phosphatase Albumin Ur Specific [place] 11/01/19 11/02/19 11/02/19 21:44 04:16 04:16 WBC 11.2 H RBC 3.52 L Lymph % (Auto) [place] % (Auto) 11.1 H [place] # 1.2 H Seg Neutrophils % Seg Neutrophils # Sodium 136 L Potassium 3.2 L Chlor[place] 94.5 L Carbon Dioxide BUN Creatinine Glucose 205 H POC Glucose 244 H Calcium 8.1 L Alkaline Phosphatase Albumin Ur Specific [place] 11/02/19 11/02/19 11/02/19 08:20 11:11 15:07 WBC RBC Lymph % (Auto) [place] % (Auto) [place] # Seg Neutrophils % Seg Neutrophils # Sodium Potassium Chloride Carbon Dioxide BUN Creatinine Glucose POC Glucose 161 H 227 H 146 H Calcium Alkaline Phosphatase Albumin Ur Specific [place] 11/03/19 11/03/19 11/03/19 07:37 10:14 12:16 WBC RBC Lymph % (Auto) [place] % (Auto) [place] # Seg Neutrophils % Seg Neutrophils # Sodium Potassium 3.4 L Chloride Carbon Dioxide BUN Creatinine Glucose 220 H POC Glucose 141 H 252 H Calcium Alkaline Phosphatase Albumin Ur Specific [place] 11/03/19 11/03/19 11/04/19 17:06 22:28 10:48 WBC RBC Lymph % (Auto) [place] % (Auto) [place] # Seg Neutrophils % Seg Neutrophils # Sodium Potassium Chloride Carbon Dioxide BUN Creatinine Glucose POC Glucose 174 H 203 H 251 H Calcium Alkaline Phosphatase Albumin Ur Specific [place]
--- NOTE | 2019-11-04 15:11 | Progress Note ---
Assessment and Plan Cultures: 10/30/2019 blood cultures - Negative. A&P - 49-year-old female with a past medical history of type 2 diabetes, hypertension, CHF admitted with symptoms of gastroenteritis, found to have a pulmonary abscess. #Pulmonary abscess - found effectively incidentally, patient asymptomatic. Agree with medical treatment for now, would repeat imaging in a few days to compare size of abscess. If improving, ok to continue treating medically. If no improvement in imaging and/or white count, would need to proceed with transfer to be evaluated for potential surgical evaluation. Continue Zosyn for now. #T2DM - tight glycemic control for best recovery. #Gastroenteritis - largely resolved now #WENDY - mild, renally dose antibiotics as appropriate Recommendations: -continue Zosyn 4.5 g every 8 hours -monitor daily CBC -Repeat CT chest with contrast today, re-evaluate for any progress re: pulm abscess. May need surgical evaluation if no improvement. Thank you for the consult, will follow. Aneudy Ocampo MD [facility] ([facility]) M: [phone] O: [phone] F: [phone] Subjective Date of service: 11/04/19 Interval history: Afebrile, no new complaints. For repeat CT today. Objective - Exam Narrative Exam: Constitutional: Alert, cooperative. No acute distress Cardiovascular: S1, S2 normal. Respiratory: Good air entry, clear to auscultation bilaterally GI: Soft, non-tender; bowel sounds normal. No peritoneal signs. Musculoskeletal: No pedal edema, no cyanosis. Skin: No rash or abscess Hem/Lymphatic: No palpable cervical or supraclavicular nodes. No lymphangitis Psych: Mood ok. Affect normal Neurological: Awake, alert, oriented. No gross abnormality - Constitutional Vitals: Vital Signs Temp Pulse Resp BP Pulse Ox 98.8 F 68 18 172/88 97 11/04/19 12:24 11/04/19 12:24 11/04/19 12:24 11/04/19 12:24 11/04/19 12:24 Temperature -Last 24 Hours Temperature 98.8 F Temperature 98.2 F Temperature 99.4 F Temperature 99.2 F Temperature 98.9 F - Labs CBC & Chem 7: 11/02/19 04:16 11/03/19 10:14 Labs: Abnormal lab results 11/03/19 11/03/19 11/04/19 Range/Units 17:06 22:28 10:48 POC Glucose 174 H 203 H 251 H (70-105)
--- NOTE | 2019-11-04 16:05 | Progress Note ---
Assessment and Plan /Pneumonia with right lung abscess Right middle lobe consolidation with Intrapulmonary lung abscess Continue antibiotics follow cultures ID following, no drainage for now Plan for Repeat CT chest with contrast near end of week to evaluate for improvement in signs of abscess -ordered Pulmonary following /-Sepsis; Presented with Leukocytosis 18.3, tachycardia, right middle lobe infiltrate/consolidation Continue empiric antibiotics follow cultures /-Hypertensive urgency on admission - 197/113 Now moderate control, continue current antihypertensives and PRN medications /Acute gastroenteritis; supportive care Antiemetics IV fluids, Protonix /Type II DM; Accu-Chek sliding scale, coverage ADA diet /-CHF; acute on chronic congestive heart failure systolic Heart failure medications, cardiology consult if needed EF 20 to 25% Now appears compensated, cont lasix /Rusty, likely vasomotor nephropathy, mild renal function stable, cont to monitor /Left forearm swelling and pain - possible cellulites vs hematoma vs abscess - pt on abx, apply warm compression, consult surgery if no improvement --DVT PPX; On Heparin Monitor closely and adjust management as needed Plan of care reviewed with the patient and her nurse Disposition; follow ID recommendations, follow repeat CT Brief History 49-year-old -Argent[place] female with history of diabetes, hypertension, CHF, angioedema secondary to lisinopril, h/o intubation who presents to [facility] ED with complaints of nausea, vomiting diarrhea x2 days. Possible lung abscess /right lung cavitary lesion CT chest: Intrapulmonary lung abscess, right middle lobe pneumonia, on Zosyn. Hospitalist Physical General appearance: Present: mild distress, well-nourished, obese - EENT Eyes: Present: PERRL, EOM intact - Neck Neck: Present: supple, normal ROM - Respiratory Respiratory effort: normal Respiratory: bilateral: diminished, rhonchi, negative: rales, wheezing - Cardiovascular Rhythm: regular Heart Sounds: Present: S1 & S2 - Extremities Extremities: no ischemia, No edema Left forearm swelling and pain at the previous iv site - appears very [place] - Abdominal General gastrointestinal: soft, non-tender, non-distended, normal bowel sounds - Integumentary Integumentary: Present: clear, warm - Psychiatric Psychiatric: appropriate mood/affect, cooperative - Neurologic Neurologic: CNII-XII intact, moves all extremities Subjective Date of service: 11/04/19 Interval history: Patient seen and examined denies any chest pain, minimal SOB on exertion tolerating diet, c/o left arm swelling Objective - Constitutional Vitals: Vital Signs - 12hr 11/04/19 11/04/19 11/04/19 06:23 08:00 10:59 Temperature 98.2 F Pulse Rate 80 88 Respiratory 16 18 Rate Respiratory 18 Rate [Abdomen] Blood Pressure 123/67 128/78 O2 Sat by Pulse 88 Oximetry 11/04/19 12:24 Temperature 98.8 F Pulse Rate 68 Respiratory 18 Rate Respiratory Rate [Abdomen] Blood Pressure 172/88 O2 Sat by Pulse 97 Oximetry - Labs CBC & Chem 7: 11/05/19 11:18 11/05/19 11:18 Labs: Abnormal lab results 11/03/19 11/03/19 11/04/19 Range/Units 17:06 22:28 10:48 POC Glucose 174 H 203 H 251 H (70-105)
[2019-11-05] MEDS: hydrALAZINE 20 MG/1 ML INJ IV PRN ×2 (04:20→12:39)
[2019-11-05] MEDS: PIPERACIL/TAZOBACTA 4.5/NS 100 4.5 GM/100 ML VIAL IV SCH ×3 (06:02→22:26)
[2019-11-05] MEDS: INSULIN LISPRO 100 UNIT/ML SUB-Q SCH ×4 (10:16→22:55)
[2019-11-05] MEDS: INSULIN NPH/REGULAR 70/30 INJ SUB-Q SCH ×2 (10:17→18:36)
[2019-11-05] MEDS: FUROSEMIDE 20 MG TAB PO SCH (10:17)
[2019-11-05] MEDS: HEPARIN 5,000 UNIT/1 ML VIAL SUB-Q SCH ×2 (10:18→22:26)
[2019-11-05] MEDS: POTASSIUM CHLORIDE ER 20 MEQ TAB PO SCH (10:18)
[2019-11-05] MEDS: METOPROLOL TARTRATE 50 MG TAB PO SCH ×2 (10:18→22:33)
--- NOTE | 2019-11-05 11:00 | Cat Scan Report ---
CT CHEST WITH CONTRAST INDICATION: Follow-up lung abscess CONTRAST: Unspecified dosage of unspecified age and IV COMPARISON: 10/30/[address] scans at this location are performed using CT dose reduction for ALARA by means of automated e xposure control. NOTE: Resolution is decreased and artifact is introduced by the patient's size. FINDINGS: Portions of the upper abdomen show again the right adrenal nodule. No significant axillary or chest w all abnormalities are seen. Only trace bilateral pleural effusions are seen. Heart is enlarged. Small pericardial effusion is noted. Mediastinal hilary prominence is unchanged. No hilar masses are seen. No endobronchial lesions are obvious. No pneumothorax or pneumomediastinum are seen. The left lung again shows a small nodule in the left upper lobe. Mild atelectatic changes are again n oted in the left base but no areas of consolidation are seen on the left. The consolidation and atelectasis in the right middle lobe appear improved. The cavitary area contain ed within this consolidation shows no obvious fluid and is air density. No air-fluid level is seen. C avity has a thick wall. No other areas of cavitation are seen. No new nodules or masses are noted. IMPRESSION: Improvement in the right middle lobe consolidation and lung abscess. Suggest continued fo llow-up. Signer Name: Marino Harmon MD Signed: 11/05/2019 10:56 AM Workstation Name: [id number]
[2019-11-05 11:36] LABS: Hematocrit 32.8 % (30.3-42.9); Hemoglobin 10.9 gm/dl (10.1-14.3); Mean Corpuscular HGB Conc 33 % (30-34); Mean Corpuscular Volume 93 fl (79-97); Platelet Count 463 K/mm3 (140-440); Red Blood Count 3.54 M/mm3 (3.65-5.03); Red Cell Distribution Width 14.2 % (13.2-15.2)
[2019-11-05 11:54] LABS: BUN/Creatinine Ratio 6; Blood Urea Nitrogen 7 mg/dL (7-17); Calcium 8.5 mg/dL (8.4-10.2); Hemolysis Index 36
--- NOTE | 2019-11-05 13:46 | Progress Note ---
Assessment and Plan /Pneumonia with right lung abscess Right middle lobe consolidation with Intrapulmonary lung abscess Continue antibiotics follow cultures ID following, no drainage for now Repeat CT chest with contrast showed improvement in signs of abscess - will follow ID recommendation about d/c abx planning Pulmonary following /Left forearm swelling and pain - possible cellulites vs hematoma vs abscess at the prior iv site - pt on abx, apply warm compression, consulted surgery as pt remained symptomatic - plan for I and d today /-Sepsis; Presented with Leukocytosis 18.3, tachycardia, right middle lobe infiltrate/consolidation Continue empiric antibiotics follow cultures /-Hypertensive urgency on admission - 197/113 Now moderate control, continue current antihypertensives and PRN medications /Acute gastroenteritis; supportive care Antiemetics IV fluids, Protonix /Type II DM; Accu-Chek sliding scale, coverage ADA diet /-CHF; acute on chronic congestive heart failure systolic Heart failure medications, cardiology consult if needed EF 20 to 25% Now appears compensated, cont lasix /Rusty, likely vasomotor nephropathy, mild renal function stable, cont to monitor --DVT PPX; On Heparin Monitor closely and adjust management as needed Plan of care reviewed with the patient and her nurse Disposition; follow ID recommendations, follow wound cx report Brief History 49-year-old -Nigerien female with history of diabetes, hypertension, CHF, angioedema secondary to lisinopril, h/o intubation who presents to [facility] ED with complaints of nausea, vomiting diarrhea x2 days. Possible lung abscess /right l moris cavitary lesion CT chest: Intrapulmonary lung abscess, right middle lobe pneumonia, on Zosyn. Hospitalist Physical General appearance: Present: mild distress, well-nourished, obese - EENT Eyes: Present: PERRL, EOM intact - Neck Neck: Present: supple, normal ROM - Respiratory Respiratory effort: normal Respiratory: bilateral: diminished, rhonchi, negative: rales, wheezing - Cardiovascular Rhythm: regular Heart Sounds: Present: S1 & S2 - Extremities Extremities: no ischemia, No edema Left forearm swelling and pain at the previous iv site - appears very farm - Abdominal General gastrointestinal: soft, non-tender, non-distended, normal bowel sounds - Integumentary Integumentary: Present: clear, warm - Psychiatric Psychiatric: appropriate mood/affect, cooperative - Neurologic Neurologic: CNII-XII intact, moves all extremities Subjective Date of service: 11/05/19 Interval history: Patient seen and examined denies any chest pain, minimal SOB on exertion tolerating diet, c/o left arm swelling s/p repeat CT today Objective - Constitutional Vitals: Vital Signs - 12hr 11/05/19 11/05/19 11/05/19 04:04 04:20 05:34 Temperature 99.3 F 98.8 F Pulse Rate 72 72 71 Respiratory 20 20 Rate Blood Pressure 184/91 189/91 161/75 O2 Sat by Pulse 94 94 Oximetry 11/05/19 11/05/19 12:03 12:39 Temperature 98.1 F Pulse Rate 65 67 Respiratory 18 Rate Blood Pressure 187/101 189/101 O2 Sat by Pulse 99 Oximetry - Labs CBC & Chem 7: 11/05/19 11:18 11/05/19 11:18 Labs: Abnormal lab results 11/04/19 11/04/19 11/05/19 Range/Units 16:53 21:30 08:15 RBC (3.65-5.03) M/mm3 Plt Count (140-440) K/mm3 Potassium (3.6-5.0) mmol/L Glucose (65-100) mg/dL POC Glucose 259 H 218 H 185 H (70-105) 11/05/19 11/05/19 11/05/19 Range/Units 11:18 11:18 13:11 RBC 3.54 L (3.65-5.03) M/mm3 Plt Count 463 H (140-440) K/mm3 Potassium 3.5 L (3.6-5.0) mmol/L Glucose 356 H (65-100) mg/dL POC Glucose 270 H (70-105)
[2019-11-05] MEDS ORDERED: LIDOCAINE (1%) 10 MG/1 ML VIAL 20 ML MDV INFILTRATI ONE (14:01)
--- NOTE | 2019-11-05 14:01 | Consultation ---
History of Present Illness Consult date: 11/05/19 Chief complaint: left forearm pain and swelling - History of present illness History of present illness: 49 yo F with hx of DM, HTN, CHF who presented to the hospital with n/v. The patient was previously admitted to the hospital for angioedema and intubated. She states that she had an IV in her L forearm this admission and the area became red and swollen in the last 2 days. It is tender to the touch. It has not drained. No f/c. Surgery consulted to evaluate for left forearm abscess. Past History Past Medical History: diabetes, heart failure (EF 20-25%), hypertension, other (Angioedema, intubation) Past Surgical History: No surgical history Social history: lives with family, other Family history: no significant family history Medications and Allergies Allergies Allergy/AdvReac Type Severity Reaction Status Date / Time lisinopril Allergy Angioedema Verified 10/17/19 17:55 Home Medications Medication Instructions Recorded Confirmed Last Taken Type Furosemide [Lasix] 20 mg PO QAM 10/18/19 10/30/19 Unknown History Metoprolol Tartrate [Lopressor] 50 mg PO BID 10/18/19 10/30/19 Unknown History metFORMIN [Glucophage] 1,000 mg PO BID 10/18/19 10/30/19 Unknown History Albuterol Sulfate [Albuterol 0.63% 0.63 mg IH TID PRN #1 box 10/23/19 10/30/19 Unknown Rx NEBS] Ipratropium [Atrovent NEB] 0.5 mg IH Q6HRT #1 box 10/23/19 10/30/19 Unknown Rx Loratadine [Claritin] 10 mg PO DAILY #30 tablet 10/23/19 10/30/19 Unknown Rx Nebulizer [Compact Compressor 1 each MC BID PRN #1 each 10/23/19 10/30/19 Unknown Rx Nebulizer] Prednisone [predniSONE 10 mg 10 mg PO .TAPER #1 tab.ds.pk 10/23/19 10/30/19 U nknown Rx (6-Day Pack, 21 Tabs)] Glimepiride 2 mg PO DAILY 10/31/19 10/31/19 Unknown History Active Meds: Active Medications Acetaminophen (Tylenol) 650 mg PO Q4H PRN PRN Reason: Pain MILD(1-3)/Fever >100.5/AMARO Last Admin: 10/31/19 05:50 Dose: 650 mg Documented by: Albuterol (Proventil) 2.5 mg IH Q3HRT PRN PRN Reason: Shortness Of Breath Benzocaine/Menthol (Cepacol X Strength) 1 each MM Q2H PRN PRN Reason: Sore Throat Last Admin: 10/31/19 12:08 Dose: 1 each Documented by: Dextrose (D50w (25gm) Syringe) 50 ml IV Q30MIN PRN; Protocol PRN Reason: Hypoglycemia Furosemide (Lasix) 20 mg PO QAM [facility] Last Admin: 11/05/19 10:17 Dose: 20 mg Documented by: Heparin Sodium (Porcine) (Heparin) 5,000 unit SUB-Q Q12HR [facility] Last Admin: 11/05/19 10:18 Dose: 5,000 unit Documented by: Hydralazine HCl (Apresoline) 10 mg IV Q4HR PRN PRN Reason: Blood Pressure Last Admin: 11/05/19 12:39 Dose: 10 mg Documented by: Piperacillin Sod/Tazobactam Sod (Zosyn/Ns 4.5gm/100ml) 4.5 gm in 100 mls @ 200 mls/hr IV Q8HR [facility]; Protocol Last Admin: 11/05/19 06:02 Dose: 200 mls/hr Documented by: Insulin Human Isoph/Insulin Regular (Humulin 70/30) 20 unit SUB-Q BIDDIAB [facility] Insulin Human Lispro (Humalog) 0 unit SUB-Q ACHS [facility]; Protocol Last Admin: 11/05/19 12:39 Dose: 5 unit Documented by: Metoprolol Tartrate (Metoprolol) 50 mg PO BID [facility] Last Admin: 11/05/19 10:18 Dose: 50 mg Documented by: Morphine Sulfate (Morphine) 2 mg IV Q4H PRN PRN Reason: Pain, Moderate (4-6) Last Admin: 10/30/19 03:16 Dose: 2 mg Documented by: Ondansetron HCl (Zofran) 4 mg IV Q6H PRN PRN Reason: Nausea And Vomiting Last Admin: 10/31/19 08:05 Dose: 4 mg Documented by: Potassium Chloride (K-Dur) 20 meq PO QDAY [facility] Last Admin: 11/05/19 10:18 Dose: 20 meq Documented by: Sodium Chloride (Sodium Chloride Flush Syringe 10 Ml) 10 ml IV BID MIRI Last Admin: 11/05/19 10:18 Dose: 10 ml Documented by: Sodium Chloride (Sodium Chloride Flush Syringe 10 Ml) 10 ml IV PRN PRN PRN Reason: LINE FLUSH Review of Systems All systems: negative (10 pt ROS performed and negative except for that listed for HPI) Exam Vital Signs Temp Pulse Resp BP Pulse Ox 98.4 F 79 16 197/113 100 10/29/19 17:02 10/29/19 17:02 10/29/19 17:02 10/29/19 17:02 10/29/19 17:02 Narrative exam: Gen: AAOx3. NAD ENT: no scleral icterus or conjunctival pallor CV: s1, S2+ Resp: even and unlabored Abd: soft Ext: L antecubital cellulitis with induration and fluctuance. No drainage. + TTP. Results - Labs 11/05/19 11:18 11/05/19 11:18 Abnormal lab results 11/04/19 11/04/19 11/05/19 Range/Units 16:53 21:30 08:15 RBC (3.65-5.03) M/mm3 Plt Count (140-440) K/mm3 Potassium (3.6-5.0) mmol/L Glucose (65-100) mg/dL POC Glucose 259 H 218 H 185 H (70-105) 11/05/19 11/05/19 11/05/19 Range/Units 11:18 11:18 13:11 RBC 3.54 L (3.65-5.03) M/mm3 Plt Count 463 H (140-440) K/mm3 Potassium 3.5 L (3.6-5.0) mmol/L Glucose 356 H (65-100) mg/dL POC Glucose 270 H (70-105) Diabetes panel 11/05/19 Range/Units 11:18 Sodium 137 (137-145) mmol/L Potassium 3.5 L (3.6-5.0) mmol/L Chloride 98.3 (98-107) mmol/L Carbon Dioxide 22 (22-30) mmol/L BUN 7 (7-17) mg/dL Creatinine 1.1 (0.7-1.2) mg/dL Glucose 356 H (65-100) mg/dL Calcium 8.5 (8.4-10.2) mg/dL Calcium panel 11/05/19 Range/Units 11:18 Calcium 8.5 (8.4-10.2) mg/dL Pituitary panel 11/05/19 Range/Units 11:18 Sodium 137 (137-145) mmol/L Potassium 3.5 L (3.6-5.0) mmol/L Chloride 98.3 (98-107) mmol/L Carbon Dioxide 22 (22-30) mmol/L BUN 7 (7-17) mg/dL Creatinine 1.1 (0.7-1.2) mg/dL Glucose 356 H (65-100) mg/dL Calcium 8.5 (8.4-10.2) mg/dL Adrenal panel 11/05/19 Range/Units 11:18 Sodium 137 (137-145) mmol/L Potassium 3.5 L (3.6-5.0) mmol/L Chloride 98.3 (98-107) mmol/L Carbon Dioxide 22 (22-30) mmol/L BUN 7 (7-17) mg/dL Creatinine 1.1 (0.7-1.2) mg/dL Glucose 356 H (65-100) mg/dL Calcium 8.5 (8.4-10.2) mg/dL Assessment and Plan 49 yo F with left forearm abscess Plan: 1. will perform incision and drainage of abscess at bedside today. Discussed with patient who is agreeable. Consent obtained. 2. continue abx per ID 3. prn PO pain control 4. wound cultures obtained 5. Dressing changes by nursing daily - orders placed Thank you, please call with questions.
--- NOTE | 2019-11-05 14:26 | Progress Note ---
Assessment and Plan Sepsis Leukocytosis 18.3, tachycardia, right middle lobe infiltrate/consolidation Pneumonia Lung abscess CHF; acute on chronic congestive heart failure systolic, EF 20-25% Morbid obesity Tobacco use disorder Recent admission for angioedema s/p MVS Type 2 DM Gastroenteritis (CT chest with improving abscess / infiltrates) - wean supplemental oxygen for O2 sats > 90% - transition to p.o. 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 - outpatient pulmonary and sleep clinic f/up .... re-evaluate in am & prn Subjective Date of service: 11/05/19 Principal diagnosis: Sepsis; Leukocytosis; Pneumonia; Lung abscess; CHF; Morbid obesity Interval history: Patient is seen today for: Severe Sepsis; Leukocytosis; Pneumonia; Lung abscess; CHF (EF 20-25%); Morbid obesity Seen and examined at bedside; 24hour events reviewed; nursing and respiratory care staff consulted; no adverse overnight events reported to me; resting in bed; feels much better; No N/V/F/C; no hemoptysis Objective Vital Signs - 12hr 11/05/19 11/05/19 11/05/19 04:04 04:20 05:34 Temperature 99.3 F 98.8 F Pulse Rate 72 72 71 Respiratory 20 20 Rate Blood Pressure 184/91 189/91 161/75 O2 Sat by Pulse 94 94 Oximetry 11/05/19 11/05/19 12:03 12:39 Temperature 98.1 F Pulse Rate 65 67 Respiratory 18 Rate Blood Pressure 187/101 189/101 O2 Sat by Pulse 99 Oximetry Constitutional: no acute distress, alert Eyes: non-icteric ENT: oropharynx moist, other (mallampati 3) Neck: supple, no JVD, other (+ large neck circumference) Effort: normal Ascultation: Bilateral: clear, diminished breath sounds Percussion: Bilateral: not dull Cardiovascular: regular rate and rhythm Gastrointestinal: normoactive bowel sounds, soft, non-tender, non-distended Integumentary: normal Extremities: no cyanosis, no edema Neurologic: normal mental status, non-focal exam, pupils equal and round, CN II- XII normal, motor strength normal and Psychiatric: mood appropriate, affect normal CBC and BMP: 11/05/19 11:18 11/05/19 11:18 Abnormal lab findings: Abnormal Labs 10/29/19 10/29/19 10/29/19 18:24 18:24 Unknown WBC 18.3 H RBC Plt Count Lymph % (Auto) 10.2 L [place] % (Auto) [place] # 1.0 H Seg Neutrophils % 83.8 H Seg Neutrophils # 15.3 H Sodium Potassium 3.5 L Chloride 97.7 L Carbon Dioxide BUN 21 H Creatinine Glucose 123 H POC Glucose Calcium Alkaline Phosphatase 196 H Albumin 2.7 L Ur Specific [place] 1.040 H 10/30/19 10/30/19 10/30/19 08:34 11:20 16:58 WBC RBC Plt Count Lymph % (Auto) [place] % (Auto) [place] # Seg Neutrophils % Seg Neutrophils # Sodium Potassium Chloride Carbon Dioxide BUN Creatinine Glucose POC Glucose 146 H 144 H 169 H Calcium Alkaline Phosphatase Albumin Ur Specific [place] 10/30/19 10/31/19 10/31/19 21:06 04:13 04:15 WBC 18.8 H RBC Plt Count Lymph % (Auto) [place] % (Auto) 8.2 H [place] # 1.5 H Seg Neutrophils % 77.3 H Seg Neutrophils # 14.5 H Sodium Potassium 2.9 L* Chloride 94.5 L Carbon Dioxide 32 H D BUN 22 H Creatinine 1.3 H Glucose 160 H POC Glucose 237 H Calcium Alkaline Phosphatase Albumin Ur Specific [place] 10/31/19 10/31/19 10/31/19 07:41 11:55 17:12 WBC RBC Plt Count Lymph % (Auto) [place] % (Auto) [place] # Seg Neutrophils % Seg Neutrophils # Sodium Potassium Chloride Carbon Dioxide BUN Creatinine Glucose POC Glucose 192 H 443 H 353 H Calcium Alkaline Phosphatase Albumin Ur Specific [place] 11/01/19 11/01/19 11/01/19 07:57 11:37 11:47 WBC RBC Plt Count Lymph % (Auto) [place] % (Auto) [place] # Seg Neutrophils % Seg Neutrophils # Sodium 136 L Potassium 3.3 L Chloride 96.1 L Carbon Dioxide BUN Creatinine Glucose 223 H POC Glucose 147 H 176 H Calcium Alkaline Phosphatase Albumin Ur Specific [place] 11/01/19 11/02/19 11/02/19 21:44 04:16 04:16 WBC 11.2 H RBC 3.52 L Plt Count Lymph % (Auto) [place] % (Auto) 11.1 H [place] # 1.2 H Seg Neutrophils % Seg Neutrophils # Sodium 136 L Potassium 3.2 L Chloride 94.5 L Carbon Dioxide BUN Creatinine Glucose 205 H POC Glucose 244 H Calcium 8.1 L Alkaline Phosphatase Albumin Ur Specific [place] 11/02/19 11/02/19 11/02/19 08:20 11:11 15:07 WBC RBC Plt Count Lymph % (Auto) [place] % (Auto) [place] # Seg Neutrophils % Seg Neutrophils # Sodium Potassium Chloride Carbon Dioxide BUN Creatinine Glucose POC Glucose 161 H 227 H 146 H Calcium Alkaline Phosphatase Albumin Ur Specific [place] 11/03/19 11/03/19 11/03/19 07:37 10:14 12:16 WBC RBC Plt Count Lymph % (Auto) [place] % (Auto) [place] # Seg Neutrophils % Seg Neutrophils # Sodium Potassium 3.4 L Chloride Carbon Dioxide BUN Creatinine Glucose 220 H POC Glucose 141 H 252 H Calcium Alkaline Phosphatase Albumin Ur Specific [place] 11/03/19 11/03/19 11/04/19 17:06 22:28 10:48 WBC RBC Plt Count Lymph % (Auto) [place] % (Auto) [place] # Seg Neutrophils % Seg Neutrophils # Sodium Potassium Chloride Carbon Dioxide BUN Creatinine Glucose POC Glucose 174 H 203 H 251 H Calcium Alkaline Phosphatase Albumin Ur Specific [place] 11/04/19 11/04/19 11/05/19 16:53 21:30 08:15 WBC RBC Plt Count Lymph % (Auto) [place] % (Auto) [place] # Seg Neutrophils % Seg Neutrophils # Sodium Potassium Chloride Carbon Dioxide BUN Creatinine Glucose POC Glucose 259 H 218 H 185 H Calcium Alkaline Phosphatase Albumin Ur Specific [place] 11/05/19 11/05/19 11/05/19 11:18 11:18 13:11 WBC RBC 3.54 L Plt Count 463 H Lymph % (Auto) [place] % (Auto) [place] # Seg Neutrophils % Seg Neutrophils # Sodium Potassium 3.5 L Chloride Carbon Dioxide BUN Creatinine Glucose 356 H POC Glucose 270 H Calcium Alkaline Phosphatase Albumin Ur Specific Premium CT scan - chest: image reviewed (improving RLL inflamation / pneumonia / abscess process) Allied health notes reviewed: nursing
--- NOTE | 2019-11-05 14:36 | Procedure Note ---
Date of procedure: 11/05/19 Pre-op diagnosis: ABSCESS LEFT forearm Post-op diagnosis: same Procedure: incision and drainage abscess left forearm Findings: Time out performed. Left arm prepped with betadine. Local anesthetic infiltrated into the skin at area of fluctuance. A 1 cm incision was made using a 11 blade. The wound was probed with cotton tip applicator and all loculations broken up. There was drainage of a small amount of seropurulent fluid. 5 cc was expressed. There was more induration of the skin and subcutaneous tissue. Wound cultures obtained. Wound irrigated and hemostasis ensured. Wound packed with 1 piece of mesalt. Covered with 4x4 gauze and kerlex. Secured with tape. All sharps disposed of appropriately. Patient tolerated the procedure well. Anesthesia: local Surgeon: HILARIO RAZO Estimated blood loss: minimal Pathology: list (wound culture) Specimen disposition: to lab Condition: stable Disposition: no change
[2019-11-06] MEDS: PIPERACIL/TAZOBACTA 4.5/NS 100 4.5 GM/100 ML VIAL IV SCH ×3 (06:03→22:34)
[2019-11-06] MEDS: INSULIN NPH/REGULAR 70/30 INJ SUB-Q SCH ×2 (08:26→19:00)
[2019-11-06] MEDS: INSULIN LISPRO 100 UNIT/ML SUB-Q SCH ×4 (08:26→22:54)
[2019-11-06] MEDS: METOPROLOL TARTRATE 50 MG TAB PO SCH ×2 (11:03→22:35)
[2019-11-06] MEDS: FUROSEMIDE 20 MG TAB PO SCH (11:04)
[2019-11-06] MEDS: POTASSIUM CHLORIDE ER 20 MEQ TAB PO SCH (11:04)
[2019-11-06] MEDS: HEPARIN 5,000 UNIT/1 ML VIAL SUB-Q SCH ×2 (11:04→22:35)
--- NOTE | 2019-11-06 14:52 | Progress Note ---
Assessment and Plan Sepsis Leukocytosis 18.3, tachycardia, right middle lobe infiltrate/consolidation Pneumonia Lung abscess CHF; acute on chronic congestive heart failure systolic, EF 20-25% Morbid obesity Tobacco use disorder Recent admission for angioedema s/p MVS Type 2 DM Gastroenteritis (CT chest with improving abscess / infiltrates) - wean supplemental oxygen for O2 sats > 90% - home oxygen evaluation pre-discharge - transition to p.o. AB's per ID rec's - will need correction AB's with pulmonary / ID f/up and re-imaging prior to stopping - prn bronchodilators - GI & VTE prophylaxis - Heart failure measures per cardiology team - continue chronic home medications - Nicotine withdrawal precaution - Smoking cessation counselling done at bedside - Monitor renal function, avoid nephrotoxins - All other care per attending and other consultants. - outpatient pulmonary and sleep clinic f/up .... re-evaluate in am & prn Subjective Date of service: 11/06/19 Principal diagnosis: Sepsis; Leukocytosis; Pneumonia; Lung abscess; CHF; Morbid obesity Interval history: Patient is seen today for: Severe Sepsis; Leukocytosis; Pneumonia; Lung abscess; CHF (EF 20-25%); Morbid obesity Seen and examined at bedside; 24hour events reviewed; nursing and respiratory care staff consulted; no adverse overnight events reported to me; resting in bed; doing better overall; No N/V/F/C Objective Vital Signs - 12hr 11/06/19 11/06/19 06:07 12:09 Temperature 98.8 F 98.5 F Pulse Rate 79 66 Respiratory 18 16 Rate Blood Pressure 143/82 159/74 O2 Sat by Pulse 96 94 Oximetry Constitutional: no acute distress, alert Eyes: non-icteric ENT: oropharynx moist, other (mallampati 3) Neck: supple, no JVD, other (+ large neck circumference) Effort: normal Ascultation: Right: rhonchi, Bilateral: diminished breath sounds Percussion: Bilateral: not dull Cardiovascular: regular rate and rhythm Gastrointestinal: normoactive bowel sounds, soft, non-tender, non-distended Integumentary: normal Extremities: no cyanosis, no edema, pulses normal, no ischemia or petechiae Neurologic: normal mental status, non-focal exam, pupils equal and round, CN II- XII normal, motor strength normal and Psychiatric: mood appropriate, affect normal CBC and BMP: 11/05/19 11:18 11/05/19 11:18 Abnormal lab findings: Abnormal Labs 10/29/19 10/29/19 10/29/19 18:24 18:24 Unknown WBC 18.3 H RBC Plt Count Lymph % (Auto) 10.2 L [place] % (Auto) [place] # 1.0 H Seg Neutrophils % 83.8 H Seg Neutrophils # 15.3 H Sodium Potassium 3.5 L Chlor[place] 97.7 L Carbon Dioxide BUN 21 H Creatinine Glucose 123 H POC Glucose Calcium Alkaline Phosphatase 196 H Albumin 2.7 L Ur Specific [place] 1.040 H 10/30/19 10/30/19 10/30/19 08:34 11:20 16:58 WBC RBC Plt Count Lymph % (Auto) [place] % (Auto) [place] # Seg Neutrophils % Seg Neutrophils # Sodium Potassium Chloride Carbon Dioxide BUN Creatinine Glucose POC Glucose 146 H 144 H 169 H Calcium Alkaline Phosphatase Albumin Ur Specific [place] 10/30/19 10/31/19 10/31/19 21:06 04:13 04:15 WBC 18.8 H RBC Plt Count Lymph % (Auto) [place] % (Auto) 8.2 H [place] # 1.5 H Seg Neutrophils % 77.3 H Seg Neutrophils # 14.5 H Sodium Potassium 2.9 L* Chloride 94.5 L Carbon Dioxide 32 H D BUN 22 H Creatinine 1.3 H Glucose 160 H POC Glucose 237 H Calcium Alkaline Phosphatase Albumin Ur Specific [place] 10/31/19 10/31/19 10/31/19 07:41 11:55 17:12 WBC RBC Plt Count Lymph % (Auto) [place] % (Auto) [place] # Seg Neutrophils % Seg Neutrophils # Sodium Potassium Chloride Carbon Dioxide BUN Creatinine Glucose POC Glucose 192 H 443 H 353 H Calcium Alkaline Phosphatase Albumin Ur Specific [place] 11/01/19 11/01/19 11/01/19 07:57 11:37 11:47 WBC RBC Plt Count Lymph % (Auto) [place] % (Auto) [place] # Seg Neutrophils % Seg Neutrophils # Sodium 136 L Potassium 3.3 L Chloride 96.1 L Carbon Dioxide BUN Creatinine Glucose 223 H POC Glucose 147 H 176 H Calcium Alkaline Phosphatase Albumin Ur Specific [place] 11/01/19 11/02/19 11/02/19 21:44 04:16 04:16 WBC 11.2 H RBC 3.52 L Plt Count Lymph % (Auto) [place] % (Auto) 11.1 H [place] # 1.2 H Seg Neutrophils % Seg Neutrophils # Sodium 136 L Potassium 3.2 L Chloride 94.5 L Carbon Dioxide BUN Creatinine Glucose 205 H POC Glucose 244 H Calcium 8.1 L Alkaline Phosphatase Albumin Ur Specific [place] 11/02/19 11/02/19 11/02/19 08:20 11:11 15:07 WBC RBC Plt Count Lymph % (Auto) [place] % (Auto) [place] # Seg Neutrophils % Seg Neutrophils # Sodium Potassium Chloride Carbon Dioxide BUN Creatinine Glucose POC Glucose 161 H 227 H 146 H Calcium Alkaline Phosphatase Albumin Ur Specific [place] 11/03/19 11/03/19 11/03/19 07:37 10:14 12:16 WBC RBC Plt Count Lymph % (Auto) [place] % (Auto) [place] # Seg Neutrophils % Seg Neutrophils # Sodium Potassium 3.4 L Chloride Carbon Dioxide BUN Creatinine Glucose 220 H POC Glucose 141 H 252 H Calcium Alkaline Phosphatase Albumin Ur Specific [place] 11/03/19 11/03/19 11/04/19 17:06 22:28 10:48 WBC RBC Plt Count Lymph % (Auto) [place] % (Auto) [place] # Seg Neutrophils % Seg Neutrophils # Sodium Potassium Chloride Carbon Dioxide BUN Creatinine Glucose POC Glucose 174 H 203 H 251 H Calcium Alkaline Phosphatase Albumin Ur Specific [place] 11/04/19 11/04/19 11/05/19 16:53 21:30 08:15 WBC RBC Plt Count Lymph % (Auto) [place] % (Auto) [place] # Seg Neutrophils % Seg Neutrophils # Sodium Potassium Chloride Carbon Dioxide BUN Creatinine Glucose POC Glucose 259 H 218 H 185 H Calcium Alkaline Phosphatase Albumin Ur Specific [place] 11/05/19 11/05/19 11/05/19 11:18 11:18 13:11 WBC RBC 3.54 L Plt Count 463 H Lymph % (Auto) [place] % (Auto) [place] # Seg Neutrophils % Seg Neutrophils # Sodium Potassium 3.5 L Chloride Carbon Dioxide BUN Creatinine Glucose 356 H POC Glucose 270 H Calcium Alkaline Phosphatase Albumin Ur Specific [place] 11/05/19 11/05/19 11/06/19 16:34 21:31 08:25 WBC RBC Plt Count Lymph % (Auto) [place] % (Auto) [place] # Seg Neutrophils % Seg Neutrophils # Sodium Potassium Chloride Carbon Dioxide BUN Creatinine Glucose POC Glucose 211 H 176 H 147 H Calcium Alkaline Phosphatase Albumin Ur Specific [place] 11/06/19 11:51 WBC RBC Plt Count Lymph % (Auto) [place] % (Auto) [place] # Seg Neutrophils % Seg Neutrophils # Sodium Potassium Chloride Carbon Dioxide BUN Creatinine Glucose POC Glucose 146 H Calcium Alkaline Phosphatase Albumin Ur Specific [place] Allied health notes reviewed: nursing
--- NOTE | 2019-11-06 17:02 | Progress Note ---
Assessment and Plan /Pneumonia with right lung abscess Right middle lobe consolidation with Intrapulmonary lung abscess Continue antibiotics follow cultures ID following, no drainage for now Repeat CT chest with contrast showed improvement in signs of abscess - will follow ID recommendation about d/c abx planning Pulmonary following /Left forearm swelling and pain - possible cellulites vs hematoma vs abscess at the prior iv site - pt on abx, consulted surgery as pt remained symptomatic - s/p I and d 11/05/19, follow cx /-Sepsis; Presented with Leukocytosis 18.3, tachycardia, right middle lobe infiltrate/consolidation Continue empiric antibiotics follow cultures /-Hypertensive urgency on admission - 197/113 Now moderate control, continue current antihypertensives and PRN medications /Acute gastroenteritis; supportive care Antiemetics IV fluids, Protonix /Type II DM; Accu-Chek sliding scale, coverage ADA diet /-CHF; acute on chronic congestive heart failure systolic Heart failure medications, cardiology consult if needed EF 20 to 25% Now appears compensated, cont lasix /Rusty, likely vasomotor nephropathy, mild renal function stable, cont to monitor --DVT PPX; On Heparin Monitor closely and adjust management as needed Plan of care reviewed with the patient and her nurse Disposition; follow ID recommendations, follow wound cx report Brief History 49-year-old -[place] female with history of diabetes, hypertension, CHF, angioedema secondary to lisinopril, h/o intubation who presents to [facility] ED with complaints of nausea, vomiting diarrhea x2 days. Possible lung abscess /right lung cavitary lesion CT chest: Intrapulmonary lung abscess, right middle lobe pneumonia, on Zosyn. Hospitalist Physical General appearance: Present: mild distress, well-nourished, obese - EENT Eyes: Present: PERRL, EOM intact - Neck Neck: Present: supple, normal ROM - Respiratory Respiratory effort: normal Respiratory: bilateral: diminished, rhonchi, negative: rales, wheezing - Cardiovascular Rhythm: regular Heart Sounds: Present: S1 & S2 - Extremities Extremities: no ischemia, No edema Left forearm with wound dressing - Abdominal General gastrointestinal: soft, non-tender, non-distended, normal bowel sounds - Integumentary Integumentary: Present: clear, warm - Psychiatric Psychiatric: appropriate mood/affect, cooperative - Neurologic Neurologic: CNII-XII intact, moves all extremities Subjective Date of service: 11/06/19 Principal diagnosis: Sepsis; Leukocytosis; Pneumonia; Lung abscess; CHF; Morbid obesity Interval history: Patient seen and examined denies any chest pain, minimal SOB on exertion tolerating diet, left arm with dressing feels better Objective - Constitutional Vitals: Vital Signs - 12hr 11/06/19 11/06/19 11/06/19 06:07 12:09 16:29 Temperature 98.8 F 98.5 F 98.6 F Pulse Rate 79 66 72 Respiratory 18 16 20 Rate Blood Pressure 143/82 159/74 179/92 O2 Sat by Pulse 96 94 95 Oximetry - Labs CBC & Chem 7: 11/05/19 11:18 11/05/19 11:18 Labs: Abnormal lab results 11/05/19 11/05/19 11/06/19 Range/Units 16:34 21:31 08:25 POC Glucose 211 H 176 H 147 H (70-105) 11/06/19 11/06/19 Range/Units 11:51 16:38 POC Glucose 146 H 295 H (70-105)
[2019-11-07] MEDS: hydrALAZINE 20 MG/1 ML INJ IV PRN (01:49)
[2019-11-07] MEDS: PIPERACIL/TAZOBACTA 4.5/NS 100 4.5 GM/100 ML VIAL IV SCH ×2 (06:08→13:13)
[2019-11-07] MEDS: INSULIN LISPRO 100 UNIT/ML SUB-Q SCH ×3 (08:33→17:28)
[2019-11-07] MEDS: INSULIN NPH/REGULAR 70/30 INJ SUB-Q SCH ×2 (08:55→17:28)
[2019-11-07] MEDS: HEPARIN 5,000 UNIT/1 ML VIAL SUB-Q SCH (09:42)
[2019-11-07] MEDS: METOPROLOL TARTRATE 50 MG TAB PO SCH (09:42)
[2019-11-07] MEDS: POTASSIUM CHLORIDE ER 20 MEQ TAB PO SCH (09:42)
[2019-11-07] MEDS: FUROSEMIDE 20 MG TAB PO SCH (09:43)
--- NOTE | 2019-11-07 10:12 | Event Note ---
Date: 11/07/19 Pt chart reviewed. Prelim cx staph aureus. Discussed with Dr. Lazar and ID is on board. Upon discharge, the patient does not need to pack wound. Wound should we cleansed with soap and water and covered with bandaid. Pt should follow up in wound care clinic in 1 week for wound management and to ensure healing.
--- NOTE | 2019-11-07 12:13 | Progress Note ---
Assessment and Plan Patient alert, awake. She is currently on room air and not using 2 litres O2. O2 saturation 98%. Patient denies cough and shortness of breath. Patient afebrile and no leukocytosis. CT Chest 11/05/2019 Reported Improvement in the right middle lobe consolidation and lung abscess. Suggest continued follow-up. Patient is on Zosyn. If Patient is going home, then recommend pulmonology outpatient follow-up. - Patient Problems (1) Pneumonia Current Visit: Yes Status: Acute Plan to address problem: Patient is on Zosyn (2) Cardiomyopathy Current Visit: No Status: Acute Plan to address problem: Management as per cardiology (3) CHF (congestive heart failure) Current Visit: No Status: Acute Qualifiers: Heart failure type: systolic Heart failure chronicity: acute on chronic Qualified Code(s): I50.23 - Acute on chronic systolic (congestive) heart failure Plan to address problem: Management as per cardiology. (4) Acute abdominal pain Current Visit: Yes Status: Acute Plan to address problem: Management as per primary care and surgery. Subjective Date of service: 11/07/19 Principal diagnosis: Sepsis; Leukocytosis; Pneumonia; Lung abscess; CHF; Morbid obesity Interval history: Patient alert, awake. She is currently on room air and not using 2 litres O2. O2 saturation 98%. Patient denies cough and shortness of breath. Patient afebrile and no leukocytosis. CT Chest 11/05/2019 Reported Improvement in the right middle lobe consolidation and lung abscess. Suggest continued follow-up. Patient is on Zosyn. If Patient is going home, then recommend pulmonology outpatient follow-up. Objective Vital Signs - 12hr 11/07/19 11/07/19 11/07/19 01:44 02:59 06:17 Temperature 98.7 F Pulse Rate 83 83 79 Respiratory 18 18 20 Rate Blood Pressure 182/83 158/74 159/80 O2 Sat by Pulse 100 93 98 Oximetry 11/07/19 11/07/19 09:35 09:42 Temperature Pulse Rate 70 Respiratory Rate Blood Pressure 176/86 176/86 O2 Sat by Pulse Oximetry Constitutional: no acute distress, alert Eyes: non-icteric ENT: oropharynx moist, other (mallampati 3) Neck: supple, no JVD, other (+ large neck circumference) Effort: normal Ascultation: Right: rhonchi, Bilateral: diminished breath sounds Percussion: Bilateral: not dull Cardiovascular: regular rate and rhythm Gastrointestinal: normoactive bowel sounds, soft, non-tender, non-distended Integumentary: normal Extremities: no cyanosis, no edema Neurologic: normal mental status, non-focal exam, pupils equal and round, CN II- XII normal, motor strength normal and Psychiatric: mood appropriate, affect normal CBC and BMP: 11/05/19 11:18 11/05/19 11:18 Abnormal lab findings: Abnormal Labs 10/29/19 10/29/19 10/29/19 18:24 18:24 Unknown WBC 18.3 H RBC Plt Count Lymph % (Auto) 10.2 L [place] % (Auto) [place] # 1.0 H Seg Neutrophils % 83.8 H Seg Neutrophils # 15.3 H Sodium Potassium 3.5 L Chloride 97.7 L Carbon Dioxide BUN 21 H Creatinine Glucose 123 H POC Glucose Calcium Alkaline Phosphatase 196 H Albumin 2.7 L Ur Specific [place] 1.040 H 10/30/19 10/30/19 10/30/19 08:34 11:20 16:58 WBC RBC Plt Count Lymph % (Auto) [place] % (Auto) [place] # Seg Neutrophils % Seg Neutrophils # Sodium Potassium Chloride Carbon Dioxide BUN Creatinine Glucose POC Glucose 146 H 144 H 169 H Calcium Alkaline Phosphatase Albumin Ur Specific [place] 10/30/19 10/31/19 10/31/19 21:06 04:13 04:15 WBC 18.8 H RBC Plt Count Lymph % (Auto) [place] % (Auto) 8.2 H [place] # 1.5 H Seg Neutrophils % 77.3 H Seg Neutrophils # 14.5 H Sodium Potassium 2.9 L* Chloride 94.5 L Carbon Dioxide 32 H D BUN 22 H Creatinine 1.3 H Glucose 160 H POC Glucose 237 H Calcium Alkaline Phosphatase Albumin Ur Specific [place] 10/31/19 10/31/19 10/31/19 07:41 11:55 17:12 WBC RBC Plt Count Lymph % (Auto) [place] % (Auto) [place] # Seg Neutrophils % Seg Neutrophils # Sodium Potassium Chloride Carbon Dioxide BUN Creatinine Glucose POC Glucose 192 H 443 H 353 H Calcium Alkaline Phosphatase Albumin Ur Specific [place] 11/01/19 11/01/19 11/01/19 07:57 11:37 11:47 WBC RBC Plt Count Lymph % (Auto) [place] % (Auto) [place] # Seg Neutrophils % Seg Neutrophils # Sodium 136 L Potassium 3.3 L Chloride 96.1 L Carbon Dioxide BUN Creatinine Glucose 223 H POC Glucose 147 H 176 H Calcium Alkaline Phosphatase Albumin Ur Specific [place] 11/01/19 11/02/19 11/02/19 21:44 04:16 04:16 WBC 11.2 H RBC 3.52 L Plt Count Lymph % (Auto) [place] % (Auto) 11.1 H [place] # 1.2 H Seg Neutrophils % Seg Neutrophils # Sodium 136 L Potassium 3.2 L Chloride 94.5 L Carbon Dioxide BUN Creatinine Glucose 205 H POC Glucose 244 H Calcium 8.1 L Alkaline Phosphatase Albumin Ur Specific [place] 11/02/19 11/02/19 11/02/19 08:20 11:11 15:07 WBC RBC Plt Count Lymph % (Auto) [place] % (Auto) [place] # Seg Neutrophils % Seg Neutrophils # Sodium Potassium Chloride Carbon Dioxide BUN Creatinine Glucose POC Glucose 161 H 227 H 146 H Calcium Alkaline Phosphatase Albumin Ur Specific [place] 11/03/19 11/03/19 11/03/19 07:37 10:14 12:16 WBC RBC Plt Count Lymph % (Auto) [place] % (Auto) [place] # Seg Neutrophils % Seg Neutrophils # Sodium Potassium 3.4 L Chloride Carbon Dioxide BUN Creatinine Glucose 220 H POC Glucose 141 H 252 H Calcium Alkaline Phosphatase Albumin Ur Specific [place] 11/03/19 11/03/19 11/04/19 17:06 22:28 10:48 WBC RBC Plt Count Lymph % (Auto) [place] % (Auto) [place] # Seg Neutrophils % Seg Neutrophils # Sodium Potassium Chloride Carbon Dioxide BUN Creatinine Glucose POC Glucose 174 H 203 H 251 H Calcium Alkaline Phosphatase Albumin Ur Specific [place] 11/04/19 11/04/19 11/05/19 16:53 21:30 08:15 WBC RBC Plt Count Lymph % (Auto) [place] % (Auto) [place] # Seg Neutrophils % Seg Neutrophils # Sodium Potassium Chloride Carbon Dioxide BUN Creatinine Glucose POC Glucose 259 H 218 H 185 H Calcium Alkaline Phosphatase Albumin Ur Specific [place] 11/05/19 11/05/19 11/05/19 11:18 11:18 13:11 WBC RBC 3.54 L Plt Count 463 H Lymph % (Auto) [place] % (Auto) [place] # Seg Neutrophils % Seg Neutrophils # Sodium Potassium 3.5 L Chloride Carbon Dioxide BUN Creatinine Glucose 356 H POC Glucose 270 H Calcium Alkaline Phosphatase Albumin Ur Specific [place] 0111/05/19 11/06/19 16:34 21:31 08:25 WBC RBC Plt Count Lymph % (Auto) [place] % (Auto) [place] # Seg Neutrophils % Seg Neutrophils # Sodium Potassium Chloride Carbon Dioxide BUN Creatinine Glucose POC Glucose 211 H 176 H 147 H Calcium Alkaline Phosphatase Albumin Ur Specific [place] 11/06/19 11/06/19 11/06/19 11:51 16:38 22:06 WBC RBC Plt Count Lymph % (Auto) [place] % (Auto) [place] # Seg Neutrophils % Seg Neutrophils # Sodium Potassium Chloride Carbon Dioxide BUN Creatinine Glucose POC Glucose 146 H 295 H 229 H Calcium Alkaline Phosphatase Albumin Ur Specific [place] 11/07/19 07:46 WBC RBC Plt Count Lymph % (Auto) [place] % (Auto) [place] # Seg Neutrophils % Seg Neutrophils # Sodium Potassium Chloride Carbon Dioxide BUN Creatinine Glucose POC Glucose 138 H Calcium Alkaline Phosphatase Albumin Ur Specific [place] CT scan - chest: report reviewed (Reported improvement right middle lobe infiltrate and abscess.), image reviewed Additional Studies: CT Chest 11/05/2019 Reported Improvement in the right middle lobe consolidation and lung abscess. Suggest continued follow-up. Allied health notes reviewed: nursing
[2019-11-07 12:58] VITALS: BP 186/83
--- NOTE | 2019-11-07 13:11 | Progress Note ---
Assessment and Plan A&P 49-year-old female with a past medical history of type 2 diabetes, hypertension, CHF admitted with symptoms of gastroenteritis, found to have a pulmonary abscess. #Pulmonary abscess - found effectively incidentally, patient asymptomatic. Received IV Zosyn as inpatient, follow up CT with significant improvement. Patient denies any smoking, denies any dental issues. Did have vomiting prior to admission. #T2DM - tight glycemic control for best recovery. #Gastroenteritis - resolved #Left forearm abscess with MSSA: s/p I&D Recommendations: Ok for discharge on PO Augmentin 875 mg BID x 2 weeks with ID and pulmonary clinic follow up wound care to left forearm d/w Dr. Lazar. Leilani Beal MD, FACP [facility] C: [phone] O: [phone] F: [phone] Subjective Date of service: 11/07/19 Principal diagnosis: Sepsis; Leukocytosis; Pneumonia; Lung abscess; CHF; Morbid obesity Interval history: No fever. Had left forearm I&D by Gen surgery for an abscess, growing MSSA. Repeat CT with interval improvement in size of lung abscess. Wants to go home. Objective - Exam Narrative Exam: Physical Exam: Constitutional: Alert, cooperative. No acute distress Head, Ears, Nose: Normocephalic, atraumatic. External ears, nose normal Eyes: Conjunctivae/corneas clear. No icterus. No ptosis. Neck: Supple, no meningeal signs Cardiovascular: S1, S2 normal. Respiratory: Good air entry, clear to auscultation bilaterally GI: Soft, non-tender; bowel sounds normal. No peritoneal signs Musculoskeletal: No pedal edema, no cyanosis. Left forearm with dressing Skin: No rash or abscess Hem/Lymphatic: No palpable cervical or supraclavicular nodes. No lymphangitis Psych: Mood ok. Affect normal Neurological: Awake, alert, oriented. No gross abnormality - Constitutional Vitals: Vital Signs Temp Pulse Resp BP Pulse Ox 97.6 F 68 22 186/83 98 11/07/19 11:42 11/07/19 11:42 11/07/19 11:42 11/07/19 11:42 11/07/19 11:42 Temperature -Last 24 Hours Temperature 97.6 F Temperature 98.7 F Temperature 99.3 F Temperature 98.6 F - Labs CBC & Chem 7: 11/05/19 11:18 11/05/19 11:18 Labs: Abnormal lab results 11/06/19 11/06/19 11/07/19 Range/Units 16:38 22:06 07:46 POC Glucose 295 H 229 H 138 H (70-105) 11/07/19 Range/Units 11:54 POC Glucose 190 H (70-105)
--- NOTE | 2019-11-07 13:39 | Discharge Summary ---
Providers - Providers Date of Admission: 10/30/19 01:46 Date of discharge: 11/07/19 Attending physician: JERARDO SHERWOOD 10/30/19 01:10 Consult to Physician [CONS] Urgent Comment: Dr. Dent spoke with Dr. Schaefer @ 0105 Consulting Provider: KRZYSZTOF SCHAEFER Physician Instructions: Reason For Exam: lung consolidation, possible pulmonary abscess 10/30/19 01:49 Consult to Interventional Radiology [CONS] Routine Consulting Provider: SHAHIDA DAVID Reason For Exam: Pulmonar consolidation with intrapulmonary abscess Place consult to:: DR. DAVID Notified:: OFFICE Phone number called:: [phone] Was contact made?: Yes If yes, spoke with:: HERBERT Time called:: 11:18 Comment:: BRIELLE SPOKE WITH DR. DAVID 10/30/19 06:58 Consult to Wound/ET Nurse [CONS] Routine Reason For Exam: wound eval 10/31/19 20:34 Consult to Physician [CONS] Routine Comment: Consulting Provider: LOUIE NAIK Physician Instructions: Reason For Exam: Rt mid lobe intrapulmonary abscess 11/05/19 10:56 Consult to Physician [CONS] Routine Comment: Consulting Provider: HILARIO RAZO Physician Instructions: Reason For Exam: left forearm abscess Primary care physician: [employer] Hospitalization Condition: Fair Pertinent studies: Chest CT Abdomen/pelvis CT CXR Hospital course: 49-year-old -[place] female with history of diabetes, hypertension, CHF, angioedema secondary to lisinopril, h/o intubation who presents to [facility] with complaints of nausea, vomiting diarrhea x2 days. Possible lung abscess /right lung cavitary lesion CT chest: Intrapulmonary lung abscess, right middle lobe pneumonia, Placed on Zosyn. repeat CT chest 11/05 showed improved sign of abscess. Interim she also developed left arm abscess for which GS consulted - s/p I and D, Cx grew MSSA. patient was then discharged home with oral abx with outpt f/u in stable condition. Discharge diagnosis and Mx: /Pneumonia with right lung abscess Right middle lobe consolidation with Intrapulmonary lung abscess Repeat CT chest with contrast showed improvement in signs of abscess - s/p iv zosyn, d/c with augmentin for 2 more weeks /Left forearm swelling and pain - possible cellulites with abscess at the prior iv site - consulted surgery as pt remained symptomatic - s/p I and d 11/05/19, cx grew MSSA /-Sepsis; resolved Presented with Leukocytosis 18.3, tachycardia, right middle lobe infiltrate/consolidation /-Hypertensive urgency on admission - 197/113 Now moderate control, continue current antihypertensives /Acute gastroenteritis; supportive care - resolved Antiemetics IV fluids, Protonix /Type II DM; Accu-Chek sliding scale AND LONG ACTING INSULIN coverage ADA diet /-CHF; acute on chronic congestive heart failure systolic EF 20 to 25%, Now appears compensated, cont lasix and cardiac medications /Rusty, likely vasomotor nephropathy, mild - resolved renal function stable, --DVT PPX; On Heparin Disposition; home with outpt f/u Hospitalist Physical General appearance: Present: mild distress, well-nourished, obese - EENT Eyes: Present: PERRL, EOM intact - Neck Neck: Present: supple, normal ROM - Respiratory Respiratory effort: normal Respiratory: bilateral: diminished, rhonchi, negative: rales, wheezing - Cardiovascular Rhythm: regular Heart Sounds: Present: S1 & S2 - Extremities Extremities: no ischemia, No edema Left forearm with wound dressing - Abdominal General gastrointestinal: soft, non-tender, non-distended, normal bowel sounds - Integumentary Integumentary: Present: clear, warm - Psychiatric Psychiatric: appropriate mood/affect, cooperative - Neurologic Neurologic: CNII-XII intact, moves all extremities Disposition: DC-30 STILL A PATIENT Time spent for discharge: 34 minutes Core Measure Documentation - Palliative Care Palliative Care/ Comfort Measures: Not Applicable - Core Measures Any of the following diagnoses?: none Exam - Constitutional Vitals: Temp Pulse Resp BP Pulse Ox 97.6 F 68 22 186/83 98 11/07/19 11:42 11/07/19 11:42 11/07/19 11:42 11/07/19 11:42 11/07/19 11:42 Plan Activity: advance as tolerated Weight Bearing Status: Weight Bear as Tolerated Diet: low fat, low salt, diabetic Wound: per your surgeon's advice Special Instructions: restrict fluid intake to (1.2 L PER DAY), record blood sugar diary Follow up with: PRIMARY MD DESIREE [Primary Care Provider] - 3-5 Days SHIRA PASTRANA MD [Staff Physician] - 7 Days HILARIO RAZO DO [Staff Physician] - 7 Days HERO CARDENAS MD [Staff Physician] - 7 Days Prescriptions: Amoxicillin/Potassium Clav [Augmentin 875-125 Tablet] 1 each PO BID #28 tablet Potassium Chloride [K-Dur] 10 meq PO QDAY #10 tablet Insulin NPH/Regular [NovoLIN 70/30] 20 unit SUB-Q BIDDIAB #10 ml
[2019-11-07] MEDS ORDERED: INSULIN LISPRO 100 UNIT/ML SUB-Q STA (17:14)
== END 2019-11-07 19:19 | disposition home or self-care (01) | DRG 853 ==
LOC: ED 16:54 → 3A 10-30 01:46
PROVIDERS: ADMIT Internal Medicine; ATTEND Internal Medicine
PROC: 0J9F0ZZ Drainage of Left Upper Arm Subcutaneous Tissue and Fascia, Open Approach (ICD-10-PCS; principal; 2019-11-05)
DX: A41.9 Sepsis, unspecified organism (principal); J85.1 Abscess of lung with pneumonia; I50.23 Acute on chronic systolic (congestive) heart failure; I42.9 Cardiomyopathy, unspecified; N17.9 Acute kidney failure, unspecified; L02.413 Cutaneous abscess of right upper limb; L03.113 Cellulitis of right upper limb; I11.0 Hypertensive heart disease with heart failure; E11.9 Type 2 diabetes mellitus without complications; K52.9 Noninfective gastroenteritis and colitis, unspecified; I16.0 Hypertensive urgency; F17.210 Nicotine dependence, cigarettes, uncomplicated; Z71.6 Tobacco abuse counseling; Z79.84 Long term (current) use of oral hypoglycemic drugs; Z88.6 Allergy status to analgesic agent
CPT/HCPCS: 36415; 71045; 71260; 74177; 80048; 80053; 81001; 82962; 83690; 85025; 85027; 87040; 87076; 87116; 87186; 96374; 99406; G0378; J0360; J1644; J1815; J2270; J2405; J2543; J3010; Q9967